=== PATIENT | male | born 1970 | race Caucasian/White ===

== ENCOUNTER → 2017-09-03 13:56 | Outpatient (CLI) | payer OTHER, SELFPAY ==
--- NOTE | 2017-09-03 15:27 | NEURO ---
NCS and/or EMG Patient Report Ordering Doctor: Poonam Houston DATE OF SERVICE: 09/03/17 Alfred Jeronimo is a 47-year-old male who presents for electrodiagnostic testing of the upper limbs. He has chief complaint of numbness and tingling around the elbows. Electrodiagnostic findings: Median motor nerve demonstrates normal distal latency, amplitude and conduction velocity bilaterally. Normal ulnar motor response bilaterally. Normal median and ulnar F waves. Prolonged right median sensory distal latency is noted along with palmar latency on the right side. On needle EMG, all muscles tested in the upper limbs show no evidence of denervation with normal motor unit action potentials. Electrodiagnostic assessment: This is an abnormal study in the upper limbs. 1. Findings demonstrate right-sided median mononeuropathy. This is consistent with a mild right carpal tunnel syndrome. This, however, does not adequately explain the numbness he notes around the elbows. 2. No electrodiagnostic evidence is noted for ulnar neuropathy, including cubital tunnel syndrome. 3. No electrodiagnostic evidence is noted for cervical radiculopathy. If there are any further questions, please do not hesitate to contact me.
== END ==
PROVIDERS: Family Provider Family Medicine; PCP Family Medicine; Visit Provider Nurse Practitioner Family
DX: M54.12 Radiculopathy, cervical region (principal)
CPT/HCPCS: 95886; 95912

== ENCOUNTER → 2017-10-02 10:59 | Outpatient (CLI) | payer OTHER, SELFPAY ==
--- NOTE | 2017-10-02 11:04 | RAD_ITS ---
STUDY: X-RAY - LEFT ELBOW REASON FOR EXAM: Male, 47 years old. Left elbow pain TECHNIQUE: 3 view(s) of the elbow. COMPARISON: None. FINDINGS: Normal visualized humerus, radius and ulna. Normal radiocapitellar and ulnotrochlear articulations. There is a small crescentic calcification adjacent to the medial humeral epicondyle which may represent evidence of medial epicondylitis. There is no demonstrated fracture. RAD/Elbow min 3 Views IMPRESSION: Small crescentic calcification adjacent to the medial humeral epicondyle which may represent evidence of medial epicondylitis. There is no evidence of fracture or dislocation. Electronically Signed: Candelario Kulkarni MD at 21:54 EDT , Service support ,
== END ==
LOC: MTRAD 11:02
PROVIDERS: Visit Provider Nurse Practitioner Family
DX: M25.522 Pain in left elbow (principal)
CPT/HCPCS: 73080

== ENCOUNTER 2019-02-22 15:44 | Observation (INO) | payer OTHER, SELFPAY ==
[2019-02-22] VITALS (7 sets, daily range): BP systolic 127–159; BP diastolic 84–106; PULSE 63–102; RESP 16–26; TEMP 36.7–36.8; O2SAT 95–97; BMI 39.2; BMI 39.4
--- NOTE | 2019-02-22 16:00 | EKG12_ITS ---
Test Reason : CHEST PAIN Blood Pressure : / mmHG Vent. Rate : 064 BPM Atrial Rate : 064 BPM P-R Int : 154 ms QRS Dur : 096 ms QT Int : 390 ms P-R-T Axes : 041 013 040 degrees QTc Int : 402 ms Normal sinus rhythm Normal ECG Confirmed by MEGGAN JOHNSON, JESSICA ([id number]), tape editor JOSIAH PRASAD ([id number]) on 02/24/2019 2:13:00 PM Referred By: ROBSON Confirmed By:JESSICA BRODERICK MD
--- NOTE | 2019-02-22 16:07 | RAD_ITS ---
STUDY: X-RAY CHEST REASON FOR EXAM: Male, 48 years old. Chest pain TECHNIQUE: Frontal view of the chest COMPARISON: None. FINDINGS: The lungs are clear. There are no pleural effusions. There is no pneumothorax. The heart is normal in size. The visualized osseous structures are within normal limits. RAD/Chest 1 View (Portable) IMPRESSION: No acute thoracic pathology. Electronically Signed: Nathanael Leroy, at 16:21 EDT Tel , Service support ,
[2019-02-22] MEDS: Morphine 4 MG/ML Syringe IV (16:14)
[2019-02-22] MEDS: Ondansetron 4 MG/2 ML Vial IV (16:14)
--- NOTE | 2019-02-22 16:17 | ED.VISSUMM ---
- ER Visit Summary Date of Service: 02/22/19 Chief Complaint: Chest pain History of Present Illness: The patient is a 48 M presenting with chest pain. Patient states this started 1 hour prior to arrival. He complains of midsternal chest pain which radiates to his left arm. He has associated diaphoresis, lightheadedness, and shortness of breath. He has never had these symptoms in the past. Currently pain is 1 out of 10. At worst it was 8 out of 10. He has history of hypertension, diet-controlled diabetes. Family history of his grandfather having [place] at age 40. He is a previous smoker. Denies other complaints. Physical Examination: Vitals are stable. Patient is afebrile. Alert no acute distress. HEENT exam is unremarkable. Neck is supple. Lungs are clear and equal bilaterally. Heart is regular rate and rhythm. Abdomen is soft nontender nondistended. Extremities are unremarkable. Skin is warm and dry. No focal neurologic deficit. Remainder of exam is unremarkable. Emergency Department Course and Treatment: Patient was given aspirin on arrival. EKG is sinus rhythm rate of 89 with no acute ischemic changes. He was given morphine, Zofran IV. CBC, chemistries unremarkable other than glucose 160, BUN 26. Troponin is negative. D-dimer negative. Chest x-ray shows no acute process. Patient is pain-free on reevaluation. Discussed with the hospitalist for observation. Disposition: Observation Impression: Chest pain This note was generated with [employer] dictation software. It may contain incorrect words, spelling, and punctuation that were not noted in review of the chart prior to signing ED Disposition - Plan for ED Patient: Referrals: Yuli Rosas [Primary Care Provider] -
[2019-02-22 16:28] LABS: Absolute Lymphocyte Count 2.28 X10^3/uL (0.83-4.51); Absolute Neutrophil Count 6.7 X10^3/uL (2.0-7.7); Basophil# 0.03 X10^3/uL; Basophil% 0.3 % (0-1); Eosinophil# 0.21 X10^3/uL; Eosinophils% 2.1 % (0-5); Hematocrit 42.7 % (40-54); Hemoglobin 14.2 g/dL (13.0-16.5); Lymphocyte # 2.28 X10^3/ul (4.0); Lymphocyte % 22.7 % (19-41); Mean Corp Hgb Conc 33.3 g/dL (32-36); Mean Corpuscular Hgb 29.3 pg (27.0-32.0); Mean Platelet Vol. 10.2 fl (6.2-12.0); Monocyte# 0.81 X10^3/uL; Monocyte% 8.1 % (0-10); NRBC Flagged by Analyzer 0 % (0-5); Neutrophil % 66.5 % (47-70); Platelet Count 262 K/mm3 (150-450); RBC Distribution Width CV 13.3 % (11.6-14.6); RBC Distribution Width SD 42.9 fl (35.1-43.9); Red Blood Count 4.85 M/mm3 (4.6-6.2); White Blood Count 10.1 K/mm3 (4.4-11.0)
[2019-02-22 16:37] LABS: D-Dimer Quantitative (DVT/PE) < 0.27 FEU/ug/m (0.27-0.49)
[2019-02-22 16:40] LABS: Anion Gap 5 (5-15); BUN 26 mg/dL (7-18); Calcium,Total 9.2 mg/dL (8.5-10.1); Chloride 109 mmol/L (98-107); EST Glomerular Filtration Rate 62 mL/min (>60); Est Glom Filt Rate - Afr Amer 75 mL/min (>60); Estimated Creatinine Clearance 70.19 ml/min; Glucose 160 mg/dL (74-106); Potassium 3.8 mmol/L (3.5-5.1); Sodium Level 140 mmol/L (136-145)
--- NOTE | 2019-02-22 17:05 | PCM.HP.STD ---
Problem List (1) HTN (hypertension) Status: Chronic (2) Prediabetes Status: Chronic (3) Obesity Status: Chronic (4) History of tobacco use Status: Resolved (5) Cystic acne Status: Chronic Comment: History of MRSA History of Present Illness Date of Admission: 02/22/19 Chief Complaint: Chest pain. The patient is a 48 year old M who presents to the emergency room due to chest pain. 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 He states it felt like someone was squeezing his chest and he also developed shortness of breath, diaphoresis and lightheadedness. His reports chest pain 8/10 at that time. His symptoms persisted until he received nitro in the emergency squad which decreased his pain. He reports pain radiated down left arm. During evaluation in ER, his pain began to come back and he reports 6/10 pain. He is a former smoker and quit over a year ago. He reports his grandfather had a heart attack at age 40 and his father passed from heart disease in his 60s. He has never had a stress test or other cardiac work-up. He states he is prediabetic although he has never had a hemoglobin A1c and his glucose has been routinely elevated during employee physical lab work. His other past medical history includes hypertension, cystic acne with history of MRSA and alcohol use. He reports he currently drinks 3 beers per day during the week, more heavily on the weekend. Past Medical History Past Medical History (Chronic Problems): Chronic Problems HTN (hypertension) (Chronic) Prediabetes (Chronic) Obesity (Chronic) Cystic acne (Chronic) History of MRSA Allergies No Known Allergies Allergy (Verified 02/22/19 15:44) Home Medications: Ambulatory Orders Medication Instructions Recorded Acetaminophen [Tylenol Extra 1,000 mg PO DAILY 02/22/19 Strength] Diphenhydramine HCl [Benadryl 25 mg PO QHS 02/22/19 Allergy] Losartan Potassium [Cozaar] 100 mg PO DAILY 02/22/19 Surgical History: - - Back surgery x2, cyst removal, tonsillectomy. Psychiatric History: No pertinent psych hx Lives: Spouse/ Significant Other Smoking Status: Former smoker Alcohol: Heavy Drugs: None - *Family History Maternal History Items: Diabetes, Hypertension Paternal History Items: Diabetes, - - from [place] in 60s Review of Systems Constitutional: Denies: Chills, Fever, Weight Change HEENT: Denies: Head Aches, Sinus Congestion, Sinus Drainage Cardiovascular: Reports: Chest Pain, Light Headedness. Denies: Edema, Palpitations, Syncope Respiratory: Reports: Shortness of Breath - Associated with chest pain. Denies: Cough, Shortness of breath at rest, Sputum production Gastrointestinal: Denies: Abdominal Pain, Nausea, Vomiting Genitourinary: Denies: Dysuria Musculoskeletal: Denies: Joint Pain, Joint Tenderness Skin: Denies: Rash, Wounds Neurological: Denies: Numbness, Tingling, Focal weakness Psychiatric: Denies: Anxiety, Depression, Homicidal Ideations, Suicidal Ideations Hematologic/ Lymphatic: Denies: Easy Bruising, Easy Bleeding VTE Information - Inpt Only VTE Present on Admission: No VTE Mechan Device Prophylaxis: None VTE Pharm Prophylaxis ordered?: Yes - Physical Exam General: Alert, Oriented x3, Cooperative, - - Appears anxious, uncomfortable HEENT: Atraumatic, PERRLA, EOMI, Normocephalic Neck: Supple, No JVD, Negative Carotid Bruits Lungs: Clear to auscultation, Normal air movement Cardiovascular: Regular rate, Regular Rhythm, Normal S1, Normal S2, No murmurs Abdomen: Bowel Sounds Present, Soft, Non Tender, Non-Distended, Obese Extremities: No clubbing, No cyanosis, No edema, Capillary Refill Less than 3 Seconds Skin: No rashes, No breakdown Musculoskeletal: No Tenderness to Palpation of Joints or Extremities Neurological: Cranial nerves II-XII grossly intact, Neuro grossly intact Psych/Mental Status: Anxious Vital Signs Temp Pulse Resp BP Pulse Ox 98.3 F 76 16 143/106 H 97 02/22/19 15:45 02/22/19 16:44 02/22/19 16:44 02/22/19 16:44 02/22/19 16:44 Oxygen Flow Rate (L/min) 2 Oxygen Delivery Method Nasal Cannula Weight: 272 lb 14.916 oz Body Mass Index (BMI) 39.2 Laboratory Tests Past 24 Hrs 02/22/19 02/22/19 02/22/19 15:48 15:48 15:48 WBC 10.1 RBC 4.85 Hgb 14.2 Hct 42.7 MCV 88.0 MCH 29.3 MCHC 33.3 RDW Std Deviation 42.9 RDW Coeff of Pedro 13.3 Plt Count 262 MPV 10.2 Immature Gran % (Auto) 0.300 Neut % (Auto) 66.5 Lymph % (Auto) 22.7 [place] % (Auto) 8.1 Eos % (Auto) 2.1 Baso % (Auto) 0.3 Absolute Neuts (auto) 6.7 Absolute Lymphs (auto) 2.28 Nucleated RBC % 0 D-Dimer Quant (PE/DVT) < 0.27 L Sodium 140 Potassium 3.8 Chloride 109 H Carbon Dioxide 26.0 Anion Gap 5 BUN 26 H Creatinine 1.30 Estim Creat Clear Calc 70.19 Est GFR (MDRD) Af Amer 75 Est GFR (MDRD) Non-Af 62 BUN/Creatinine Ratio 20.0 Glucose 160 H Calcium 9.2 Troponin I < 0.015 Assessment/Plan All Active Problems History of tobacco use (Resolved) 1. Unstable angina-initial troponin negative. EKG without ST-T changes. Trend enzymes. PRN nitro. Consult cardiology. Plan for cardiac catheterization tomorrow. 2. Hypertension-continue home losartan regimen. PRN hydralazine for systolic blood pressure greater than 160. 3. Prediabetic? Glucose elevated admission. Check hemoglobin A1C. 4. Alcohol use-patient reports 3 drinks per day during the week, more on weekends. CIWA. 5. Cystic acne with history of MRSA 6. Former tobacco use-quit over a year ago. Encouraged continued cessation. 7. Obesity-encouraged diet lifestyle modifications. Nutrition consult. DVT prophylaxis- Lovenox sc This patient was seen by HANNY Sweeney under the supervision of Dr. Bansal.
--- NOTE | 2019-02-22 17:15 | EKG12_ITS ---
Test Reason : CP Blood Pressure : / mmHG Vent. Rate : 089 BPM Atrial Rate : 089 BPM P-R Int : 158 ms QRS Dur : 096 ms QT Int : 356 ms P-R-T Axes : 039 -01 052 degrees QTc Int : 433 ms Poor data quality, interpretation may be adversely affected Normal sinus rhythm Normal ECG Low Voltage QRS (Limb Leads) Confirmed by MEGGAN JOHNSON, JESSICA ([id number]), copy editor JOSIAH PRASAD ([id number]) on 02/24/2019 2:13:35 PM Referred By: JORDANA Confirmed By:JESSICA BRODERICK MD
[2019-02-22] MEDS: Clopidogrel Bisulfate 300 MG Tablet PO (17:41)
--- NOTE | 2019-02-22 17:41 | CON.PCM_ITS ---
Reason for Consult Date of Consultation: 02/22/19 Reason for Consultation: Chest pain History of Present Illness: The patient is a 48 year old M who presents to the emergency room due to chest pain. 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 He states it felt like someone was squeezing his chest and he also developed shortness of breath, diaphoresis and lightheadedness. His reports chest pain 8/10 at that time. His symptoms persisted until he received nitro in the emergency squad which decreased his pain. He reports pain radiated down left arm. During evaluation in ER, his pain began to come back and he reports 6/10 pain. Repeat EKG did not demonstrate any significant changes. He is a former smoker and quit over a year ago. He reports his grandfather had a heart attack at age 40 and his father passed from heart disease in his 60s. He has never had a stress test or other cardiac work-up. He states he is prediabetic although he has never had a hemoglobin A1c and his glucose has been routinely elevated during employee physical lab work. His other past medical history includes hypertension, cystic acne with history of MRSA and alcohol use. He reports he currently drinks 3 beers per day during the week, more heavily on the weekend. Cardiology was called to see him due to his risk factors and his chest pain corrected. He was seen in the emergency room and his EKG evaluated. Past Medical History Allergies/Adverse Reactions: Allergies No Known Allergies Allergy (Verified 02/22/19 15:44) Home Medications: Ambulatory Orders Medication Instructions Recorded Acetaminophen [Tylenol Extra 1,000 mg PO DAILY 02/22/19 Strength] Diphenhydramine HCl [Benadryl 25 mg PO QHS 02/22/19 Allergy] Losartan Potassium [Cozaar] 100 mg PO DAILY 02/22/19 Past Medical History (Chronic Problems): Chronic Problems HTN (hypertension) (Chronic) Prediabetes (Chronic) Obesity (Chronic) Cystic acne (Chronic) History of MRSA Lives: Spouse/ Significant Other Smoking Status: Never smoker Alcohol: Heavy Drugs: None Review of Systems - Review of Systems General: Denies: Fever, Night Sweats, Fatigue HEENT: Denies: Vision Change Cardiovascular: Reports: Chest Discomfort, Chest Discomfort at Rest, Chest Discomfort with Exertion. Denies: Shortness of Breath, Orthopnea, PND, Peripheral Edema, Palpitations, Lightheadedness, Dizziness, Near Syncope, Syncope Respiratory: Denies: Cough, Sputum Production, Hemoptysis Gastrointestinal: Denies: Hematemesis, Hematochezia, Melena Genitourinary: Denies: Dysuria, Hematuria Muscoloskeletal: Denies: Myalgias Skin: Denies: Rash Neurological: Denies: Dizziness Psychiatric: Denies: Anxiety Endocrine: Denies: Heat Intolerance Hematologic/ Lymphatic: Denies: Lymph Node Enlargement Subjectve: Pleasant anxious gentleman in no distress Objective: Vital Signs Temp Pulse Resp BP Pulse Ox 98.3 F 76 16 143/106 H 97 02/22/19 15:45 02/22/19 16:44 02/22/19 16:44 02/22/19 16:44 02/22/19 16:44 Oxygen Flow Rate (L/min) 2 Oxygen Delivery Method Nasal Cannula Weight: 272 lb 14.916 oz Body Mass Index (BMI) 39.2 General: Awake, Alert, Oriented x 3 HEENT: PERRL, EOMI, Sclera Non Icteric Neck: Supple, Good ROM, No Lymph Node Enlargement Lungs: Clear to auscultation Cardiovascular: Regular Rhythm, Normal S1, Normal S2, No Murmurs, No Rubs, No Gallops Vascular: No Carotid Bruits, Normal Femoral Pulses, Normal Radial Pulses, Normal Dorsalis Pedal Pulse, Normal Posterior Tibial Pulses Abdomen: Bowel Sounds Present, Soft, Non Tender, No HSM, No Organomegaly Extremities: No Cyanosis, No Clubbing, No edema Musculoskeletal: No Erythema Skin: No Rashes Lymphatic: No Lymph Node Enlargement Neurological: No Focal Motor or Sensory Deficit Psych/Mental Status: Appropriate 02/22/19 15:48: WBC 10.1, RBC 4.85, Hgb 14.2, Hct 42.7, MCV 88.0, MCH 29.3, MCHC 33.3, Plt Count 262, MPV 10.2, Immature Gran % (Auto) 0.300, Neut % (Auto) 66.5, Lymph % (Auto) 22.7, [place] % (Auto) 8.1, Eos % (Auto) 2.1, Baso % (Auto) 0.3, Absolute Neuts (auto) 6.7, Nucleated RBC % 0 02/22/19 15:48: Sodium 140, Potassium 3.8, Chloride 109 H, Carbon Dioxide 26.0, Anion Gap 5, BUN 26 H, Creatinine 1.30, Est GFR (MDRD) Af Amer 75, Est GFR (MDRD) Non-Af 62, BUN/Creatinine Ratio 20.0, Glucose 160 H, Calcium 9.2, Troponin I < 0.015 02/22/19 15:48: D-Dimer Quant (PE/DVT) < 0.27 L Rhythm: EKG: Normal sinus rhythm with no acute changes Assessment/Plan 1. Chest pain. Patient presents with chest pain with some atypical features. My recommendation at this time will be for him to be placed into the hospital and treated with aspirin and clopidogrel and cardiac enzymes obtained. He does have a very strong family history and with his risk factor profile and drug profile it may be prudent to proceed with a cardiac catheterization rather than stress testing. He also appears to have a strong anxiety component. This may cloud interpretation of any subjective complaints. The risk benefits alternatives have been explained to him he understands and agrees to proceed this was in the presence of his . Depending on the findings further recommendations will be made. Thank you for allowing me to participate in the care of your patient. Please don't hesitate to call if any issues arise
[2019-02-22] MEDS: Enoxaparin 120 MG/0.8 ML Syringe SC (18:15)
[2019-02-22 18:29] LABS: Phosphorus 2.8 mg/dL (2.5-4.9)
[2019-02-22 18:35] LABS: Hemoglobin A1c 6.7 % (4.2-6.3)
[2019-02-22] MEDS: Atorvastatin Calcium 40 MG Tablet PO (22:41)
[2019-02-23] VITALS (11 sets, daily range): BP systolic 111–134; BP diastolic 48–97; PULSE 58–69; RESP 16–18; TEMP 36.6–36.7; O2SAT 95–97
--- NOTE | 2019-02-23 05:55 | EKG12_ITS ---
Test Reason : AM EKG Blood Pressure : / mmHG Vent. Rate : 065 BPM Atrial Rate : 065 BPM P-R Int : 160 ms QRS Dur : 100 ms QT Int : 416 ms P-R-T Axes : 056 044 044 degrees QTc Int : 432 ms Normal sinus rhythm with sinus arrhythmia Normal ECG Confirmed by MEGGAN JOHNSON, JESSICA ([id number]), desk editor JOSIAH PRASAD ([id number]) on 02/24/2019 2:23:15 PM Referred By: DR FLEMING Confirmed By:JESSICA BRODERICK MD
[2019-02-23 06:10] LABS: Cholesterol 179 mg/dL (200); High Density Lipoprotein 38 mg/dL; Triglycerides 200 mg/dL; Very Low Density Lipoprotein 40 mg/dL (5-40)
[2019-02-23] MEDS: Clopidogrel Bisulfate 75 MG Tablet PO (06:21)
[2019-02-23] MEDS: Losartan Potassium 100 MG Tablet PO (06:21)
[2019-02-23] MEDS: 0.9% Normal Saline 1,000 ML 15 ML IV (06:21)
[2019-02-23] MEDS: Aspirin E.C. 81 MG Tablet PO (06:21)
--- NOTE | 2019-02-23 07:46 | NURSING ---
report given to jovanny albright in microbiology lab analyst
--- NOTE | 2019-02-23 08:49 | PCM.PN.CARD ---
Subjectve: Seen and evaluated. Objective: Vital Signs Temp Pulse Resp BP Pulse Ox 97.8 F 69 18 134/89 H 95 02/23/19 06:10 02/23/19 06:10 02/23/19 06:10 02/23/19 06:10 02/23/19 06:10 Oxygen Flow Rate (L/min) 2 Oxygen Delivery Method Room Air Weight: 274 lb 14.663 oz Body Mass Index (BMI) 39.4 Intake and Output for Last 24 Hours 02/21/19 02/22/19 02/23/19 23:59 23:59 23:59 Intake Total 120 / 120 240 / 240 Balance 120 / 120 240 / 240 General: Awake, Alert, Oriented x 3 HEENT: PERRL, EOMI, Sclera Non Icteric Neck: Supple, Good ROM, No Lymph Node Enlargement Lungs: Clear to auscultation Cardiovascular: Regular Rhythm, Normal S1, Normal S2, No Murmurs, No Rubs, No Gallops Vascular: No Carotid Bruits, Normal Femoral Pulses, Normal Radial Pulses, Normal Dorsalis Pedal Pulse, Normal Posterior Tibial Pulses Abdomen: Bowel Sounds Present, Soft, Non Tender, No HSM, No Organomegaly Extremities: No Cyanosis, No Clubbing, No edema Musculoskeletal: No Erythema Skin: No Rashes Lymphatic: No Lymph Node Enlargement Neurological: No Focal Motor or Sensory Deficit Psych/Mental Status: Appropriate 02/22/19 15:48: WBC 10.1, RBC 4.85, Hgb 14.2, Hct 42.7, MCV 88.0, MCH 29.3, MCHC 33.3, Plt Count 262, MPV 10.2, Immature Gran % (Auto) 0.300, Neut % (Auto) 66.5, Lymph % (Auto) 22.7, [place] % (Auto) 8.1, Eos % (Auto) 2.1, Baso % (Auto) 0.3, Absolute Neuts (auto) 6.7, Nucleated RBC % 0 02/22/19 15:48: Sodium 140, Potassium 3.8, Chloride 109 H, Carbon Dioxide 26.0, Anion Gap 5, BUN 26 H, Creatinine 1.30, Est GFR (MDRD) Af Amer 75, Est GFR (MDRD) Non-Af 62, BUN/Creatinine Ratio 20.0, Glucose 160 H, Calcium 9.2, Troponin I < 0.015 02/22/19 15:48: D-Dimer Quant (PE/DVT) < 0.27 L 02/22/19 15:48: Hemoglobin A1c 6.7 H 02/22/19 15:48: Phosphorus 2.8 02/22/19 18:55: Troponin I < 0.015 02/22/19 22:00: Troponin I < 0.015 02/23/19 05:30: Triglycerides 200 H, Cholesterol 179, LDL Cholesterol 101, VLDL Cholesterol 40, HDL Cholesterol 38 L Rhythm: EKG: ECHO: Stress Test: Cardiac Cath: PCI: CT Surgery: Holter monitor: EPS: PPM: CXR: Chest CT Scan: Medical Necessity - Tobacco Use Smoking Status: Former smoker Tobacco Use: Cigarettes Assessment/Plan 1. Chest pain. Patient presents with chest pain with some atypical features. He underwent cardiac catheterization today which demonstrated essentially normal coronary arteries with preserved ejection fraction. Based on the above I would recommend medical therapy for his hypertension as well as a search for alternative causes. He can be discharged and followed up as an outpatient with his primary care physician. Thank you for allowing me to participate in the care of your patient. Please don't hesitate to call if any issues arise
--- NOTE | 2019-02-23 09:03 | CASEMGMT ---
Case Management Progress Note: According to patient Insurance [employer], In [facility] hospitals: [facility], [place], , [facility], [facility], [facility]. Deandre Machado RNCM
--- NOTE | 2019-02-23 11:02 | PCM.DC ---
- Discharge Diagnoses Current Active Problems: Current Active and Chronic Problems HTN (hypertension) (Chronic) Type 2 diabetes mellitus Obesity (Chronic) Cystic acne (Chronic) History of MRSA You will use the following diet at home:: Calorie/Carbohydrate Controlled (specify 1200, 1400, etc) Discharge Activity: Return to Normal Activity Call your doctor if you observe: Shortness of breath, Dizziness, Fainting spells Allergies/Adverse Reactions: Allergies No Known Allergies Allergy (Verified 02/22/19 15:44) Medications to take at Discharge Acetaminophen [Tylenol Extra Strength] 1,000 mg PO DAILY 02/22/19 Diphenhydramine HCl [Benadryl Allergy] 25 mg PO QHS 02/22/19 Losartan Potassium [Cozaar] 100 mg PO DAILY 02/22/19 metFORMIN (XR) [Glucophage Xr] 500 mg PO DAILY #30 tab 02/23/19 The following prescriptions were given: metFORMIN (XR) [Glucophage Xr] 500 mg PO DAILY #30 tab Transmission Status: Pending to [facility] [facility] Primary Care Physician: Yuli Rosas [Primary Care Provider] - Please follow up with your Primary Care Physician in: 1 Week Test Results: Test results from this visit will be discussed in further detail at your follow-up appointment, if applicable.
--- NOTE | 2019-02-23 11:04 | PCM.DC.SUM ---
<Erika Cano - Last Filed: 02/23/19 11:13> Discharge Date and Diagnosis Date of Admission: 02/22/19 Date of Discharge: 02/23/19 - Primary Discharge Diagnosis 1. Noncardiac chest pain, ACS ruled out 2. Hypertension 3. Type 2 diabetes mellitus 4. Alcohol dependence 5. Cystic acne with history of MRSA 6. Former tobacco use 7. Obesity - Secondary Discharge Diagnosis Chronic Problems HTN (hypertension) (Chronic) Prediabetes (Chronic) Obesity (Chronic) Cystic acne (Chronic) History of MRSA Hospital Course and Treatment Imaging Results: Diagnostic Data Chest X-Ray 02/22/19 16:07 IMPRESSION: No acute thoracic pathology. Electronically Signed: Nathanael Leroy, at 16:21 EDT Tel , Service support , Dr. Buckner- Cardiology Operations: None Procedures: Cardiac catheterization Summary of Care Provided: The patient is a 48 year old M admitted 02/22/2019 due to chest pain. 1. Noncardiac chest pain, ACS ruled out-troponin negative. EKG without ST-T changes. Patient underwent cardiac catheterization which demonstrated normal coronary arteries. Follow-up with primary care provider in 1 week. 2. Hypertension-continue home losartan regimen. Blood pressure stable. 3. Type 2 diabetes mellitus, new diagnosis-hemoglobin A1c 6.7%. Initiated on metformin XR 500 mg daily. Recommend repeat hemoglobin A1c by primary care provider. 4. Alcohol use-patient reports 3 drinks per day during the week, more on weekends. Recommended reduction in alcohol intake. 5. Cystic acne with history of MRSA 6. Former tobacco use-quit over a year ago. Encouraged continued cessation. Recommend outpatient PFTs given patient reports 35-year history of smoking. 7. Obesity-encouraged diet lifestyle modifications. 8. Borderline lipid panel-patient does not want to take medication. Dietary modifications. Recommend repeat lipid profile as outpatient. General: Alert, Oriented x3, no apparent distress HEENT: Atraumatic, PERRLA, EOMI, Normocephalic Neck: Supple, No JVD, Negative Carotid Bruits Lungs: Clear to auscultation, Normal air movement Cardiovascular: Regular rate, Regular Rhythm, Normal S1, Normal S2, No murmurs Abdomen: Bowel Sounds Present, Soft, Non Tender, Non-Distended, Obese Extremities: No clubbing, No cyanosis, No edema, Capillary Refill Less than 3 Seconds Skin: No rashes, No breakdown Musculoskeletal: No Tenderness to Palpation of Joints or Extremities Neurological: Cranial nerves II-XII grossly intact, Neuro grossly intact Psych/Mental Status: Appropriate, normal affect Patient seen and examined prior to discharge. Physical assessment as noted above. Patient is stable for discharge with follow up recommendations as noted above. This patient was seen by HANNY Sweeney under the supervision of Dr. Díaz. - Physical Exam Vital Signs Temp Pulse Resp BP Pulse Ox 98.1 F 64 16 116/68 97 02/23/19 10:00 02/23/19 10:25 02/23/19 10:25 02/23/19 10:25 02/23/19 10:25 Oxygen Flow Rate (L/min) 2 Oxygen Delivery Method Room Air Weight: 274 lb 14.663 oz Body Mass Index (BMI) 39.4 Intake and Output for Last 24 Hours 02/21/19 02/22/19 02/23/19 23:59 23:59 23:59 Intake Total 120 / 120 240 / 240 Balance 120 / 120 240 / 240 Laboratory Tests Past 24 Hrs 02/22/19 02/22/19 02/22/19 15:48 15:48 15:48 WBC 10.1 RBC 4.85 Hgb 14.2 Hct 42.7 MCV 88.0 MCH 29.3 MCHC 33.3 RDW Std Deviation 42.9 RDW Coeff of Pedro 13.3 Plt Count 262 MPV 10.2 Immature Gran % (Auto) 0.300 Neut % (Auto) 66.5 Lymph % (Auto) 22.7 [place] % (Auto) 8.1 Eos % (Auto) 2.1 Baso % (Auto) 0.3 Absolute Neuts (auto) 6.7 Absolute Lymphs (auto) 2.28 Nucleated RBC % 0 D-Dimer Quant (PE/DVT) < 0.27 L Sodium 140 Potassium 3.8 Chloride 109 H Carbon Dioxide 26.0 Anion Gap 5 BUN 26 H Creatinine 1.30 Estim Creat Clear Calc 70.19 Est GFR (MDRD) Af Amer 75 Est GFR (MDRD) Non-Af 62 BUN/Creatinine Ratio 20.0 Glucose 160 H Hemoglobin A1c Calcium 9.2 Phosphorus Troponin I < 0.015 Triglycerides Cholesterol LDL Cholesterol VLDL Cholesterol HDL Cholesterol 02/22/19 02/22/19 02/22/19 15:48 15:48 18:55 WBC RBC Hgb Hct MCV MCH MCHC RDW Std Deviation RDW Coeff of Pedro Plt Count MPV Immature Gran % (Auto) Neut % (Auto) Lymph % (Auto) [place] % (Auto) Eos % (Auto) Baso % (Auto) Absolute Neuts (auto) Absolute Lymphs (auto) Nucleated RBC % D-Dimer Quant (PE/DVT) Sodium Potassium Chloride Carbon Dioxide Anion Gap BUN Creatinine Estim Creat Clear Calc Est GFR (MDRD) Af Amer Est GFR (MDRD) Non-Af BUN/Creatinine Ratio Glucose Hemoglobin A1c 6.7 H Calcium Phosphorus 2.8 Troponin I < 0.015 Triglycerides Cholesterol LDL Cholesterol VLDL Cholesterol HDL Cholesterol 02/22/19 02/23/19 22:00 05:30 WBC RBC Hgb Hct MCV MCH MCHC RDW Std Deviation RDW Coeff of Pedro Plt Count MPV Immature Gran % (Auto) Neut % (Auto) Lymph % (Auto) [place] % (Auto) Eos % (Auto) Baso % (Auto) Absolute Neuts (auto) Absolute Lymphs (auto) Nucleated RBC % D-Dimer Quant (PE/DVT) Sodium Potassium Chloride Carbon Dioxide Anion Gap BUN Creatinine Estim Creat Clear Calc Est GFR (MDRD) Af Amer Est GFR (MDRD) Non-Af BUN/Creatinine Ratio Glucose Hemoglobin A1c Calcium Phosphorus Troponin I < 0.015 Triglycerides 200 H Cholesterol 179 LDL Cholesterol 101 VLDL Cholesterol 40 HDL Cholesterol 38 L Discharge Diet: Low fat/ Low Cholesterol, 1800 Calorie Control Diet, Carb Control Diet Discharge Activity: Return to Normal Activity Call your doctor if you observe: Shortness of breath, Dizziness, Fainting spells Home Medications: Medications to take at Discharge Acetaminophen [Tylenol Extra Strength] 1,000 mg PO DAILY 02/22/19 Diphenhydramine HCl [Benadryl Allergy] 25 mg PO QHS 02/22/19 Losartan Potassium [Cozaar] 100 mg PO DAILY 02/22/19 metFORMIN (XR) [Glucophage Xr] 500 mg PO DAILY #30 tab 02/23/19 Following Prescrptions Were Given to Patient: metFORMIN (XR) [Glucophage Xr] 500 mg PO DAILY #30 tab Transmission Status: Received by JONATHON PATTEN [facility] Primary Care Physician: Yuli Rosas [Primary Care Provider] - Please follow up with your Primary Care Physician in: 1 Week Disposition: Home Minutes spent on discharge:: 35 Patient Condition:: Stable Medical Necessity - Tobacco Use Smoking Status: Former smoker Tobacco Use: Cigarettes Meaningful Use Info Meaningful Use Diagnoses (Choose all that apply): None applicable <Makayla Díaz - Last Filed: 02/24/19 08:14> Discharge Date and Diagnosis - Secondary Discharge Diagnosis Chronic Problems HTN (hypertension) (Chronic) Prediabetes (Chronic) Obesity (Chronic) Cystic acne (Chronic) History of MRSA Hospital Course and Treatment Summary of Care Provided: This patient was seen in conjunction with Erika Cano NP. I have independently interviewed and examined the patient and reviewed pertinent historical, laboratory, and other data. Please refer to her note for patient's presentation, findings, and recommendations. 48-year-old female with past medical history of hypertension, obesity, anxiety/depression who was admitted with chest pain that radiates to the left upper extremity associated with diaphoresis, dyspnea on exertion and lightheadedness. His EKG showed no acute ST-T changes. He was admitted to the telemetry floor. His management was that of unstable angina. He received therapeutic Lovenox. Cardiology was consulted. Troponins were cycled and remained negative. His HbA1c was 6.7 patient underwent cardiac cath that was negative. Patient continued to complain of chest discomfort at the time of discharge. His vitals were stable during his hospital stay. He will follow-up with cardiology in the outpatient. He was started on metformin at discharge. He was given diabetic education. He was asked to limit his use of alcohol. Physical Exam: General: Alert, Oriented x3, no apparent distress HEENT: Atraumatic, PERRLA, EOMI, Normocephalic Neck: Supple, No JVD, Negative Carotid Bruits Lungs: Clear to auscultation, Normal air movement Cardiovascular: Regular rate, Regular Rhythm, Normal S1, Normal S2, No murmurs Abdomen: Bowel Sounds Present, Soft, Non Tender, Non-Distended, Obese Extremities: No clubbing, No cyanosis, No edema, Capillary Refill Less than 3 Seconds Skin: No rashes, No breakdown Musculoskeletal: No Tenderness to Palpation of Joints or Extremities Neurological: Cranial nerves II-XII grossly intact, Neuro grossly intact Psych/Mental Status: Appropriate, normal affect - Physical Exam Vital Signs Temp Pulse Resp BP Pulse Ox 97.9 F 67 18 116/78 97 02/23/19 11:55 02/23/19 11:55 02/23/19 11:55 02/23/19 11:55 02/23/19 11:55 Oxygen Flow Rate (L/min) 2 Oxygen Delivery Method Room Air Weight: 124.7 kg Body Mass Index (BMI) 39.4 Intake and Output for Last 24 Hours 02/22/19 02/23/19 02/24/19 23:59 23:59 23:59 Intake Total 120 / 120 720 / 720 Output Total 400 / 400 Balance 120 / 120 320 / 320 Code Visit OBSV E&M: 53959 Observation care discharge
--- NOTE | 2019-02-23 11:58 | PHA.DC.MC ---
Pharmacy Service has performed discharge medication reconciliation and counseling for this patient. The patient's discharge medication list was reviewed for discrepancies and discrepancies were resolved. The patient was counseled on the following discharge medications and changes in medications for homegoing were reviewed. 1. METFORMIN 500MT PO DAILYCM The Reason for Use, instructions for use, and potential side effects were reviewed for all new medications. The patient's questions regarding all of their medications were answered. The patient was able to verbally demonstrate an understanding of their discharge medications. Home Medications Acetaminophen [Tylenol Extra Strength] 1,000 mg PO DAILY 02/22/19 Diphenhydramine HCl [Benadryl Allergy] 25 mg PO QHS 02/22/19 Losartan Potassium [Cozaar] 100 mg PO DAILY 02/22/19 metFORMIN (XR) [Glucophage Xr] 500 mg PO DAILY #30 tab 02/23/19
--- NOTE | 2019-03-04 09:58 | CL.D_ITS ---
Patient Name: SHELLY COULTER Study Date: 02/23/2019 Performing: Dario Buckner MD Ht: 70.07 inches 178 cm : 1970 Wt: 275.58 lbs 125 kg Age: 48 Gender: male BSA: 2.39 PROCEDURE(S) PERFORMED [id number]/COR/LV CLINICAL PROFILE AND INDICATIONS Indications: Suspected CAD Heart Failure: None Stress/Imaging Stress/Image Study Performed: No CAD Presentations: Unstable angina. CONCLUSIONS Normal coronary arteries Normal LV size, wall motion,and systolic function RECOMMENDATIONS Medical therapy DESCRIPTION OF PROCEDURE The patient arrived to the procedure lab. The risks and benefits of the procedure as well as a full d escription of our services here and current unavailability of surgical backup were fully explained to the patient and/or their significant other prior to the catheterization. The Timeout was completed, verifying the correct patient and procedure. The patient's procedural site was prepped and draped in the usual fashion. Local anesthetic was given subcutaneously to right groin region with Lidocaine 2%. Using a modified Seldinger technique, arterial access was obtained via the right femoral artery, a 5 Fr sheath was inserted. Left Coronary Artery selective angiography was performed in multiple views u sing a 5 Fr. JL4 catheter. Right Coronary Artery selective angiography was then performed in multiple views using a 5 Fr. 3DRC (Rodo) catheter. Left Ventriculography was performed in MARKS projection using a 5 Fr. Pigtail catheter. LV to AO pullback pressures were then recorded.Contrast was injected through the sheath and the Right Iliac and Femoral artery were assessed for possible lucho sure device.The arterial sheath was pulled and a Mynx closure device was deployed for hemostasis CORONARY ANGIOGRAPHY DOMINANCE: Left Dominant LEFT HEART ASSESSMENT Left Ventricular Ejection Fraction: by LV Gram 60 % Normal LV wall motion Normal Left Ventricular systolic function Normal Left Ventricular systolic function LEFT MAIN: Angiographically normal LEFT ANTERIOR DESCENDING ARTERY: Angiographically normal CIRCUMFLEX ARTERY: Angiographically normal RIGHT CORONARY ARTERY: Angiographically normal COMPLICATIONS No Complications PROCEDURE MEDICATIONS Versed 1 mg IV Oxygen: 2 L/min via nasal cannula SUMMARY OF HEMODYNAMIC DATA Time AIR REST ECG 08:21:03 AO 126/88 (106) SA 08:36:13 LV 116/11, 17 08:41:34 LV 122/13, 16 08:41:39 LVp 141/12, 24 08:42:18 AO 139/89 (111) 08:42:23 Signed By Dario Buckner MD On 02/23/2019 08:55:57 Dario Buckner MD
== END 2019-02-23 13:20 | disposition home or self-care (01) ==
LOC: ED 16:04 → PCU 17:12
PROVIDERS: Nurse Practitioner Family; Admitting Provider Family Medicine; Emergency Provider Emergency Medicine; Family Provider Family Medicine; PCP Family Medicine; Visit Provider Internal Medicine
DX: R07.89 Other chest pain (principal); I10 Essential (primary) hypertension; E11.9 Type 2 diabetes mellitus without complications; L70.0 Acne vulgaris; F10.20 Alcohol dependence, uncomplicated; E66.9 Obesity, unspecified; R06.00 Dyspnea, unspecified; R06.02 Shortness of breath; Z86.14 Personal history of Methicillin resistant Staphylococcus aureus infection; Z87.891 Personal history of nicotine dependence; Z71.3 Dietary counseling and surveillance; Z68.39 Body mass index [BMI] 39.0-39.9, adult; R42 Dizziness and giddiness
CPT/HCPCS: 36415; 71045; 80048; 80061; 83036; 84100; 84484; 85025; 85379; 93005; 93458; 96372; 96374; 96375; 97802; 99152; 99153; 99218; 99285; C1760; J7030; Q9967; A4216; C1769; G0378; J2405

== ENCOUNTER 2020-07-11 07:23 | Observation (INO) | payer OTHER, SELFPAY ==
[2019-02-22 17:57] VITALS: BMI 39.4
[2020-07-11] VITALS (33 sets, daily range): BP systolic 99–155; BP diastolic 60–113; PULSE 58–139; RESP 10–23; TEMP 35.8–36.8; O2SAT 70–100; BMI 40.6; BMI 39.4
--- NOTE | 2020-07-11 07:34 | EKG12_ITS ---
Test Reason : CP Blood Pressure : / mmHG Vent. Rate : 101 BPM Atrial Rate : 214 BPM P-R Int : 000 ms QRS Dur : 090 ms QT Int : 336 ms P-R-T Axes : 000 009 054 degrees QTc Int : 435 ms Atrial fibrillation with rapid ventricular response Abnormal ECG Confirmed by MARY JOHNSON, MARTA ([id number]), manager editorial ERIKA DELATORRE ([id number]) on 07/13/2020 7:30:53 AM Referred By: KEY Confirmed By:MARTA HERNANDEZ MD
--- NOTE | 2020-07-11 07:41 | EKG12_ITS ---
Test Reason : CP Blood Pressure : / mmHG Vent. Rate : 130 BPM Atrial Rate : 163 BPM P-R Int : 000 ms QRS Dur : 090 ms QT Int : 312 ms P-R-T Axes : 000 019 044 degrees QTc Int : 459 ms Atrial fibrillation Abnormal ECG When compared with ECG of 11-JUL-2020 09:51, MANUAL COMPARISON REQUIRED, DATA IS UNCONFIRMED Confirmed by MARY JOHNSON, MARTA ([id number]), editor city JOSIAH PRASAD ([id number]) on 07/12/2020 1:23:30 PM Referred By: DIMAS Confirmed By:MARTA HERNANDEZ MD
--- NOTE | 2020-07-11 07:41 | RAD_ITS ---
STUDY: X-RAY CHEST REASON FOR EXAM: Male, 49 years old. CHEST PAIN TECHNIQUE: Single AP portable view of the chest. COMPARISON: Comparison is made with prior study dated 02/22/2019. FINDINGS: EKG electrodes are seen. Hyperinflation. The lungs are clear. There is no demonstrated pleural abnormality. Normal size heart. Normal mediastinum and celia. Normal visualized pulmonary arteries. Normal visualized aortic arch and descending thoracic aorta. There are diffuse degenerative changes of the visualized thoracic spine. Stable prominence of the right first costochondral junction. There is no demonstrated abnormality of the visualized soft tissue structures of the upper abdomen. RAD/Chest 1 View (Portable) IMPRESSION: Hyperinflation. The lungs are clear. Electronically Signed: Jignesh Rosas MD at 8:22 EST , Service support ,
[2020-07-11] MEDS: dilTIAZem 25 MG/5 ML Vial 10 MG IV BOLUS (07:50)
[2020-07-11] MEDS: Aspirin 81 MG TAB.CHEW 324 MG PO (07:50)
--- NOTE | 2020-07-11 07:50 | ED.VIS.GEN ---
History of Present Illness Chief Complaint: Chest Pain Informant: Patient Onset: Yesterday Timing: Waxes and wanes Current Severity: Mild Maximum Severity: Moderate Narrative: Patient presents secondary to chest pressure and irregular heartbeat. Patient states when he went to bed last evening he felt that his heart started racing and beating irregularly. Has had chest heaviness with some shortness of breath since that time. He denies lightheadedness or dizziness. He denies presyncope. Patient denies any similar symptoms in the past. - Past Medical History (1) Prediabetes Status: Chronic (2) Essential (primary) hypertension Status: Chronic Past Medical History - Allergies and Home Meds Allergies/Adverse Reactions: Allergies No Known Allergies Allergy (Verified 07/11/20 07:24) Prior records reviewed: Yes Surgical History: - - Back surgery x2, cyst removal, tonsillectomy. Lives: Spouse/ Significant Other Smoking Status: Former smoker - Family History Maternal Family History: Reports: Diabetes, Hypertension Paternal Family History: Reports: Diabetes, - - from [place] in 60s Review of Systems General: Denies: Chills, Fever Eyes: Denies: Visual changes - bilaterally ENT: Denies: Bilateral ear pain Cardiovascular: Reports: Chest pain, Palpitations, Heart racing Respiratory: Reports: Dyspnea. Denies: Cough Gastrointestinal: Denies: Abdominal pain, Nausea, Vomiting, Diarrhea Genitourinary: Denies: Dysuria Musculoskeletal: Denies: Swelling, Extremity Pain Neurological: Denies: Headache Hematologic: Denies: Easy bruising, Easy bleeding Allergy: Denies: Uticaria Physical Exam Vital Signs/Narrative: Vital Signs Temp Pulse Resp BP Pulse Ox 07/11/20 07:25 96.5 F L 68 16 155/111 H 98 Inital Vital Signs reviewed: Yes General: Well nourished, Well developed Head: Normocephalic Neck: Supple Cardiovascular: Irregular Respiratory: No distress, CTA bilaterally Abdomen: Soft, Nontender Extremities: Nontender Skin: Normal color Neurological: Alert, Oriented x3 Psychological: Normal affect Diagnostic/Tx/Re-eval Chest X-Ray - ED: 1 View, Read by ED Physician, Chronic Changes Impressions Chest X-Ray 07/11/20 07:41 IMPRESSION: Hyperinflation. The lungs are clear. Electronically Signed: Jignesh Rosas MD at 8:22 EST , Service support , 07/11/20 07:41 Chest 1 View (Portable) [RAD] Stat Laboratory Results 07/11/20 07/11/20 07:35 07:35 WBC 7.9 RBC 5.47 Hgb 15.9 Hct 48.0 MCV 87.8 MCH 29.1 MCHC 33.1 RDW Std Deviation 43.8 RDW Coeff of Pedro 13.5 Plt Count 306 MPV 10.0 Immature Gran % (Auto) 0.400 Neut % (Auto) 57.2 Lymph % (Auto) 30.4 [place] % (Auto) 8.2 Eos % (Auto) 3.4 Baso % (Auto) 0.4 Absolute Neuts (auto) 4.5 Absolute Lymphs (auto) 2.41 Nucleated RBC % 0 Sodium 139 Potassium 4.2 Chloride 108 H Carbon Dioxide 27.0 Anion Gap 4 L BUN 22 H Creatinine 1.27 Estim Creat Clear Calc 71.05 Est GFR (MDRD) Af Amer 77 Est GFR (MDRD) Non-Af 63 BUN/Creatinine Ratio 17.3 Glucose 142 H Calcium 9.2 Troponin I < 0.015 TSH 3.01 - EKG Initial EKG Interpretation: Atrial Fibrillation - A. fib at 101. No acute ST change. - Medical Decision Making Patient presents with new onset atrial fibrillation. During my exam heart rate is between 100-127. He is given 5 mg of Lopressor and a dose of Lovenox. Portable chest x-ray reveals chronic changes per my interpretation. Radiologist interpretation is reviewed. CBC and chemistry studies are largely unremarkable. Troponin and TSH are both negative. Heart score equals 3 Patient will be admitted for further work-up and evaluation. ED Disposition - Plan for ED Patient: Disposition: Acute Care Hospital [facility] Diagnosis: Chest pain, New onset atrial fibrillation
[2020-07-11] MEDS: Enoxaparin 100 MG/ML Syringe 130 MG SC (07:51)
[2020-07-11 07:52] LABS: Absolute Lymphocyte Count 2.41 X10^3/uL (0.83-4.51); Absolute Neutrophil Count 4.5 X10^3/uL (2.0-7.7); Basophil# 0.03 X10^3/uL; Basophil% 0.4 % (0-1); Eosinophil# 0.27 X10^3/uL; Eosinophils% 3.4 % (0-5); Hemoglobin 15.9 g/dL (13.0-16.5); Lymphocyte # 2.41 X10^3/ul (4.0); Lymphocyte % 30.4 % (19-41); Mean Corp Hgb Conc 33.1 g/dL (32-36); Mean Corpuscular Hgb 29.1 pg (27.0-32.0); Mean Corpuscular Volume 87.8 fL (80-94); Monocyte# 0.65 X10^3/uL; Monocyte% 8.2 % (0-10); NRBC Flagged by Analyzer 0 % (0-5); Neutrophil # 4.54 X10^3/uL (2.7-7.7); Neutrophil % 57.2 % (47-70); Platelet Count 306 K/mm3 (150-450); RBC Distribution Width CV 13.5 % (11.6-14.6); RBC Distribution Width SD 43.8 fl (35.1-43.9); Red Blood Count 5.47 M/mm3 (4.6-6.2); White Blood Count 7.9 K/mm3 (4.4-11.0)
[2020-07-11 08:11] LABS: Anion Gap 4 (5-15); BUN 22 mg/dL (7-18); BUN/Creat Ratio 17.3 RATIO (10-20); Calcium,Total 9.2 mg/dL (8.5-10.1); Chloride 108 mmol/L (98-107); Creatinine, Serum 1.27 mg/dL (0.70-1.30); EST Glomerular Filtration Rate 63 mL/min (>60); Est Glom Filt Rate - Afr Amer 77 mL/min (>60); Estimated Creatinine Clearance 71.05 ml/min; Glucose 142 mg/dL (74-106); Potassium 4.2 mmol/L (3.5-5.1); Sodium Level 139 mmol/L (136-145); Thyroid Stim Hormone (TSH) 3.01 uIU/mL (0.358-3.74)
[2020-07-11 08:45] LABS: International Normalized Ratio 0.9; Prothrombin Time (Protime)PT. 11.8 SECONDS (11.7-14.9)
[2020-07-11 08:46] LABS: Partial Thromboplast Time 28.2 Seconds (24.1-36.2)
--- NOTE | 2020-07-11 09:50 | ECHOCS_ITS ---
Reason For Study: AFIB.FLUTTER Procedure This was a 2D Doppler, Color Flow transthoracic echocardiogram. The study was technically difficult. Due to body habitus. Contrast injection was performed. Exam performed portable in patient room. Left Ventricle Normal LV size. Left ventricular systolic function is normal. The estimated ejection fraction is 60 %. Unable to assess diastolic dysfunction. No regional wall motion abnormalities noted. Right Ventricle Normal RV size. Normal systolic function. Atria Normal left atrium. Normal right atrium. No doppler evidence for ASD. Mitral Valve There is no mitral annular calcification. Normal mitral valve. Trivial mitral valve insufficiency. Tricuspid Valve Normal tricuspid valve. Trivial tricuspid valve insufficiency. Unable to estimate RV systolic pressure/pulmonary artery pressure due to technically difficult study. Aortic Valve The aortic valve is not well visualized. Pulmonic Valve The pulmonic valve is not well visualized. Great Vessels Normal sized aortic root. Pericardium/Pleural No pericardial effusion. Medication Diluted definity 4.0ml given slow IV push to enhance endocardial definition. MMode/2D Measurements & Calculations LVIDd: 4.5 cm IVSd: 1.1 cm Ao root diam: 3.6 cm LVIDs: 2.9 cm LVPWd: 1.1 cm FS: 35.4 % LAV(MOD-bp): 49.4 ml LA A4 area: 18.0 cm2 LA dimension(2D): 3.9 cm LAV(MOD-bp) Indexed: 20.5 ml/m2 LAV(MOD-sp2): 50.6 ml LAV(MOD-sp4): 42.6 ml RA A4 area: 13.7 cm2 Doppler Measurements & Calculations MV E max tanisha: 62.4 cm/sec Ao V2 max: 112.4 cm/sec LV V1 max: 93.9 cm/sec Ao max P.1 mmHg LV V1 max P.5 mmHg PA V2 max: 59.2 cm/sec Interpretation Summary The study was technically difficult. Contrast injection was performed. Left ventricular systolic function is normal. The estimated ejection fraction is 60 %. Trivial mitral valve insufficiency. Trivial tricuspid valve insufficiency. Unable to estimate RV systolic pressure/pulmonary artery pressure due to technically difficult study. Unable to assess diastolic dysfunction. Ordering Physician: Makayla Díaz Referring Physician: Yuli Rosas Performed By: Jennifer Avalos, PATEL, RVT
--- NOTE | 2020-07-11 09:56 | PCS.PANDOC ---
PANDEMIC DOCUMENTATION INITIATED: Date: 07/11/20 Time: 938
--- NOTE | 2020-07-11 10:44 | HP.PCM_ITS ---
<Erika Cano [employer] - Last Filed: 07/11/20 11:10> Problem List (1) Prediabetes Status: Chronic (2) Chest pain Status: Acute (3) New onset atrial fibrillation Status: Acute (4) Essential (primary) hypertension Status: Chronic History of Present Illness Date of Admission: 07/11/20 Chief Complaint: Chest pain, palpitations. The patient is a 49 year old M who presents to the emergency room due to chest pain, palpitations. Patient reports this began last evening. He reports associated shortness of breath and diaphoresis. Patient states his symptoms went on through the night and into this morning. He states his is a nurse and listened to his heart and told him he needs to come to the emergency room. Patient denies history of palpitations. He states heart thumping radiated to the left side of his neck. He denies dizziness, lightheadedness. Patient states he was evaluated in 2019 for chest pain, heart cath at that time showed normal coronary arteries. He has a past medical history of hypertension, prediabetes, obesity. Past Medical History Past Medical History (Chronic Problems): Chronic Problems (Last Updated 03/04/19 @ 18:38 by Jaymie Pacheco) Prediabetes (Chronic) Essential (primary) hypertension (Chronic) Medical History: Medical History (Last Updated 03/04/19 @ 18:38 by Jaymie Pacheco) Essential (primary) hypertension (Chronic) I10 Cystic acne L70.0 History of MRSA Obesity E66.9 Type 2 diabetes mellitus E11.9 History of tobacco use Z87.891 Prediabetes (Inactive) R73.03 Allergies No Known Allergies Allergy (Verified 07/11/20 07:24) Home Medications: Ambulatory Orders Medication Instructions Recorded Acetaminophen [Tylenol Extra 1,000 mg PO DAILY 02/22/19 Strength] Diphenhydramine HCl [Benadryl 25 mg PO QHS 02/22/19 Allergy] Losartan Potassium [Cozaar] 100 mg PO DAILY 02/22/19 metFORMIN (XR) [Glucophage Xr] 500 mg PO DAILY #30 tab 02/23/19 Surgical History: Surgical History (Last Updated 03/04/19 @ 18:39 by Jaymie Pacheco) History of back surgery Z98.890 History of left heart catheterization Onset Date: 02/23/19 Z98.890 Surgical History: - - Back surgery x2, cyst removal, tonsillectomy. Psychiatric History: No pertinent psych hx Lives: Spouse/ Significant Other Smoking Status: Former smoker Alcohol: Heavy Drugs: None - *Family History Maternal History Items: Diabetes, Hypertension Paternal History Items: Diabetes, - - from [place] in 60s Review of Systems Constitutional: Denies: Chills, Fever, Weight Change HEENT: Denies: Head Aches, Sinus Congestion, Sinus Drainage Cardiovascular: Reports: Chest Pain. Denies: Edema, Light Headedness, Syncope Respiratory: Reports: Shortness of Breath - Associated with chest pain. Denies: Cough, Sputum production, Wheezing Gastrointestinal: Denies: Abdominal Pain, Nausea, Vomiting Genitourinary: Denies: Dysuria Musculoskeletal: Denies: Joint Pain, Joint Tenderness Skin: Denies: Rash, Wounds Neurological: Denies: Numbness, Tingling, Focal weakness Psychiatric: Denies: Anxiety, Depression, Homicidal Ideations, Suicidal Ideations Hematologic/ Lymphatic: Denies: Easy Bruising, Easy Bleeding VTE Information - Inpt Only VTE Present on Admission: No VTE Mechan Device Prophylaxis: None VTE Pharm Prophylaxis ordered?: Yes Patient Problems: Active and Suspected Problems (Last Updated 03/04/19 @ 18:38 by Jaymie Pacheco) Chest pain (Acute) New onset atrial fibrillation (Acute) - Physical Exam Vitals/I&O's: Vital Signs Temp Pulse Resp BP Pulse Ox 97.6 F L 83 19 H 137/92 H 96 07/11/20 09:51 07/11/20 09:51 07/11/20 09:51 07/11/20 09:51 07/11/20 09:51 Oxygen Delivery Method Room Air Weight: 274 lb 11.135 oz Body Mass Index (BMI) 39.4 General: Alert, Oriented x3, Cooperative HEENT: Atraumatic, PERRLA, EOMI, Normocephalic Neck: Supple, No JVD, Negative Carotid Bruits Lungs: Clear to auscultation, Normal air movement Cardiovascular: - - Atrial fibrillation, rate controlled-some P waves noted on telemetry Abdomen: Bowel Sounds Present, Soft, Non Tender, Non-Distended, Obese Extremities: No clubbing, No cyanosis, No edema, Capillary Refill Less than 3 Seconds Skin: No rashes, No breakdown Musculoskeletal: No Tenderness to Palpation of Joints or Extremities Neurological: Cranial nerves II-XII grossly intact, Neuro grossly intact Psych/Mental Status: Normal Affect, Appropriate Laboratory Results 07/11/20 07:35: WBC 7.9, RBC 5.47, Hgb 15.9, Hct 48.0, MCV 87.8, MCH 29.1, MCHC 33.1, RDW Std Deviation 43.8, RDW Coeff of Pedro 13.5, Plt Count 306, MPV 10.0, Immature Gran % (Auto) 0.400, Neut % (Auto) 57.2, Lymph % (Auto) 30.4, [place] % (Auto) 8.2, Eos % (Auto) 3.4, Baso % (Auto) 0.4, Absolute Neuts (auto) 4.5, Absolute Lymphs (auto) 2.41, Nucleated RBC % 0 07/11/20 07:35: Sodium 139, Potassium 4.2, Chloride 108 H, Carbon Dioxide 27.0, Anion Gap 4 L, BUN 22 H, Creatinine 1.27, Estim Creat Clear Calc 71.05, Est GFR (MDRD) Af Amer 77, Est GFR (MDRD) Non-Af 63, BUN/Creatinine Ratio 17.3, Glucose 142 H, Calcium 9.2, Troponin I < 0.015, TSH 3.01 07/11/20 07:35: PT 11.8, INR 0.9, APTT 28.2 07/11/20 10:15: Troponin I Pending, TSH Pending 07/11/20 10:15: B-Natriuretic Peptide Pending Current Medications Acetaminophen (Acetaminophen 500 Mg Tablet) 1,000 mg PO DAILY [facility] Acetaminophen (Acetaminophen 325 Mg Tablet) 650 mg PO Q6H PRN PRN PRN Reason: Pain Score 1-10/Temp > 100.7 F Enoxaparin Sodium (Enoxaparin 150 Mg/Ml Syringe) 130 mg SC Q12 [facility] Losartan Potassium (Losartan Potassium 100 Mg Tablet) 100 mg PO DAILY [facility] Nitroglycerin (Nitroglycerin (Inpatient Use) 0.4 Mg Tab.Subl) 0.4 mg SUBLINGUAL Q5M PRN PRN Reason: CARDIAC/CHEST PAIN Ondansetron HCl (Ondansetron 4 Mg/2 Ml Vial) 4 mg IV Q8H PRN PRN PRN Reason: NAUSEA/VOMITING Senna/Docusate Sodium (Senna/Docusate Sodium 1 Tablet) 2 tablet PO BID PRN PRN PRN Reason: Constipation Assessment/Plan All Active Problems (Last Updated 03/04/19 @ 18:38 by Jaymie Pacheco) Chest pain (Acute) New onset atrial fibrillation (Acute) 1. New onset atrial fibrillation-patient received Cardizem IV bolus x1 in ER. Continue therapeutic Lovenox. Trend enzymes. TSH normal. Check mag. Obtain echocardiogram. Rate improved however continues to have RVR with ambulation. Begin oral Cardizem with titration pending further heart rate monitoring. 2. Chest pressure-trend enzymes. Suspect symptoms related to #1. Cardiac cath February 2019 with normal coronary arteries. Echocardiogram ordered as noted above. 3. Hypertension-changed yesterday by PCP from losartan to losartan/HCTZ 100-125. 4. Prediabetes-previous hemoglobin A1c February 2019 6.7% indicating type 2 diabetes mellitus however patient states he is recently been told he is prediabetic. Repeat hemoglobin A1c. Hold metformin. Accu-Cheks with sliding scale insulin. 5. Alcohol dependence-patient reports 2-3 beers per day and does not keep track on weekends. CIWA/Ativan protocol. Thiamine, multivitamin, folic acid supplementation. 6. Obesity-diet lifestyle medications encouraged. DVT prophylaxis-therapeutic Lovenox This patient was seen by HANNY Sweeney under the supervision of Dr. Díaz. <Makayla Díaz - Last Filed: 07/11/20 15:59> History of Present Illness The patient is a 49 year old M [] Past Medical History Medical History: Medical History (Last Updated 03/04/19 @ 18:38 by Jaymie Pacheco) Essential (primary) hypertension (Chronic) I10 Cystic acne L70.0 History of MRSA Obesity E66.9 Type 2 diabetes mellitus E11.9 History of tobacco use Z87.891 Prediabetes (Inactive) R73.03 Allergies No Known Allergies Allergy (Verified 07/11/20 07:24) Surgical History: Surgical History (Last Updated 03/04/19 @ 18:39 by Jaymie Pacheco) History of back surgery Z98.890 History of left heart catheterization Onset Date: 02/23/19 Z98.890 - Physical Exam Vitals/I&O's: Vital Signs Temp Pulse Resp BP Pulse Ox 98.1 F 115 H 20 H 115/95 H 99 07/11/20 15:30 07/11/20 15:45 07/11/20 15:45 07/11/20 15:45 07/11/20 15:30 Oxygen Flow Rate (L/min) 2 Oxygen Delivery Method Room Air Weight: 124.6 kg Body Mass Index (BMI) 39.4 Intake and Output for Last 24 Hours 07/09/20 07/10/20 07/11/20 23:59 23:59 23:59 Intake Total 247.41 / 247.41 Balance 247.41 / 247.41 Laboratory Results 07/11/20 07:35: WBC 7.9, RBC 5.47, Hgb 15.9, Hct 48.0, MCV 87.8, MCH 29.1, MCHC 33.1, RDW Std Deviation 43.8, RDW Coeff of Pedro 13.5, Plt Count 306, MPV 10.0, Immature Gran % (Auto) 0.400, Neut % (Auto) 57.2, Lymph % (Auto) 30.4, [place] % (Auto) 8.2, Eos % (Auto) 3.4, Baso % (Auto) 0.4, Absolute Neuts (auto) 4.5, Absolute Lymphs (auto) 2.41, Nucleated RBC % 0 07/11/20 07:35: Sodium 139, Potassium 4.2, Chloride 108 H, Carbon Dioxide 27.0, Anion Gap 4 L, BUN 22 H, Creatinine 1.27, Estim Creat Clear Calc 71.05, Est GFR (MDRD) Af Amer 77, Est GFR (MDRD) Non-Af 63, BUN/Creatinine Ratio 17.3, Glucose 142 H, Calcium 9.2, Troponin I < 0.015, TSH 3.01 07/11/20 07:35: PT 11.8, INR 0.9, APTT 28.2 07/11/20 07:35: Magnesium 2.2 07/11/20 07:35: Hemoglobin A1c 6.4 H 07/11/20 07:35: D-Dimer Quant (PE/DVT) 0.29 07/11/20 10:15: Troponin I < 0.015, TSH 1.98 07/11/20 10:15: B-Natriuretic Peptide 120.9 H 07/11/20 14:03: Troponin I < 0.015 Current Medications Acetaminophen (Acetaminophen 500 Mg Tablet) 1,000 mg PO DAILY [facility] Last Admin: 07/11/20 12:33 Dose: 1,000 mg Documented by: Acetaminophen (Acetaminophen 325 Mg Tablet) 650 mg PO Q6H PRN PRN PRN Reason: Pain Score 1-10/Temp > 100.7 F Enoxaparin Sodium (Enoxaparin 150 Mg/Ml Syringe) 130 mg SC Q12 [facility] Folic Acid (Folic Acid 1 Mg Tablet) 1 mg PO DAILY@0800 [facility] Diltiazem HCl 125 mg/ Dextrose 125 mls @ 5 mls/hr IV .Q25H [facility]; Protocol Last Titration: 07/11/20 15:45 Dose: 15 mg/hr, 15 mls/hr Documented by: Insulin Human Lispro (Insulin Lispro 100 Unit/Ml Insuln.Pen) 0 unit SC ACHS [facility]; Protocol Lorazepam (Lorazepam 1 Mg Tablet) 2 mg PO Q2H PRN PRN; Protocol PRN Reason: CIWA score > 8 but <15 Lorazepam (Lorazepam 1 Mg Tablet) 2 mg PO UD PRN; Protocol PRN Reason: CIWA score >/=15. Lorazepam (Lorazepam 2 Mg/Ml Syringe) 2 mg IV Q2H PRN PRN; Protocol PRN Reason: CIWA score > 8 but <15 Lorazepam (Lorazepam 2 Mg/Ml Syringe) 2 mg IV UD PRN; Protocol PRN Reason: CIWA score >/=15. Losartan Potassium (Losartan Potassium 100 Mg Tablet) 100 mg PO DAILY [facility] Last Admin: 07/11/20 10:50 Dose: Not Given Documented by: Morphine Sulfate (Morphine 2 Mg/Ml Syringe) 1 mg IV Q3H PRN PRN PRN Reason: Pain Score 6-10 Last Admin: 07/11/20 14:27 Dose: 1 mg Documented by: Multivitamins/Minerals (Multivitamins,Ther W-Minerals Tablet) [facility] Nitroglycerin (Nitroglycerin (Inpatient Use) 0.4 Mg Tab.Subl) 0.4 mg SUBLINGUAL Q5M PRN PRN Reason: CARDIAC/CHEST PAIN Last Admin: 07/11/20 13:43 Dose: 1 tab Documented by: Ondansetron HCl (Ondansetron 4 Mg/2 Ml Vial) 4 mg IV Q8H PRN PRN PRN Reason: NAUSEA/VOMITING Senna/Docusate Sodium (Senna/Docusate Sodium 1 Tablet) 2 tablet PO BID PRN PRN PRN Reason: Constipation Sodium Chloride (0.9% Saline Lock 10 Ml Syringe) 10 - 40 ml IV UD PRN PRN Reason: SALINE FLUSH Thiamine HCl (Thiamine Hydrochloride 100 Mg Tablet) 100 mg PO DAILYCM [facility] Assessment/Plan This patient was seen in conjunction with Erika Cano NP. I have independently interviewed and examined the patient and reviewed pertinent historical, laboratory, and other data. Please refer to her note for patient's presentation, findings, and recommendations. 49-year-old with past medical history of hypertension, obesity who comes in with chest discomfort as well as elevated heart rate. Patient was found to have new onset A. fib with heart rate going to 140s. He received Cardizem IV bolus x1 in the ED. He was also given therapeutic Lovenox. Patient heart rate became controlled and on telemetry he showed of normal sinus rhythm; interchangeable with change avoid A. fib. Vitals were reviewed -stable Physical Exam: Gen: Comfortable, not pale, not jaundiced, alert oriented x3, obese CVS:HS I +II, regular, no murmurs RESP: Diminished at lung bases GI: BS present and normal, nontender, no palpable organs EXT:No edema Labs reviewed: ASSESSMENT: 1. New onset Atrial fibrillation with RVR 2. Chest discomfort 3. Hypertension 4. Prediabetes 5. Obesity 6. Alcohol dependence Meds reviewed Plan: Continue on Cardizem drip, Lovenox subcu 2D echo Troponin Alcohol withdrawal protocol OBSV E&M: [id number] Initial observation care L3
[2020-07-11 10:51] LABS: BNP,B-Type NATRIURETIC PEPTIDE 120.9 pg/mL (0-100)
[2020-07-11 11:01] LABS: Thyroid Stim Hormone (TSH) 1.98 uIU/mL (0.358-3.74)
[2020-07-11 12:14] LABS: Magnesium 2.2 mg/dL (1.6-2.6)
[2020-07-11] MEDS: Acetaminophen 500 MG Tablet 1000 MG PO (12:33)
[2020-07-11] MEDS: dilTIAZem CD 120 MG Capsule PO (12:34)
[2020-07-11 12:35] LABS: Hemoglobin A1c 6.4 % (3.8-5.6)
[2020-07-11] MEDS: Nitroglycerin (INPATIENT USE) 0.4 MG TAB.SUBL SUBLINGUAL ×3 (13:33→13:43)
--- NOTE | 2020-07-11 13:48 | EKG12_ITS ---
Test Reason : CP Blood Pressure : / mmHG Vent. Rate : 088 BPM Atrial Rate : 208 BPM P-R Int : 000 ms QRS Dur : 092 ms QT Int : 356 ms P-R-T Axes : 000 015 046 degrees QTc Int : 430 ms Atrial fibrillation Abnormal ECG When compared with ECG of 11-JUL-2020 07:34, MANUAL COMPARISON REQUIRED, DATA IS UNCONFIRMED Confirmed by MARY JOHNSON, MARTA ([id number]), editorial specialist JOSIAH PRASAD ([id number]) on 07/12/2020 1:24:33 PM Referred By: DIMAS Confirmed By:MARTA HERNANDEZ MD
[2020-07-11 14:27] LABS: D-Dimer Quantitative (DVT/PE) 0.29 FEU/ug/m (0.27-0.49)
[2020-07-11] MEDS: Morphine 2 MG/ML Syringe 1 MG IV (14:27)
[2020-07-11 16:30] LABS: Bedside Glucose 193 mg/dL (70-110)
[2020-07-11] MEDS: Insulin Lispro 100 UNIT/ML INSULN.PEN SC (17:25)
[2020-07-11] MEDS: Enoxaparin 150 MG/ML Syringe 130 MG SC (22:13)
[2020-07-11] MEDS: LORazepam 1 MG Tablet 2 MG PO (22:24)
[2020-07-11 22:25] LABS: Bedside Glucose 117 mg/dL (70-110)
[2020-07-12] VITALS (15 sets, daily range): BP systolic 81–115; BP diastolic 54–77; PULSE 58–97; RESP 16–21; TEMP 36.4–36.7; O2SAT 95–97
[2020-07-12 05:51] LABS: Absolute Lymphocyte Count 0.72 X10^3/uL (0.83-4.51); Absolute Neutrophil Count 4.8 X10^3/uL (2.0-7.7); Basophil# 0.01 X10^3/uL; Basophil% 0.2 % (0-1); Eosinophil# 0.06 X10^3/uL; Hematocrit 41.1 % (40-54); Lymphocyte # 0.72 X10^3/ul (4.0); Lymphocyte % 11.7 % (19-41); Mean Corp Hgb Conc 31.6 g/dL (32-36); Mean Corpuscular Hgb 29.1 pg (27.0-32.0); Mean Corpuscular Volume 91.9 fL (80-94); Mean Platelet Vol. 9.5 fl (6.2-12.0); Monocyte# 0.52 X10^3/uL; Monocyte% 8.4 % (0-10); NRBC Flagged by Analyzer 0 % (0-5); Neutrophil # 4.82 X10^3/uL (2.7-7.7); Neutrophil % 78.2 % (47-70); Platelet Count 218 K/mm3 (150-450); RBC Distribution Width CV 13.5 % (11.6-14.6); RBC Distribution Width SD 45.8 fl (35.1-43.9); Red Blood Count 4.47 M/mm3 (4.6-6.2); White Blood Count 6.2 K/mm3 (4.4-11.0)
[2020-07-12 06:23] LABS: ALB/GLOB Ratio 0.7 RATIO (0.9-2.4); AST(SGOT) 30 U/L (15-37); Alanine Aminotransfer ALT/SGPT 47 U/L (16-61); Albumin, Serum 2.9 g/dL (3.2-5.0); Alkaline Phosphatase 82 U/L (45-117); Anion Gap 6 (5-15); BUN 21 mg/dL (7-18); BUN/Creat Ratio 19.6 RATIO (10-20); Calcium,Total 9.4 mg/dL (8.5-10.1); Chloride 109 mmol/L (98-107); Creatinine, Serum 1.07 mg/dL (0.70-1.30); EST Glomerular Filtration Rate 77 mL/min (>60); Est Glom Filt Rate - Afr Amer 93 mL/min (>60); Estimated Creatinine Clearance 84.33 ml/min; Globulin 4.3 g/dL (2.2-4.2); Glucose 128 mg/dL (74-106); Potassium 4.7 mmol/L (3.5-5.1); Protein, Total 7.2 g/dL (6.4-8.2); Sodium Level 132 mmol/L (136-145)
[2020-07-12] MEDS: 0.9% Saline Lock 10 ML Syringe IV ×2 (06:46→08:06)
[2020-07-12 06:55] LABS: Bedside Glucose 122 mg/dL (70-110)
[2020-07-12] MEDS: Folic Acid 1 MG Tablet PO (08:06)
[2020-07-12] MEDS: Thiamine Hydrochloride 100 MG Tablet PO (08:06)
[2020-07-12] MEDS: Multivitamins,Ther W-Minerals Tablet 1 TABLET PO (08:06)
[2020-07-12] MEDS: Acetaminophen 500 MG Tablet 1000 MG PO (09:15)
[2020-07-12] MEDS: Losartan Potassium 100 MG Tablet PO (09:15)
[2020-07-12] MEDS: Enoxaparin 150 MG/ML Syringe 130 MG SC (09:15)
[2020-07-12] MEDS: Metoprolol Tartrate 50 MG Tablet PO (10:21)
[2020-07-12 11:15] LABS: Bedside Glucose 133 mg/dL (70-110)
--- NOTE | 2020-07-12 11:41 | DCINST_ITS ---
- Discharge Diagnoses Current Active Problems: Current Active and Chronic Problems (Last Updated 03/04/19 @ 18:38 by Jaymie Pacheco) Prediabetes (Chronic) Chest pain (Acute) New onset atrial fibrillation (Acute) Essential (primary) hypertension (Chronic) You will use the following diet at home:: Calorie/Carbohydrate Controlled (specify 1200, 1400, etc), Cardiac Discharge Activity: Return to Normal Activity Call your doctor if you observe: Chest pain, Increased palpitations (irregular heartbeat) Allergies/Adverse Reactions: Allergies No Known Allergies Allergy (Verified 07/11/20 07:24) Medications to take at Discharge Acetaminophen [Tylenol Extra Strength] 1,000 mg PO DAILY 02/22/19 Diphenhydramine HCl [Benadryl Allergy] 25 mg PO QHS 02/22/19 Losartan Potassium [Cozaar] 100 mg PO DAILY 02/22/19 metFORMIN (XR) [Glucophage Xr] 500 mg PO DAILY #30 tab 02/23/19 Apixaban [Eliquis] 5 mg PO BID #60 tab 07/12/20 Metoprolol Tartrate [Lopressor (beta alfreda)] 50 mg PO BID #60 tab 07/12/20 The following prescriptions were given: Apixaban [Eliquis] 5 mg PO BID #60 tab Transmission Status: Pending to [id number] Metoprolol Tartrate [Lopressor (beta alfreda)] 50 mg PO BID #60 tab Transmission Status: Pending to [facility] Primary Care Physician: Yuli Rosas DO [Primary Care Provider] - Please follow up with your Primary Care Physician in: 1 Week Test Results: Test results from this visit will be discussed in further detail at your follow- up appointment, if applicable. Please Follow Up With: Satya Canchola MD When: 2 Weeks, call for appt Proposed Discharge Date: 07/12/20
--- NOTE | 2020-07-12 13:16 | PCM.WORK.EX ---
Work/School Excuse Work/School Excuse for:: Patient Please excuse this person from:: Work From: 07/11/20 through: 07/16/20
--- NOTE | 2020-07-12 13:17 | DS.PCM_ITS ---
<Erika Cano WOOD SAWYER - Last Filed: 07/12/20 13:37> Discharge Date and Diagnosis - Problem List Patient Problems: Active and Suspected Problems (Last Updated 03/04/19 @ 18:38 by Jaymie Pacheco) Chest pain (Acute) New onset atrial fibrillation (Acute) Date of Admission: 07/11/20 Date of Discharge: 07/12/20 - Primary Discharge Diagnosis Acute Problems: Active Problems (Last Updated 03/04/19 @ 18:38 by Jaymie Pacheco) 1. New onset atrial fibrillation 2. Chest pressure-secondary to above. ACS ruled out. 3. Hypertension 4. Prediabetes- 5. Alcohol dependence 6. Obesity - Secondary Discharge Diagnosis Chronic Problems: Chronic Problems (Last Updated 03/04/19 @ 18:38 by Jaymie Pacheco) Prediabetes (Chronic) Essential (primary) hypertension (Chronic) Hospital Course and Treatment Imaging Results: Diagnostic Data Chest X-Ray 07/11/20 07:41 IMPRESSION: Hyperinflation. The lungs are clear. Electronically Signed: Jignesh Rosas MD at 8:22 EST , Service support , Operations: None Procedures: 2-D Echocardiogram Summary of Care Provided: The patient is a 49 year old M admitted 07/11/20 due to chest pain, palpitations. 1. New onset atrial fibrillation-enzymes negative. TSH normal. Echocardiogram demonstrates an EF of 60%. IV cardizem during admission. Transitioned to metoprolol 50mg BID. Rate controlled. DC on Eliquis 5mg BID. Cardiac cath February 2019 with normal coronary arteries. 2. Chest pressure-enzymes negative. Suspect symptoms related to #1. Cardiac cath February 2019 with normal coronary arteries. 3. Hypertension-changed recently by PCP from losartan to losartan/HCTZ 100-125. 4. Prediabetes-previous hemoglobin A1c February 2019 6.7%. Repeat hemoglobin A1c during admission 6.4%. Patient reports he has no longer on Metformin. Encouraged continued dietary modifications and outpatient monitoring by PCP. 5. Alcohol dependence-patient reports 2-3 beers per day and heavier use on weekends. Encouraged reduction/cessation given #1. 6. Obesity-diet lifestyle medications encouraged. General: Alert, Oriented x3, Cooperative HEENT: Atraumatic, PERRLA, EOMI, Normocephalic Neck: Supple, No JVD, Negative Carotid Bruits Lungs: Clear to auscultation, Normal air movement Cardiovascular: - - Atrial fibrillation, rate controlled-some P waves noted on telemetry Abdomen: Bowel Sounds Present, Soft, Non Tender, Non-Distended, Obese Extremities: No clubbing, No cyanosis, No edema, Capillary Refill Less than 3 Seconds Skin: No rashes, No breakdown Musculoskeletal: No Tenderness to Palpation of Joints or Extremities Neurological: Cranial nerves II-XII grossly intact, Neuro grossly intact Psych/Mental Status: Normal Affect, Appropriate Patient seen and examined prior to discharge. Physical assessment as noted above. Patient is stable for discharge with follow up recommendations as noted above. This patient was seen by HANNY Sweeney under the supervision of Dr. Díaz. Patient Problems: Active and Suspected Problems (Last Updated 03/04/19 @ 18:38 by Jaymie Pacheco) Chest pain (Acute) New onset atrial fibrillation (Acute) - Physical Exam Vitals/I&O's: Vital Signs Temp Pulse Resp BP Pulse Ox 97.8 F 95 16 102/63 96 07/12/20 09:00 07/12/20 10:21 07/12/20 09:00 07/12/20 10:07/12/20 09:00 Oxygen Flow Rate (L/min) 2 Oxygen Delivery Method Room Air Weight: 276 lb 14.409 oz Body Mass Index (BMI) 39.4 Intake and Output for Last 24 Hours 07/10/20 07/11/20 07/12/20 23:59 23:59 23:59 Intake Total 1076.16 / 1081.16 271.01 / 271.01 Output Total 550 / 550 250 / 250 Balance 526.16 / 531.16 21. / .01 Laboratory Results 07/11/20 07:35: D-Dimer Quant (PE/DVT) 0.29 07/11/20 14:03: Troponin I < 0.015 07/11/20 16:21: POC Glucose 193 H 07/11/20 22:12: POC Glucose 117 H 07/12/20 04:54: WBC 6.2, RBC 4.47 L, Hgb 13.0, Hct 41.1, MCV 91.9, MCH 29.1, MCHC 31.6 L, RDW Std Deviation 45.8 H, RDW Coeff of Pedro 13.5, Plt Count 218, MPV 9.5, Immature Gran % (Auto) 0.500, Neut % (Auto) 78.2 H, Lymph % (Auto) 11.7 L, [place] % (Auto) 8.4, Eos % (Auto) 1.0, Baso % (Auto) 0.2, Absolute Neuts (auto) 4.8, Absolute Lymphs (auto) 0.72 L, Nucleated RBC % 0 07/12/20 04:54: Sodium 132 L, Potassium 4.7, Chloride 109 H, Carbon Dioxide 17.0 L, Anion Gap 6, BUN 21 H, Creatinine 1.07, Estim Creat Clear Calc 84.33, Est GFR (MDRD) Af Amer 93, Est GFR (MDRD) Non-Af 77, BUN/Creatinine Ratio 19.6, Glucose 128 H, Calcium 9.4, Total Bilirubin 0.90, AST 30, ALT 47, Alkaline Phosphatase 82, Total Protein 7.2, Albumin 2.9 L, Globulin 4.3 H, Albumin/Globulin Ratio 0.7 L 07/12/20 06:46: POC Glucose 122 H 07/12/20 11:07: POC Glucose 133 H Current Medications Acetaminophen (Acetaminophen 500 Mg Tablet) 1,000 mg PO DAILY [facility] Last Admin: 07/12/20 09:15 Dose: 1,000 mg Documented by: Acetaminophen (Acetaminophen 325 Mg Tablet) 650 mg PO Q6H PRN PRN PRN Reason: Pain Score 1-10/Temp > 100.7 F Enoxaparin Sodium (Enoxaparin 150 Mg/Ml Syringe) 130 mg SC Q12 [facility] Last Admin: 07/12/20 09:15 Dose: 130 mg Documented by: Folic Acid (Folic Acid 1 Mg Tablet) 1 mg PO DAILY@0800 [facility] Last Admin: 07/12/20 08:06 Dose: 1 mg Documented by: Insulin Human Lispro (Insulin Lispro 100 Unit/Ml Insuln.Pen) 0 unit SC [facility]; Protocol Last Admin: 07/12/20 11:19 Dose: Not Given Documented by: Lorazepam (Lorazepam 1 Mg Tablet) 2 mg PO Q2H PRN PRN; Protocol PRN Reason: CIWA score > 8 but <15 Last Admin: 07/11/20 22:24 Dose: 2 mg Documented by: Lorazepam (Lorazepam 1 Mg Tablet) 2 mg PO UD PRN; Protocol PRN Reason: CIWA score >/=15. Lorazepam (Lorazepam 2 Mg/Ml Syringe) 2 mg IV Q2H PRN PRN; Protocol PRN Reason: CIWA score > 8 but <15 Lorazepam (Lorazepam 2 Mg/Ml Syringe) 2 mg IV UD PRN; Protocol PRN Reason: CIWA score >/=15. Losartan Potassium (Losartan Potassium 100 Mg Tablet) 100 mg PO DAILY [facility] Last Admin: 07/12/20 09:15 Dose: 100 mg Documented by: Metoprolol Tartrate (Metoprolol Tartrate 50 Mg Tablet) 50 mg PO BID [facility] Last Admin: 07/12/20 10:21 Dose: 50 mg Documented by: Morphine Sulfate (Morphine 2 Mg/Ml Syringe) 1 mg IV Q3H PRN PRN PRN Reason: Pain Score 6-10 Last Admin: 07/11/20 14:27 Dose: 1 mg Documented by: Multivitamins/Minerals (Multivitamins,Ther W-Minerals Tablet) [facility] Admin: 07/12/20 08:06 Dose: 1 tablet Documented by: Nitroglycerin (Nitroglycerin (Inpatient Use) 0.4 Mg Tab.Subl) 0.4 mg SUBLINGUAL Q5M PRN PRN Reason: CARDIAC/CHEST PAIN Last Admin: 07/11/20 13:43 Dose: 1 tab Documented by: Ondansetron HCl (Ondansetron 4 Mg/2 Ml Vial) 4 mg IV Q8H PRN PRN PRN Reason: NAUSEA/VOMITING Senna/Docusate Sodium (Senna/Docusate Sodium 1 Tablet) 2 tablet PO BID PRN PRN PRN Reason: Constipation Sodium Chloride (0.9% Saline Lock 10 Ml Syringe) 10 - 40 ml IV UD PRN PRN Reason: SALINE FLUSH Last Admin: 07/12/20 08:06 Dose: 10 ml Documented by: Thiamine HCl (Thiamine Hydrochloride 100 Mg Tablet) [facility] Last Admin: 07/12/20 08:06 Dose: 100 mg Documented by: Discharge Diet: Low fat/ Low Cholesterol, Carb Control Diet Discharge Activity: Return to Normal Activity Call your doctor if you observe: Chest pain, Increased palpitations (irregular heartbeat) Home Medications: Medications to take at Discharge Acetaminophen [Tylenol Extra Strength] 1,000 mg PO DAILY 02/22/19 Diphenhydramine HCl [Benadryl Allergy] 25 mg PO QHS 02/22/19 Losartan Potassium [Cozaar] 100 mg PO DAILY 02/22/19 metFORMIN (XR) [Glucophage Xr] 500 mg PO DAILY #30 tab 02/23/19 Apixaban [Eliquis] 5 mg PO BID #60 tab 07/12/20 Metoprolol Tartrate 50 mg PO BID #60 tab 07/12/20 Following Prescriptions Were Given to Patient: Apixaban [Eliquis] 5 mg PO BID #60 tab Transmission Status: Received by [id number] Metoprolol Tartrate 50 mg PO BID #60 tab Transmission Status: Received by [id number] Primary Care Physician: Yuli Rosas DO [Primary Care Provider] - Please follow up with your Primary Care Physician in: 1 Week Please Follow Up With: Satya Canchola MD When: 2 Weeks, call for appt Disposition: Home Minutes spent on discharge:: 35 Patient Condition:: Stable Medical Necessity - Tobacco Use Smoking Status: Former smoker Meaningful Use Info Meaningful Use Diagnoses (Choose all that apply): None applicable <Bre,[place] - Last Filed: 07/12/20 16:08> Discharge Date and Diagnosis - Primary Discharge Diagnosis Acute Problems: Active Problems (Last Updated 03/04/19 @ 18:38 by Jaymie Pacheco) Chest pain (Acute) New onset atrial fibrillation (Acute) - Secondary Discharge Diagnosis Chronic Problems: Chronic Problems (Last Updated 03/04/19 @ 18:38 by Jaymie Pacheco) Prediabetes (Chronic) Essential (primary) hypertension (Chronic) Hospital Course and Treatment Summary of Care Provided: This patient was seen in conjunction with Erika Cano NP. I have independently interviewed and examined the patient and reviewed pertinent historical, laboratory, and other data. Please refer to her note for patient's presentation, findings, and recommendations. 49-year-old with past medical history of hypertension, obesity who comes in with chest discomfort as well as elevated heart rate. Patient was found to have new onset A. fib with heart rate going to 140s. He received Cardizem IV bolus x1 in the ED. He was also given therapeutic Lovenox. Patient heart rate became controlled initially. He subsequently was managed on oral Cardizem but went into RVR as needed transition to Cardizem drip. He was also managed on therapeutic Lovenox. He had 2D echo was unremarkable. Patient was subsequently on metoprolol and Eliquis to follow-up with cardiology in the outpatient On the day of discharge, patient was seen and examined. Denied any new complaints. Physical Exam: Gen: Comfortable, not pale, not jaundiced, alert oriented x3, obese CVS:HS I +II, regular, no murmurs RESP: Diminished at lung bases GI: BS present and normal, nontender, no palpable organs EXT:No edema - Physical Exam Vitals/I&O's: Vital Signs Temp Pulse Resp BP Pulse Ox 97.5 F L 85 16 115/76 96 07/12/20 13:33 07/12/20 13:33 07/12/20 13:33 07/12/20 13:33 07/12/20 13:33 Oxygen Flow Rate (L/min) 2 Oxygen Delivery Method Room Air Weight: 125.6 kg Body Mass Index (BMI) 39.4 Intake and Output for Last 24 Hours 07/10/20 07/11/20 07/12/20 23:59 23:59 23:59 Intake Total 1076.16 / 1081.16 271.01 / 271.01 Output Total 550 / 550 250 / 250 Balance 526.16 / 531.16 21. / 21.01 Laboratory Results 07/11/20 16:21: POC Glucose 193 H 07/11/20 22:12: POC Glucose 117 H 07/12/20 04:54: WBC 6.2, RBC 4.47 L, Hgb 13.0, Hct 41.1, MCV 91.9, MCH 29.1, MCHC 31.6 L, RDW Std Deviation 45.8 H, RDW Coeff of Pedro 13.5, Plt Count 218, MPV 9.5, Immature Gran % (Auto) 0.500, Neut % (Auto) 78.2 H, Lymph % (Auto) 11.7 L, [place] % (Auto) 8.4, Eos % (Auto) 1.0, Baso % (Auto) 0.2, Absolute Neuts (auto) 4.8, Absolute Lymphs (auto) 0.72 L, Nucleated RBC % 0 07/12/20 04:54: Sodium 132 L, Potassium 4.7, Chloride 109 H, Carbon Dioxide 17.0 L, Anion Gap 6, BUN 21 H, Creatinine 1.07, Estim Creat Clear Calc 84.33, Est GFR (MDRD) Af Amer 93, Est GFR (MDRD) Non-Af 77, BUN/Creatinine Ratio 19.6, Glucose 128 H, Calcium 9.4, Total Bilirubin 0.90, AST 30, ALT 47, Alkaline Phosphatase 82, Total Protein 7.2, Albumin 2.9 L, Globulin 4.3 H, Albumin/Globulin Ratio 0.7 L 07/12/20 06:46: POC Glucose 122 H 07/12/20 11:07: POC Glucose 133 H OBSV E&M: [id number] Observation care discharge
--- NOTE | 2020-07-12 13:58 | PHA.DC.MC ---
Pharmacy Service has performed discharge medication reconciliation and counseling for this patient. 1. APIXABAN 5MG PO BID 2. METOPROLOL TARTRATE 50MG PO BID The patient's discharge medication list was reviewed for discrepancies and discrepancies were resolved. Home Medications Acetaminophen [Tylenol Extra Strength] 1,000 mg PO DAILY 02/22/19 Diphenhydramine HCl [Benadryl Allergy] 25 mg PO QHS 02/22/19 Losartan Potassium [Cozaar] 100 mg PO DAILY 02/22/19 metFORMIN (XR) [Glucophage Xr] 500 mg PO DAILY #30 tab 02/23/19 Apixaban [Eliquis] 5 mg PO BID #60 tab 07/12/20 Metoprolol Tartrate 50 mg PO BID #60 tab 07/12/20 The patient was counseled on the following discharge medications and changes in medications for homegoing were reviewed. The Reason for Use, instructions for use, and potential side effects were reviewed for all new medications. The patient's questions regarding all of their medications were answered. The patient was able to verbally demonstrate an understanding of their discharge medications. Patient counseled by pharmacy messenger, Gunjan.
--- NOTE | 2020-07-12 14:00 | CASEMGMT ---
Pt's meds were sent to [facility] in [place] but pt then wanted them at [facility] in [place]. Shania [employer]CYCLE F[employer]IC[employer] aware and cancelled meds to [facility] and re-sent to [facility]. Call to [facility] and per pharmacist, meds were already filled at [facility]. Call to [facility] and pharmacist aware to cancel meds at this time, voices understanding. Per pharmacist, Eliquis co-pay was $40. Pt updated on all and provided with Eliquis A-fib booklet that includes 30 day free trial and co-pay card coupons at this time. Pt/ voice no further questions/concerns/needs at this time. Lamberto MEDRANO CM
== END 2020-07-12 11:43 | disposition home or self-care (01) ==
LOC: ED 08:33 → PCU 09:22
PROVIDERS: Nurse Practitioner Family; Admitting Provider Internal Medicine; Emergency Provider Emergency Medicine; PCP Family Medicine; Visit Provider Internal Medicine
DX: I48.91 Unspecified atrial fibrillation (principal); R07.89 Other chest pain; I10 Essential (primary) hypertension; F10.20 Alcohol dependence, uncomplicated; E66.9 Obesity, unspecified; E11.9 Type 2 diabetes mellitus without complications; Z79.899 Other long term (current) drug therapy; Z79.84 Long term (current) use of oral hypoglycemic drugs; Z87.891 Personal history of nicotine dependence; Z86.14 Personal history of Methicillin resistant Staphylococcus aureus infection; Z68.39 Body mass index [BMI] 39.0-39.9, adult; R06.02 Shortness of breath
CPT/HCPCS: 36415; 71045; 80048; 80053; 82962; 83036; 83735; 83880; 84443; 84484; 85025; 85379; 85610; 85730; 93005; 93306; 96365; 96366; 96372; 96375; 97802; 99218; 99251; 99285; Q9957; A4216; C8929; G0378; G0463

== ENCOUNTER → 2020-07-18 15:29 | Outpatient (CLI) | payer OTHER, SELFPAY ==
[2020-07-18 14:57] VITALS: BMI 40.4
[2020-07-18 17:16] LABS: BNP,B-Type NATRIURETIC PEPTIDE 22.4 pg/mL (0-100)
== END ==
PROVIDERS: PCP Family Medicine; Referring Provider Internal Medicine Cardiovascular Disease; Visit Provider Internal Medicine Cardiovascular Disease
DX: I48.91 Unspecified atrial fibrillation (principal)
CPT/HCPCS: 36415; 83880

== ENCOUNTER 2021-06-26 09:22 | Emergency (ER) | payer OTHER, SELFPAY ==
[2021-06-26 09:22] VITALS: BP 160/102; PULSE 73; RESP 18; TEMP 35.7; O2SAT 97; BMI 41.8
--- NOTE | 2021-06-26 10:51 | EDS_ITS ---
HPI History of Present Illness Chief Complaint: Other, Pain/Inj Informant: patient Narrative Narrative: Patient is a 50-year-old male with history of atrial fibrillation on Xarelto as well as arthritis of his right hip and prior diagnosis of hip flexor tendinitis presenting with worsening right hip pain. Patient's had worsening hip pain over the past few weeks. Patient notes that he has seen Dr. Atwood in the past who recommended physical therapy. Patient did not go to physical therapy because he did not think he be able to tolerate it. He denies any new injury or falls. He is concerned because he is having so much pain and is becoming more unsteady on his feet. Pain is worse when he externally rotates his hip or when he tries to move from rest and start moving again. Is especially bad in the morning or when he tries to get up in the middle the night to urinate. Patient denies any associated numbness or tingling. He is taking Tylenol and Hughson intermittently for his pain with no relief. He denies any weakness of the legs. No loss of bowel or bladder function. He has not followed up with orthopedics. Notes he was feeling better when he was on a course of Decadron when he had COVID at the end of the year but now that has been off that his pain is getting worse again. [facility] Medical History COVID-19 COVID-19 virus detected (04/18/20) Cystic acne Essential (primary) hypertension ETOH abuse History of tobacco use Obesity PAF (paroxysmal atrial fibrillation) Prediabetes Prediabetes Type 2 diabetes mellitus Home Medications acetaminophen 1,000 mg PO BID 02/22/19 [History Last Taken 07/10/20] ascorbate calcium (vitamin C) 500 mg tablet 500 mg PO DAILY 04/25/21 [History Last Taken Unknown] cholecalciferol (vitamin D3) 25 mcg (1,000 unit) capsule 25 mcg PO DAILY 04/25/21 [History Last Taken Unknown] losartan 25 mg tablet 25 mg PO DAILY 04/25/21 [History Last Taken Unknown] omega-3 fatty acids 1,000 mg capsule 1,000 mg PO BID 04/25/21 [History Last Taken Unknown] trazodone 50 mg tablet 50 mg PO DAILY 11/17/21 [History Last Taken Unknown] rivaroxaban 20 mg tablet 20 mg PO DAILY #30 tab 05/17/21 [Rx Last Taken Unknown] metoprolol tartrate 50 mg tablet 50 mg PO BID #180 tab 06/06/21 [Rx Last Taken Unknown] oxycodone-acetaminophen [Percocet] 1 tab PO Q6H PRN 3 Days #12 tab 06/26/21 [Rx Last Taken Unknown] Allergy/AdvReac Type Severity Reaction Status Date / Time No Known Allergies Allergy Verified 06/26/21 09:24 Family History Father Myocardial infarction, Onset Age: 60 Grandfather Myocardial infarction, Onset Age: 40 Surgical History History of back surgery History of left heart catheterization (02/23/19) Social History Smoking Status: Former smoker alcohol intake: current alcohol intake frequency: 3 or more drinks per day Alcohol type: beer ROS ROS ED Constitutional Constitutional ED: Denies chills or fever(s) Eyes Eyes: Denies change in vision ENT ENT ED: Denies rhinorrhea or sore throat Cardiovascular Cardiovascular: Denies chest pain Respiratory/Chest Respiratory/Chest: Denies cough or dyspnea Gastrointestinal Gastrointestinal: Denies abdominal pain, diarrhea, nausea or vomiting Genitourinary Genitourinary ED: Denies dysuria or urinary frequency Musculoskeletal Musculoskeletal: Reports arthralgias and other Details: right hip pain ; Denies myalgias Integumentary Denies rash Neurologic Neurologic: Denies headache(s), paresthesias or weakness EXAM Physical Exam Const Vital Signs: 06/26/21 09:22 06/26/21 10:01 06/26/21 13:08 Temperature 96.2 F L Temperature Source Temporal Pulse Rate 73 62 Respiratory Rate 18 16 Respiratory Effort Normal Respiratory Pattern Normal Blood Pressure 160/102 H 115/78 Blood Pressure Mean 121 90 Pulse Ox 97 94 Oxygen Delivery Method Room Air Room Air 06/26/21 15:55 Temperature Temperature Source Pulse Rate Respiratory Rate Respiratory Effort Respiratory Pattern Blood Pressure 135/91 H Blood Pressure Mean Pulse Ox Oxygen Delivery Method Positive well nourished, well developed and obese General Appearance ED: well developed Nutritional Appearance: obese HEENT Reports moist mucous membranes Negative for trauma Eyes PERRL and EOMs intact bilaterally Neck supple General: Negative for tenderness Chest Wall inspection of chest normal Resp normal respiratory effort and clear to auscultation bilaterally Cardio regular rate, regular rhythm and no murmurs Rate: other Other Details: 2+ DP pulse GI normal to inspection, nondistended, normoactive bowel sounds GI Narrative: Protuberant abdomen Palpation: soft Extremity Extremity Narrative: No tenderness palpation directly of the hip. Patient is point to his greater trochanter is the area of his pain. Pain is reproduced with external rotation and internal rotation of the hip. No other bony tenderness or joint abnormality appreciated. General Extremety ED: Negative for edema or tenderness General Extremity: Negative for edema Neuro oriented x3 and no sensory deficits noted Sensorium / Orientation: alert Motor Exam: strength 5/5 throughout Psych mental status grossly normal Skin no rashes or lesions noted MDM MDM MDM Narrative Medical decision making narrative: Patient is evaluated for acute on chronic hip pain. He has known arthritis and looks like tendinitis of his hip. But he is starting to feel more unstable because of the degree of pain. He has had no new injuries or falls. He has previously been referred to physical therapy but did not go. He is encouraged that he should follow back up with orthopedics and go to physical therapy if that is what was prescribed. He is given a dose of IM morphine in the ER and will be started on another course of prednisone as a differential includes tendinitis as well as bursitis and he cannot be on NSAIDs because he is on a novel oral anticoagulant. He is counseled on the risk of long-term steroid use. He is counseled that if we start steroids today he might not be able to receive any intra-articular steroid injections but he would like to be started on steroids regardless. Patient's primary care provider prescribes Hughson which he can continue to take for pain as well. I attempted to discharge patient however he was in too much pain to ambulate. Does not feel comfortable going home. Given the patient has received multiple doses of pain medication and is still not able to ambulate in front of me we will obtain a CT to rule out any occult fracture or look for signs of bursitis or something to explain his difficulty ambulating. Did add on a CRP and ESR however I do have a low suspicion for septic joint especially as he does not have short arc range of motion, fever, night chills or sweats. CT is concerning for avascular necrosis of the right hip. Lab work is largely unremarkable. This is discussed with his orthopedist, Dr. Whalen, who states that the treatment is pain control and partial weightbearing with crutches or walker. Patient does not require any emergent surgery. He did request an x-ray of the right hip to follow. Patient is informed of these findings. He states he does not want placement and will go home. He believes he has a walker and crutches to use at home so he does not want any from the emergency room at this time. He is given a dose of oxycodone and a prescription for Percocet to take at home until he can follow-up further with Ortho and his PCP. Patient will need outpatient nonemergent MRI which he is aware of. Patient and verbalized agreement understand this plan. Patient is counseled on signs and symptoms requiring return to the emergency room. Patient discharged home in stable and improved condition. Lab Data Labs: Laboratory Results - last 24 hr 06/26/21 06/26/21 12:50 12:50 WBC 6.8 RBC 4.85 Hgb 14.0 Hct 41.2 MCV 84.9 MCH 28.9 MCHC 34.0 RDW Std Deviation 42.5 RDW Coeff of Pedro 13.6 Plt Count 243 MPV 9.6 Immature Gran % (Auto) 0.400 Neut % (Auto) 67.4 Lymph % (Auto) 23.0 [place] % (Auto) 5.2 Eos % (Auto) 3.6 Baso % (Auto) 0.4 Absolute Neuts (auto) 4.6 Absolute Lymphs (auto) 1.55 Nucleated RBC % 0 ESR 11 Sodium 139 Potassium 4.0 Chloride 107 Carbon Dioxide 24.0 Anion Gap 8 BUN 21 H Creatinine 0.92 Estim Creat Clear Calc 100.04 Est GFR (MDRD) Af Amer 110 Est GFR (MDRD) Non-Af 91 BUN/Creatinine Ratio 22.7 H Glucose 157 H Calcium 9.4 C-React Prot Ext Range 12.80 H Radiography Diagnostic Testing: Clinical Impression(s) from Imaging Studies Lower Extremity CT 06/26/21 12:22 IMPRESSION: Findings suggestive of avascular necrosis of the femoral head as described. Correlation with the MRI is recommended clinically indicated. Electronically Signed: Jignesh Rosas MD at 13:46 EST , Service support , Hip/Pelvis X-Ray 06/26/21 15:09 IMPRESSION: Sclerosis of the right femoral head. Avascular necrosis should be ruled out. Electronically Signed: Jignesh Rosas MD at 15:40 EST , Service support , Discharge Plan Triage Chief Complaint: Other, Pain/Inj ED Provider: Suzi Jalloh Dx/Rx/DC Orders Clinical Impression: Avascular necrosis of bone of right hip, Acute pain of right hip Instructions: Understanding Osteonecrosis, ED Arthralgia Prescriptions: New oxycodone-acetaminophen [Percocet] 5-325 mg tablet 1 tab PO Q6H PRN (Reason: pain) 3 Days Qty: 12 RF: 0 No Action losartan [Cozaar] 25 mg tablet 25 mg PO DAILY RF: 0 omega-3 fatty acids [Fish Oil Concentrate] 1,000 mg capsule 1,000 mg PO BID RF: 0 trazodone 50 mg tablet 50 mg PO DAILY RF: 0 cholecalciferol (vitamin D3) 25 mcg (1,000 unit) capsule 25 mcg PO DAILY RF: 0 ascorbate calcium (vitamin C) 500 mg tablet 500 mg PO DAILY RF: 0 acetaminophen 500 MG tablet 1,000 mg PO BID RF: 0 Xarelto 20 mg tablet 20 mg PO DAILY Qty: 30 RF: 11 metoprolol tartrate 50 mg tablet 50 mg PO BID Qty: 180 RF: 3 Stand Alone Forms: ED Work / School Excuse Primary Care Provider: Yuli Rosas Referrals: Yuli Rosas DO [Primary Care Provider] - Layton Whalen DO [STAFF PHYSICIAN] - 3-5 Days Activity Restrictions/Additional Instructions: Use a walker or crutches with partial weightbearing only to your right leg. Follow-up outpatient with for further treatment and evaluation of your hip. The CT today showed signs of avascular necrosis of the right hip and recommend outpatient MRI and follow-up. Disposition Disposition: Home, Self Care Discharge Date/Time: 06/26/21 15:59
[2021-06-26] MEDS: Morphine 4 MG/ML Syringe 6 MG IM (11:06)
[2021-06-26] MEDS: predniSONE 20 MG Tablet 60 MG PO (11:06)
[2021-06-26] MEDS: HYDROmorphone 1 MG/ML Syringe IM (12:00)
--- NOTE | 2021-06-26 12:22 | CT_ITS ---
STUDY: CT SCAN RIGHT REASON FOR EXAM: Male, 50 years old. Right hip pain RADIATION DOSAGE (If Supplied By Facility): CTDIvol = ( 39.71 ) mGy, DLP = ( 1252.75 ) mGycm. Individualized dose optimization techniques were used for this CT.? TECHNIQUE: Multiple axial tomographic images of the right hip joint were obtained without intravenous contrast administration. Coronal and sagittal reconstruction was obtained as well. COMPARISON: None. FINDINGS: There is evidence of atherosclerotic changes involving the right femoral head. Subchondral lucency is seen in the superior lateral aspect of the femoral head. Avascular necrosis should be ruled out. Correlation with MRI is recommended. 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 Correlation with the MRI is recommended clinically indicated. Electronically Signed: Jignesh Rosas MD at 13:46 EST , Service support ,
[2021-06-26 13:02] LABS: Absolute Lymphocyte Count 1.55 X10^3/uL (0.83-4.51); Absolute Neutrophil Count 4.6 X10^3/uL (2.0-7.7); Basophil# 0.03 X10^3/uL; Basophil% 0.4 % (0-1); Eosinophil# 0.24 X10^3/uL; Eosinophils% 3.6 % (0-5); Hematocrit 41.2 % (40-54); Lymphocyte # 1.55 X10^3/ul (0.83-4.51); Mean Corpuscular Hgb 28.9 pg (27.0-32.0); Mean Corpuscular Volume 84.9 fL (80-94); Mean Platelet Vol. 9.6 fl (6.2-12.0); Monocyte# 0.35 X10^3/uL; Monocyte% 5.2 % (0-10); NRBC Flagged by Analyzer 0 % (0-5); Neutrophil # 4.55 X10^3/uL (2.7-7.7); Neutrophil % 67.4 % (47-70); Platelet Count 243 K/mm3 (150-450); RBC Distribution Width CV 13.6 % (11.6-14.6); RBC Distribution Width SD 42.5 fl (35.1-43.9); Red Blood Count 4.85 M/mm3 (4.6-6.2); White Blood Count 6.8 K/mm3 (4.4-11.0)
[2021-06-26 13:05] LABS: Erythrocyte Sedimentation Rate 11 mm/hr (0-20)
[2021-06-26] MEDS: Morphine 4 MG/ML Syringe IV (13:07)
[2021-06-26 13:08] VITALS: BP 115/78; PULSE 62; RESP 16; O2SAT 94
[2021-06-26 13:12] LABS: Anion Gap 8 (5-15); BUN 21 mg/dL (7-18); BUN/Creat Ratio 22.7 RATIO (10-20); Calcium,Total 9.4 mg/dL (8.5-10.1); Chloride 107 mmol/L (98-107); Creatinine, Serum 0.92 mg/dL (0.70-1.30); EST Glomerular Filtration Rate 91 mL/min (>60); Est Glom Filt Rate - Afr Amer 110 mL/min (>60); Estimated Creatinine Clearance 100.04 ml/min; Glucose 157 mg/dL (74-106); Sodium Level 139 mmol/L (136-145)
--- NOTE | 2021-06-26 15:09 | RAD_ITS ---
STUDY: X-RAY - PELVIS AND RIGHT HIP REASON FOR EXAM: Male, 50 years old. Right hip pain TECHNIQUE: 3 views of the pelvis and hip. COMPARISON: Comparison is made with prior study dated 04/20/2021. FINDINGS: There is a non-specific bowel gas pattern. Normal visualized soft tissue structures. There is narrowing with cortical sclerosis and osteophyte formation of the sacroiliac joint consistent with degenerative osteoarthritic changes. Normal bilateral superior and inferior pubic rami. Normal pubic symphysis. Normal bilateral ischial tuberosities. Normal visualized femoral head. Normal acetabulum. Sclerosis of the right femoral head. Avascular necrosis should be ruled out. RAD/HIP, UNI W/ Pelvis 2-3 Views IMPRESSION: Sclerosis of the right femoral head. Avascular necrosis should be ruled out. Electronically Signed: Jignesh Rosas MD at 15:40 EST , Service support ,
[2021-06-26] MEDS: oxyCODONE 5 MG Tablet PO (15:51)
[2021-06-26 15:55] VITALS: BP 135/91
== END 2021-06-26 15:59 | disposition home or self-care (01) ==
PROVIDERS: Emergency Provider Emergency Medicine; PCP Family Medicine; Visit Provider Emergency Medicine
DX: M87.051 Idiopathic aseptic necrosis of right femur (principal); I48.0 Paroxysmal atrial fibrillation; Z68.41 Body mass index [BMI] 40.0-44.9, adult; E11.9 Type 2 diabetes mellitus without complications; I10 Essential (primary) hypertension; Z87.891 Personal history of nicotine dependence; Z86.16 Personal history of COVID-19; E66.9 Obesity, unspecified; Z79.01 Long term (current) use of anticoagulants; Z79.899 Other long term (current) drug therapy; G89.29 Other chronic pain
CPT/HCPCS: 73502; 73700; 80048; 85025; 85652; 86140; 96372; 96374; 99285

== ENCOUNTER 2021-07-17 16:21 | Outpatient (CLI) | payer OTHER, SELFPAY ==
--- NOTE | 2021-07-17 16:25 | MRI_ITS ---
STUDY: MRI RIGHT HIP REASON FOR EXAM: Male, 50 years old. AVN- right hip TECHNIQUE: Standardized fat and water weighted pulse sequences were obtained in all 3 orthogonal planes. Pelvic images are included on several sequences. COMPARISON: Pelvic x-ray dated June 26, 2021 FINDINGS: Patchy sclerosis of the bilateral femoral heads with slight flattening of the articular surface on the right with spurring on the left is consistent with mild to moderate avascular necrosis. No demonstrated fragmentation or complete femoral head collapse. The bilateral hip joints are mildly narrowed. Small bilateral hip joint effusions are also present. Normal hip joint without articular joint space narrowing. Normal acetabulum. Normal labrum. Normal femoral neck and intratrochanteric region. Normal gluteus minimus, medius and iliopsoas tendons and distal insertions. There is no trochanteric, iliopsoas or iliopectineal bursitis. Normal superior and inferior pubic rami. Normal pubic symphysis. Normal ischial tuberosity. Normal origin of the hamstring tendons. Normal visualized iliac wing, sacroiliac joint, and sacral ala. Significant rectosigmoid diverticulosis noted. MRI/Lower Ext Joint Only (Routine) IMPRESSION: 1. Patchy sclerosis of the bilateral femoral heads with slight flattening of the articular surface on the right with spurring on the left is consistent with mild to moderate avascular necrosis. 2. No demonstrated fragmentation or complete femoral head collapse. The bilateral hip joints are mildly narrowed. Small bilateral hip joint effusions are also present. Electronically Signed: Espinoza Crane MD at 23:34 EST ,
== END 2021-07-17 23:59 | disposition home or self-care (01) ==
PROVIDERS: PCP Family Medicine; Referring Provider Orthopaedic Surgery; Visit Provider Orthopaedic Surgery
DX: M87.051 Idiopathic aseptic necrosis of right femur (principal); M25.551 Pain in right hip
CPT/HCPCS: 73721

== ENCOUNTER 2021-08-07 07:27 | Day surgery (SDC) | payer OTHER, SELFPAY ==
[2021-08-07] VITALS (7 sets, daily range): BP systolic 109–158; BP diastolic 65–99; PULSE 62–81; RESP 16–18; TEMP 36.4–37; O2SAT 92–99; BMI 41.8
[2021-08-07] MEDS: Lactated Ringers 1,000 ML 15 ML IV ×2 (08:08→13:09)
--- NOTE | 2021-08-07 10:15 | RAD_ITS ---
STUDY: INTRAOPERATIVE FLUOROSCOPY FOR SUBCHONDRAL PLASTY OF THE RIGHT FEMORAL HEAD. REASON FOR EXAM: Male, 50 years old. INJECTION AND SUBCHONDROPLASTY OF RT FEMORAL HEAD 5 images were obtained. FINDINGS: Intraoperative imaging provided for subchondral plasty of the femoral head. RAD/Fluoro Guided Needle Placement IMPRESSION: Intraoperative imaging provided for some chondroplasty of the femoral head. Electronically Signed: Jignesh Rosas MD at 14:35 EST ,
--- NOTE | 2021-08-07 10:48 | HP.PCM_ITS ---
History and Physical Date of Admission: 08/07/21 Date of Service: 07/27/21 MR#:[id number]: SHELLY COULTER [facility] #:[id number]:1970 Provider:Dr. Layton Whalen DOAge/Sex: 50/M [facility] [place] Intake Intake Visit Reasons: RIGHT HIP Chief Complaint: CHEST PAIN Allergies No Known Allergies Allergy (Verified 06/26/21 09:24) Medications acetaminophen 1,000 mg PO BID 02/22/19 [History Confirmed 07/27/21] ascorbate calcium (vitamin C) 500 mg tablet 500 mg PO DAILY 04/25/21 [History Confirmed 07/27/21] cholecalciferol (vitamin D3) 25 mcg (1,000 unit) capsule 25 mcg PO DAILY 04/25/21 [History Confirmed 07/27/21] losartan 25 mg tablet 25 mg PO DAILY 04/25/21 [History Confirmed 07/27/21] omega-3 fatty acids 1,000 mg capsule 1,000 mg PO BID 04/25/21 [History Confirmed 07/27/21] trazodone 50 mg tablet 50 mg PO DAILY 04/25/21 [History Confirmed 07/27/21] metoprolol tartrate 50 mg tablet 50 mg PO BID #180 tab 06/06/21 [Rx Confirmed 07/27/21] turmeric 400 mg capsule mg PO 07/02/21 [History Confirmed 07/27/21] ibuprofen 800 mg tablet 800 mg PO Q8H PRN 07/27/21 [History Confirmed 07/27/21] PFSH Medical History COVID-19 COVID-19 virus detected (04/18/20) Cystic acne Essential (primary) hypertension ETOH abuse History of tobacco use Obesity PAF (paroxysmal atrial fibrillation) Prediabetes Prediabetes Type 2 diabetes mellitus Surgical History History of back surgery History of left heart catheterization (02/23/19) Family History Father Myocardial infarction, Onset Age: 60 Grandfather Myocardial infarction, Onset Age: 40 Social History Smoking Status: Former smoker alcohol intake: current alcohol intake frequency: 3 or more drinks per day Alcohol type: beer HPI RIGHT HIP Details: Parts of this documentation were recorded by a scribe, this documentation accurately reflects the service provided and the decisions made by me, Dr. Layton Whalen DO 07/27/21 0758. SHELLY COULTER is a 50 year old M here today for F/U after having MRI competed of the hip. He states that he was able to stop the Eliquis and start taking Ibuprofen and he feels this has been somewhat effective. He has not been NWB on the right hip. 5/10 pain in the left hip and 8/10 pain in the right hip. He has been light duty at work and has been NWB while at work but he has been FWB while at home and not at work. He has been non compliant with the NWB. Ortho Exam General General: Yes no acute distress Neurologic: Yes alert and Yes oriented x3 Psychologic: Yes reasonable and appropriate Right Hip Skin: No Ecchymosis, No soft tissue swelling and No Erythema Special Tests: No TTP Greater Troch Homans Sign: No HIP: Right Hip Skin: No Ecchymosis, No soft tissue swelling and No Erythema Special Tests: No TTP Greater Troch Homans Sign: No HIP: 10 internal rotation with reproduction of pain 35 external rotation with reproduction of pain Left Hip HIP: Does have limited left hip range of motion with groin pain as well Supplemental Info 07/17/2021 MRI right hip patchy sclerosis of bilateral femoral heads with slight flattening of the articular surface of the right with spurring consistent with avascular necrosis bilateral hip joints are mildly narrow. Coding Level of Care Code Off vis,est,level 3 Diagnoses AVN of femur M87.051 Laterality: right AVN of femur M87.052 Laterality: left Assessment and Plan Assessment and Plan (1) AVN of femur: Status: Acute Qualifiers: Laterality: right Qualified Code(s): M87.051 - Idiopathic aseptic necrosis of right femur (2) AVN of femur: Status: Acute Qualifiers: Laterality: left Qualified Code(s): M87.052 - Idiopathic aseptic necrosis of left femur Plan - Dr. Layton Whalen, DO: Personally reviewed the patients MRI of the right hip. Educated that he does have AVN of the hips. Educated that treatment options are to be NWB for 6 weeks to allow the area to heel or a surgical procedure to have core decompression with iliac crest bone aspiration injection of the area or as a last result a ANGELLA. Educated that he will need to be NWB consistently for 6 weeks. If he has the decompression surgery then he will still need to be TTWB for 6 weeks after the surgery and he can return to work about 2 days after the surgery but will need to remain light duty. He will need to stop Ibuprofen for 7 days prior to surgery. Reviewed the pre-operative plans with the patient. Risks and benefits of the procedure were fully explained, including but not limited to infection, neurovascular injury, continued pain, arthritis, stiffness, need for further surgery, re-injury, DVT, PE, general risks of anesthesia, and loss of limb or life. The patient understands all the risks and does wish to proceed with written consent for the right hip core decompression with iliac crest bone marrow aspiration and injection into lesion. We will need medical clearance from his PCP. Will be looking at surgery on 08/07/21. After surgery he can take Ibuprofen 600mg TID or Etoldolac BID or Meloxicam 15mg daily. He wishes to take Follow up 2 weeks post op or sooner if pain, swelling, numbness or associated symptoms, or concerns develop. All questions answered. Patient in agreement of plan. 07/27/21 0951<Electronically signed by Layton Whalen DO>Date Layton Whalen DO Cosigner Signature:Date (if applicable) I have re-examined the patient. There are no clinical changes since date of exam
[2021-08-07] MEDS: Thrombin 5,000 IU Kit (PSA) 5,000 IU Vial 5000 IU TOPICAL (11:15)
[2021-08-07] MEDS: Heparin 10,000 UNITS/10 ML Vial 10000 UNITS (11:15)
[2021-08-07] MEDS: Calcium Chloride 1 GM/10 ML Syringe (11:15)
--- NOTE | 2021-08-07 12:29 | OP.PCM_ITS ---
Report of Operation Date of Procedure: 08/07/21 Description of Surgical Findings:: Preoperative diagnosis: AVN right femoral head Postoperative diagnosis: Same Procedure: Core decompression right femoral head with bone marrow aspirate right iliac crest and injection into femoral head lesion with subchondral plasty Anesthesia: General EBL: 5 cc Complications: None Condition: Stable to PACU Indication for procedure: 50-year-old male with right groin pain MRI evidence of AVN of the femoral head failed conservative treatment and nonweightbearing wish to proceed with elective core decompression iliac crest bone marrow harvest injection in the femoral head with subchondroplasty of the femoral head risk be nefits and alternatives were reviewed including risk of bleeding infection nerve, artery, bone, tissue damage, blood clot need for further surgery and continued pain. Need for toe-touch weightbearing postoperatively for 6 weeks continued pain need for further surgery, Femoral head collapse. Procedure: Patient was met the preoperative holding area once again the operative extremity was identified by both patient and physician was marked. Patient was met by anesthesia and IV was started patient was brought back to the operating room transferred the operative table supine position. Anesthesia was started patient was then positioned on the fracture table all bony prominences were well-padded patient was prepped and draped in the usual sterile fashion a timeout was called ensure the proper patient procedure extremity being contemplated. The iliac crest was then marked for starting point 5 cm lateral to the anterior superior iliac spine to avoid branches of the lateral femoral cutaneous nerve. A scalpel was used to make a stab incision .once the inner and outer tables were identified a Jamshidi was inserted in the aspirate was drawn the aspirate was then handed off to the distal Biologics team who then centrifuged and prepared the aspiration for injection. A stab incision was made with a 15 blade scalpel, at this point fluoroscopy was used to estefany the femoral trajectory and Chao subchondroplasty trocar with side and END fenestrations was positioned into the AVN lesion this was templated on the MRI preoperatively. Once this was in the appropriate position a second 3.2 Ventura guidepin was inserted to perform additional drill holes into the lesion essentially performing a core decompression. Once the aspirate was prepared and gelled it was inserted through the trocar and then the subchondroplasty calcium phosphate was then inserted through the trocar once a subchondral plasty had hardened all pins were removed and the wounds were thoroughly irrigated with saline and closed with jamison. Dressing was applied patient was brought back to the PACU in stable condition all counts were correct there was no intraoperative complications patient will remain toe-touch weightbearing as discussed preoperatively for 6 weeks postop.
--- NOTE | 2021-08-07 12:35 | PCM.DC ---
Discharge Instructions Diet Discharge Diet: No restrictions Dressing / Incision Additional Dressing/Incision Instructions:: Keep dressing on for 48 hours clean and dry. Then may remove prior to for shower and wash incisions with antibacterial soap and pat dry may cover with a light dressing afterwards or Band-Aid. Should be washed with antibacterial soap daily after this point patient is to be toe-touch weightbearing on the right lower extremity with use of assistive device either crutches or a walker. A prescription of oxycodone was provided do not take more than directed or mix with other narcotics or alcohol. Medication can be addictive only take as needed and supplement with Celebrex and Tylenol to minimize use. Follow Up Care Please Follow Up With: Layton Whalen DO When: 2 weeks Test Results: Test results from this visit will be discussed in further detail at your follow-up appointment, if applicable. Discharge Plan Admission Attending Provider: Layton Whalen Primary Care Provider: Yuli Rosas Discharge Orders/Prescriptions Prescriptions: New oxycodone 5 mg tablet 5 - 10 mg PO Q4H PRN (Reason: pain) 5 Days Qty: 30 RF: 0 celecoxib [Celebrex] 200 mg capsule 200 mg PO BID Qty: 60 RF: 0 acetaminophen [Tylenol Extra Strength] 500 mg tablet 1,000 mg PO Q6H PRN (Reason: pain) Qty: 100 RF: 0 No Action omega-3 fatty acids [Fish Oil Concentrate] 1,000 mg capsule 1,000 mg PO BID RF: 0 trazodone 50 mg tablet 50 mg PO DAILY RF: 0 cholecalciferol (vitamin D3) 25 mcg (1,000 unit) capsule 50 mcg PO DAILY RF: 0 ascorbate calcium (vitamin C) 500 mg tablet 1,000 mg PO DAILY RF: 0 turmeric 400 mg capsule 1,000 mg PO DAILY RF: 0 calcium 600 mg Capsule 600 mg PO DAILY RF: 0 losartan-hydrochlorothiazide 100-25 mg tablet 1 tab PO DAILY RF: 0 etodolac 500 mg tablet 500 mg PO BID RF: 0 albuterol sulfate 90 mcg/actuation HFA aerosol inhaler 1 - 2 puff INHALATION Q6H PRN PRN (Reason: ASTHMA) RF: 0 metoprolol tartrate 50 mg tablet 50 mg PO BID Qty: 180 RF: 3 alendronate [Fosamax] 70 mg tablet 70 mg PO QWEEK Qty: 12 RF: 0 Referrals / Follow Up: Yuli Rosas DO [Primary Care Provider] - Disposition Disposition (needs filled in before D/C Order can be placed): Home, Self Care
[2021-08-07] MEDS: oxyCODONE 5 MG Tablet PO (13:56)
[2021-08-07] MEDS: Acetaminophen 500 MG Tablet 1000 MG PO (14:06)
== END 2021-08-07 23:59 | disposition home or self-care (01) ==
LOC: SDC 07:28 → AC 07:29
PROVIDERS: PCP Family Medicine; Referring Provider Orthopaedic Surgery; Visit Provider Orthopaedic Surgery
PROC: (CPT 27299; principal; 2021-08-07 10:00)
DX: M87.051 Idiopathic aseptic necrosis of right femur (principal); M87.052 Idiopathic aseptic necrosis of left femur; I48.0 Paroxysmal atrial fibrillation; Z68.41 Body mass index [BMI] 40.0-44.9, adult; E11.9 Type 2 diabetes mellitus without complications; I10 Essential (primary) hypertension; Z87.891 Personal history of nicotine dependence; Z86.16 Personal history of COVID-19; Z79.899 Other long term (current) drug therapy; E66.09 Other obesity due to excess calories; M16.10 Unilateral primary osteoarthritis, unspecified hip; J45.909 Unspecified asthma, uncomplicated; L70.0 Acne vulgaris; Z86.14 Personal history of Methicillin resistant Staphylococcus aureus infection
CPT/HCPCS: 27299; 38220; 76000; 77002; C1713; J7040; J7120; J2405

== ENCOUNTER 2021-10-11 18:10 | Emergency (ER) | payer OTHER, SELFPAY ==
[2021-10-11 18:11] VITALS: BP 161/99; PULSE 93; RESP 15; TEMP 36.1; O2SAT 95; BMI 56.5
[2021-10-11 18:13] VITALS: BP 161/99; PULSE 93; RESP 15; TEMP 36.1; O2SAT 95
--- NOTE | 2021-10-11 20:27 | EDS_ITS ---
HPI History of Present Illness Chief Complaint: Eye Problem Informant: patient Onset/Context/Timing Location: Left Eye Onset: Today Context: Sudden Onset Timing: Continuous Associated Symptoms Associated Symptoms - Eyes: Drainage, Eyelid swelling, Foreign body sensation, Pain and Redness; Negative for Burning, Crusting, Itching, Matting and Photophobia Visual Changes: left: Blurred vision History of injury: Yes and Foreign body Visual correction: Glasses Narrative Narrative: Patient presents with left eye pain that began today. Patient states he was mowing and he felt something get into his left eye. Patient admits to some watery drainage from the left eye. Patient is still feels like there is something in his left eye. Patient admits to some redness and swelling of his eyelid. Patient denies any burning, matting, or crusting. Patient normally wears glasses. Patient admits to some blurred vision out of his left eye but denies any diplopia. [facility] Medical History Alcohol use Arthritis Asthma Back pain Cardiology follow-up encounter COVID-19 COVID-19 virus detected (04/18/20) Cystic acne Essential (primary) hypertension ETOH abuse Former smoker History of atrial fibrillation History of echocardiogram History of edema History of pain when walking History of steroid therapy History of tobacco use Hx MRSA infection Hypertension Injury of back Obesity PAF (paroxysmal atrial fibrillation) Prediabetes Prediabetes Shortness of breath on exertion Type 2 diabetes mellitus Wears glasses Home Medications ascorbate calcium (vitamin C) 500 mg tablet 1,000 mg PO DAILY 04/25/21 [History Last Taken 08/06/21] cholecalciferol (vitamin D3) 25 mcg (1,000 unit) capsule 50 mcg PO DAILY 04/25/21 [History Last Taken 08/06/21] omega-3 fatty acids 1,000 mg capsule 1,000 mg PO BID 04/25/21 [History Last Taken 08/06/21] trazodone 50 mg tablet 50 mg PO DAILY 04/25/21 [History Last Taken 08/06/21] metoprolol tartrate 50 mg tablet 50 mg PO BID #180 tab 06/06/21 [Rx Last Taken 08/07/21] turmeric 400 mg capsule 1,000 mg PO DAILY 07/02/21 [History Last Taken 08/06/21] alendronate 70 mg tablet 70 mg PO QWEEK #12 tab 07/27/21 [Rx Last Taken 08/06/21] albuterol sulfate 1 - 2 puff INHALATION Q6H PRN PRN 08/02/21 [History Last Taken 08/06/21] calcium 600 mg PO DAILY 08/02/21 [History Last Taken 08/06/21] losartan-hydrochlorothiazide 1 tab PO DAILY 08/02/21 [History Last Taken ] acetaminophen [Tylenol Extra Strength] 1,000 mg PO Q6H PRN #100 tab 08/07/21 [Rx Last Taken Unknown] celecoxib [Celebrex] 200 mg PO BID #60 cap 08/07/21 [Rx Last Taken Unknown] oxycodone 5 - 10 mg PO Q4H PRN 5 Days #30 tab 08/07/21 [Rx Last Taken Unknown] tramadol 50 mg tablet 50 mg PO Q8H PRN #21 tab 10/10/21 [Rx Last Taken Unknown] Allergy/AdvReac Type Severity Reaction Status Date / Time No Known Allergies Allergy Verified 10/10/21 14:10 Family History Father Myocardial infarction, Onset Age: 60 Grandfather Myocardial infarction, Onset Age: 40 Surgical History History of back surgery History of cardiac catheterization History of left heart catheterization (02/23/19) Social History Smoking Status: Former smoker alcohol intake: current alcohol intake frequency: 3 or more drinks per day Alcohol type: beer ROS ROS ED Constitutional Constitutional ED: Denies chills or fever(s) Eyes Eyes: Reports blurry vision; Denies diplopia ENT ENT ED: Denies rhinorrhea or sore throat Cardiovascular Cardiovascular: Denies chest pain or palpitations Respiratory/Chest Respiratory/Chest: Denies cough or dyspnea Gastrointestinal Gastrointestinal: Denies nausea or vomiting Genitourinary Genitourinary ED: Denies dysuria or hematuria Musculoskeletal Musculoskeletal: Denies back pain or neck pain Integumentary Denies abscess or rash Neurologic Neurologic: Denies headache(s) or weakness Allergic/Immunologic Allergic/Immunologic ED: Denies mouth swelling or urticaria EXAM Physical Exam Const Vital Signs: 10/11/21 18:11 10/11/21 18:13 Temperature 96.9 F L 96.9 F L Temperature Source Temporal Temporal Pulse Rate 93 93 Respiratory Rate 15 15 Blood Pressure 161/99 H 161/99 H Blood Pressure Mean 119 119 Pulse Ox 95 95 Oxygen Delivery Method Room Air Room Air Positive well nourished, well developed and obese General Appearance ED: well developed and NAD Nutritional Appearance: obese HEENT atraumatic Eyes Alignment: alignment normal Eyelid: eyelids normal Conjunctiva: conjunctiva abnormal left Details: injection Positive for diffuse and other Other Details: Negative Travis sign Cornea: cornea abnormal Positive for left Cornea - Left Eye: Positive for abrasion Details: Positive for linear and at clock position (10 o'clock position); Negative for foreign body and ulceration Pupil: PERRL and accommodation reflex normal EOM: Negative for EOM abnormal Slit Lamp: slit lamp exam performed with fluorescein Neck supple and no JVD Neuro oriented x3, CN's II-XII intact bilaterally, moves all extremities and no sensory deficits noted Sensorium / Orientation: alert Motor Exam: strength 5/5 throughout MDM MDM MDM Narrative Medical decision making narrative: Patient was given erythromycin ophthalmic ointment here. Patient is given a tube to take home with him. Patient was instructed to use small amount of ointment 4 times daily. Patient was instructed to follow-up with his eye doctor in 1 to 2 days. Patient understood and was agreeable with the plan. All questions were answered. Discharge Plan Triage Chief Complaint: Eye Problem ED Provider: Aniceto Walls Dx/Rx/DC Orders Clinical Impression: Corneal abrasion, left Instructions: ED Corneal Abrasion Prescriptions: No Action omega-3 fatty acids [Fish Oil Concentrate] 1,000 mg capsule 1,000 mg PO BID RF: 0 trazodone 50 mg tablet 50 mg PO DAILY RF: 0 cholecalciferol (vitamin D3) 25 mcg (1,000 unit) capsule 50 mcg PO DAILY RF: 0 ascorbate calcium (vitamin C) 500 mg tablet 1,000 mg PO DAILY RF: 0 turmeric 400 mg capsule 1,000 mg PO DAILY RF: 0 tramadol 50 mg tablet 50 mg PO Q8H PRN (Reason: pain) Qty: 21 RF: 0 calcium 600 mg Capsule 600 mg PO DAILY RF: 0 losartan-hydrochlorothiazide 100-25 mg tablet 1 tab PO DAILY RF: 0 albuterol sulfate 90 mcg/actuation HFA aerosol inhaler 1 - 2 puff INHALATION Q6H PRN PRN (Reason: ASTHMA) RF: 0 oxycodone 5 mg tablet 5 - 10 mg PO Q4H PRN (Reason: pain) 5 Days Qty: 30 RF: 0 celecoxib [Celebrex] 200 mg capsule 200 mg PO BID Qty: 60 RF: 0 acetaminophen [Tylenol Extra Strength] 500 mg tablet 1,000 mg PO Q6H PRN (Reason: pain) Qty: 100 RF: 0 metoprolol tartrate 50 mg tablet 50 mg PO BID Qty: 180 RF: 3 alendronate [Fosamax] 70 mg tablet 70 mg PO QWEEK Qty: 12 RF: 0 Primary Care Provider: Yuli Rosas Referrals: Yuli Rosas DO [Primary Care Provider] - 1 Day Oksana Portillo MD [STAFF PHYSICIAN] - 1 Day Disposition Disposition: Home, Self Care
[2021-10-11] MEDS: Erythromycin Base 1 OPTH.TUBE 3.5 APPLIC LEFT EYE (20:48)
== END 2021-10-11 20:50 | disposition home or self-care (01) ==
PROVIDERS: Emergency Provider Emergency Medicine; PCP Family Medicine; Visit Provider Emergency Medicine
DX: S05.02XA Injury of conjunctiva and corneal abrasion without foreign body, left eye, initial encounter (principal); E66.9 Obesity, unspecified; Z86.16 Personal history of COVID-19; Z87.891 Personal history of nicotine dependence; X58.XXXA Exposure to other specified factors, initial encounter
CPT/HCPCS: 99282

== ENCOUNTER 2021-10-23 10:00 | Outpatient (RCR) | payer OTHER, SELFPAY ==
--- NOTE | 2021-09-20 11:01 | HP.PTEVAL ---
Patient's Visit Information SHELLY COULTER is a 51 year old M referred to Physical Therapy by Dr. Layton Whalen DO with a diagnosis of Right hip AVN/DJD. Date of Evaluation: 09/20/21 Physical Therapist: Chris Rdz - Visit Plan Frequency: 2x /Week Duration: 4-6 Weeks Plan: Continue with improving right LE strength, gait, and balance. Use manual therapy as needed. Will transfer POC to another PT at this time. - Subjective Pt. is a 51 y.o. male who had been having right hip pain for about 6-7 months with no specific injury that he is aware of. He had MRI and x-ray of his right hip which showed avascular necrosis and arthritis. He had right hip surgery on 08-13-21 with hip arthroscopic surgery and was NWB for six weeks. Pt. PLOF includes ambulation with cane or walker depending on how he is feeling. He does occasionally get a sharp pain down the anterior part of his right upper leg. He denies any falls. Pt. has difficulty with standing/walking longer than 5 minutes, ascending/descending stairs, squatting, kneeling, occasionally sleeping, housework, yard work, and work activity. Pt. 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 His goal with physical therapy is to get back to normal and get stronger. He has had previous physical therapy years ago following his back surgery. Pt. denies any right hip pain currently, at worst 7/10 and describes the pain as dull, achy, sharp, and throbbing. He is currently taking Tylenol for pain. 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 Pt. lives with his in a one story home with three steps to enter and handrail on left side. His hobbies include going to races. - Objective Palpation- Mild tenderness over lateral right hip. Lumbar AROM- WFL for all motions and mild pain with flexion and extension. Hip PROM- WFL bilaterally. Moderate tight hamstrings bilaterally. Left hip strength flexion [4+/5 ], abduction [4/5 ], adduction [4+/5 ], extension [4+/5 ], knee flexion [5/5 ], knee extension [5/5 ], ankle DF [5/5], PF [5/5]. Right hip strength flexion [4/5], abduction [4/5 ], adduction [3/5 ], extension [4-/5 ], knee flexion [5/5 ], knee extension [5/5 ], ankle DF [5/5], PF [5/5]. Sensation- WNL bilateral lower extremities. Tandem stance right [30 secs], left [30 secs]. SLS right [1 sec], left [16 secs]. Gait- Pt. ambulates with antalgic gait pattern on right with no assistive device. Stairs- Pt. ascends/descends stairs with step to gait pattern and unilateral handrail. - Balance/Special Test Scores Lower Extremity Functional Score: 20 - Goals Goal 1:: Pt. will improve right LE strength to 4+/5 for all motions in order to tolerate a full day of work activity. Goal Time Frame: 6-8 Weeks Goal 2:: Pt. will be able to ambulate with no assistive device or gait deviations. Goal Time Frame: 6-8 Weeks Goal 3:: Pt. will be able to ascend/descend a flight of stairs with alternating step pattern and unilateral handrail. Goal 4:: Pt. will be able to stand/walk for at least 20 minutes with right hip pain < 3/10. Goal Time Frame: 6-8 Weeks Goal 5:: Pt. will rate right hip pain at worst at 3/10 with ADL's. Goal Time Frame: 6-8 Weeks Goal 6:: Pt. will be able to return to work full duty with right hip pain < 3/10. Goal Time Frame: 6-8 Weeks - Rehabilitation Potential Physical Therapy Diagnosis: Decreased right hip ROM, LE strength, balance, and pain Rehabilitation Potential: Good - Anticipated Interventions Patient/Client Instruction: Educate patient on: Condition, Plan of Care, Benefits of Fitness Program For the Purpose of:: To decrease pain, To increase ROM, To improve ability to perform ADL's, To improve performance and independence with ADL's, To improve balance, To improve safety with gait, To assume or resume ADL's, To improve tolerance to ADL's Therapeutic Exercise to Include: Strength training, Endurance training, Balance training, Body mechanics, Postural training, Flexibilty training, Gait and locomotor training, Passive ROM, Active ROM, Dynamic Lumbar Stabilization Comment: Continue with LE strengthening especially hip strengthening. Also add some core and back strengthening as well. For the Purpose of:: To decrease pain, To increase ROM, To improve ability to perform ADL's, To improve performance and independence with ADL's, To assume or resume ADL's, To improve tolerance to ADL's Functional Training to Include: ADL Training, Functional work training, Gait training For the Purpose of:: To decrease pain, To improve ability to perform ADL's, To improve performance and independence with ADL's, To improve balance, To improve safety with gait, To assume or resume ADL's, To improve safety, To improve tolerance to ADL's Manual Therapy Techniques to Include: Passive ROM, Soft tissue mobilization For the Purpose of:: To decrease pain, To increase ROM, To improve ability to perform ADL's, To improve performance and independence with ADL's, To increase flexibility/ROM Assistive Devices: Cane, Wheeled walker For the Purpose of:: To decrease pain, To improve ability to perform ADL's, To improve performance and independence with ADL's, To improve balance, To improve safety with gait, To assume or resume ADL's, To improve safety, To improve tolerance to ADL's Thank you for the opportunity to evaluate your patient. For Medicare and Medicare HMO plans, please review the plan of care and approve it. It will need to be FAXED BACK to us at [phone] for Medicare purposes. For Medicare only, by signing this I certify the plan of care. Please let me know if there are questions or concerns regarding this plan of care. Physician Signature: Date:
--- NOTE | 2022-02-26 13:34 | HP.PT.NRP ---
SHELLY COULTER was seen in my office for initial evaluation on 09/20/21. The following Plan of Care was established for this patient: Initial Frequency: 2x /Week Initial Duration: 4-6 Weeks Patient/Client Instruction: Educate patient on: Condition, Plan of Care, Benefits of Fitness Program For the Purpose of:: To decrease pain, To increase ROM, To improve ability to perform ADL's, To improve performance and independence with ADL's, To improve balance, To improve safety with gait, To assume or resume ADL's, To improve tolerance to ADL's Therapeutic Exercise to Include: Strength training, Endurance training, Balance training, Body mechanics, Postural training, Flexibilty training, Gait and locomotor training, Passive ROM, Active ROM, Dynamic Lumbar Stabilization For the Purpose of:: To decrease pain, To increase ROM, To improve ability to perform ADL's, To improve performance and independence with ADL's, To assume or resume ADL's, To improve tolerance to ADL's Functional Training to Include: ADL Training, Functional work training, Gait training For the Purpose of:: To decrease pain, To improve ability to perform ADL's, To improve performance and independence with ADL's, To improve balance, To improve safety with gait, To assume or resume ADL's, To improve safety, To improve tolerance to ADL's Manual Therapy Techniques to Include: Passive ROM, Soft tissue mobilization For the Purpose of:: To decrease pain, To increase ROM, To improve ability to perform ADL's, To improve performance and independence with ADL's, To increase flexibility/ROM Assistive Devices: Cane, Wheeled walker For the Purpose of:: To decrease pain, To improve ability to perform ADL's, To improve performance and independence with ADL's, To improve balance, To improve safety with gait, To assume or resume ADL's, To improve safety, To improve tolerance to ADL's This patient was last seen in our office 10/23/21. Pertinent comments regarding their Physical therapy will appear below: Pt seen 7 visits of POC and had continued trouble with pain. However, he did not schedule or attend any further visits. at this point, it has been over 4 months and I will discontinue form our care due to nonattendance. At this point I will be discontinuing this patient from physical therapy. I would be happy to see this patient again in the future if found appropriate by the physician. Thank you! Aniceto Barba, DPT, OCS, CSCS Balance/Gait/Functional tests - Balance/Special Test Scores Lower Extremity Functional Score: 20
== END 2021-10-23 19:00 | disposition home or self-care (01) ==
LOC: PT 10:00
PROVIDERS: PCP Family Medicine; Referring Provider Orthopaedic Surgery; Visit Provider Orthopaedic Surgery
DX: M16.11 Unilateral primary osteoarthritis, right hip (principal); M87.9 Osteonecrosis, unspecified
CPT/HCPCS: 97014; 97110; 97162; G0283

== ENCOUNTER → 2021-10-24 | Outpatient (CLI) | payer OTHER, SELFPAY ==
--- NOTE | 2021-10-24 14:04 | CT_ITS ---
STUDY: CT SCAN OF THE HIPS BILATERAL REASON FOR EXAM: Male, 51 years old. Templating for right ANGELLA RADIATION DOSAGE (If Supplied By Facility): CTDIvol = ( 14.07 ) mGy, DLP = ( 867.55 ) mGycm. Individualized dose optimization techniques were used for this CT.? TECHNIQUE: Multiple axial tomographic images were obtained without intravenous contrast menstruation. Coronal and sagittal reconstructions obtained as well. COMPARISON: Comparison is made with prior study dated 06/26/2021. FINDINGS: Moderate degree of joint space narrowing of the right hip joint. Heterogeneous appearance of the femoral head. This is suggestive of avascular necrosis. Mild degree of joint space narrowing of the left hip joint. Heterogeneous appearance of the left femoral head. Findings are suggestive of avascular necrosis. 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 Electronically Signed: Jignesh Rosas MD at 14:48 EDT ,
== END | disposition home or self-care (01) ==
LOC: CT 13:53
PROVIDERS: PCP Family Medicine; Referring Provider Orthopaedic Surgery; Visit Provider Orthopaedic Surgery
DX: M87.059 Idiopathic aseptic necrosis of unspecified femur (principal); M25.551 Pain in right hip; M16.10 Unilateral primary osteoarthritis, unspecified hip
CPT/HCPCS: 73700

== ENCOUNTER → 2021-11-02 | Outpatient (CLI) | payer OTHER, SELFPAY ==
[2021-11-02 11:34] LABS: Absolute Lymphocyte Count 2.26 X10^3/uL (0.83-4.51); Absolute Neutrophil Count 4.7 X10^3/uL (2.0-7.7); Basophil# 0.03 X10^3/uL; Basophil% 0.4 % (0-1); Eosinophil# 0.26 X10^3/uL; Eosinophils% 3.3 % (0-5); Hematocrit 40.1 % (40-54); Hemoglobin 13.2 g/dL (13.0-16.5); Lymphocyte # 2.26 X10^3/ul (0.83-4.51); Lymphocyte % 28.9 % (19-41); Mean Corp Hgb Conc 32.9 g/dL (32-36); Mean Corpuscular Hgb 28.4 pg (27.0-32.0); Mean Corpuscular Volume 86.2 fL (80-94); Mean Platelet Vol. 9.9 fl (6.2-12.0); Monocyte# 0.59 X10^3/uL; Monocyte% 7.5 % (0-10); NRBC Flagged by Analyzer 0 % (0-5); Neutrophil # 4.65 X10^3/uL (2.7-7.7); Neutrophil % 59.5 % (47-70); Platelet Count 299 K/mm3 (150-450); RBC Distribution Width CV 13.4 % (11.6-14.6); RBC Distribution Width SD 41.6 fl (35.1-43.9); Red Blood Count 4.65 M/mm3 (4.6-6.2); White Blood Count 7.8 K/mm3 (4.4-11.0)
[2021-11-02 11:40] LABS: Hemoglobin A1c 9.2 % (3.8-5.6)
[2021-11-02 11:41] LABS: Prothrombin Time (Protime)PT. 12.4 SECONDS (11.7-14.9)
[2021-11-02 11:42] LABS: Partial Thromboplast Time 27.6 Seconds (24.1-36.2)
[2021-11-02 11:50] LABS: Anion Gap 4 (5-15); BUN 25 mg/dL (7-18); BUN/Creat Ratio 18.8 RATIO (10-20); Calcium,Total 9.9 mg/dL (8.5-10.1); Chloride 105 mmol/L (98-107); Creatinine, Serum 1.33 mg/dL (0.70-1.30); EST Glomerular Filtration Rate 60 mL/min (>60); Est Glom Filt Rate - Afr Amer 72 mL/min (>60); Glucose 190 mg/dL (74-106); Sodium Level 138 mmol/L (136-145)
[2021-11-03 11:37] LABS: Fructosamine 334 umol/L (0-285)
== END | disposition home or self-care (01) ==
LOC: PAT 11-29 15:33
PROVIDERS: Anesthesiology; PCP Family Medicine; Visit Provider Orthopaedic Surgery
DX: Z01.810 Encounter for preprocedural cardiovascular examination (principal)
CPT/HCPCS: 36415; 80048; 82985; 83036; 83735; 85025; 85610; 85730; 86850; 86900; 86901; 87081

== ENCOUNTER → 2021-12-12 | Outpatient (CLI) | payer OTHER, SELFPAY ==
[2021-12-12 17:56] LABS: Hemoglobin A1c 7.3 % (3.8-5.6)
[2021-12-14 08:21] LABS: Fructosamine 250 umol/L (0-285)
== END | disposition home or self-care (01) ==
PROVIDERS: PCP Family Medicine; Referring Provider Orthopaedic Surgery; Visit Provider Orthopaedic Surgery
DX: E11.9 Type 2 diabetes mellitus without complications (principal)
CPT/HCPCS: 36415; 82985; 83036

== ENCOUNTER 2022-01-08 05:34 | Day surgery (SDC) | payer OTHER, SELFPAY ==
[2021-12-27 18:07] LABS: Magnesium 1.9 mg/dL (1.6-2.6)
[2022-01-08] VITALS (11 sets, daily range): BP systolic 91–130; BP diastolic 43–97; PULSE 47–89; RESP 12–18; TEMP 36.3–36.8; O2SAT 92–98; BMI 40.8
[2022-01-08] MEDS: Insulin Lispro 100 UNIT/ML INSULN.PEN SC (06:00)
[2022-01-08] MEDS: Lactated Ringers 1,000 ML 999 ML IV (06:31)
[2022-01-08] MEDS: Scopolamine 1mg/72hr Patch 1 PATCH TD (06:31)
[2022-01-08] MEDS: Celecoxib 200 MG Capsule 400 MG PO (06:31)
[2022-01-08] MEDS: Magnesium 2 GM IV (06:31)
[2022-01-08] MEDS: Acetaminophen 500 MG Tablet 1000 MG PO ×2 (06:32→13:42)
[2022-01-08] MEDS: Gabapentin 600 MG Tablet PO (06:32)
--- NOTE | 2022-01-08 07:06 | HP.PCM_ITS ---
History and Physical Date of Admission: 01/08/22 [facility] [address] [place] [address] OFFICE VISIT Date of Service:? 12/12/21 MR#: [id number] Acct: [id number] Name:SHELLY HENNING Rep #: [id number] : 1970 ? ? Provider: Dr. Layton Whalen, DO Age/Sex:? 51/M ? ? Location: [facility] [place] Status: Signed Intake Vital Signs ? 12/12/2214:00 Height 5 ft 11 in Weight: 291 lb BMI 40.6 Intake Visit Reasons:?BL HIPS Allergies No Known Allergies Allergy (Verified 10/30/21 09:51) Medications metoprolol tartrate 50 mg tablet 50 mg PO BID #180 tabs 06/06/21 [Rx Confirmed 12/12/21] alendronate 70 mg tablet (Fosamax) 70 mg PO QWEEK #12 tabs 07/27/21 [Rx Confirmed 12/12/21] albuterol sulfate 90 mcg/actuation aerosol inhaler 1 - 2 puff inhalation Q6H PRN PRN ASTHMA 08/02/21 [History Confirmed 12/12/21] losartan 100 mg-hydrochlorothiazide 25 mg tablet 1 tab PO DAILY 08/02/21 [History Confirmed 12/12/21] acetaminophen 500 mg tablet (Tylenol Extra Strength) 1,000 mg PO Q6H PRN pain #100 tabs 08/07/21 [Rx Confirmed 12/12/21] tramadol 50 mg tablet 50 mg PO Q8H PRN pain #21 tabs 10/10/21 [Rx Confirmed 12/12/21] metformin 500 mg tablet tablet PO 11/21/21 [History Confirmed 12/12/21] trazodone 100 mg tablet tablet PO 12/12/21 [History Confirmed 12/12/21] PFSH Medical History?(Updated 12/12/21 @ 15:11 by Estefany Kumar) Alcohol use Arthritis Asthma Back pain Cardiology follow-up encounter COVID-19 COVID-19 virus detected (04/18/20) Cystic acne Essential (primary) hypertension ETOH abuse Former smoker History of atrial fibrillation History of echocardiogram History of edema History of pain when walking History of steroid therapy History of tobacco use Hx MRSA infection Hypertension Injury of back Obesity PAF (paroxysmal atrial fibrillation) Prediabetes Prediabetes Shortness of breath on exertion Type 2 diabetes mellitus Wears glasses Surgical History? History of back surgery History of cardiac catheterization History of left heart catheterization (02/23/19) Hx of surgical procedure Family History? Father?? Myocardial infarction,? Onset Age: 60Grandfather?? Myocardial infarction,? Onset Age: 40 Social History? Smoking Status:? Former smoker alcohol intake:? current alcohol intake frequency: 3 or more drinks per day Alcohol type: beer HPI BL HIPS Details: Parts of this documentation were recorded by a scribe, this documentation accurately reflects the service provided and the decisions made by me, Dr. Layton Whalen, DO 12/12/21 0757. SHELLY COULTER is a 51 year old M here today for? F/U on BL groin/hip pains. He states that his pain has increased. He is having difficulty with ambulation even with a single point cane. He has been taking the tramadol but this only somewhat helps with the pain. He continues to have BL groin pains and pain over the BL lateral sides of the hips. He states that he does have BL thigh pain with ambulation. Denies numbness, tingling or other associated symptoms. Denies any new injury. He has lost 6 lbs since 10/2021. He states that he has to lean back when he sits because when he sits at a 90 degree angle he has increased groin pain. He states that he has been checking his blood sugars daily and they have been improved. Ortho Exam General General: Yes no acute distress Neurologic: Yes alert and Yes oriented x3 Psychologic: Yes reasonable and appropriate Right Hip Skin: Yes healed, No Ecchymosis, No soft tissue swelling and No Erythema HIP: large abdominal pannus. mild right leg swelling. good pulse. pain with IR over groin.? Your groin pain with hip range of motion and weightbearing. Supplemental Info 10/10/2021 x-ray right hip: Subchondral changes of the femoral head consistent with AVN DJD 09/17/2021 x-ray right hip subchondral cystic changes of the femoral head no femoral head collapse. Coding Level of Care Code Off vis,est,level 3 Diagnoses Diabetes mellitus? E11.9 Hip arthritis? M16.10 AVN of femur? M87.059 Assessment and Plan Assessment and Plan (1) Diabetes mellitus: ?Status:?Acute (2) Hip arthritis: ?Status:?Acute (3) AVN of femur: ?Status:?Acute ? ? ? Orders: Orders Hemoglobin A1c Today E11.9 - Type 2 diabetes mellitus without complications ? Fructosamine Today E11.9 - Type 2 diabetes mellitus without complications ? Plan Educated that he will need to have his fructosamine and A1C drawn agian. As long as his labs are ok then he will be able to proceed with surgery. The labs have been ordered. We will call the patient to let him know the results. Risks, benefits and alternatives of surgery reviewed including but not limited to bleeding, infection, nerve, artery and/or tissue damage, fracture, VTE, leg length discrepancy, dislocation, need for hip precautions, continued pain and expected post-operative course. Follow up post op or sooner if pain, swelling, numbness or associated symptoms, or concerns develop.? All questions answered. Patient in agreement of plan. 12/12/21 1525 <Electronically signed by Layton Whalen DO> Date Layton Whalen DO Cosigner Signature: Date (if applicable) ? CC: ? ~I have re-examined the patient. There are no clinical changes since date of exam
--- NOTE | 2022-01-08 07:30 | FEM_PTH ---
PATIENT: SHELLY COULTER LOC: [facility] [place] U#:[id number] AGE/SX: 51/M ROOM: RE01/08/[address]: Dr. Layton Whalen DO : 1970 BED: DIS: 01/08/2022 SPEC #: [id number] RECD: 01/08/22 10:31 STATUS: EDGAR FRANK #: [id number] KATELYN: 01/08/22 07:[address]: Layton Whalen DEPT: SURGICAL PATHOLOGY RECD BY: Jacque Charles ENTERED: 01/08/22 10:50 SP TYPE: FEM HEAD OTHR DR: Dr. Yuli Rosas DO Tissues: Femoral region, NOS Procedures: Decalcification bone/plaque Surgery Specimen Level IV HEADER OPERATION: ERAS, total hip replacement robotic arm assist PRE-OP DIAGNOSIS: Right hip arthritis, AVN of right femur TISSUE SUBMITTED: Right femoral head MICROSCOPIC DIAGNOSIS Right femoral head, total hip replacement/resection: Femoral head with extensive vascular necrosis and mild degenerative osteoarthritic changes. KIZZY:morgan 01/11/2022 MICROSCOPIC DESCRIPTION Slides are reviewed. GROSS DESCRIPTION Received is one container labeled with the patient's name and designated right femoral head. The specimen consists of a huggins femoral head measuring 4 x 4.5 x 4 cm. The portion of femoral neck measures 1 cm in greatest length. Focal area of femoral head shows crack in the articular cartilage. Focal geographic huggins-light yellow area is also noted measuring 2 cm in greatest dimension. Sections reveal yellowish cut surface underneath these areas extending up to 2.0 cm in thickness. An area of erosion is noted. No soft tissue is identified. Container Maker sections are submitted in three cassettes after decalcification. / KIZZY:morgan 01/08/2022 TC:5 [facility]: [id number], [id number]
[2022-01-08] MEDS: TXA in NS 100ml (Placed in Wound) OPERA.SITE (07:50)
[2022-01-08] MEDS: Lactated Ringers 1,000 ML 100 ML IV (09:00)
[2022-01-08 10:00] LABS: Bedside Glucose 223 mg/dL (74-106)
--- NOTE | 2022-01-08 10:12 | DCINST_ITS ---
Discharge Instructions Diet Discharge Diet: 2000 Calorie Control Diet (low sugar /carb diet) Activity Weight Bearing Status: Weight bearing as tolerated Dressing / Incision Additional Dressing/Incision Instructions:: Do not shower 72hrs. Begin daily showering warm water antibacterial soap postop day #3( 72hrs Post-operatively) and then daily. Leave the dressing on for 72 hours postoperatively then may remove prior to first shower and change dressing daily after this until no drainage for 2 consecutive days then may leave open to air. Follow hip precautions that were reviewed in hospital. Wear compression stockings, may remove at night. Start physical therapy as directed in hospital. Follow prescriptions instructions do not take any other pain medication or differ dosing without consulting your physician. Patient already has Xarelto at home, please confirm dosage mg. Take Xarelto 10 mg daily beginning the morning after surgery for 35 days postop if you need more medication call Dr. Whalen . do not take oral NSAIDs until blood thinner has been completed , then may begin the day after completion if needed . Call Dr. Whalen's office with any concerns. Take antibiotic 9 PM this evening and after you wake up in the morning. Follow Up Care Test Results: Test results from this visit will be discussed in further detail at your follow- up appointment, if applicable. Discharge Plan Admission Primary Reason for Your Visit: Right total hip arthroplasty for AVN Attending Provider: Layton Whalen Primary Care Provider: Yuli Rosas Discharge Orders/Prescriptions Prescriptions: New oxycodone 5 mg tablet 5 - 10 mg PO Q4H PRN (Reason: pain) 7 Days Qty: 60 0RF cephalexin [cephalexin] 500 mg capsule 1,000 mg PO Q8 Qty: 4 0RF Rx Instructions: take 2 tabs at 9:00 pm and 2 tabs after 5 am when you wake up Continued metformin 500 mg tablet 500 tablet PO BID trazodone 100 mg tablet 100 tablet PO QHS losartan-hydrochlorothiazide [Hyzaar] 100-25 mg tablet 1 tab PO DAILY albuterol sulfate 90 mcg/actuation HFA aerosol inhaler 1 - 2 puff INHALATION Q6H PRN PRN (Reason: ASTHMA) acetaminophen [Tylenol Extra Strength] 500 mg tablet 1,000 mg PO Q6H PRN (Reason: pain) Qty: 100 0RF omega-3 fatty acids Capsule 1,000 mg PO DAILY cinnamon bark [Cinnamon] 500 mg Capsule 500 mg PO DAILY metoprolol tartrate 50 mg tablet 50 mg PO BID Qty: 180 3RF alendronate [Fosamax] 70 mg tablet 70 mg PO QWEEK Qty: 12 0RF Discontinued tramadol 50 mg tablet 50 mg PO Q8H PRN (Reason: pain) Qty: 21 0RF turmeric 400 mg Capsule 400 mg PO DAILY Referrals / Follow Up: Yuli Rosas DO [Primary Care Provider] - Disposition Discharge Orders: Discharge Patient (Routine); Ordered 01/08/22 Ordered By: Dr. Layton Whalen
--- NOTE | 2022-01-08 10:15 | RAD_ITS ---
INDICATION: post op in pacu -- in PACU EXAMINATION/TECHNIQUE: X-RAY - RIGHT XR Hip Unilateral with Pelvis when performed; 2-3 Views 2 VIEWS COMPARISON: 10/10/2021. FINDINGS: SOFT TISSUES: No soft tissue swelling or gas. No radiopaque foreign body. BONES/JOINTS: Unremarkable alignment of the right hip prosthesis. No evidence of lucency surrounding the prosthesis. Overlying soft tissue prominence is seen and surgical jamison consistent with postoperative changes. No acute fracture or subluxation.. Normal alignment. No sclerotic or destructive changes observed. RAD/Hip Min 2 Views (Portable) IMPRESSION: Unremarkable right hip prosthesis. Electronically Signed: Candido Garcia MD at 11:16 EDT ,
--- NOTE | 2022-01-08 10:18 | OP.PCM_ITS ---
Operative Report Date of Procedure: 01/08/22 Preoperative diagnosis: Right hip DJD Postoperative diagnosis: Same Procedure: CT-guided Makoplasty assisted right total hip arthroplasty Implants: Tammie Accolade II stem size 5, 127 degree neck angle -2.5 neck length 54 mm Trident II acetabular shell with 40 mm cancellous screw 36 mm cer [facility] head Anesthesia: General EBL: 250 cc Complications: None Condition: Stable to PACU Indication for procedure: This is a 51-year-old male who has had AVN hip who has failed conservative treatment and wished to undergo total hip arthroplasty. We did discuss operative versus nonoperative intervention including risks of bleeding, infection , nerve, artery tissue damage, need for further surgery, fracture, leg length discrepancy dislocation blood clot and need for postoperative physical therapy and postoperative expectations, patient did have his A1c lowered from 9.2-7.3 he understood he has at increased risk for infection with his elevated sugars he is also at increased risk due to his BMI over 40. An informed consent was signed. Procedure: Patient was met in the preoperative holding area once again the operative extremity was identified by both patient and physician and was marked. Patient was met by anesthesia . Anesthesia was started. patient was then positioned in the lateral decubitus position on a well-padded pegboard with an axillary roll. All bony prominences were checked and padded. The patient was prepped and draped in the usual sterile fashion. A timeout was called to ensure the proper patient procedure and extremity were being contemplated. Anatomic landmarks were palpated and marked for a standard posterior lateral approach. Prior to this the ASIS was palpated and 3 fingerbreadths proximal to this 3 pins were placed at a 45 degree angle into the iliac crest with good purchase, stab incisions were made with a 15 blade into the skin prior to placement. The Makoplasty array was then secured. A 10 blade scalpel was used to make a posterior incision through the skin and subcutaneous tissue. retractors were used and electrocautery was used to maintain meticulous hemostasis and dissect full-thickness flaps until the gluteal fascia was reached. The gluteal fascia was incised in line with the gluteal fibers. The bursal tissue was then freed f rom the underside and a Charnley retractor was placed. The femoral trochanteric checkpoint was placed and leg length was assessed using the trochanteric checkpoint and an EKG lead that was placed on the knee prior to prepping the leg .the fat pad was then elevated off of the external rotators with electrocautery and the external rotators were dissected off of the greater trochanter including the piriformis and were tagged with #1 Ethibond for later repair. The joint capsule opened with posterior trapdoor technique. The hip was surgically dislocated. The measurement on the preoperative CT from the top of the lesser trochanter to the femoral neck cut was marked Hohmann was placed around the lesser trochanter. A neck cutting guide was used to estefany the neck with a Bovie and an oscillating saw was used complete the femoral neck cut. The femoral head was then removed and sized. We then turned our attention to the acetabulum. A Bovie was used to make a perforation in the anterior joint capsule and a Chacon retractor was placed this was repeated in the 6 o'clock position and a wide blayne was placed there. With a long handled knife the labral and pulvinar tissue were removed. We then registered the acetabulum with the pointing array and confirmed our landmarks. Once the socket was thoroughly prepared and labral tissue and pulvinar was removed we single reamed with the robotic arm. We then used the robotic arm to position the acetabular implant and impacted it into place under robotic guidance. We then proceeded to place a posterior superior screw by drilling first measuring and inserting the screw. We then inserted a trial liner. And turned our attention back to the femur at this point a femoral elevator was used. As well as a pointed wide Hohmann around the lesser trochanter and a Hohmann to help retract the gluteus medius. A box chisel was used to remove excess lateral neck followed by a canal finder and a lateralizing reamer. This was followed by sequential broaches. Attention was made of the version within the canal based on preoperative templating. Once the final broach was seated we then trialed reduced the hip it was determined that a 127 degree neck angle with a -2.5 neck length was the appropriate size. We then checked stability with shuck testing as well as flexion and internal rotation. then proceeded with hip extension and checked leg lengths at the knees and heels as well as with the trochanteric checkpoint and knee EKG lead. At this point trials were removed. A liner was inserted to the cup. The femoral stem was inserted. We re-trialed and then proceeded to impact the femoral head onto the Ron taper. We then surgically reduce the hip check stability again and leg lengths and were satisfied. Betadine rinse was allowed to sit for 5 minutes while everyone changed their gloves. Thorough irrigation was performed. Followed by closure of the external rotators with #2 FiberWire followed by closure of gluteal fascia with #1 Ethibond. 0 Vicryl fat stitches and 2-0 Vicryl subcutaneous stitches and jamison in the skin. A pulls were placed in the pin sites over the iliac crest with Xeroform 4 x 4 and OpSite. dressing was applied to incisional area with Mepilex Ag and an abduction pillow was placed. Patient tolerated the procedure well there was no intraoperative complications all counts were correct and the patient was brought back to the PACU in stable condition
[2022-01-08 10:30] LABS: Bedside Glucose 169 mg/dL (74-106)
[2022-01-08] MEDS: oxyCODONE 5 MG Tablet PO (12:23)
[2022-01-08] MEDS: Cefazolin 1 GM/50 ML BAG IV (14:50)
== END 2022-01-08 15:28 | disposition home or self-care (01) ==
LOC: SDC 05:35 → AC 05:35
PROVIDERS: Anesthesiology; PCP Family Medicine; Referring Provider Orthopaedic Surgery; Visit Provider Orthopaedic Surgery
PROC: 8E0Y0CZ Robotic Assisted Procedure of Lower Extremity, Open Approach (ICD-10-PCS; CPT 27130; principal; 2022-01-08 07:00)
DX: M16.11 Unilateral primary osteoarthritis, right hip (principal); M87.051 Idiopathic aseptic necrosis of right femur; I48.0 Paroxysmal atrial fibrillation; Z68.41 Body mass index [BMI] 40.0-44.9, adult; E11.9 Type 2 diabetes mellitus without complications; I10 Essential (primary) hypertension; E66.9 Obesity, unspecified; Z79.84 Long term (current) use of oral hypoglycemic drugs; Z79.899 Other long term (current) drug therapy; Z86.16 Personal history of COVID-19; Z87.891 Personal history of nicotine dependence
CPT/HCPCS: 27130; S2900; 01202; 36415; 73502; 82962; 83735; 86850; 86900; 86901; 87081; 88305; 88307; 88311; 97162; C1776; J7120; J2405

== ENCOUNTER 2022-03-28 12:30 | Outpatient (RCR) | payer OTHER, SELFPAY ==
--- NOTE | 2022-01-10 15:20 | HP.PTEVAL ---
Patient's Visit Information SHELLY COULTER is a 51 year old M referred to Physical Therapy by Dr. Layton Whalen DO with a diagnosis of Right THR 01/08/22. Date of Evaluation: 01/10/22 Physical Therapist: Aminta Parham DPT - Visit Plan Frequency: 2-3x /Week Duration: 4 Weeks Plan: THR Posterior Approach 01/08/22. HEP Reviewed: Ankle Pumps, Glut Sets, Quad set, SLR and heel slides - Subjective Right TKR by Dr. Clifton on 01/08/2022- he went home after surgery. Lives in a single story home with help from family- 3 steps with handrails- no problems getting in/out. Currently using a FWW- used a cane prior to surgery depending on how he feels- he also uses axillary crutches- both hips are bad. He had decompression surgery- laid around for 3 months and then ended up with DM. Describes the pain and dull and achy and sharp shooting. Worst: 9-10/10 in the middle of the night trying to get up to use the restroom- sleeping in bed. Pain is located on the top of the thigh and on the lateral aspect of the thigh- occasionally has groin pain but that's getting better. Eases: pain medication, ice. Best: 3/10. Pain has not been as bad in the knee. Does not have N/T in the toes. Fully I prior to surgery. Work: [employer]- on his feet on concrete- has not been working since Jul- but plans to go back once he gets moving. Sleep: disturbed- normally a side sleeper. PMHx/Meds: see list in chart from surgery. - Objective Posture: FH, RS can correct but does not maintain. Gait: antalgic- FWW- decreased stance and step length with the right LE- poor heel/toe. HR/TR: able with UE A. SLS: weight shift but unable to SLS due to pain. Observation: bandage still intact- no s/s of drainage of infection. Sensation: WNL to gross touch bilateral LE. ROM: Hip: Flexion: 50 degrees with discomfort, Extn: neutral, Abd: 30 degrees. Strength: Hip: Flexion: unable to SLR without mod A, Extn: 10. Abd/Add: isometric: 4/5, Knee: 4+/5 Ankle: 5/5. Flex: HS: severe. Gastroc: severe. Palpation: tender along quad and ITBand to the greater troch - Balance/Special Test Scores Lower Extremity Functional Score: 10 TUG Test Time Seconds: 26 WOMAC Total Score: 74 WOMAC Percentatge: 22.9200 - Goals Goal 1:: Patient will be I with HEP and progression Goal Time Frame: 4-6 Weeks Goal 2:: Patient will ambulate >300 feet with a normalized gait pattern Goal Time Frame: 4-6 Weeks Goal 3:: Patient will asc/desc 8 stairs recip with 1 HR Goal Time Frame: 4-6 Weeks Goal 4:: Patient will improve TUG score to under 10 sec with LRD Goal Time Frame: 4-6 Weeks Goal 5:: Patient will report 80% improvement Goal Time Frame: 4-6 Weeks - Rehabilitation Potential Physical Therapy Diagnosis: Patient presents with hypomobility- he has decreased LE and core strength/stabilization, flex and muscular endurance leading to poor posture and decreased ability to perform ADL's Rehabilitation Potential: Good - Anticipated Interventions Patient/Client Instruction: Educate patient on: Benefits of Fitness Program Therapeutic Exercise to Include: Strength training, Endurance training, Balance training, Coordination, Agility training, Body mechanics, Postural training, Flexibilty training, Gait and locomotor training, Neuromotor development, Dynamic Lumbar Stabilization, Scapular Strength/Stabilization For the Purpose of:: To improve muscle performance and motor function TENS: Yes Cryotherapy (ice pack, ice massage): Yes Thermo therapy (hot pack): Yes Ultrasound (thermal/non thermal): No Thank you for the opportunity to evaluate your patient. For Medicare and Medicare HMO plans, please review the plan of care and approve it. It will need to be FAXED BACK to us at [phone] for Medicare purposes. For Medicare only, by signing this I certify the plan of care. Please let me know if there are questions or concerns regarding this plan of care. Physician Signature: Date:
--- NOTE | 2022-02-08 10:54 | HP.PTREVAL_ITS ---
Dr. Layton Whalen, DO, It has been my pleasure to treat SHELLY COULTER over the last 11 visits for Right THR 01/08/22. Please see the progress note below for an update on the physical therapy plan of care! Subjective: Patient reports that his sciatica is worse-The pain is in the buttocks and into the groin. Worst: 4/10 - comes and goes. agg: in/out of the car, going down stairs. Eases: sit in the recliner with a massage gun. He feels that he is 50% better- He is not back to work- Feb but not sure- goes back to the surgeon Feb 18. He feels he can't go to races due to the amount of walking. Afraid to take the step for cornhole. Objective/Function: Posture: FH, RS can correct but does not maintain. Gait: antalgic- no AD- decreased stance and step length with the right LE- poor heel/toe. HR/TR: able with UE A. SLS: 3 seconds. Sensation: WNL to gross touch bilateral LE. ROM: Hip: WFL in all planes. Strength: Hip: Flexion: 17, Extn: 55 Abd/Add: isometric: 4/5, Knee: 4+/5 Ankle: 5/5. Flex: HS: severe. Gastroc: severe. Palpation: tender along quad and ITBand to the greater troch Plan Plan: 02/08/22: Continue with POC 2-3x a week for 4 weeks Balance/Gait/Functional tests - Balance/Special Test Scores Lower Extremity Functional Score: 18 TUG Test Time Seconds: 9.9 Tug Test: <10 sec.=free mobile WOMAC Total Score: 51 WOMAC Percentage: 46.8800 Goals Goal 1:: Patient will be I with HEP and progression Goal Time Frame: 4-6 Weeks Goal Progress: Progressing Goal 2:: Patient will ambulate >300 feet with a normalized gait pattern Goal Time Frame: 4-6 Weeks Goal Progress: Progressing Goal 3:: Patient will asc/desc 8 stairs recip with 1 HR Goal Time Frame: 4-6 Weeks Goal Progress: Progressing Goal 4:: Patient will improve TUG score to under 10 sec with LRD Goal Time Frame: 4-6 Weeks Goal Progress: Goal Met Goal 5:: Patient will report 80% improvement Goal Time Frame: 4-6 Weeks Goal Progress: Progressing Anticipated Interventions Patient/Client Instruction: Educate patient on: Benefits of Fitness Program Therapeutic Exercise to Include: Strength training, Endurance training, Balance training, Coordination, Agility training, Body mechanics, Postural training, Flexibilty training, Gait and locomotor training, Neuromotor development, Dy namic Lumbar Stabilization, Scapular Strength/Stabilization For the Purpose of:: To improve muscle performance and motor function TENS: Yes Cryotherapy (ice pack, ice massage): Yes Thermo therapy (hot pack): Yes Ultrasound (thermal/non thermal): No Please do not hesitate to contact me at [phone] by phone or if you have questions or concerns regarding this new plan of care! Sincerely, Aminta Parham DPT
--- NOTE | 2022-05-09 07:29 | HP.PTDCSUM ---
It has been my pleasure to treat SHELLY COULTER referred by Dr. Layton Whalen DO, with the diagnosis of Right THR 01/08/22 for a total of 22 visit(s). Discharge Date: Please see the following information for a summary of their discharge status. Subjective: pt came early to work on ex prior to beginning of session. 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 Focused on tasks that will simulate what he will be doing at work. desktop support specialist scheduled pt to see the PT next visit to discuss what pt should be doing once RTW. Goal 1:: Patient will be I with HEP and progression Goal Progress: Progressing Goal 2:: Patient will ambulate >300 feet with a normalized gait pattern Goal Progress: Progressing Goal 3:: Patient will asc/desc 8 stairs recip with 1 HR Goal Progress: Progressing Goal 4:: Patient will improve TUG score to under 10 sec with LRD Goal Progress: Goal Met Goal 5:: Patient will report 80% improvement Goal Progress: Progressing Plan: 02/18/22: Aquatic PT. 02/08/22: Continue with POC 2-3x a week for 4 weeks If there are questions or concerns regarding this patient's physical therapy, please feel free to call me at [phone]. Thank you for the referral of this patient. Sincerely, Aminta Parham, DPT Balance/Gait/Functional tests - Balance/Special Test Scores Lower Extremity Functional Score: 39 TUG Test Time Seconds: 9.9 Tug Test: <10 sec.=free mobile WOMAC Total Score: 51 WOMAC Percentage: 46.8800
== END 2022-03-28 19:00 | disposition home or self-care (01) ==
LOC: PT 12:30
PROVIDERS: PCP Family Medicine; Referring Provider Orthopaedic Surgery; Visit Provider Orthopaedic Surgery
DX: Z96.651 Presence of right artificial knee joint (principal); Z47.1 Aftercare following joint replacement surgery
CPT/HCPCS: 97110; 97113; 97162; 97164

== ENCOUNTER 2022-10-14 06:36 | Emergency (ER) | payer OTHER, SELFPAY ==
[2022-10-14 06:37] VITALS: PULSE 71; RESP 18; TEMP 36.1; O2SAT 98; BMI 41.1
[2022-10-14] MEDS: Ketorolac 30 MG/ML Syringe IM (06:55)
[2022-10-14] MEDS: predniSONE 20 MG Tablet 40 MG PO (06:55)
--- NOTE | 2022-10-14 07:42 | EDS_ITS ---
HPI History of Present Illness Chief Complaint: Lower Extremity Injury Informant: patient Narrative Narrative: 1 week worsening right gluteal pain rating down his leg. Symptoms started after getting off an x-ray table for his left hip. There is plans for left hip arthroplasty followed by Dr. Whalen. His previous right total hip. Denies any loss of bowel or bladder control. He drove himself here. History of diabetes was well controlled per patient. Denies history of gastric ulcers or kidney injury. Denies anticoagulant medications. Prior similar symptoms: No PFSH PFSH Medical History Alcohol use Arthritis Asthma Back pain Cardiology follow-up encounter COVID-19 COVID-19 virus detected (04/18/20) Cystic acne Essential (primary) hypertension ETOH abuse Former smoker History of atrial fibrillation History of echocardiogram History of edema History of pain when walking History of steroid therapy History of tobacco use Hx MRSA infection Hypertension Injury of back Obesity PAF (paroxysmal atrial fibrillation) Prediabetes Prediabetes Shortness of breath on exertion Type 2 diabetes mellitus Wears glasses Home Medications albuterol sulfate 90 mcg/actuation aerosol inhaler 1 - 2 puff inhalation Q6H PRN PRN ASTHMA 08/02/21 [History Last Taken 08/06/21] losartan 100 mg-hydrochlorothiazide 25 mg tablet (Hyzaar) 1 tab PO DAILY 08/02/21 [History Last Taken 08/06/21] acetaminophen 500 mg tablet (Tylenol Extra Strength) 1,000 mg PO Q6H PRN pain #1 00 tabs 08/07/21 [Rx Last Taken Unknown] metformin 500 mg tablet 500 tablet PO BID 11/21/21 [History Last Taken Unknown] trazodone 100 mg tablet 100 tablet PO QHS 12/12/21 [History Last Taken Unknown] cinnamon bark 500 mg capsule (Cinnamon) 500 mg PO DAILY 12/25/21 [History Last Taken Unknown] omega-3 fatty acids 1,000 mg PO DAILY 12/25/21 [History Last Taken Unknown] metoprolol tartrate 50 mg tablet 50 mg PO BID #180 tabs 04/01/22 [Rx Last Taken Unknown] semaglutide 0.25 mg or 0.5 mg (2 mg/3 mL) subcutaneous pen injector (Ozempic) 0.25 mg subcut QWEEK 10/07/22 [History Last Taken Unknown] diazepam 5 mg tablet 5 mg PO Q8 PRN Muscle Spasm #10 tabs 10/14/22 [Rx Last Taken Unknown] gabapentin 300 mg capsule 300 mg PO QHS #30 caps 10/14/22 [Rx Last Taken Unknown] ibuprofen 600 mg tablet 600 mg PO Q6H PRN PRN pain #20 TABLETS 10/14/22 [Rx Last Taken Unknown] prednisone 20 mg tablet 40 mg PO DAILY #8 TABLETS 10/14/22 [Rx Last Taken Unknown] Allergy/AdvReac Type Severity Reaction Status Date / Time No Known Allergies Allergy Verified 10/07/22 15:24 Family History Father Myocardial infarction, Onset Age: 60 Grandfather Myocardial infarction, Onset Age: 40 Surgical History History of back surgery History of cardiac catheterization History of left heart catheterization (02/23/19) Hx of surgical procedure Social History Smoking Status: Former smoker alcohol intake: current alcohol intake frequency: 3 or more drinks per day Alcohol type: beer ROS ROS ED Constitutional Constitutional ED: Denies chills, fever(s) or sweats Eyes Eyes: Denies change in vision ENT ENT ED: Denies dysphagia or sore throat Cardiovascular Cardiovascular: Denies chest pain, leg edema, palpitations or racing heartbeat Respiratory/Chest Respiratory/Chest: Denies cough, dyspnea or dyspnea on exertion Gastrointestinal Gastrointestinal: Denies abdominal pain, diarrhea, nausea or vomiting Genitourinary Genitourinary ED: Denies dysuria, hematuria or urinary frequency Musculoskeletal Musculoskeletal: Reports back pain and extremity pain; Denies neck pain Integumentary Denies rash or wounds Neurologic Neurologic: Denies headache(s), paresthesias or weakness EXAM Physical Exam Const Vital Signs: 10/14/22 06:37 Temperature 97.0 F L Temperature Source Temporal Pulse Rate 71 Respiratory Rate 18 Pulse Ox 98 Oxygen Delivery Method Room Air Positive well nourished and well developed General Appearance ED: well developed and NAD HEENT Reports moist mucous membranes normocephalic and atraumatic Eyes PERRL, EOMs intact bilaterally and conjunctivae normal General Eye ED: Yes normal appearance of both eyes Neck no lymphadenopathy and supple General: Negative for tenderness Chest Wall Chest: Negative for tenderness Resp normal respiratory effort and normal air movement Effort and Inspection: symmetric chest movement; Negative for respiratory distre ss Cardio regular rate, regular rhythm and no murmurs Peripheral Pulses: pulses 2+ throughout GI normal to inspection, nondistended, normoactive bowel sounds and non-tender Palpation: Negative for guarding or rebound tenderness present Back/Spine Back/Spine Narrative: No midline tenderness right paralumbar tenderness. Straight leg test is negative bilaterally. 2+ patellar reflex bilaterally. Extremity normal to inspection General Extremety ED: Negative for edema or tenderness General Extremity: Negative for edema Neuro oriented x3 and no sensory deficits noted Sensorium / Orientation: awake and alert Skin no rashes or lesions noted and no wounds MDM MDM MDM Narrative Medical decision making narrative: Interventions / MDM: Differential diagnosis: Sciatica Diagnosis considered but do not suspect: No cauda equina symptoms My EKG interpretation: N/A Imaging independently reviewed and interpreted by myself: N/A External documents reviewed: N/A Test considered but not ordered:N/A ED course: Patient presenting with sciatica symptoms. No direct trauma to warrant any imaging currently. No cauda equina symptoms. Drove himself here. Reports blood glucose well controlled. He is given NSAIDs and steroids starting in the ED. Prescription for gabapentin and muscle relaxers with outpatient follow-up. All questions were answered. Re-evaluation: stable Disposition discussed with patient/family/significant other: patient Case discussed with consulting clinician: N/A Discharge Plan Triage Chief Complaint: Lower Extremity Injury ED Provider: Bobby Oliveira Dx/Rx/DC Orders Clinical Impression: Right sided sciatica, History of diabetes mellitus Instructions: ED Sciatica Prescriptions: New ibuprofen 600 mg tablet 600 mg PO Q6H PRN PRN (Reason: pain) Qty: 20 0RF diazepam [diazepam] 5 mg tablet 5 mg PO Q8 PRN (Reason: Muscle Spasm) Qty: 10 0RF prednisone 20 mg tablet 40 mg PO DAILY Qty: 8 0RF Rx Instructions: Next dose was 10/15/2022 gabapentin 300 mg capsule 300 mg PO QHS Qty: 30 0RF No Action metformin 500 mg tablet 500 tablet PO BID trazodone 100 mg tablet 100 tablet PO QHS Ozempic 0.25 mg or 0.5 mg (2 mg/3 mL) pen injector 0.25 mg subcut QWEEK Rx Instructions: for 4 weeks losartan-hydrochlorothiazide [Hyzaar] 100-25 mg tablet 1 tab PO DAILY albuterol sulfate 90 mcg/actuation HFA aerosol inhaler 1 - 2 puff INHALATION Q6H PRN PRN (Reason: ASTHMA) acetaminophen [Tylenol Extra Strength] 500 mg tablet 1,000 mg PO Q6H PRN (Reason: pain) Qty: 100 0RF omega-3 fatty acids Capsule 1,000 mg PO DAILY cinnamon bark [Cinnamon] 500 mg Capsule 500 mg PO DAILY metoprolol tartrate 50 mg tablet 50 mg PO BID Qty: 180 3RF Stand Alone Forms: ED Work / School Excuse Primary Care Provider: Yuli Rosas Referrals: Yuli Rosas DO [Primary Care Provider] - 3-5 Days Activity Restrictions/Additional Instructions: Take medication as prescribed. No driving or heavy machinery if taking diazepam. Gabapentin to be taken at night. Follow-up with your doctor for further management. Disposition Disposition: Home, Self Care Discharge Date/Time: 10/14/22 07:15
== END 2022-10-14 07:15 | disposition home or self-care (01) ==
LOC: ED 06:56
PROVIDERS: Emergency Provider Emergency Medicine; PCP Family Medicine; Visit Provider Emergency Medicine
DX: M54.31 Sciatica, right side (principal); Z86.16 Personal history of COVID-19; Z87.891 Personal history of nicotine dependence
CPT/HCPCS: 96372; 99283

== ENCOUNTER → 2022-11-05 | Outpatient (CLI) | payer OTHER, SELFPAY ==
--- NOTE | 2022-11-05 15:37 | CT_ITS ---
EXAM: CT LEFT LOWER EXTREMITY WITHOUT INTRAVENOUS CONTRAST CLINICAL INDICATION: templating for left ANGELLA TECHNIQUE: Helically acquired images were obtained of the left lower extremity without intravenous contrast. 2-D reformats were performed by the technologist. CTDIvol = ( 12.85 ) mGy, DLP = ( 769.54 ) mGycm This CT exam was performed using one or more of the following dose reduction techniques: automated exposure control, adjustment of the mA and/or kV according to patient size, and/or use of iterative reconstruction technique. COMPARISON: No relevant prior studies available. FINDINGS: BONES/JOINTS: Right hip arthroplasty with satisfactory alignment and no complications. Left femoral head osteonecrosis with subchondral collapse superiorly. At least moderate left hip osteoarthrosis. No acute or healing fracture. No other unusual lytic or sclerotic lesions of bone. No significant arthritic changes involving the knees. SOFT TISSUES: Unremarkable. No soft tissue swelling or gas. No radiopaque foreign body. No soft tissue abnormalities. OTHER FINDINGS: Distal colonic diverticulosis without acute diverticulitis. CT/Extremity Lower without Contra IMPRESSION: Left femoral head osteonecrosis with subchondral collapse superiorly. At least moderate left hip osteoarthrosis. Electronically Signed: uLis Martin MD at 21:28 EDT ,
== END | disposition home or self-care (01) ==
LOC: CT 15:37
PROVIDERS: PCP Family Medicine; Referring Provider Orthopaedic Surgery; Visit Provider Orthopaedic Surgery
DX: M16.12 Unilateral primary osteoarthritis, left hip (principal)
CPT/HCPCS: 73700

== ENCOUNTER 2022-11-26 05:12 | Day surgery (SDC) | payer OTHER, SELFPAY ==
--- NOTE | 2022-11-13 07:34 | EKG12_ITS ---
Test Reason : PRE OP Blood Pressure : / mmHG Vent. Rate : 056 BPM Atrial Rate : 056 BPM P-R Int : 166 ms QRS Dur : 096 ms QT Int : 372 ms P-R-T Axes : 031 014 029 degrees QTc Int : 358 ms Sinus bradycardia Otherwise normal ECG Confirmed by MARY JOHNSON, MARTA ([id number]), web content editor ALAN SY ([id number]) on 11/14/2022 9:29:37 AM Referred By: Layton Whalen Confirmed By:MARTA HERNANDEZ MD
[2022-11-13 08:27] LABS: Absolute Lymphocyte Count 1.91 X10^3/uL (0.83-4.51); Absolute Neutrophil Count 5.3 X10^3/uL (2.0-7.7); Basophil# 0.04 X10^3/uL; Basophil% 0.5 % (0-1); Eosinophils% 4.8 % (0-5); Hematocrit 42.6 % (40-54); Hemoglobin 13.5 g/dL (13.0-16.5); Lymphocyte # 1.91 X10^3/ul (0.83-4.51); Lymphocyte % 22.9 % (19-41); Mean Corp Hgb Conc 31.7 g/dL (32-36); Mean Corpuscular Hgb 28.4 pg (27.0-32.0); Mean Corpuscular Volume 89.5 fL (80-94); Mean Platelet Vol. 10.1 fl (6.2-12.0); Monocyte# 0.61 X10^3/uL; Monocyte% 7.3 % (0-10); NRBC Flagged by Analyzer 0 % (0-5); Neutrophil # 5.34 X10^3/uL (2.7-7.7); Platelet Count 320 K/mm3 (150-450); RBC Distribution Width CV 13.3 % (11.6-14.6); RBC Distribution Width SD 43.6 fl (35.1-43.9); Red Blood Count 4.76 M/mm3 (4.6-6.2); White Blood Count 8.3 K/mm3 (4.4-11.0)
[2022-11-13 08:34] LABS: International Normalized Ratio 0.9; Prothrombin Time (Protime)PT. 12.5 SECONDS (11.7-14.9)
[2022-11-13 08:35] LABS: Partial Thromboplast Time 28.6 Seconds (24.1-36.2)
[2022-11-13 08:50] LABS: Anion Gap 5 (5-15); BUN 33 mg/dL (7-18); BUN/Creat Ratio 21.7 RATIO (10-20); Calcium,Total 10.6 mg/dL (8.5-10.1); Chloride 108 mmol/L (98-107); Creatinine, Serum 1.52 mg/dL (0.70-1.30); EST Glomerular Filtration Rate 51 mL/min (>60); Est Glom Filt Rate - Afr Amer 62 mL/min (>60); Glucose 143 mg/dL (74-106); Potassium 4.4 mmol/L (3.5-5.1); Sodium Level 139 mmol/L (136-145)
[2022-11-13 09:26] LABS: Hemoglobin A1c 6.9 % (3.8-5.6)
[2022-11-14 05:07] LABS: Fructosamine 268 umol/L (0-285)
[2022-11-26 05:45] VITALS: BP 123/91; PULSE 73; RESP 18; TEMP 36.9; O2SAT 94; BMI 40.2
[2022-11-26] MEDS: Lactated Ringers 1,000 ML 999 ML IV (05:50)
[2022-11-26] MEDS: Magnesium 1 GM over 15 mins IV (05:50)
[2022-11-26] MEDS: Gabapentin 600 MG Tablet PO (06:16)
[2022-11-26] MEDS: Acetaminophen 500 MG Tablet 1000 MG PO (06:17)
[2022-11-26] MEDS: Scopolamine 1mg/72hr Patch 1 PATCH TD (06:17)
[2022-11-26] MEDS: Celecoxib 200 MG Capsule 400 MG PO (06:17)
[2022-11-26 06:22] LABS: Bedside Glucose 208 mg/dL (74-106)
--- NOTE | 2022-11-26 06:53 | SUR.PREOP ---
Patients BGL is 208. Patient refused insulin administration for ERAS order. Patient educated on importance of insulin and ERAS order. Patient understood.
--- NOTE | 2022-11-26 07:30 | HIP_PTH ---
PATIENT: SHELLY COULTER [place] [facility] [id number] AGE/SX: 52/M ROOM: RE11/26/[address]: Dr. Layton Whalen DO : 1970 BED: DIS: 11/26/2022 SPEC #: [id number] RECD: 11/26/22 10:10 STATUS: EDGAR FRANK #: [id number] KATELYN: 11/26/22 07:[address]: Layton Whalen DEPT: SURGICAL PATHOLOGY RECD BY: Jacque Charles ENTERED: 11/26/22 10:41 SP TYPE: TOTAL HIP OTHR DR: Dr. 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 AM:morgan 11/28/2022 MICROSCOPIC DESCRIPTION Slides are reviewed. GROSS DESCRIPTION Received is one container labeled with the patient's name and designated bone and soft tissue hip, left. The specimen consists of a slightly distorted huggins femoral head measuring 6.6 x 5.0 x 5.0 cm. Focally, the cartilaginous cap appears to be avulsed in an area measuring 5.0 x 3.0 cm. Osteophyte formation is focally identified. Also present in the specimen container are multiple irregular fragments of bone reamings, bone and pink-yellow soft tissue measuring in aggregate 7.0 x 5.0 x 1.0 cm. Picker And Packer sections are submitted in two cassettes as follows: 1 - soft tissue, 2 - bone after decalcification. / AM:morgan 11/26/2022 TC:5 CPT: 15687, 72306
[2022-11-26] MEDS: Lactated Ringers 1,000 ML 100 ML IV (08:31)
[2022-11-26 08:34] LABS: Bedside Glucose 141 mg/dL (74-106)
--- NOTE | 2022-11-26 09:34 | PCM.HP.BLA ---
History and Physical Date of Admission: 11/26/22 [facility] [id number] [place] [address] OFFICE VISIT Date of Service:? 10/07/22 MR#: [id number] Acct: [id number] Name:SHELLY HENNING Rep #: [id number] : 1970 ? ? Provider: Dr. Layton Whalen, DO Age/Sex:? 52/M ? ? Location: [facility] [place] Status: Signed Intake Vital Signs ? 10/07/2314:28 Height 5 ft 11 in Weight: 297 lb BMI 41.4 Intake Visit Reasons:?LEFT HIP Allergies No Known Allergies Allergy (Verified 10/07/22 15:24) Medications albuterol sulfate 90 mcg/actuation aerosol inhaler 1 - 2 puff inhalation Q6H PRN PRN ASTHMA 08/02/21 [History Confirmed 10/07/22] losartan 100 mg-hydrochlorothiazide 25 mg tablet (Hyzaar) 1 tab PO DAILY 08/02/21 [History Confirmed 10/07/22] acetaminophen 500 mg tablet (Tylenol Extra Strength) 1,000 mg PO Q6H PRN pain #100 tabs 08/07/21 [Rx Confirmed 10/07/22] metformin 500 mg tablet 500 tablet PO BID 11/21/21 [History Confirmed 10/07/22] trazodone 100 mg tablet 100 tablet PO QHS 12/12/21 [History Confirmed 10/07/22] cinnamon bark 500 mg capsule (Cinnamon) 500 mg PO DAILY 12/25/21 [History Confirmed 10/07/22] omega-3 fatty acids 1,000 mg PO DAILY 12/25/21 [History Confirmed 10/07/22] metoprolol tartrate 50 mg tablet 50 mg PO BID #180 tabs 04/01/22 [Rx Confirmed 10/07/22] semaglutide 0.25 mg or 0.5 mg (2 mg/3 mL) subcutaneous pen injector (Ozempic) 0.25 mg subcut QWEEK 10/07/22 [History Confirmed 10/07/22] PFSH Medical History? Alcohol use Arthritis Asthma Back pain Cardiology follow-up encounter COVID-19 COVID-19 virus detected (04/18/20) Cystic acne Essential (primary) hypertension ETOH abuse Former smoker History of atrial fibrillation History of echocardiogram History of edema History of pain when walking History of steroid therapy History of tobacco use Hx MRSA infection Hypertension Injury of back Obesity PAF (paroxysmal atrial fibrillation) Prediabetes Prediabetes Shortness of breath on exertion Type 2 diabetes mellitus Wears glasses Surgical History? History of back surgery History of cardiac catheterization History of left heart catheterization (02/23/19) Hx of surgical procedure Family History? Father?? Myocardial infarction,? Onset Age: 60Grandfather?? Myocardial infarction,? Onset Age: 40 Social History? Smoking Status:? Former smoker alcohol intake:? current alcohol intake frequency: 3 or more drinks per day Alcohol type: beer HPI LEFT HIP Details: Parts of this documentation were recorded by a scribe, this documentation accurately reflects the service provided and the decisions made by me, Dr. Layton Whalen, DO 10/07/22 1521. SHELLY COULTER is a 52 year old M here today for left hip pain. patient is here to discuss having a ANGELLA. States that he did go to PT for strengthening of the low back and BL hips and notes that it didn't help with the hip pain. He is taking Tylenol and Ibuprofen for the pain. He does still have severe groin pain as well.? He states that if it feels like the right hip after surgery he will be happy with it. Ortho Exam General General: Yes no acute distress Neurologic: Yes alert and Yes oriented x3 Psychologic: Yes reasonable and appropriate Left Hip Skin/Wound: No Ecchymosis, No soft tissue swelling and No Erythema Hip: Absent eccymosis, soft tissue swelling, erythema or tender to palpate - internal rotation @90 degree flexion: 8 degrees external rotation @90 degree extension: 40 degrees HIP: groin pain with IR, 5/5 hip flexion and hip abduction.? Intact sensation light touch left lower extremity dermatomes no gross motor or sensory deficits.? Palpable pedal pulses. Head: Normocephalic Atraumatic Chest: symmetrical rise, non-labored breathing, no audible wheeze Abdomen: no guarding, non-rigid Supplemental Info 10/07/2022 x-ray left hip: AVN with relatively unchanged appearance from previous x-rays 2021 x-ray right hip: Status post total hip arthroplasty with good implant position and interfaces without concern.? 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 02/18/2022 x-ray right hip status post total hip arthroplasty with good interfaces and positioning 10/10/2021 x-ray right hip: Subchondral changes of the femoral head consistent with AVN DJD 09/17/2021 x-ray right hip subchondral cystic changes of the femoral head no femoral head collapse. 07/17/2021 MRI right hip patchy sclerosis of bilateral femoral heads with slight flattening of the articular surface of the right with spurring consistent with avascular necrosis bilateral hip joints are mildly narrow. Coding Level of Care Code Off vis,est,level 3 Diagnoses Osteoarthritis of left hip? M16.12 Assessment and Plan Assessment and Plan (1) Osteoarthritis of left hip: ? ? ? Orders: Orders HIP, UNI W/ Pelvis 2-3 Views Today M25.552 - Pain in left hip ? Plan Spoke with the patient about of a total hip arthroplasty. Patient should not take any NSAIDs within 7 days of surgery. Spoke with the patient about the increased risks of the surgery due to his current BMI. Explained the risks of a total hip arthroplasty. He has hip precautions for 6 weeks strictly. Patient will need a CT scan for the makoplasty. Patient will be same day surgery.??Risks, benefits and alternatives of surgery reviewed including but not limited to bleeding, infection, nerve, foot drop, artery and/or tissue damage, fracture, VTE, leg length discrepancy, dislocation, need for hip precautions, continued pain and expected post-operative course. Tentative surgery date is November 26, 2022, instructed to hold all NSAIDs for 7 days prior Follow up for 2 week post op or sooner if pain, swelling, numbness or associated symptoms, or concerns develop.? All questions answered. Patient in agreement of plan. 10/07/22 9153 <Electronically signed by Layton Whalen DO> Date Layton Whalen DO Cosigner Signature: Date (if applicable) ? I have examined the patient and the H&P has been reviewed. There are no clinical changes since date of exam. CC: ? ~
--- NOTE | 2022-11-26 09:39 | RAD_ITS ---
INDICATION: Postop -- in PACU EXAMINATION/TECHNIQUE: X-RAY - LEFT XR Hip Unilateral with Pelvis when performed; 1 View 2 VIEWS COMPARISON: October 07, 2022 pelvis x-rays. FINDINGS: SOFT TISSUES: No soft tissue swelling or gas. Right and left inguinal Ring metallic clips suggesting prior vastectomy . Skin jamison left hip region. BONES/JOINTS: Bilateral total hip arthroplasty hardware, new on the left. Well-seated femoral component. No gross acetabular malpositioning. No abnormal soft tissue ossific fragments. Intact femurs and visualized pelvis. No sclerotic or destructive changes observed. RAD/Hip Min 2 Views (Portable) IMPRESSION: New left hip arthroplasty hardware without complication. Electronically Signed: Edison Carias DO at 20:21 EDT ,
--- NOTE | 2022-11-26 09:42 | EX.PCM.DISCH ---
Discharge Instructions Diet Discharge Diet: No restrictions (Minimize sweets as a high sugar diet in the perioperative period can increase risk of infection) Activity Weight Bearing Status: Weight bearing as tolerated Dressing / Incision Call your doctor if you observe: Shortness of breath and Chest pain Additional Dressing/Incision Instructions:: Do not shower 72hrs. Begin daily showering warm water antibacterial soap postop day #3( 72hrs Post-operatively) and then daily. Leave the dressing on for 72 hours postoperatively then may remove prior to first shower and change dressing daily after this until no drainage for 2 consecutive days then may leave open to air. Follow hip precautions that were reviewed in hospital. Wear compression stockings, may remove at night. Start physical therapy as directed in hospital. Follow prescriptions instructions do not take any other pain medication or differ dosing without consulting your physician. Do not take oral NSAIDs until blood thinner has been completed , then may begin the day after completion if needed . Call Dr. Whalen's office with any concerns. Follow Up Care Please Follow Up With: Layton Whalen DO When: 2 weeks Test Results: Test results from this visit will be discussed in further detail at your follow-up appointment, if applicable. Discharge Plan Admission Primary Reason for Your Visit: Left total hip arthroplasty Attending Provider: Layton Whalen Primary Care Provider: Yuli Rosas Discharge Orders/Prescriptions Prescriptions: New acetaminophen [acetaminophen] 500 mg tablet 1,000 mg PO Q6H PRN Qty: 100 1RF cephalexin [cephalexin] 500 mg capsule 1,000 mg PO Q8 Qty: 4 0RF Rx Instructions: take 2 tabs at 9:00 pm and 2 tabs after 5 am when you wake up Eliquis 2.5 mg tablet 2.5 mg PO BID Qty: 42 0RF Rx Instructions: Begin morning after surgery oxycodone 5 mg tablet 5 - 15 mg PO Q4H PRN (Reason: pain) 7 Days Qty: 60 0RF Continued metformin 500 mg tablet 500 tablet PO BID Ozempic 0.25 mg or 0.5 mg (2 mg/3 mL) pen injector 0.25 mg subcut QWEEK Rx Instructions: for 4 weeks FRIDAYS losartan-hydrochlorothiazide [Hyzaar] 100-25 mg tablet 1 tab PO DAILY albuterol sulfate 90 mcg/actuation HFA aerosol inhaler 1 - 2 puff INHALATION Q6H PRN PRN (Reason: ASTHMA) omega-3 fatty acids Capsule 1,000 mg PO DAILY cinnamon bark [Cinnamon] 500 mg Capsule 500 mg PO DAILY diazepam 5 mg tablet 5 mg PO Q8 PRN (Reason: Muscle Spasm) Qty: 10 0RF metoprolol tartrate 50 mg tablet 50 mg PO BID Qty: 180 3RF Discontinued oxycodone-acetaminophen [Percocet] 5-325 mg Tablet 1 tab PO Q4H PRN (Reason: Pain) ibuprofen 600 mg tablet 600 mg PO Q6H PRN PRN (Reason: pain) Qty: 20 0RF No Action acetaminophen [Tylenol Extra Strength] 500 mg tablet 1,000 mg PO Q6H PRN (Reason: pain) Qty: 100 0RF Other Ambulatory Orders: 12 Lead EKG (Routine) Timeframe: 20221113 Location: None Selected Ordered By: Dr. Layton Whalen Referrals / Follow Up: Yuli Rosas DO [Primary Care Provider] - Disposition Disposition (needs filled in before D/C Order can be placed): Home, Self Care
[2022-11-26] MEDS: Lactated Ringers 1,000 ML 125 ML IV (09:55)
[2022-11-26 11:16] LABS: Bedside Glucose 129 mg/dL (74-106)
--- NOTE | 2022-11-26 12:33 | OP.PCM_ITS ---
Operative Report Date of Procedure: 11/26/22 Preoperative diagnosis: Left hip avascular necrosis Postoperative diagnosis: Same Procedure: CT-guided Makoplasty assisted left total hip arthroplasty Implants: Tammie Accolade II stem size 5, 127 degree neck angle -2.5 neck length 54 mm Trident II acetabular shell with 40 mm cancellous screw 36 mm ceramic head, 10 degree Trident X3 polyethylene insert. Anesthesia: Spinal EBL: 175 cc Complications: None Condition: Stable to PACU Admissions Gate Attendant Jatinder Lockett. My physician broker assistant was a vital part of this case. He was important in appropriate retraction during the case, and protection of soft tissues during procedure. His intimate knowledge of the case and my steps aided in safe and expedient completion of the procedure as well as appropriate position of the extremity during the case. He was also vital in assisting with closure under my direct supervision. Indication for procedure: This is a 52-year-old male who has had long-standing arthrosis of the hip after having avascular necrosis who has failed conservative treatment and wished to undergo total hip arthroplasty. We did discuss operative versus nonoperative intervention including risks of bleeding, infection , nerve artery tissue damage, need for further surgery, fracture, leg length discrepancy dislocation blood clot and need for postoperative physical therapy and postoperative expectations. An informed consent was signed. Procedure: Patient was met in the preoperative holding area once again the operative extremity was identified by both patient and physician and was marked. Patient was met by anesthesia . Anesthesia was started. patient was then positioned in the lateral decubitus position on a well-padded pegboard with an axillary roll. All bony prominences were checked and padded. The patient was prepped and draped in the usual sterile fashion. A timeout was called to ensure the proper patient procedure and extremity were being contemplated. Anatomic landmarks were palpated and marked for a standard posterior lateral approach. Prior to this the ASIS was palpated and 3 fingerbreadths proximal to this 3 pins were placed at a 45 degree angle into the iliac crest with good purchase, stab incisions were made with a 15 blade into the skin prior to placement. The Makoplasty array was then secured. A 10 blade scalpel was used to make a posterior incision through the skin and subcutaneous tissue. retractors were used and electrocautery was used to maintain meticulous hemostasis and dissect full-thickness flaps until the gluteal fascia was reached. The gluteal fascia was incised in line with the gluteal fibers. The bursal tissue was then freed from the underside and a Charnley retractor was placed. The femoral trochanteric checkpoint was placed and leg length was assessed using the trochanteric checkpoint and an EKG lead that was placed on the knee prior to prepping the leg .the fat pad was then elevated off of the external rotators with electrocautery and the external rotators were dissected off of the greater trochanter including the piriformis and were tagged with #1 Ethibond for later repair. The joint capsule opened with posterior trapdoor technique. The hip was surgically dislocated. The measurement on the preoperative CT from the top of the lesser trochanter to the femoral neck cut was marked Hohmann was placed around the lesser trochanter. A neck cutting guide was used to estefany the neck with a Bovie and an oscillating saw was used complete the femoral neck cut. The femoral head was then removed and sized. We then turned our attention to the acetabulum. A Bovie was used to make a perforation in the anterior joint capsule and a Chacon retractor was placed this was repeated in the 6 o'clock position and a wide blayne was placed there. With a long handled knife the labral and pulvinar tissue were removed. We then registered the acetabulum with the pointing array and confirmed our landmarks. Once the socket was thoroughly prepared and labral tissue and pulvinar was removed we single reamed with the robotic arm. We then used the robotic arm to position the acetabular implant and impacted it into place under robotic guidance. We then proceeded to place a posterior superior screw by drilling first measuring and inserting the screw. We then inserted a trial liner. And turned our attention back to the femur at this point a femoral elevator was used. As well as a pointed wide Hohmann around the lesser trochanter and a Hohmann to help retract the gluteus medius. A box chisel was used to remove excess lateral neck followed by a canal finder and a lateralizing reamer. This was followed by sequential broaches. Attention was made of the version within the canal based on preoperative templating. Once the final broach was seated we then trialed reduced the hip it was determined that a 127 degree neck angle with a -2.5 neck length was the appropriate size. We then checked stability with shuck testing as well as flexion and internal rotation. then proceeded with hip extension and checked leg lengths at the knees and heels as well as with the trochanteric checkpoint and knee EKG lead. At this point trials were removed. A liner was inserted to the cup. The femoral stem was inserted. We re-trialed and then proceeded to impact the femoral head onto the Ron taper. We then surgically reduce the hip check stability again and leg lengths and were satisfied. Betadine rinse was allowed to sit for 5 minutes while everyone changed their gloves. Thorough irrigation was performed. Followed by closure of the external rotators with #2 FiberWire followed by closure of gluteal fascia with #1 Ethibond. 0 Vicryl fat stitches and 2-0 Vicryl subcutaneous stitches and rupinder in the skin. Rupinder were placed in the skin pin sites over the iliac crest and dressed with a Mepilex dressing. The main incision was dressed with a Mepilex ag dressing and an abduction pillow was placed. Patient tolerated the procedure well there was no intraoperative complications all counts were correct and the patient was brought back to the PACU in stable condition
[2022-11-26] MEDS: Ketorolac 30 MG/ML Syringe IV (12:41)
[2022-11-26] MEDS: oxyCODONE 5 MG Tablet PO (12:42)
[2022-11-26] MEDS: Cefazolin 2 GM in 0.9% Normal Saline 100 ML IV (12:45)
[2022-11-26 12:51] VITALS: BP 124/85; PULSE 75; RESP 16; TEMP 36.6; O2SAT 97
[2022-11-26 14:39] VITALS: BP 125/78; PULSE 80; RESP 16; O2SAT 98
== END 2022-11-26 14:43 | disposition home or self-care (01) ==
LOC: SDC 05:12 → AC 05:13
PROVIDERS: PCP Family Medicine; Referring Provider Orthopaedic Surgery; Visit Provider Orthopaedic Surgery
PROC: 8E0Y0CZ Robotic Assisted Procedure of Lower Extremity, Open Approach (ICD-10-PCS; CPT 27130; principal; 2022-11-26 07:00)
DX: M87.052 Idiopathic aseptic necrosis of left femur (principal); I48.0 Paroxysmal atrial fibrillation; Z68.41 Body mass index [BMI] 40.0-44.9, adult; E11.9 Type 2 diabetes mellitus without complications; M16.12 Unilateral primary osteoarthritis, left hip; I10 Essential (primary) hypertension; J45.909 Unspecified asthma, uncomplicated; E66.09 Other obesity due to excess calories; Z87.891 Personal history of nicotine dependence; Z86.16 Personal history of COVID-19; Z79.899 Other long term (current) drug therapy; Z79.84 Long term (current) use of oral hypoglycemic drugs; Z79.01 Long term (current) use of anticoagulants
CPT/HCPCS: 27130; S2900; 01214; 36415; 73502; 80048; 82962; 82985; 83036; 83735; 85025; 85610; 85730; 86850; 86900; 86901; 87081; 88305; 88311; 93005; 97162; C1776; J7120; J2405; J3475

== ENCOUNTER 2022-11-29 11:11 | Emergency (ER) | payer OTHER, SELFPAY ==
[2022-11-29 11:12] VITALS: BP 131/76; PULSE 95; RESP 18; TEMP 36.9; O2SAT 96
[2022-11-29 11:27] VITALS: BMI 41.8
--- NOTE | 2022-11-29 11:38 | EDS_ITS ---
HPI <HONORIO Lovell - Last Filed: 11/29/22 15:19> History of Present Illness Chief Complaint: Lower Extremity Injury Narrative Narrative: Patient presenting today with left hip pain that started this morning. He reports that he had a left-sided total hip arthroplasty performed on 11/26/[address] Atwood and was discharged home on the same day. There were no surgical or postoperative complications and the surgical incision site seems to be healing well. Today, he was getting into the car to go to physical therapy when he abducted his left hip to get in the car and got his leg stuck on the track of the seat and felt immediate pain in his left hip that radiated into his left groin and down the anterior portion of his left thigh. Patient came straight here as he wants to have x-rays performed to make sure that everything is still in place. He denies any other injury. PFS <HONORIO Lovell - Last Filed: 11/29/22 15:19> [facility] Medical History Alcohol use Ambulates with cane Arthritis Asthma Back pain Cardiology follow-up encounter COVID-19 COVID-19 virus detected (04/18/20) Cystic acne Essential (primary) hypertension ETOH abuse Former smoker History of atrial fibrillation History of echocardiogram History of edema History of pain when walking History of steroid therapy History of tobacco use Hx MRSA infection Hypertension Injury of back MRSA infection Obesity PAF (paroxysmal atrial fibrillation) Prediabetes Prediabetes Shortness of breath on exertion Type 2 diabetes mellitus Wears glasses Home Medications albuterol sulfate 90 mcg/actuation aerosol inhaler 1 - 2 puff inhalation Q6H PRN PRN ASTHMA 08/02/21 [History Last Taken 08/06/21] losartan 100 mg-hydrochlorothiazide 25 mg tablet (Hyzaar) 1 tab PO DAILY 08/02/21 [History Last Taken 11/26/22 04:30] acetaminophen 500 mg tablet (Tylenol Extra Strength) 1,000 mg PO Q6H PRN pain #100 tabs 08/07/21 [Rx Last Taken Unknown] metformin 500 mg tablet 500 tablet PO BID 11/21/21 [History Last Taken Unknown] cinnamon bark 500 mg capsule (Cinnamon) 500 mg PO DAILY 12/25/21 [History Last Taken Unknown] omega-3 fatty acids 1,000 mg PO DAILY 12/25/21 [History Last Taken Unknown] metoprolol tartrate 50 mg tablet 50 mg PO BID #180 tabs 04/01/22 [Rx Last Taken 11/26/22 04:30] semaglutide 0.25 mg or 0.5 mg (2 mg/3 mL) subcutaneous pen injector (Ozempic) 0.25 mg subcut QWEEK 10/07/22 [History Last Taken Unknown] diazepam 5 mg tablet 5 mg PO Q8 PRN Muscle Spasm #10 tabs 10/14/22 [Rx Last Taken Unknown] acetaminophen 500 mg tablet 1,000 mg PO Q6H PRN #100 tabs 11/26/22 [Rx Last Taken Unknown] apixaban 2.5 mg tablet (Eliquis) 2.5 mg PO BID #42 tabs 11/26/22 [Rx Last Taken Unknown] cephalexin 500 mg capsule 1,000 mg PO Q8 #4 caps 11/26/22 [Rx Last Taken Unknown] oxycodone 5 mg tablet 5 - 15 mg PO Q4H PRN pain 7 days #60 tabs 11/26/22 [Rx Last Taken Unknown] cephalexin 500 mg capsule 500 mg PO Q6 #40 CAPSULES 11/29/22 [Rx Last Taken Unknown] sulfamethoxazole 800 mg-trimethoprim 160 mg tablet (Bactrim DS) 1 tab PO BID 10 days #20 tabs 11/29/22 [Rx Last Taken Unknown] Allergy/AdvReac Type Severity Reaction Status Date / Time No Known Allergies Allergy Verified 11/26/22 06:09 Family History Father Myocardial infarction, Onset Age: 60 Grandfather Myocardial infarction, Onset Age: 40 Surgical History History of back surgery History of cardiac catheterization History of left heart catheterization (02/23/19) Hx of surgical procedure Social History Smoking Status: Former smoker alcohol intake: current alcohol intake frequency: 3 or more drinks per day Alcohol type: beer ROS <HONORIO Lovell - Last Filed: 11/29/22 15:19> ROS ED Constitutional Constitutional ED: Denies chills or fever(s) Cardiovascular Cardiovascular: Denies chest pain Respiratory/Chest Respiratory/Chest: Denies cough or dyspnea Gastrointestinal Gastrointestinal: Denies abdominal pain, nausea or vomiting Musculoskeletal Musculoskeletal: Reports arthralgias and myalgias Integumentary Denies abscess or rash Neurologic Neurologic: Denies paresthesias or weakness EXAM <HONORIO Lovell - Last Filed: 11/29/22 15:19> Physical Exam Const Vital Signs: 11/29/22 11:12 Temperature 98.4 F Temperature Source Temporal Pulse Rate 95 Respiratory Rate 18 Blood Pressure 131/76 H Blood Pressure Mean 94 Pulse Ox 96 Oxygen Delivery Method Room Air Positive well nourished, well developed and no apparent distress General Appearance ED: well developed HEENT Reports normocephalic and head/scalp atraumatic Mouth ED: Yes moist mucous membranes normal Eyes PERRL and EOMs intact bilaterally Neck full ROM and supple Chest Wall inspection of chest normal Resp normal respiratory effort and clear to auscultation bilaterally Cardio regular rate and regular rhythm GI soft to palpation, non-tender, non-distended and no masses Back/Spine normal ROM and normal to inspection Extremity normal to inspection Extremity Narrative: Intact surgical incision to the left hip with jamison in place, no erythema, purulent discharge, edema, or dehiscence. Neuro oriented x3, CN's II-XII intact bilaterally, moves all extremities, no focal motor deficits and no sensory deficits noted Sensorium / Orientation: awake and alert Psych mental status grossly normal and thought process normal Skin no rashes or lesions noted and no wounds <Dr. Dipti Hatch MD - Last Filed: 11/29/22 19:27> Physical Exam Const Vital Signs: 11/29/22 11:12 Temperature 98.4 F Temperature Source Temporal Pulse Rate 95 Respiratory Rate 18 Blood Pressure 131/76 H Blood Pressure Mean 94 Pulse Ox 96 Oxygen Delivery Method Room Air MDM <HONORIO Lovell - Last Filed: 11/29/22 15:19> MDM MDM Narrative Medical decision making narrative: Patient has left side pain after trying to ambulate into his car and getting his left leg stuck on the track of the door. He is status post total hip replacement on Friday. Surgical incision site is intact with jamison in place, no surrounding erythema, edema, purulent discharge, or dehiscence. Patient is requesting to have x-rays performed of his left hip, I feel this is reasonable given his recent surgery to rule out dislocation. He has been given pain control here. X-ray obtained and shows stable appearance of that he replaced left hip joint. The attending went in to evaluate the patient she did notice some surrounding erythema and warmth to the incision site that spared the incision site itself, not sure if this is a reaction to the bandage that is on or if there is an infection that is starting. She did outline this with marker and instructed him to call back later this evening if the area grows and she will call in a antibiotic for him. He is afebrile here. Patient is understan ding of this. Patient is able to ambulate on discharge, he is to follow-up with his surgeon will be discharged home in stable condition, he is comfortable with plan. Radiography X-Ray: Read by ED Physician and Read by Radiologist Diagnostic Testing: Clinical Impression(s) from Imaging Studies Hip/Pelvis X-Ray 11/29/22 11:50 IMPRESSION: Stable appearance of the replaced left hip joint. No acute abnormalities Electronically Signed: Last Aragon MD at 13:16 EDT , <Dr. Dipti Hatch MD - Last Filed: 11/29/22 19:27> MDM Radiography Diagnostic Testing: Clinical Impression(s) from Imaging Studies Hip/Pelvis X-Ray 11/29/22 11:50 IMPRESSION: Stable appearance of the replaced left hip joint. No acute abnormalities Electronically Signed: Last Aragon MD at 13:16 EDT , Treatment and Re-Evaluation :: Patient seen and evaluated with SHADI. I personally interviewed and examined the patient. I was involved in all aspects of patient's orders, interpretation of results, and treatment. Patient presents secondary to left hip pain. He underwent left hip replacement earlier this week with Dr. Whalen. He was getting in his car today and his left foot caught in the door and he has increased pain. Patient lying on his right side in no acute distress. Head and neck examination unremarkable. Heart is regular rate and rhythm with no murmur. Lung sounds are clear. Abdomen is soft nontender. Left hip incision sites are clean. At the time of my examination he does have erythema and warmth noted around the wound. states that was not present earlier today. She just took down the initial dressing and put different bandages on earlier today. Area of erythema as outlined and I suggested taking the bandages off when she gets home to ensure he is not having a reaction to them. Patient is given a dose of his oxycodone here and x-rays are obtained. Hardware is intact with good alignment. No acute findings noted. Patient had only appropriate postop pain in the hip until his leg got caught in the door earlier today. When the patient was discharged and got in the car he continued to have significant pain. presented back and asked about getting an antibiotic given the redness. I will go ahead and write for Bactrim and Keflex and she was given strict return instructions if he develops fever or the erythema spreads outside the outlined region. I did request the patient come back in for further evaluation given he was still having that much pain and he declined. states that she will get him home with antibiotics and put his ice packs on and return if he has any further symptoms or concerns. Discharge Plan Triage Chief Complaint: Lower Extremity Injury ED Midlevel Provider: Leeanne Larose ED Provider: Dipti Hatch Dx/Rx/DC Orders Clinical Impression: S/P hip replacement, Hip pain, left Instructions: Hip Precautions, Hip Replace Post Op Call Doctor Prescriptions: New sulfamethoxazole-trimethoprim [Bactrim DS] 800-160 mg tablet 1 tab PO BID 10 Days Qty: 20 0RF cephalexin 500 mg capsule 500 mg PO Q6 Qty: 40 0RF No Action metformin 500 mg tablet 500 tablet PO BID Ozempic 0.25 mg or 0.5 mg (2 mg/3 mL) pen injector 0.25 mg subcut QWEEK Rx Instructions: for 4 weeks FRIDAYS losartan-hydrochlorothiazide [Hyzaar] 100-25 mg tablet 1 tab PO DAILY albuterol sulfate 90 mcg/actuation HFA aerosol inhaler 1 - 2 puff INHALATION Q6H PRN PRN (Reason: ASTHMA) acetaminophen [Tylenol Extra Strength] 500 mg tablet 1,000 mg PO Q6H PRN (Reason: pain) Qty: 100 0RF omega-3 fatty acids Capsule 1,000 mg PO DAILY cinnamon bark [Cinnamon] 500 mg Capsule 500 mg PO DAILY acetaminophen [acetaminophen] 500 mg tablet 1,000 mg PO Q6H PRN Qty: 100 1RF cephalexin [cephalexin] 500 mg capsule 1,000 mg PO Q8 Qty: 4 0RF Rx Instructions: take 2 tabs at 9:00 pm and 2 tabs after 5 am when you wake up Eliquis 2.5 mg tablet 2.5 mg PO BID Qty: 42 0RF Rx Instructions: Begin morning after surgery oxycodone 5 mg tablet 5 - 15 mg PO Q4H PRN (Reason: pain) 7 Days Qty: 60 0RF diazepam 5 mg tablet 5 mg PO Q8 PRN (Reason: Muscle Spasm) Qty: 10 0RF metoprolol tartrate 50 mg tablet 50 mg PO BID Qty: 180 3RF Primary Care Provider: Yuli Rosas Referrals: Yuli Rosas DO [Primary Care Provider] - 3-5 Days Activity Restrictions/Additional Instructions: If you notice any worsening of the redness on your hip, please call back and we will call you in an antibiotic. Please follow-up with your surgeon, return for any worsening of symptoms. Disposition Disposition: Home, Self Care Discharge Date/Time: 11/29/22 14:08
[2022-11-29] MEDS: oxyCODONE 5 MG Tablet PO (11:40)
--- NOTE | 2022-11-29 11:50 | RAD_ITS ---
STUDY: X-RAY - PELVIS AND LEFT HIP REASON FOR EXAM: Male, 52 years old. recent hip replacement, injury TECHNIQUE: 3 views of the pelvis and hip. COMPARISON: 11/26/2022. FINDINGS: There is a non-specific bowel gas pattern. Normal visualized soft tissue structures. Normal bilateral iliac wings, sacroiliac joints and visualized sacrum. Normal bilateral superior and inferior pubic rami. Normal pubic symphysis. Normal bilateral ischial tuberosities. Patient is postop from left hip replacement surgery. Components demonstrate anatomic alignment. Normal postoperative soft tissue swelling and subcutaneous emphysema noted. No acute abnormalities identified. Replaced right hip joint also demonstrates anatomic alignment. RAD/HIP, UNI W/ Pelvis 2-3 Views IMPRESSION: Stable appearance of the replaced left hip joint. No acute abnormalities Electronically Signed: Last Aragon MD at 13:16 EDT ,
== END 2022-11-29 14:08 | disposition home or self-care (01) ==
PROVIDERS: Emergency Provider Emergency Medicine; PCP Family Medicine; Visit Provider Emergency Medicine
DX: Z96.642 Presence of left artificial hip joint (principal); M25.552 Pain in left hip; Z86.16 Personal history of COVID-19; Z87.891 Personal history of nicotine dependence
CPT/HCPCS: 73502; 99283

== ENCOUNTER → 2022-12-26 | Outpatient (CLI) | payer OTHER, SELFPAY ==
--- NOTE | 2022-12-26 13:16 | MRI_ITS ---
ACR Level 3 findings have been noted. An addendum which confirms receipt of the report will follow. EXAM: MR LUMBAR SPINE WITHOUT AND WITH INTRAVENOUS CONTRAST CLINICAL INDICATION: pain, radiculopathy rt sided TECHNIQUE: Multiplanar and multisequence MR images of the lumbar spine without and with intravenous contrast. Contrast: CLARISCAN 25ml COMPARISON: No relevant prior studies available. FINDINGS: VERTEBRAE: Unremarkable. Vertebral body heights are preserved. Normal vertebral bodies and posterior elements. Normal alignment. No spondylolisthesis. There is preservation of the normal lumbar lordosis. SPINAL CORD: Unremarkable. Normal position and signal intensity of the conus medullaris. SOFT TISSUES: Unremarkable. DISCS/SPINAL CANAL/NEURAL FORAMINA: L1-L2: Unremarkable. Normal disc height and morphology. Normal spinal canal and lateral recesses. Normal neuroforamina. L2-L3: Unremarkable. Normal disc height and morphology. Normal spinal canal and lateral recesses. Normal neuroforamina. L3-L4: Decreased T2 signal intensity in the disc but normal height. Annular disc bulge, especially on the right, and mild facet joint hypertrophic changes, with mild stenosis of the proximal right neural foramen. The AP diameter of the canal is roughly 8 mm, mildly stenotic with prominent posterior epidural fat. L4-L5: Decreased disc height, mild, mild decreased T2 signal intensity. Modic type endplate degenerative changes of the right opposing endplates. There is annular disc bulge and a prominent right posterior paracentral disc extrusion-herniation with herniated disc projecting roughly 8 mm distal to the expected disc margin and base of the herniated disc roughly 1.3 cm. There is marked mass effect on the central and right thecal sac and marked displacement of right L4 nerve root in the lateral recess and other nerve roots. The AP diameter of the residual midline canal is only 4-5 mm, especially canal stenosis on the right, with nerve root crowding and nerve root displacement to the left. The left canal is roughly 4 mm AP. Moderate right neural foraminal stenosis and mild left neural foraminal stenosis. Mild facet joint hypertrophic changes. L5-S1: Normal disc height and signal intensity. Prominent epidural fat and very small spinal canal at this level but no significant nerve root displacement. MRI/Spine Lumbar W/WO Contrast IMPRESSION: Central-right paracentral prominent herniated-extruded disc superimposed on moderate diffuse annular disc bulge at L4-5. Mild overlying enhancement, enhancement not typical of granulation tissue. Prominent spinal stenosis and nerve root displacement. Right greater than left neural foraminal stenosis at this level. Milder degenerative changes at additional levels. Prominent epidural fat and canal stenosis at L5-S1. Electronically Signed: Meka Montenegro MD at 8:53 EDT ,
[2022-12-26 14:17] LABS: CREATININE FINGERSTICK 1.3 mg/dL (0.70-1.30); EGFR FINGERSTICK > 60.0000 mL/min (>60)
== END | disposition home or self-care (01) ==
PROVIDERS: PCP Family Medicine; Referring Provider Orthopaedic Surgery; Visit Provider Orthopaedic Surgery
DX: M54.16 Radiculopathy, lumbar region (principal); M96.1 Postlaminectomy syndrome, not elsewhere classified
CPT/HCPCS: 72158; A9575

== ENCOUNTER 2023-01-13 10:00 | Outpatient (RCR) | payer OTHER, SELFPAY ==
--- NOTE | 2022-12-11 18:23 | HP.PTEVAL_ITS ---
Patient's Visit Information Visit Information Visit Information: SHELLY COULTER is a 52 year old M referred to Physical Therapy by Dr. Layton Whalen DO with a diagnosis of S/P L THR on 11/26/22. Date of Evaluation: 12/11/22 Physical Therapist: DEVON Dover Visit Plan Frequency: 2x /Week Duration: 2 Months Plan: 2X/ week for 8 weeks for L hip AROM, hip strength, core stability, gait training, Nerve root flossing on the L with HEP Subjective Subjective: S/P L ANGELLA on 11/26/22. He is walking with a walker but the problem now is that he has sciatica down his R leg. Dr Lopez told him to work out in PT and if not any better than he has to see an Ortho Dr. He is still working and works in a [employer] and off until 02-18-23. Pt is ok in sitting with his R butt cheek but as soon as he puts pressure on it. Pain L hip/groin pain: Pain Intensity (Out of 10): 4 R buttcheek pain: Pain Intensity (Out of 10): 10 Objective Objective: Gait: walks with standard walker with shorter stride and heavier arms to walk back to the treatment room LE MMT: R hip flex 20.3 and L 7.3 R knee ext 23 and L 17.1 R knee flex 14.2 and L 8.4 R hip ext NT and L in stand 2.3 TUG 10.75 R hip flex AROM to 90 and L 80 degrees with -10 degrees from full hip ext Standing heel and toe raises: increase pain due to having to stand up straight Single knee to chest on the L is weak and painful Pt is unable to get his L leg up onto the mat table Pt is able to do about 1/4 ROM bridge Balance/Special Test Scores WOMAC Total Score: 55 WOMAC Percentatge: 42.7100 Goals Goal 1:: I HEP Goal Time Frame: 6-8 Weeks Goal 2:: Be able to walk with least restrictive device with no antalgic gait Goal Time Frame: 6-8 Weeks Goal 3:: Increase hip flexion and ext strength on the L (at the time of the eval hip flex L was 7.3 and extension 2.3) Goal Time Frame: 6-8 Weeks Goal 4:: Increase L hip flexion (AAROM 80 degrees) Goal Time Frame: 6-8 Weeks Rehabilitation Potential Rehabilitation Potential: Good Anticipated Interventions Patient/Client Instruction: Educate patient on: Condition and Plan of Care For the Purpose of:: To decrease pain, To increase ROM, To improve nutrient delivery to tissue, To improve muscle performance and motor function, To improve ability to perform ADL's, To increase tolerance to activity/condition/position, To improve performance and independence with ADL's, To decrease level of supervision to perform tasks, To improve ability of physical actions for home/community/work/leisure, To improve gait and locomotor functions, To improve health of tissue, To increase flexibility/ROM, To improve endurance and To improve safety with gait Therapeutic Exercise to Include: Strength training, Endurance training, Balance training, Postural training, Gait and locomotor training, Neuromotor development, Active ROM and Dynamic Lumbar Stabilization For the Purpose of:: To decrease pain, To increase ROM, To improve nutrient d elivery to tissue, To increase oxygenation perfusion, To improve muscle performance and motor function, To improve ability to perform ADL's, To increase tolerance to activity/condition/position, To improve performance and independence with ADL's, To decrease level of supervision to perform tasks, To improve ability of physical actions for home/community/work/leisure, To improve gait and locomotor functions, To improve health of tissue, To decrease soft tissue restriction, To increase flexibility/ROM, To improve endurance and To improve safety with gait Functional Training to Include: Gait training For the Purpose of:: To improve gait and locomotor functions Text: Thank you for the opportunity to evaluate your patient. For Medicare and Medicare HMO plans, please review the plan of care and approve it. It will need to be FAXED BACK to us at [phone] for Medicare purposes. For Medicare only, by signing this I certify the plan of care. Please let me know if there are questions or concerns regarding this plan of care. Physician Signature: Date:
== END 2023-01-13 19:00 | disposition home or self-care (01) ==
LOC: PT 10:00
PROVIDERS: PCP Family Medicine; Referring Provider Orthopaedic Surgery; Visit Provider Orthopaedic Surgery
DX: M16.12 Unilateral primary osteoarthritis, left hip (principal); Z96.642 Presence of left artificial hip joint
CPT/HCPCS: 97110; 97161

== ENCOUNTER 2023-03-11 05:06 | Inpatient (IN) | payer OTHER, SELFPAY ==
--- NOTE | 2023-02-25 07:28 | EKG12_ITS ---
Test Reason : PREOP Blood Pressure : / mmHG Vent. Rate : 065 BPM Atrial Rate : 065 BPM P-R Int : 160 ms QRS Dur : 102 ms QT Int : 386 ms P-R-T Axes : 025 139 123 degrees QTc Int : 401 ms Normal sinus rhythm Low voltage QRS Borderline ECG Confirmed by MARY JOHNSON, MARTA ([id number]), medical editor DESTINEY LEWIS ([id number]) on 02/25/2023 1:57:29 PM Referred By: GREGORY KOROMA Confirmed By:MARTA HERNANDEZ MD
[2023-02-25 08:35] LABS: Absolute Lymphocyte Count 1.91 X10^3/uL (0.83-4.51); Absolute Neutrophil Count 4.8 X10^3/uL (2.0-7.7); Basophil# 0.04 X10^3/uL; Basophil% 0.5 % (0-1); Eosinophil# 0.29 X10^3/uL; Eosinophils% 3.8 % (0-5); Hematocrit 43.9 % (40-54); Lymphocyte # 1.91 X10^3/ul (0.83-4.51); Lymphocyte % 24.9 % (19-41); Mean Corp Hgb Conc 31.9 g/dL (32-36); Mean Corpuscular Hgb 28.3 pg (27.0-32.0); Mean Corpuscular Volume 88.7 fL (80-94); Mean Platelet Vol. 9.6 fl (6.2-12.0); Monocyte# 0.57 X10^3/uL; Monocyte% 7.4 % (0-10); NRBC Flagged by Analyzer 0 % (0-5); Neutrophil # 4.84 X10^3/uL (2.7-7.7); Platelet Count 301 K/mm3 (150-450); RBC Distribution Width CV 14.6 % (11.6-14.6); RBC Distribution Width SD 46.8 fl (35.1-43.9); Red Blood Count 4.95 M/mm3 (4.6-6.2); White Blood Count 7.7 K/mm3 (4.4-11.0)
[2023-02-25 08:54] LABS: Anion Gap 5 (5-15); BUN 34 mg/dL (7-18); BUN/Creat Ratio 24.3 RATIO (10-20); Chloride 108 mmol/L (98-107); EST Glomerular Filtration Rate 56 mL/min (>60); Est Glom Filt Rate - Afr Amer 68 mL/min (>60); Glucose 140 mg/dL (74-106); Potassium 4.3 mmol/L (3.5-5.1); Sodium Level 140 mmol/L (136-145)
[2023-02-25 09:01] LABS: Magnesium 2.3 mg/dL (1.6-2.6)
[2023-02-25 09:36] LABS: HIV - WCH Non-Reactive (Nonreactive); Hepatitis B Surface Antibody Non-Reactive; Hepatitis C Antibody Non-Reactive (Nonreactive)
[2023-02-25 09:44] LABS: Hemoglobin A1c 6.8 % (3.8-5.6)
[2023-02-26 05:07] LABS: Hepatitis A AB, Total Negative (Negative)
--- NOTE | 2023-03-10 15:07 | PCM.HP.BLA ---
History and Physical MR#: [id number] Acct: [id number] Name: ALFRED COULTER Rep #: [id number] : 1970 Provider: Dr. Patrick Calloway DO Age/Sex: 52/M Location: [facility] [place] Status: Signed Intake Vital Signs 11/29/2310:12 Height 5 ft 11 in Intake Visit Reasons: LUMBAR SPINE Chief Complaint: lumbar spine Accompanied by: Is patient in pain?: Yes Allergies No Known Allergies Allergy (Verified 12/19/22 09:27) Medications albuterol sulfate 90 mcg/actuation aerosol inhaler 1 - 2 puff inhalation Q6H PRN PRN ASTHMA 08/02/21 [History Confirmed 01/09/23] losartan 100 mg-hydrochlorothiazide 25 mg tablet (Hyzaar) 1 tab PO DAILY 08/02/21 [History Confirmed 01/09/23] metformin 500 mg tablet 500 tablet PO BID 11/21/21 [History Confirmed 01/09/23] cinnamon bark 500 mg capsule (Cinnamon) 500 mg PO DAILY 12/25/21 [History Confirmed 01/09/23] omega-3 fatty acids 1,000 mg PO DAILY 12/25/21 [History Confirmed 01/09/23] metoprolol tartrate 50 mg tablet 50 mg PO BID #180 tabs 04/01/22 [Rx Confirmed 01/09/23] acetaminophen 500 mg tablet 1,000 mg (2 x 500 mg) PO Q6H PRN #100 tabs 11/26/22 [Rx Confirmed 01/09/23] gabapentin 300 mg capsule 300 mg PO 01/09/23 [History Confirmed 01/09/23] ibuprofen 600 mg tablet 600 mg PO BID 01/09/23 [History Confirmed 01/09/23] semaglutide 0.25 mg or 0.5 mg (2 mg/3 mL) subcutaneous pen injector (Ozempic) 1 mg subcut QWEEK 01/09/23 [History Confirmed 01/09/23] semaglutide 1 mg/dose (4 mg/3 mL) subcutaneous pen injector (Ozempic) mg subcut 01/09/23 [History Confirmed 01/09/23] PFSH Medical History Alcohol use Ambulates with cane Arthritis Asthma Back pain Cardiology follow-up encounter COVID-19 COVID-19 virus detected (04/18/20) Cystic acne Essential (primary) hypertension ETOH abuse Former smoker History of atrial fibrillation History of echocardiogram History of edema History of pain when walking History of steroid therapy History of tobacco use Hx MRSA infection Hypertension Injury of back MRSA infection Obesity PAF (paroxysmal atrial fibrillation) Prediabetes Prediabetes Shortness of breath on exertion Type 2 diabetes mellitus Wears glasses Surgical History History of back surgery History of cardiac catheterization History of left heart catheterization (02/23/19) Hx of surgical procedure Family History Father Myocardial infarction, Onset Age: 60Grandfather Myocardial infarction, Onset Age: 40 Social History Smoking Status: Former smoker alcohol intake: current alcohol intake frequency: 3 or more drinks per day Alcohol type: beer HPI LUMBAR SPINE Details: Parts of this documentation were recorded by a scribe, this documentation accurately reflects the service provided and the decisions made by me, Dr. Patrick Calloway, DO 01/09/23 [id number]. ALFRED COULTER is a 52 year old M here today for F/U on low back after having lumbar spine MRI completed. He still has most of his pain is in his right buttocks. States that he does get numbness and tingling down his legs into the feet at times. He states that the right leg is worse than the left. He is ambulating with a walker today d/t the tingling in his legs. Alfred returns for review of the MRI scan of his lumbar spine in the company of his . He has recurrent disc herniation at L4-5 on the right side consistent with his symptoms. He had surgery in 2014 same disc same side and another [address] Ventura at the [facility] in 2015. This is the third time that that disc is herniated. I explained to Alfred that after 3 herniations that its time to fuse his lumbar spine. I explained to him that he would need to 360 degree fusion starting in the front where the entire disc is removed followed by insertion of a cage and the plate and then we turned him over and do a repeat laminectomy at L4-5 on the right side. With no just there he can never herniated again as he is already done it 3 times. In the meantime however he needs relief as he still has to use a walker. He has been off work for a while now using his short-term disability. He is simply is not able to work at this time. 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 After a couple of months however he could do inventory and other things that he has done in the past. He has been working for the [employer] for 18 years. We would like to do an epidural steroid injection. He is diabetic and he is on Ozempic. I think 1 shot would be okay as his last hemoglobin A1c in November was 6.9. However I would not want more than 1 epidural before surgery as that might start raising his hemoglobin A1c. I will send him to Dr. Alvarado for a single epidural steroid injection. I would like to visit with him a couple of weeks after that. In the meantime when my schedule returns for from vacation on Friday she will start working on getting him on the schedule probably sometime in February. Coding Level of Care Code Off vis,est,level 3 Diagnoses Herniated nucleus pulposus, L4-5 right M51.26 Time Spent (min) 25 Assessment and Plan Assessment and Plan
[2023-03-11] VITALS (14 sets, daily range): BP systolic 101–147; BP diastolic 63–98; PULSE 75–100; RESP 16–18; TEMP 36.4–37.2; O2SAT 93–98; BMI 41.3; BMI 41.1
[2023-03-11] MEDS: Lactated Ringers 1,000 ML 15 ML IV ×5 (05:45→13:29)
[2023-03-11] MEDS: Magnesium 1 GM over 15 mins IV (06:23)
--- NOTE | 2023-03-11 06:23 | HP_ITS ---
Vital Signs 11/29/2310:12 Height 5 ft 11 in Intake Visit Reasons: low back Chief Complaint: lumbar spine Is patient in pain?: Yes (low back ) Pain scale (1-10): 8 Allergies No Known Allergies Allergy (Verified 03/05/23 15:28) Medications albuterol sulfate 90 mcg/actuation aerosol inhaler 1 - 2 puff inhalation Q6H PRN PRN ASTHMA 08/02/21 [History Confirmed 03/05/23] losartan 100 mg-hydrochlorothiazide 25 mg tablet (Hyzaar) 1 tab PO DAILY htn 08/02/21 [History Confirmed 03/05/23] metformin 500 mg tablet 500 tablet PO BID blood glucose control 11/21/21 [History Confirmed 03/05/23] omega-3 fatty acids 1,000 mg PO DAILY SUPPLEMENT 12/25/21 [History Confirmed 03/05/23] metoprolol tartrate 50 mg tablet 50 mg PO BID htn #180 tabs 04/01/22 [Rx Confirmed 03/05/23] gabapentin 300 mg capsule 300 mg PO TID neuropathy 01/09/23 [History Confirmed 03/05/23] ibuprofen 600 mg tablet 600 mg PO BID PRN pain 01/09/23 [History Confirmed 03/05/23] semaglutide 1 mg/dose (4 mg/3 mL) subcutaneous pen injector (Ozempic) 1 mg subcut FR BLOOD GLUCOSE 01/09/23 [History Confirmed 03/05/23] acetaminophen 500 mg tablet 1,000 mg PO Q6H PRN PRN pain 02/24/23 [History Confirmed 03/05/23] PFSH Medical History Alcohol use Ambulates with cane Arthritis Asthma Back pain Cardiology follow-up encounter COVID-19 COVID-19 virus detected (04/18/20) Cystic acne Essential (primary) hypertension ETOH abuse Former smoker History of atrial fibrillation History of echocardiogram History of edema History of pain when walking History of steroid therapy History of tobacco use Hx MRSA infection Hypertension Injury of back Obesity PAF (paroxysmal atrial fibrillation) Prediabetes Shortness of breath on exertion Type 2 diabetes mellitus Wears glasses Surgical History History of back surgery History of cardiac catheterization History of hip replacement History of left heart catheterization (02/23/19) History of selective injection of anesthetic agent around lumbar nerve root Hx of surgical procedure Family History Father Myocardial infarction, Onset Age: 60Grandfather Myocardial infarction, Onset Age: 40 Social History Smoking Status: Former smoker alcohol intake: current alcohol intake frequency: 3 or more drinks per day Alcohol type: beer HPI low back Chief Complaint: low back pain Details: Parts of this documentation were recorded by a scribe, this documentation accurately reflects the service provided and the decisions made by me, Dr. Patrick Calloway, DO 03/05/23 1522. ALFRED COULTER is a 52 year old M here today for pre-op [id number] fusion L4/5 with Laminectomy. DOS 03-11-23. He advises his low back pain is radiating down his right leg with ambulation. Alfred returns in the company of his . He is here for his preop. We spoke of what to expect next Friday which is when he is scheduled for 360 degree fusion at the L4-5 level with a repeat laminectomy at L4-5 on the right side. This is the third herniation he has had at the 4 5 disc. He has had 2 other surgeries there simple laminectomies and now it has recurred a third time. He has to use a cane to walk because of severe pain down his leg and in the right side of his low back. We discussed the surgery at length how long it would take what to expect postoperatively etc. We also spoke of possible risks and complications among those possibility of , coma, paralysis, dural leak, infection, blood clot in the legs, blood clot in the lungs, myocardial infarction, damage to viscus structures in the abdomen, damage to major blood vessels in the abdomen, damage to ureter, retrograde ejaculation, among others. He understood the possible risks and complications I answered all his questions. He voluntarily signed the operative permit. I will see him again at surgery. Coding Level of Care Code Off vis,est,level 3 Diagnoses Herniated nucleus pulposus, L4-5 right M51.26 Post laminectomy syndrome M96.1 Lumbar radiculopathy, right M54.16 Time Spent (min) 20 Assessment and Plan Assessment and Plan (1) Herniated nucleus pulposus, L4-5 right: Status: Acute (2) Post laminectomy syndrome: Status: Acute (3) Lumbar radiculopathy, right: Status: Acute
[2023-03-11] MEDS: Acetaminophen 500 MG Tablet 1000 MG PO ×2 (06:24→20:10)
[2023-03-11] MEDS: Insulin Lispro 100 UNIT/ML INSULN.PEN SC ×3 (06:53→21:58)
[2023-03-11 06:59] LABS: Bedside Glucose 204 mg/dL (74-106)
--- NOTE | 2023-03-11 07:30 | DISC_PTH ---
PATIENT: SHELLY COULTER LOC: [facility]3 U#:[id number] AGE/SX: 52/M ROOM: KS310 RE03/11/[address]: Dr. Mian Veras MD : 1970 BED: 1 DIS: 03/14/2023 SPEC #: [id number] RECD: 03/11/23 18:40 STATUS: EDGAR REQ #: [id number] KATELYN: 03/11/23 07:[address]: Patrick Calloway DEPT: SURGICAL PATHOLOGY RECD BY: Edwin Lo ENTERED: 03/12/23 10:46 SP TYPE: DISC OTHR DR: MD Dr. Royce Mooney, DO MD Dr. Makayla Wong MD Dr. Achintya Singh, MD Dr. Autumn L White, MD Dr. Mary Catherine Sementi, DO Dr. Mian Malhotra, DO MD Tavon Espinoza MD Dr. Eric Jopperi, DO Dr. Yuli Rosas, DO MD Dr. Layton Salinas MD Dr. James Mooney, MD Dr. Jonathan Vogt, DO Dr. Sadie Maloney, DO Dr. Asael Fajardo, DO MD Dr. Chris Massey MD Dr. Prakash Chand, MD Dr. Paul Nielsen, MD Dr. Paige Pierce, MD Dr. Ryan Burkholder, MD Jessica Franklin, LILY-HONORIO Vargas Tissues: Intervertebral disc, NOS Procedures: Surgery Specimen Level III HEADER OPERATION: ERAS, 360 lumbar fusion L4-L5 with laminectomy on right PRE-OP DIAGNOSIS: Herniated nucleus pulposus L4-L5 right; post-laminectomy syndrome; lumbar radiculopathy, right TISSUE SUBMITTED: L4-L5 disc MICROSCOPIC DIAGNOSIS Intervertebral disc, L4-L5, discectomy: Fragments of intervertebral disc with degenerative change. AM:morgan 03/13/2023 MICROSCOPIC DESCRIPTION Slides are reviewed. GROSS DESCRIPTION Received in fixative is one container labeled with the patient's name and designated L4-L5 disc. The specimen consists of multiple irregular and indurated fragments of huggins-white soft tissue that in aggregate measure 7.0 x 6.0 x 1.0 cm. Manager Transmission portions are submitted in one cassette. / AM:morgan 03/12/2023 TC:5 CPT: 06311
[2023-03-11] MEDS: Cefazolin 3 GM in 0.9% Normal Saline (100mL Bag) 100 ML IV (08:15)
--- NOTE | 2023-03-11 08:36 | RAD_ITS ---
STUDY: X-RAY - LUMBAR SPINE REASON FOR EXAM: Male, 52 years old. 360 FUSION L4-5 WITH LAMINECTOMY ON RT TECHNIQUE: Lateral view(s) of the lumbar spine were obtained. COMPARISON: None FINDINGS: Limited study. A metallic localization aspect is seen in the lower anterior abdominal wall. It projects towards a trajectory of the L4-L5 disc space level. RAD/Spine 1 View Any Level IMPRESSION: Anterior abdominal wall marker with the trajectory heading towards the L4-L5 disc space level anteriorly. Electronically Signed: Jignesh Rosas MD at 8:58 EDT ,
[2023-03-11] MEDS: Heparin 10,000 UNITS/10 ML Vial 10000 UNITS (08:51)
[2023-03-11] MEDS: THROMBIN (RECOMBINANT) 20,000 UNIT VIAL 20000 UNIT TOPICAL ×2 (08:51→10:00)
--- NOTE | 2023-03-11 11:40 | RAD_ITS ---
STUDY: X-RAY - LUMBAR SPINE REASON FOR EXAM: Male, 52 years old. L4-L5 FUSION LUMBAR WITH LAMINECTOMY ON RIGHT TECHNIQUE: 1 view(s) of the lumbar spine were obtained. COMPARISON: Comparison is made with prior study done earlier in the day. FINDINGS: The localization instrument is seen anterior to the L4-L5 disc space level. RAD/Spine 1 View Any Level IMPRESSION: The localization instrument is seen anterior to the L4-L5 disc space level. Electronically Signed: Jignesh Rosas MD at 12:37 EDT ,
--- NOTE | 2023-03-11 13:20 | OP.PCM_ITS ---
Report of Operation Description of Surgical Findings:: Preoperative diagnosis: recurrent disc herniation L4-5 with severe low back pain and right L5 radiculopathy Postoperative diagnosis: Same Procedures: #1 anterior lumbar interbody fusion L4-5 CPT code 67790 #2 application of titanium anterior plate L4-5 CPT code 80205/59 #3 insertion of cage L4-5 CPT code 78833 # 4 bone marrow aspirate left ASIS CPT code 00429 #5 bone allograft CPT code 41937 Co-surgeons: Dr. Calloway and Dr. Price assistant prosecuting attorney: Dr. Solorio and Krystal OLMEDO Anesthesia: General endotracheal by [facility] EBL: 550 cc Drains: None Complications: None Procedure: Patient was taken to the OR where he was placed in the supine position on the operating table. He was then placed under general endotracheal anesthesia. A Schwarz catheter was inserted. Neuro monitoring placed her leads o n the patient. The abdomen was then prepped and draped in standard fashion. 40 cc of bone marrow aspirate were then obtained from the left iliac crest via a Jamshidi needle. This was then handed off to the boiler service technician we used her machine to separate the the stem cells from all the other cells and concentrated stem cells 8 or 10 times and return it to our table. The operative approach is then described in Dr. Price's operative summary. Once he had exposure at L4-5 which incidentally was extremely difficult because of the large size of this gentleman. A couple small bleeders that were difficult to contain for a little while but they were well contained in the end. We then confirmed that that disc was in fact L4-5 and did this with plain x-ray. Once confirmed I then marked the disc with cautery and remove the needle I then cut the anterior annulus with a 10 blade on a long handle. Remove the anterior annulus with long pituitary rongeurs. I then removed more nucleus from within the disc base with pituitary rongeurs both large and small ones. I then used a ring curette to remove cartilage off both endplates I also used a bone curette for the same purpose. We were able to go all the way back and I could see the tear in the posterior annulus and the ligament. We were not able to bring any disc in from the epidural space. He would need a Lami from the back anyway this would be a repeat Lami of course at L4-5 on the right side. Then cauterized the anterior longitudinal ligament to the left of the center burred the anterior enthesophytes so it was flat to receive a plate. Once all the cartilage was removed off the endplates we took our measurements and decided to use a large 16 mm high 8 degree cage. I then broach the space repeatedly with the broach. We then filled the both halves of the cage with allograft bone this was a spongy spongy type bone. Then soaked in the patient's own stem cells. I then tamped it into place and countersunk it a couple of millimeters. 27 mm plate was then used anterolaterally to the left. By holding it in place Dr. Price was then able to punch each of the 4 holes 2 into L4 2 into L5 followed by the insertion of the 30 mm screw at all 4 points. He then locked the screws in place with the locking mechanism. Then placed amnionic membrane directly over the plate to prevent adhesions to the surrounding vessels specially the left iliac vein. We did use some Floseal and some in Surgicel in the area where the small bleed was earlier. He had excellent hemostasis at the end of the case we remove the instrumentation the closure of the wound is then described in Dr. Price's operative summary. This is the end of operative summary on Alfred Jeronimo. This is Dr. Calloway dictating.
--- NOTE | 2023-03-11 14:30 | RAD_ITS ---
STUDY: X-RAY - LUMBAR SPINE REASON FOR EXAM: Male, 52 years old. L4-L5 FUSION LUMBAR WITH LAMINECTOMY ON RIGHT TECHNIQUE: 1 view(s) of the lumbar spine were obtained. COMPARISON: Comparison is made with prior study done earlier today. FINDINGS: The patient is status post anterior fusion with a screw and plate fixation. Prosthetic disc is seen. RAD/Spine 1 View Any Level IMPRESSION: Status post anterior fusion with disc prosthesis. Electronically Signed: Jignesh Rosas MD at 15:14 EDT ,
[2023-03-11 15:42] LABS: Bedside Glucose 167 mg/dL (74-106)
[2023-03-11 15:42] LABS: Bedside Glucose 182 mg/dL (74-106)
[2023-03-11 15:42] LABS: Bedside Glucose 209 mg/dL (74-106)
[2023-03-11 15:42] LABS: Bedside Glucose 119 mg/dL (74-106)
--- NOTE | 2023-03-11 15:50 | RAD_ITS ---
STUDY: X-RAY - LUMBAR SPINE REASON FOR EXAM: Male, 52 years old. 360 TECHNIQUE: Lateral view(s) of the lumbar spine were obtained. COMPARISON: March 11, 2023 FINDINGS: Single lateral view of the lumbar spine demonstrates intraoperative changes during anterior fusion and disc spacer placement at L4-5 RAD/Spine 1 View Any Level IMPRESSION: Anterior fusion at L4-5. Electronically Signed: Dallin Alves MD at 16:45 EDT ,
--- NOTE | 2023-03-11 16:26 | PCM.OPRPT ---
Report of Operation Description of Surgical Findings:: Preoperative diagnosis: Herniated disc L4-5 with intractable low back pain and right leg radiculopathy Postoperative diagnosis: The same Procedure #1 posterior lumbar fusion L4-5 CPT code 82396 #2repeat laminectomy L4-5 on the right CPT code 21483 #3 internal fixation L4-L5 CPT code 32006 #4 allograft bone CPT code 03691 Surgeon: Dr. Calloway Corporate Safety Director: Dr. Solorio and Krystal OLMEDO Anesthesia: General endotracheal by [facility] Estimated blood loss: 50 cc Drains: None Complications: None Procedure: After the anterior surgery was completely done and the abdomen closed the patient was then moved onto a Lit frame in the prone position. After proper positioning with care to protect his bony prominences his genitalia the ulnar nerves of both elbows the brachial plexus and the facial features the back was prepped and draped in standard fashion. I then made a longitudinal incision parallel to the old incision. Subcutaneous tissues were incised length of the skin incision and then over the lumbar fascia just to the right of the spinous processes and elevated the paravertebral muscles off the lamina for the lamina of L5. An intraoperative x-ray was taken to confirm that we were indeed at the L4-5 space. This was marked. Then elevated the paravertebral muscles off the lamina on the left side elevated paravertebral muscles of the lamina for the lamina 5 there. The super slide retractors were then put in place. Then began the repeat laminectomy at L4 on the right side. Using curettes I started slowly removing scar tissue lateralward and releasing the dura from the bone. I then used a 45 degree Kerrison rongeurs slowly to make the laminotomy bigger. Also took the top of the L5 lamina on the right side. The foramen was then checked and the L5 nerve root was found to be loose in the foramen. Note that I had a hard time removing scar tissue slowly repeatedly until I was able to get elevated off of some disc material however the disc material was quite adhered to the dura did not bulge all that far and in addition to that of course the lateral recess was now completely open. So the decision was made to leave it as it was. I suspect that some of the herniation was removed from the anterior approach initially. Bleeders were controlled with bipolar cautery and thrombin-soaked Gelfoam. We then used the bur to bur the the lamina of 5 and the lamina of L4. On the left side we also did some on the right side once it was buried within put interspinous spacer between L4 and 5 by removing the interspinous ligament. Note that we placed the allograft bone first over the lamina on both sides especially more on the left. Amniotic membrane was placed over the dura to prevent any more adhesions and a Gelfoam was placed over the top of that. The bony spacer was then placed in between the spinous processes and tamped down. Internal fixation device was then applied and locked into place and the locking mechanism activated. Note in the course of the case we thoroughly irrigated frequently with copious amounts of sterile saline. We had good hemostasis at the end of the case and we felt that we did not need a drain. Closed the lumbar fascia using mocuwq-nr-rswje suture with #1 Vicryl followed by closure with subcutaneous tissues with 2-0 Vicryl and 0 Vicryl in interrupted fashion. The skin was then approximated using skin clips. Sterile dressings were then applied. The patient was then recovered in the OR he was moved to his hospital bed and taken to recovery in satisfactory condition. This is the end of operative summary on Alfred Jeronimo. This is Dr. Calloway dictating.
--- NOTE | 2023-03-11 17:00 | PCM.OPRPT ---
Report of Operation Date of Procedure: 03/11/23 Pre-Operative Diagnosis: Herniated disc L4-5 with intractable low back pain and right leg radiculopathy Post-Operative Diagnosis: Same Surgery/Procedure Performed:: #1 anterior lumbar interbody fusion L4-5 CPT code 45182 #2 application of titanium anterior plate L4-5 CPT code 71652/59 #3 insertion of cage L4-5 CPT code 21318 Surgeon: Co-surgeon Dr. Calloway, Dr. Price Type of Anesthesia: General Estimated Blood Loss (mL): 550 Description of Procedure: HPI: Patient is a 52-year-old male evaluated by Dr. Calloway and found to have herniated disc at L4-L5. He previously had posterior decompression on 2 different occasions and has had recurrence of his symptoms despite these. He is felt to be appropriate for anterior lumbar discectomy and interbody fusion. Vascular surgery services are requested for exposure and mobilization of the abdominal great vessels. He is taken now for L4-L5 anterior lumbar interbody fusion. Description of procedure: Upon obtaining informed consent and verification correct patient procedure and site patient was taken the operating was placed under general anesthesia. He was then positioned prepped and draped in usual sterile fashion. Bone marrow aspirate was obtained from the left iliac crest. Given the patient's large body habitus x-ray was performed in order to identify appropriate skin positioning of incision to align with the appropriate disc space. A higher than usual incision comparative to the skin landmarks was performed at the superior aspect of the umbilicus in transverse orientation on the left. Bovie electrocautery was dissect down through subcutaneous tissue and self-retaining retractors put in position further dissection was carried down to level the fascia and the fascia was incised transversely with relaxing counterincisions on the inferior aspect medially and the superior aspect laterally. Bovie and blunt dissection were used to dissect and mobilize the rectus muscle medially with care taken to mobilize the epigastric vessels and elevate them with the muscle. Next we retracted the rectus medially and completed circumferential dissection with blunt and Bovie dissection. Next blunt dissection was used to create a plane between the peritoneum and the anterior abdominal wall at the inferior aspect of the abdomen. There appeared to be significant amount of scar and fusion of the peritoneum to the posterior sheath at the inferior aspect which took significant more forceful blunt dissection to create a plane. There was violation of the peritoneum which was repaired with 3-0 Vicryl in a running fashion. Ultimately were able to develop the plane between the peritoneum and the posterior sheath and the posterior sheath was incised vertically with Metzenbaum scissors. Further development of retroperitoneal plane was performed with blunt dissection elevating the peritoneum, the kidney and its associated structures and mobilizing them anterior and medially. Once we had reached the midline a wet lap sponge was then placed to maintain our position and the Omni retractor brought on the field and secured to the operating table. Retractor blades were then secured to the Omni retractor and positioned to expose the the retroperitoneum. Bovie and blunt dissection were then used to mobilize the left common and external iliac artery and retracted medially. There is significant amount of retroperitoneal adipose tissue but ultimately were able to visualize the left iliac vein which was then mobilized along its lateral edge. The iliolumbar vein was identified, ligated with silk ties and medium clips and then divided. It was then oversewn with 6-0 Prolene on the iliac vein side. The iliac vein was then retracted more medially and the retractor blades were repositioned to optimize review of the midline. There was still significant difficulty in mobilizing the abdominal contents in part due to the patient's large body habitus and at one point during repositioning of her retractors there was significant bleeding coming from the retroperitoneum likely from the psoas muscle. This was then packed with Surgicel and lap sponges and manual pressure applied for approximately 15 minutes. At this point the sponges were withdrawn and the retroperitoneum inspected for hemostasis and actually was found to be satisfactory with no further ongoing bleeding or even oozing. The Surgicel was then removed and no further bleeding was visualized. Is felt that we could continue with the operation as we were nearing the visualization needed for the L4-L5 disc space. Again further Bovie and blunt dissection was performed and retractor blades were repositioned ultimately with satisfactory visualization of the L4-L5 disc space. At this point Dr. Calloway performed his portion of the procedure with more detailed description of the L4-L5 discectomy and implant placement. After this was completed the retroperitoneum was inspected for hemostasis and Floseal and Surgicel placed in the retroperitoneum adjacent to the area that had been bleeding previously. The retractor blades were then removed sequentially with visualization of the retroperitoneal structures with satisfactory stasis observed. Once the retractors removed the abdominal contents allowed to return to their [place] position and the rectus muscle returned to its position. The fascia of the anterior sheath was then closed with strata fix suture running fashion. The subcutaneous space was then irrigated with saline and closed with 2-0 Vicryl, 3-0 Vicryl, 4 Monocryl and Dermabond for the skin. At this point the patient was repositioned for the posterior approach by Dr. Calloway which she will dictate separately.
[2023-03-11 17:30] LABS: Bedside Glucose 202 mg/dL (74-106)
--- NOTE | 2023-03-11 19:47 | PN.HOSP_ITS ---
Reason for Visit Reason for Visit: Diagnoses Encounter for other preprocedural examination (03/11/23) Subjective Subjective Status post recent lumbar surgery reporting significant discomfort to the lumbar spine with no specific radicular shooting pains but he does report lumbar stabbing, dull aching and throbbing pain rated 7 out of 10 in severity. He also reports being very thirsty. Patient denies fevers, chills, nausea, emesis, abdominal pain, chest pain or dyspnea. Objective Data Objective Data Vital Signs: Vital Signs Temp Pulse Resp BP Pulse Ox O2 Del Method O2 Flow Rate 98.9 F 100 16 126/91 H 95 Nasal Cannula 3 03/11/23 18:59 03/11/23 18:59 03/11/23 18:59 03/11/23 18:59 03/11/23 18:59 03/11/23 18:59 03/11/23 18:59 Oxygen Flow Rate (L/min) 3 Oxygen Delivery Method Nasal Cannula Weight: 296 lb 11.875 oz Body Mass Index (BMI) 41.3 Intake & Output: Intake and Output for Last 24 Hours 03/09/23 03/10/23 03/11/23 23:59 23:59 23:59 Intake Total 4115 / 4115 Output Total 625 / 625 Balance 3490 / 3490 Lab / Micro Data 02/25/23 07:57 02/25/23 07:57 Labs: Laboratory Results - last 24 hr 03/11/23 06:29: POC Glucose 204 H 03/11/23 09:32: POC Glucose 119 H 03/11/23 11:25: POC Glucose 209 H 03/11/23 13:20: POC Glucose 167 H 03/11/23 15:23: POC Glucose 182 H 03/11/23 17:12: POC Glucose 202 H Micro: Microbiology 02/25/23 07:57 Swab (Method) Nasal Screen MRSA/MSSA - Final Radiography Diagnostic Testing: Radiology Impression Spine X-Ray 03/11/23 08:36 IMPRESSION: Anterior abdominal wall marker with the trajectory heading towards the L4-L5 disc space level anteriorly. Electronically Signed: Jignesh Rosas MD at 8:58 EDT , Spine X-Ray 03/11/23 11:40 IMPRESSION: The localization instrument is seen anterior to the L4-L5 disc space level. Electronically Signed: Jignesh Rosas MD at 12:37 EDT , Spine X-Ray 03/11/23 14:30 IMPRESSION: Status post anterior fusion with disc prosthesis. Electronically Signed: Jignesh Rosas MD at 15:14 EDT , Spine X-Ray 03/11/23 15:50 IMPRESSION: Anterior fusion at L4-5. Electronically Signed: Dallin Alves MD at 16:45 EDT , Physical Exam Narrative Physical Examination: General: Awake, alert, oriented x 3, cooperative, mildly irritable, laying in the MS bed, fatigued and uncomfortable status post recent lumbar surgery. Skin: Normal color, normal turgor, no icterus, no cyanosis except for recent lumbar surgery with dressings in place with no obvious drainage. HEENT: AT/NC, EOMI, PERRLA, dry MM. Lungs: Distant, greater bases, appropriate effort, no rales, ronchi or wheezing. Heart: Regular rate and rhythm; no gallop, rub audible. Abdomen: Soft, morbidly obese, NTTP, hyperactive BS, difficulty discerning distention given habitus Extremities: No cyanosis, no clubbing, mild ankle nonpitting edema. Neurological: Patient awake, alert, oriented as noted, cognitive function intact; pupils equally reactive to light and accommodation, cranial nerves grossly normal, moving all 4 extremities except extremely limited given recent lumbar surgery, strength accordingly severely globally decreased. Psychiatric: Affect appears uncomfortable, no acute evidence of depressive or anxiety feelings. Assessment & Plan Assessment/Plan (1) Herniated nucleus pulposus, L4-5 right: PLAN: Plan The patient is a 52 y/o M w/ PMHx: Morbid obesity, Asthma, HTN, HLD, PAF, Former tobacco use, Chart reported history of EtOH abuse (> 3 beers daily reported historically), Chronic lumbar back pain with RLE radiculopathy who presents to the [facility] on 03/11/23 for planned lumbar L4-5 fusion, plate and cage insertion secondary to failed outpatient interventions and treatments with ongoing pain and debility. #1. Severe low back pain with right lower extremity radiculopathy with history of recurrent disc herniation L4-5 and right L5 : Patient with failed conservative therapies and treatments, admitted per Dr. Calloway status post anterior lumbar interbody fusion L4-5, titanium anterior plate L4-5, cage insertion L4-5, bone marrow aspirate as well as bone allograft, post-operative pain management, bowel regimen, DVT Prophylaxis, PT/OT/CM per Orthopedic surgery discretion. #2. Hypertension: Continue home regimen including metoprolol, losartan, hydrochlorothiazide, PRN hydralazine. #3. Hyperlipidemia: Not on statin therapy, defer to outpatient. #4. Morbid Obesity: Weight loss and lifestyle changes encouraged. Patient notes previously being tested for sleep apnea and reports that his study was negative. #5. PAF: We will continue patient home metoprolol, not chronically anticoagulated, chart reported 2020. #6. Chronic Asthma: Not on any chronic regimen, will have as needed albuterol, encourage HOB, IS parameters. #7. Chart history of EtOH Abuse: Chart reported history of approximately 3 or more beers daily therefore to be cautious will maintain on CIWA protocol, MVI, thiamine and folic acid. Magnesium and phosphorus levels requested. Case management consulted. #8. Former tobacco use: Encourage continued tobacco cessation. #9. Diabetes mellitus type II: Hold oral home regimen, ADA diet, accu checks w/ ISS. #10. DVT prophylaxis: SCDs, chemoprophylaxis per surgery discretion given recent OR. Charges/Coding Visit Charges Inpatient E&M: 66308 Subs Hosp L3
[2023-03-11] MEDS: Lactated Ringers 1,000 ML 100 ML IV (20:08)
[2023-03-11] MEDS: Metoprolol Tartrate 50 MG Tablet PO (20:10)
[2023-03-11] MEDS: Gabapentin 300 MG Capsule PO (20:11)
[2023-03-11] MEDS: oxyCODONE 5 MG Tablet PO (20:12)
[2023-03-11] MEDS: Cefazolin 1 GM/50 ML BAG IV (21:54)
[2023-03-11] MEDS: 0.9% Saline Lock 10 ML Syringe IV (21:54)
[2023-03-11] MEDS: Morphine 2 MG/ML Syringe IV (21:54)
[2023-03-11 23:42] LABS: Bedside Glucose 171 mg/dL (74-106)
[2023-03-12] VITALS (18 sets, daily range): BP systolic 101–152; BP diastolic 67–86; PULSE 81–127; RESP 16–28; TEMP 36.4–39.3; O2SAT 93–98
[2023-03-12] MEDS: Morphine 2 MG/ML Syringe IV (02:45)
[2023-03-12] MEDS: Acetaminophen 500 MG Tablet 1000 MG PO ×3 (04:26→22:38)
[2023-03-12] MEDS: oxyCODONE 5 MG Tablet PO ×3 (04:30→14:39)
[2023-03-12] MEDS: Cefazolin 1 GM/50 ML BAG IV (04:30)
[2023-03-12] MEDS: Lactated Ringers 1,000 ML 100 ML IV (05:48)
[2023-03-12] MEDS: Gabapentin 300 MG Capsule PO ×3 (06:38→22:38)
[2023-03-12] MEDS: Morphine 4 MG/ML Syringe IV ×2 (06:39→09:40)
[2023-03-12] MEDS: 0.9% Saline Lock 10 ML Syringe IV (06:39)
[2023-03-12 07:04] LABS: Bedside Glucose 142 mg/dL (74-106)
[2023-03-12 07:20] LABS: Absolute Lymphocyte Count 1.73 X10^3/uL (0.83-4.51); Absolute Neutrophil Count 8.9 X10^3/uL (2.0-7.7); Basophil# 0.02 X10^3/uL; Basophil% 0.2 % (0-1); Hematocrit 34.8 % (40-54); Lymphocyte # 1.73 X10^3/ul (0.83-4.51); Lymphocyte % 14.7 % (19-41); Mean Corp Hgb Conc 31.6 g/dL (32-36); Mean Corpuscular Hgb 28.1 pg (27.0-32.0); Mean Corpuscular Volume 88.8 fL (80-94); Mean Platelet Vol. 9.9 fl (6.2-12.0); Monocyte# 1.06 X10^3/uL; NRBC Flagged by Analyzer 0 % (0-5); Neutrophil % 75.6 % (47-70); Platelet Count 263 K/mm3 (150-450); RBC Distribution Width CV 14.6 % (11.6-14.6); RBC Distribution Width SD 47.6 fl (35.1-43.9); Red Blood Count 3.92 M/mm3 (4.6-6.2); White Blood Count 11.8 K/mm3 (4.4-11.0)
--- NOTE | 2023-03-12 07:35 | NURSING ---
Pt. stood at bedside this morning and tolerated fair. Pain increased and IV Morphine given upon patient's return to bed.
[2023-03-12 07:57] LABS: Magnesium 2.1 mg/dL (1.6-2.6); Phosphorus 3.5 mg/dL (2.5-4.9)
[2023-03-12 07:58] LABS: ALB/GLOB Ratio 0.9 RATIO (0.9-2.4); AST(SGOT) 23 U/L (15-37); Alanine Aminotransfer ALT/SGPT 36 U/L (16-61); Albumin, Serum 2.9 g/dL (3.2-5.0); Alkaline Phosphatase 73 U/L (45-117); Anion Gap 5 (5-15); BUN 20 mg/dL (7-18); Calcium,Total 8.2 mg/dL (8.5-10.1); Chloride 106 mmol/L (98-107); Creatinine, Serum 1.33 mg/dL (0.70-1.30); EST Glomerular Filtration Rate 59 mL/min (>60); Est Glom Filt Rate - Afr Amer 72 mL/min (>60); Estimated Creatinine Clearance 67.63 ml/min; Globulin 3.1 g/dL (2.2-4.2); Glucose 148 mg/dL (74-106); Potassium 3.8 mmol/L (3.5-5.1); Sodium Level 138 mmol/L (136-145)
--- NOTE | 2023-03-12 08:01 | PN.HOSP_ITS ---
Reason for Visit Reason for Visit: Diagnoses Other intervertebral disc displacement, lumbar region (03/11/23) Encounter for other preprocedural examination (03/11/23) Subjective Subjective Patient is a 52-year-old gentleman who underwent L4-[address] Moctezuma with spine surgery. The hospitalist service consulted to assist with management of patient medical comorbidities Objective Data Objective Data Vital Signs: Vital Signs Temp Pulse Resp BP Pulse Ox O2 Del Method O2 Flow Rate 97.6 F L 85 16 101/71 94 Nasal Cannula 2 03/12/23 02:59 03/12/23 02:59 03/12/23 02:59 03/12/23 02:59 03/12/23 02:59 03/12/23 02:59 03/12/23 02:59 Oxygen Flow Rate (L/min) 2 Oxygen Delivery Method Nasal Cannula Weight: 133.81 kg Body Mass Index (BMI) 41.1 Intake & Output: Intake and Output for Last 24 Hours 03/10/23 03/11/23 03/12/23 23:59 23:59 23:59 Intake Total 4347.25 / 4847.25 1786.67 / 1786.67 Output Total 625 / 975 650 / 650 Balance 3722.25 / 3872.25 1136.67 / 1136.67 Lab / Micro Data 03/12/23 06:40 03/12/23 06:40 Labs: Laboratory Results - last 24 hr 03/11/23 09:32: POC Glucose 119 H 03/11/23 11:25: POC Glucose 209 H 03/11/23 13:20: POC Glucose 167 H 03/11/23 15:23: POC Glucose 182 H 03/11/23 17:12: POC Glucose 202 H 03/11/23 21:57: POC Glucose 171 H 03/12/23 06:40: WBC 11.8 H, RBC 3.92 L, Hgb 11.0 L, Hct 34.8 L, MCV 88.8, MCH 28.1, MCHC 31.6 L, RDW Std Deviation 47.6 H, RDW Coeff of Pedro 14.6, Plt Count 263, MPV 9.9, Immature Gran % (Auto) 0.500, Neut % (Auto) 75.6 H, Lymph % (Auto) 14.7 L, [place] % (Auto) 9.0, Eos % (Auto) 0.0, Baso % (Auto) 0.2, Absolute Neuts (auto) 8.9 H, Absolute Lymphs (auto) 1.73, Nucleated RBC % 0, Sodium 138, Potassium 3.8, Chloride 106, Carbon Dioxide 27.0, Anion Gap 5, BUN 20 H, Creatinine 1.33 H, Estim Creat Clear Calc 67.63, Est GFR (MDRD) Af Amer 72, Est GFR (MDRD) Non-Af 59 L, BUN/Creatinine Ratio 15.0, Glucose 148 H, Calcium 8.2 L, Phosphorus 3.5, Magnesium 2.1, Total Bilirubin 0.70, AST 23, ALT 36, Alkaline Phosphatase 73, Total Protein 6.0 L, Albumin 2.9 L, Globulin 3.1, Albumin/Globulin Ratio 0.9, POC Glucose 142 H Micro: Microbiology 02/25/23 07:57 Swab (Method) Nasal Screen MRSA/MSSA - Final Radiography Diagnostic Testing: Radiology Impression Spine X-Ray 03/11/23 08:36 IMPRESSION: Anterior abdominal wall marker with the trajectory heading towards the L4-L5 disc space level anteriorly. Electronically Signed: Jignesh Rosas MD at 8:58 EDT Reading Location ID and State: [id number] / [employer] , Service support , Spine X-Ray 03/11/23 11:40 IMPRESSION: The localization instrument is seen anterior to the L4-L5 disc space level. Electronically Signed: Jignesh Rosas MD at 12:37 EDT , Spine X-Ray 03/11/23 14:30 IMPRESSION: Status post anterior fusion with disc prosthesis. Electronically Signed: Jignesh Rosas MD at 15:14 EDT Reading Location ID and State: [id number] / [employer] , Service support , Spine X-Ray 03/11/23 15:50 IMPRESSION: Anterior fusion at L4-5. Electronically Signed: Dallin Alves MD at 16:45 EDT , Physical Exam Narrative GENERAL: cooperative HEENT: Atraumatic; normocephalic EYES; Anicteric, Normal Conjunctiva NECK; supple, normal thyroid, RESPIRATORY: Diminished to auscultation CARDIOVASCULAR: Regular S1 S2, GI: soft, normoactive bowel sounds, : No Renal angle tenderness; EXTREMITIES: No edema, no clubbing, MUSCULOSKELETAL: no muscle wasting NEURO: Awake; no lateralizing signs. SKIN: No Rash PSYCH; Flat affect Assessment & Plan Assessment/Plan (1) Herniated nucleus pulposus, L4-5 right: PLAN: Plan Patient is a 52-year-old gentleman who underwent L4-[address] Moctezuma with spine surgery. The hospitalist service consulted to assist with management of patient medical comorbidities 1. Status post L4/L5 lumbar fusion ? On account of severe low back pain with right lower extremity radiculopathy with history of recurrent disc herniation. Patient had apparently failed conservative treatment. Procedure was performed on 03/28/2023. Patient postoperative orders regarding pain management PT OT DVT prophylaxis deferred to primary service 2. Hypertension - Blood pressure controlled, home medications continued with dose adjustment as needed 3. Class III obesity with BMI of 41.1 ? Complicating care weight loss advised. Patient is on Ozempic 4. Paroxysmal atrial fibrillation ? Rate controlled on metoprolol 5. Mild intermittent asthma ? Currently not in exacerbation aerosol treatment as needed 6. DVT prophylaxis ? Bilateral SCDs chemoprophylaxis deferred to general surgery Time spent in the patient's overall evaluation,decision-making process, review of diagnostic data, adjustment of management, discussion with other providers, nursing nursing and ancillary staff involved in patient's care documentation, 40 Minutes Charges/Coding Visit Charges Inpatient E&M: 34448 Subs Hosp L2
[2023-03-12] MEDS: Folic Acid 1 MG Tablet PO (09:40)
[2023-03-12] MEDS: Multivitamins,Ther W-Minerals Tablet 1 TABLET PO (09:42)
[2023-03-12] MEDS: diazePAM 5 MG Tablet PO (09:42)
[2023-03-12] MEDS: Losartan Potassium 100 MG Tablet PO (09:42)
[2023-03-12] MEDS: Thiamine Hydrochloride 100 MG Tablet PO (09:42)
[2023-03-12] MEDS: hydroCHLOROthiazide 25 MG Tablet PO (09:42)
[2023-03-12] MEDS: Metoprolol Tartrate 50 MG Tablet PO ×2 (09:43→22:38)
--- NOTE | 2023-03-12 10:04 | CASEMGMT ---
Addendum entered by Franchesca Layton 03/12/23 15:21: Spoke with regarding 's concern of pt not having therapy on his hip, did not want to order any therapy. MITCHELL VENEGAS into pt room, pt states she also asked and was aware of the answer. Original Note: MITCHELL VENEGAS Assessment: Face to Face with pt for initial transition planning/care coordination assessment. MITCHELL VENEGAS introduced self and role at [facility], pt voices understanding and consents to assessment. Pt is A&O x4 and answers all questions appropriately at this time. Pt lying in bed with at bedside. Pt is painful and asks to answer all assessment questions. Care providers, pharmacy, and demographics verified/updated. Admitting Dx: 360 lumbar fusion L4-5 with laminectomy PCP:Ralph Specialists:bart Calloway; bart Whalen Preferred Pharmacy:[facility] Retail Insurance: MMO Prescription Benefit: yes LNOK: Aminta Jeronimo, Living Arrangements: Pt lives with in a single story home with 2 steps to enter with a rail. Pt was I in ADL's prior to surgery except his assists with LB dressing for the last couple of mos since hip surgery. Pt denies concerns at home. Transportation: Pt drives self and denies concerns with transportation. Pt will transport until pt can drive again. DME:toilet riser, reachers, sock aid, cane, 2 FWW, BGM with sufficient supply of strips and lancets HHC/SNF: Pt denies hx of both. Pt states no concerns with going home at time of dc. Pt reports that pt could not rehab properly from his hip surgery d/t having back pain. to discuss with to see if therapy is warranted. Pt states no further concerns/needs. CM to follow. Advised pt to ask CM if any further question/concerns/needs arise, voices understanding. Pt Goal: Home Plan: Home
[2023-03-12] MEDS: LORazepam 1 MG Tablet 2 MG PO ×2 (11:31→14:40)
[2023-03-12 12:08] LABS: Bedside Glucose 154 mg/dL (74-106)
--- NOTE | 2023-03-12 13:03 | PN.ORTHO_ITS ---
Subjective Subjective Alfred is doing extremely well on postop day #1. Right leg pain is essentially gone and still hurts in his buttocks on the right side. But the rest of the leg pain is much better. He has been walking with a walker all the way around the nurses station. His back does not hurt all that much the abdomen however does. Promised him that this will get better over time. His dressings are dry. Neurologically he is intact. He is already very pleased that he had the surgery. I answered all of his questions and those of his Aminta. I will see him again tomorrow. Objective Data Objective Data Vital Signs: Vital Signs Temp Pulse Resp BP Pulse Ox O2 Del Method O2 Flow Rate 98.1 F 81 18 121/80 H 93 Room Air 2 03/12/23 10:59 03/12/23 10:59 03/12/23 10:59 03/12/23 10:59 03/12/23 10:59 03/12/23 10:59 03/12/23 02:59 Oxygen Flow Rate (L/min) 2 Oxygen Delivery Method Room Air Weight: 295 lb Body Mass Index (BMI) 41.1 Intake & Output: Intake and Output for Last 24 Hours 03/10/23 03/11/23 03/12/23 23:59 23:59 23:59 Intake Total 4347.25 / 4847.25 3049.67 / 3049.67 Output Total 625 / 975 1650 / 1650 Balance 3722.25 / 3872.25 1399.67 / 1399.67 Lab / Micro Data 03/12/23 06:40 03/12/23 06:40 Labs: Laboratory Results - last 24 hr 03/11/23 09:32: POC Glucose 119 H 03/11/23 11:25: POC Glucose 209 H 03/11/23 13:20: POC Glucose 167 H 03/11/23 15:23: POC Glucose 182 H 03/11/23 17:12: POC Glucose 202 H 03/11/23 21:57: POC Glucose 171 H 03/12/23 06:40: WBC 11.8 H, RBC 3.92 L, Hgb 11.0 L, Hct 34.8 L, MCV 88.8, MCH 28.1, MCHC 31.6 L, RDW Std Deviation 47.6 H, RDW Coeff of Pedro 14.6, Plt Count 263, MPV 9.9, Immature Gran % (Auto) 0.500, Neut % (Auto) 75.6 H, Lymph % (Auto) 14.7 L, [place] % (Auto) 9.0, Eos % (Auto) 0.0, Baso % (Auto) 0.2, Absolute Neuts (auto) 8.9 H, Absolute Lymphs (auto) 1.73, Nucleated RBC % 0, Sodium 138, Potassium 3.8, Chloride 106, Carbon Dioxide 27.0, Anion Gap 5, BUN 20 H, Creatinine 1.33 H, Estim Creat Clear Calc 67.63, Est GFR (MDRD) Af Amer 72, Est GFR (MDRD) Non-Af 59 L, BUN/Creatinine Ratio 15.0, Glucose 148 H, Calcium 8.2 L, Phosphorus 3.5, Magnesium 2.1, Total Bilirubin 0.70, AST 23, ALT 36, Alkaline Phosphatase 73, Total Protein 6.0 L, Albumin 2.9 L, Globulin 3.1, Albumin/Globulin Ratio 0.9, POC Glucose 142 H 03/12/23 11:28: POC Glucose 154 H Micro: Microbiology 02/25/23 07:57 Swab (Method) Nasal Screen MRSA/MSSA - Final Radiography Diagnostic Testing: Radiology Impression Spine X-Ray 03/11/23 14:30 IMPRESSION: Status post anterior fusion with disc prosthesis. Electronically Signed: Jignesh Rosas MD at 15:14 EDT , Spine X-Ray 03/11/23 15:50 IMPRESSION: Anterior fusion at L4-5. Electronically Signed: Dallin Alves MD at 16:45 EDT ,
[2023-03-12 16:37] LABS: Bedside Glucose 145 mg/dL (74-106)
--- NOTE | 2023-03-12 16:47 | EKG12_ITS ---
Test Reason : TACHY Blood Pressure : / mmHG Vent. Rate : 102 BPM Atrial Rate : 102 BPM P-R Int : 154 ms QRS Dur : 098 ms QT Int : 322 ms P-R-T Axes : 041 021 063 degrees QTc Int : 419 ms Sinus tachycardia Otherwise normal ECG When compared with ECG of 25-FEB-2023 07:45, Vent. rate has increased BY 37 BPM QRS axis Shifted left Nonspecific T wave abnormality no longer evident in Inferior leads Confirmed by MARY JOHNSON, MARTA ([id number]), field map editor DESTINEY LEWIS ([id number]) on 03/18/2023 11:30:17 AM Referred By: Patrick Calloway Confirmed By:MARTA HERNANDEZ MD
--- NOTE | 2023-03-12 18:03 | CT_ITS ---
STUDY: CT ABDOMEN AND PELVIS WITH CONTRAST REASON FOR EXAM: Male, 52 years old. Post op fever and pain RADIATION DOSAGE (If Supplied By Facility): CTDIvol = ( 21.87 ) mGy, DLP = ( 1899.88 ) mGycm TECHNIQUE: Transaxial images were obtained from the dome of the diaphragm to the symphysis pubis with oral contrast. IV 100mL Isovue-370 was administered. Sagittal and coronal images were reconstructed. Individualized dose optimization techniques were used for this CT. COMPARISON: None. FINDINGS: There is lower lung atelectasis. The visualized portions of the heart are within normal limits. There is hepatomegaly with diffuse hepatic enlargement. Normal gallbladder and extrahepatic biliary system. Normal spleen. Normal pancreas. Normal bilateral adrenal glands. Normal right kidney. Normal left kidney. Normal visualized stomach. Normal small intestine. Normal colon. The appendix is visualized and appears normal. Normal abdominal aorta. Normal inferior vena cava. Normal retroperitoneum. Normal urinary bladder. There is postoperative change of the abdominal wall. There is postoperative change of the spine with anterior fusion at L4-5 including fixation plate and screws and hardware in the disc space and interspinous device. There is postoperative change in the anterior and posterior paraspinal soft tissues. There are bilateral hip replacements. CT/Abdomen/Pelvis WITH Contrast IMPRESSION: No obstruction. No hydronephrosis. Postoperative change. Hepatomegaly. No biliary dilatation. Lower lung atelectasis. Electronically Signed: Peyman Key MD at 22:18 EDT ,
--- NOTE | 2023-03-12 18:30 | RAD_ITS ---
INDICATION: post op fever'' EXAMINATION/TECHNIQUE: X-RAY - XR Chest 1 View COMPARISON: 07/11/2020. FINDINGS: LINES/DEVICES: None. LUNGS: No consolidation, edema or effusion. No pneumothorax. MEDIASTINUM AND CARDIOVASCULAR STRUCTURES: Cardiac silhouette not enlarged. Central airways and mediastinal contour are unremarkable. BONES AND SOFT TISSUES: Unremarkable. RAD/Chest 1 View IMPRESSION: No radiographic evidence of acute cardiopulmonary disease. Electronically Signed: Monik Armenta MD at 19:12 EDT Reading Location ID and State: [id number] / Tel , Service support ,
--- NOTE | 2023-03-12 18:30 | RAD_ITS ---
INDICATION: post op pain EXAMINATION/TECHNIQUE: X-RAY - XR Abdomen W/ Decub and/or Erect Views COMPARISON: FINDINGS: Lung bases are clear. There is a non-obstructive bowel gas pattern. There is no organomegaly. Calcification projected over the liver, possible granuloma. Midline surgical jamison. Disc fusion hardware at L4-5. Bilateral hip replacements. Soft tissues and bony structures are unremarkable. RAD/Abdomen Single View IMPRESSION: Non-obstructive abdomen. Electronically Signed: Monik Armenta MD at 19:35 EDT Reading Location ID and State: [id number] / Tel , Service support ,
[2023-03-12 18:40] LABS: Hematocrit 36.3 % (40-54); Hemoglobin 11.5 g/dL (13.0-16.5)
--- NOTE | 2023-03-12 20:02 | PCM.HOSP.N ---
Hospitalist Note Patient with increased abdominal pain earlier in the day with pending CT ordered per Vascular to be cautious. KUB/CXR prior not marked. Patient with fever onset as well. Bld Cx x 2 already obtained. Will obtain COVID PCR to be cautious also. Surgery from discussion with petroleum geology faculty member is aware and directing evaluation of their patient s/p anterior lumbar interbody fusion L4-5, titanium anterior plate L4-5, cage insertion L4-5, bone marrow aspirate as well as bone allograft.
--- NOTE | 2023-03-12 20:13 | NURSING ---
pt unable to drink contrast solution. Imaging notified and requested pt at this time. pt taken off of unit at this time with loco Guevara RN to imaging.
--- NOTE | 2023-03-12 20:27 | NURSING ---
pt spiked temp and became tacchy-drs. pedersen, clare and christina all updated of change in pt condition and new orders placed kub and CXR, blood cultures and H&H ordered and done at bedside -pt attempt to drink contrast and only able to drink 1 partial bottle-ct notified and they took pt early for scan dr moore updated via text that pt continues to be tacchy and still has fever of 102.8 resp are 20 on 2l n/c
[2023-03-12 20:28] LABS: Bacteria 0 SEEN /hpf (None Seen); Mucous, Urine 0 SEEN /hpf (<or=2+); Red Blood Cells-Urine 0 SEEN /hpf (0-5)
[2023-03-12 20:48] LABS: Color, Urine Yellow (Yellow); Glucose, Dipstick Normal (Normal); Ketone-Dipstick Negative (Negative); Leukocyte Esterase-Dipstick Negative /ul (Negative); Nitrite-Dipstick Negative (Negative); Occult Blood-Urine 10 /ul (Negative); Protein-Dipstick 15 mg/dl (Negative); Urine Bilirubin Dipstick Negative (Negative); Urine Clarity Clear (Clear); Urine Urobilinogen Normal (Normal)
[2023-03-12 20:59] LABS: White Blood Cells 0-5 SEEN /hpf (0-5)
[2023-03-12] MEDS: 0.9% Normal Saline (1000mL) 1,000 ML 999 ML IV (20:59)
[2023-03-12 21:00] LABS: Squamous Epithelial Cells - UA 0-5 SEEN /hpf (0-5)
[2023-03-12] MEDS: Metoprolol Tartrate 5 MG/5 ML Vial 2.5 MG IV (21:00)
[2023-03-12] MEDS: HYDROmorphone 1 MG/ML Syringe IV (21:01)
[2023-03-12 21:52] LABS: Lactic Acid 1.5 mmol/L (0.4-1.9)
[2023-03-12] MEDS: Insulin Lispro 100 UNIT/ML INSULN.PEN SC (22:37)
[2023-03-12 23:08] LABS: Bedside Glucose 165 mg/dL (74-106)
[2023-03-13] VITALS (17 sets, daily range): BP systolic 97–131; BP diastolic 62–84; PULSE 80–108; RESP 16–24; TEMP 36.6–38.4; O2SAT 95–99
[2023-03-13] MEDS: Acetaminophen 500 MG Tablet 1000 MG PO ×3 (03:19→20:36)
[2023-03-13] MEDS: 0.9% Saline Lock 10 ML Syringe IV (03:20)
[2023-03-13] MEDS: Morphine 4 MG/ML Syringe IV (03:20)
[2023-03-13] MEDS: 0.9% Normal Saline (1000mL) 1,000 ML 125 ML IV ×3 (03:32→18:36)
[2023-03-13] MEDS: Gabapentin 300 MG Capsule PO ×3 (05:41→21:26)
[2023-03-13] MEDS: Insulin Lispro 100 UNIT/ML INSULN.PEN SC ×2 (05:42→21:25)
[2023-03-13 06:11] LABS: Bedside Glucose 153 mg/dL (74-106)
[2023-03-13] MEDS: Thiamine Hydrochloride 100 MG Tablet PO (08:30)
[2023-03-13] MEDS: Losartan Potassium 100 MG Tablet PO (08:30)
[2023-03-13] MEDS: Metoprolol Tartrate 50 MG Tablet PO (08:30)
[2023-03-13] MEDS: Folic Acid 1 MG Tablet PO (08:30)
[2023-03-13] MEDS: hydroCHLOROthiazide 25 MG Tablet PO (08:30)
[2023-03-13] MEDS: Multivitamins,Ther W-Minerals Tablet 1 TABLET PO (08:30)
--- NOTE | 2023-03-13 08:54 | PCM.PN.HOSP ---
Reason for Visit Reason for Visit: Diagnoses Other intervertebral disc displacement, lumbar region (03/11/23) Encounter for other preprocedural examination (03/11/23) Subjective Subjective Was reported to be significantly lethargic as well as complaint of abdominal pain with low-grade fever the day prior. Work-up so far unremarkable. Objective Data Objective Data Vital Signs: Vital Signs Temp Pulse Resp BP Pulse Ox O2 Del Method O2 Flow Rate 98.9 F 90 20 H 113/74 99 High Flow 3 03/13/23 08:15 03/13/23 08:30 03/13/23 08:15 03/13/23 08:15 03/13/23 08:15 03/13/23 08:15 03/13/23 08:15 Oxygen Flow Rate (L/min) 3 Oxygen Delivery Method High Flow Weight: 133.81 kg Body Mass Index (BMI) 41.1 Intake & Output: Intake and Output for Last 24 Hours 03/11/23 03/12/23 03/13/23 23:59 23:59 23:59 Intake Total 4347.25 / 4847.25 5149.67 / 5249.67 120 / 120 Output Total 625 / 975 2000 / 2350 700 / 700 Balance 3722.25 / 3872.25 3149.67 / 2899.67 -580 / -580 Lab / Micro Data 03/12/23 18:20 03/12/23 06:40 Labs: Laboratory Results - last 24 hr 03/12/23 11:28: POC Glucose 154 H 03/12/23 16:18: POC Glucose 145 H 03/12/23 18:20: Hgb 11.5 L, Hct 36.3 L 03/12/23 19:45: Urine Color Yellow, Urine Clarity Clear, Urine pH 6.0, Ur Specific [place] 1.020, Urine Protein 15 H, Urine Glucose (UA) Normal, Urine Ketones Negative, Urine Occult Blood 10 H, Urine Nitrite Negative, Urine Bilirubin Negative, Urine Urobilinogen Normal, Ur Leukocyte Esterase Negative, Urine RBC 0 SEEN, Urine WBC 0-5 SEEN, Ur Squamous Epith Cells 0-5 SEEN, Urine Bacteria 0 SEEN, Urine Mucus 0 SEEN 03/12/23 21:15: Lactic Acid 1.5 03/12/23 22:34: POC Glucose 165 H 03/13/23 05:40: POC Glucose 153 H Micro: Microbiology 03/12/23 20:49 Mucosa - Nose Coronavirus COVID-19 PCR - Final 02/25/23 07:57 Swab (Method) Nasal Screen MRSA/MSSA - Final Radiography Diagnostic Testing: Radiology Impression Abdomen/Pelvis CT 03/12/23 18:03 IMPRESSION: No obstruction. No hydronephrosis. Postoperative change. Hepatomegaly. No biliary dilatation. Lower lung atelectasis. Electronically Signed: Peyman Key MD at 22:18 EDT , Chest X-Ray 03/12/23 18:30 IMPRESSION: No radiographic evidence of acute cardiopulmonary disease. Electronically Signed: Monik Armenta MD at 19:12 EDT Reading Location ID and State: [id number] / Tel , Service support , KUB X-Ray 03/12/23 18:30 IMPRESSION: Non-obstructive abdomen. Electronically Signed: Monik Armenta MD at 19:35 EDT Reading Location ID and State: [place] / Tel , Service support , Physical Exam Narrative GENERAL: cooperative HEENT: Atraumatic; normocephalic EYES; Anicteric, Normal Conjunctiva NECK; supple, normal thyroid, RESPIRATORY: Diminished to auscultation CARDIOVASCULAR: Regular S1 S2, GI: soft, normoactive bowel sounds, : No Renal angle tenderness; EXTREMITIES: No edema, no clubbing, MUSCULOSKELETAL: no muscle wasting NEURO: Awake; no lateralizing signs. SKIN: No Rash PSYCH; Flat affect Assessment & Plan Assessment/Plan (1) Herniated nucleus pulposus, L4-5 right: PLAN: Plan Patient is a 52-year-old gentleman who underwent L4-[address] Moctezuma with spine surgery. The hospitalist service consulted to assist with management of patient medical comorbidities 1. Status post L4/L5 lumbar fusion ? On account of severe low back pain with right lower extremity radiculopathy with history of recurrent disc herniation. Patient had apparently failed conservative treatment. Procedure was performed on 03/28/2023. Patient postoperative orders regarding pain management PT OT DVT prophylaxis deferred to primary service 2. Hypertension - Blood pressure controlled, home medications continued with dose adjustment as needed 3. Class III obesity with BMI of 41.1 ? Complicating care weight loss advised. Patient is on Ozempic 4. Paroxysmal atrial fibrillation ? Rate controlled on metoprolol 5. Mild intermittent asthma ? Currently not in exacerbation aerosol treatment as needed 6. DVT prophylaxis ? Bilateral SCDs chemoprophylaxis deferred to general surgery 7. Postop pyrexia ? Work-up so far unremarkable do suspect atelectasis did encourage the use of incentive spirometry Time spent in the patient's overall evaluation,decision-making process, review of diagnostic data, adjustment of management, discussion with other providers, nursing nursing and ancillary staff involved in patient's care documentation, 40 Minutes Charges/Coding Visit Charges Inpatient E&M: 64857 Subs Hosp L2
[2023-03-13] MEDS: oxyCODONE 5 MG Tablet PO ×2 (10:02→17:01)
[2023-03-13 10:16] LABS: Absolute Lymphocyte Count 1.18 X10^3/uL (0.83-4.51); Absolute Neutrophil Count 9.1 X10^3/uL (2.0-7.7); Basophil# 0.04 X10^3/uL; Basophil% 0.3 % (0-1); Eosinophil# 0.23 X10^3/uL; Hematocrit 32.9 % (40-54); Hemoglobin 10.3 g/dL (13.0-16.5); Lymphocyte # 1.18 X10^3/ul (0.83-4.51); Lymphocyte % 10.1 % (19-41); Mean Corp Hgb Conc 31.3 g/dL (32-36); Mean Corpuscular Hgb 28.1 pg (27.0-32.0); Mean Corpuscular Volume 89.9 fL (80-94); Mean Platelet Vol. 10.3 fl (6.2-12.0); Monocyte# 1.01 X10^3/uL; Monocyte% 8.7 % (0-10); NRBC Flagged by Analyzer 0 % (0-5); Neutrophil # 9.11 X10^3/uL (2.7-7.7); Neutrophil % 78.4 % (47-70); Platelet Count 234 K/mm3 (150-450); RBC Distribution Width CV 14.7 % (11.6-14.6); Red Blood Count 3.66 M/mm3 (4.6-6.2); White Blood Count 11.6 K/mm3 (4.4-11.0)
[2023-03-13 10:27] LABS: Anion Gap 6 (5-15); BUN 13 mg/dL (7-18); BUN/Creat Ratio 11.9 RATIO (10-20); Calcium,Total 8.1 mg/dL (8.5-10.1); Chloride 105 mmol/L (98-107); Creatinine, Serum 1.09 mg/dL (0.70-1.30); EST Glomerular Filtration Rate 75 mL/min (>60); Est Glom Filt Rate - Afr Amer 91 mL/min (>60); Estimated Creatinine Clearance 82.52 ml/min; Glucose 193 mg/dL (74-106); Magnesium 2.2 mg/dL (1.6-2.6); Potassium 3.7 mmol/L (3.5-5.1); Sodium Level 138 mmol/L (136-145)
[2023-03-13 11:43] LABS: Bedside Glucose 137 mg/dL (74-106)
--- NOTE | 2023-03-13 16:08 | CASEMGMT ---
Social Work SW received referral for substance use. SW met with pt and introduced self and role of SW. Pt denies any drug use and states he does dring a 12 pack of beer on the weekends and does not drink during the week. Pt denies alcohol use as a problem in his life and describes himself as a social drinker. SW offered to provide pt with JOSE resources and pt declines. SW will remain available should needs arise. FRANKIE Altman
[2023-03-13 16:24] LABS: Bedside Glucose 116 mg/dL (74-106)
[2023-03-13] MEDS: Albuterol 2.5 MG/3 ML VIAL.NEB. INHALATION (17:12)
[2023-03-13] MEDS: Ibuprofen 400 MG Tablet PO (18:35)
[2023-03-13 18:36] LABS: Bedside Glucose 165 mg/dL (74-106)
[2023-03-13 21:47] LABS: Bedside Glucose 177 mg/dL (74-106)
[2023-03-14] VITALS (9 sets, daily range): BP systolic 97–119; BP diastolic 63–90; PULSE 80–97; RESP 16–18; TEMP 36.5–36.7; O2SAT 58–99
--- NOTE | 2023-03-14 00:56 | NURSING ---
Pt sleeping and on ra. pulse ox 58%. pt awaken and 02 appilied
[2023-03-14] MEDS: oxyCODONE 5 MG Tablet PO ×2 (01:21→11:08)
[2023-03-14] MEDS: 0.9% Normal Saline (1000mL) 1,000 ML 125 ML IV ×2 (04:51→09:48)
[2023-03-14] MEDS: Acetaminophen 500 MG Tablet 1000 MG PO ×2 (04:51→12:12)
[2023-03-14] MEDS: Gabapentin 300 MG Capsule PO ×2 (04:51→14:25)
[2023-03-14 06:48] LABS: Bedside Glucose 143 mg/dL (74-106)
[2023-03-14 06:56] LABS: Absolute Neutrophil Count 6.2 X10^3/uL (2.0-7.7); Basophil# 0.01 X10^3/uL; Basophil% 0.1 % (0-1); Eosinophils% 3.6 % (0-5); Hematocrit 29.3 % (40-54); Hemoglobin 9.2 g/dL (13.0-16.5); Lymphocyte % 12.1 % (19-41); Mean Corp Hgb Conc 31.4 g/dL (32-36); Mean Corpuscular Hgb 27.9 pg (27.0-32.0); Mean Corpuscular Volume 88.8 fL (80-94); Mean Platelet Vol. 9.8 fl (6.2-12.0); Monocyte# 0.68 X10^3/uL; Monocyte% 8.2 % (0-10); NRBC Flagged by Analyzer 0 % (0-5); Neutrophil # 6.24 X10^3/uL (2.7-7.7); Neutrophil % 75.4 % (47-70); Platelet Count 186 K/mm3 (150-450); RBC Distribution Width CV 14.6 % (11.6-14.6); RBC Distribution Width SD 47.2 fl (35.1-43.9); White Blood Count 8.3 K/mm3 (4.4-11.0)
--- NOTE | 2023-03-14 07:05 | PN.HOSP_ITS ---
Reason for Visit Reason for Visit: Diagnoses Other intervertebral disc displacement, lumbar region (03/11/23) Encounter for other preprocedural examination (03/11/23) Subjective Subjective Patient seen much more interactive compared to the day prior. Objective Data Objective Data Vital Signs: Vital Signs Temp Pulse Resp BP Pulse Ox O2 Del Method O2 Flow Rate 98.0 F 86 16 119/90 H 99 Nasal Cannula 2 03/14/23 05:27 03/14/23 05:27 03/14/23 05:27 03/14/23 05:27 03/14/23 05:27 03/14/23 05:27 03/14/23 05:27 Oxygen Flow Rate (L/min) 2 Oxygen Delivery Method Nasal Cannula Weight: 133.81 kg Body Mass Index (BMI) 41.1 Intake & Output: Intake and Output for Last 24 Hours 03/12/23 03/13/23 03/14/23 23:59 23:59 23:59 Intake Total 5149.67 / 5249.67 2003.33 / 2203.33 1200 / 1200 Output Total 1999 / 2349 1200 / 1200 Balance 3149.67 / 2899.67 803.33 / 1003.33 1200 / 1200 Lab / Micro Data 03/14/23 06:20 03/14/23 06:20 Labs: Laboratory Results - last 24 hr 03/13/23 09:26: WBC 11.6 H, RBC 3.66 L, Hgb 10.3 L, Hct 32.9 L, MCV 89.9, MCH 28.1, MCHC 31.3 L, RDW Std Deviation 48.0 H, RDW Coeff of Pedro 14.7 H, Plt Count 234, MPV 10.3, Immature Gran % (Auto) 0.500, Neut % (Auto) 78.4 H, Lymph % (Auto) 10.1 L, Grand % (Auto) 8.7, Eos % (Auto) 2.0, Baso % (Auto) 0.3, Absolute Neuts (auto) 9.1 H, Absolute Lymphs (auto) 1.18, Nucleated RBC % 0, Sodium 138, Potassium 3.7, Chloride 105, Carbon Dioxide 27.0, Anion Gap 6, BUN 13, Creatinine 1.09, Estim Creat Clear Calc 82.52, Est GFR (MDRD) Af Amer 91, Est GFR (MDRD) Non-Af 75, BUN/Creatinine Ratio 11.9, Glucose 193 H, Calcium 8.1 L, Magnesium 2.2 03/13/23 11:22: POC Glucose 137 H 03/13/23 16:02: POC Glucose 116 H 03/13/23 18:16: POC Glucose 165 H 03/13/23 21:25: POC Glucose 177 H 03/14/23 06:20: WBC 8.3, RBC 3.30 L, Hgb 9.2 L, Hct 29.3 L, MCV 88.8, MCH 27.9, MCHC 31.4 L, RDW Std Deviation 47.2 H, RDW Coeff of Pedro 14.6, Plt Count 186, MPV 9.8, Immature Gran % (Auto) 0.600, Neut % (Auto) 75.4 H, Lymph % (Auto) 12.1 L, Grand % (Auto) 8.2, Eos % (Auto) 3.6, Baso % (Auto) 0.1, Absolute Neuts (auto) 6.2, Absolute Lymphs (auto) 1.00, Nucleated RBC % 0 03/14/23 06:30: POC Glucose 143 H Micro: Microbiology 03/12/23 20:49 Mucosa - Nose Coronavirus COVID-19 PCR - Final 02/25/23 07:57 Swab (Method) Nasal Screen MRSA/MSSA - Final Physical Exam Narrative GENERAL: cooperative HEENT: Atraumatic; normocephalic EYES; Anicteric, Normal Conjunctiva NECK; supple, normal thyroid, RESPIRATORY: Diminished to auscultation CARDIOVASCULAR: Regular S1 S2, GI: soft, normoactive bowel sounds, : No Renal angle tenderness; EXTREMITIES: No edema, no clubbing, MUSCULOSKELETAL: no muscle wasting NEURO: Awake; no lateralizing signs. SKIN: No Rash PSYCH; Flat affect Assessment & Plan Assessment/Plan (1) Herniated nucleus pulposus, L4-5 right: PLAN: Plan Patient is a 52-year-old gentleman who underwent L4-[address] Moctezuma with spine surgery. The hospitalist service consulted to assist with management of patient medical comorbidities 1. Status post L4/L5 lumbar fusion ? On account of severe low back pain with right lower extremity radiculopathy with history of recurrent disc herniation. Patient had apparently failed conservative treatment. Procedure was performed on 03/28/2023. Patient postoperative orders regarding pain management PT OT DVT prophylaxis deferred to primary service 2. Hypertension - Blood pressure controlled, home medications continued with dose adjustment as needed 3. Class III obesity with BMI of 41.1 ? Complicating care weight loss advised. Patient is on Ozempic 4. Paroxysmal atrial fibrillation ? Rate controlled on metoprolol 5. Mild intermittent asthma ? Currently not in exacerbation aerosol treatment as needed 6. DVT prophylaxis ? Bilateral SCDs chemoprophylaxis deferred to general surgery 7. Postop pyrexia ? Work-up so far unremarkable do suspect atelectasis did encourage the use of incentive spirometry 8. Anemia ? Secondary to acute blood loss anemia following surgery monitoring H&H with plans to transfuse if patient Symptomatic or hemoglobin falls below Time spent in the patient's overall evaluation,decision-making process, review of diagnostic data, adjustment of management, discussion with other providers, nursing nursing and ancillary staff involved in patient's care documentation, 35 Minutes Charges/Coding Visit Charges Inpatient E&M: 54954 Subs Hosp L2
[2023-03-14 07:14] LABS: Anion Gap 1 (5-15); BUN 11 mg/dL (7-18); BUN/Creat Ratio 12.3 RATIO (10-20); Calcium,Total 8.1 mg/dL (8.5-10.1); Chloride 110 mmol/L (98-107); Creatinine, Serum 0.89 mg/dL (0.70-1.30); EST Glomerular Filtration Rate 94 mL/min (>60); Est Glom Filt Rate - Afr Amer 114 mL/min (>60); Estimated Creatinine Clearance 101.06 ml/min; Glucose 146 mg/dL (74-106); Magnesium 2.4 mg/dL (1.6-2.6); Phosphorus 1.8 mg/dL (2.5-4.9); Potassium 3.8 mmol/L (3.5-5.1); Sodium Level 140 mmol/L (136-145)
[2023-03-14] MEDS: Metoprolol Tartrate 50 MG Tablet PO (08:05)
[2023-03-14] MEDS: Multivitamins,Ther W-Minerals Tablet 1 TABLET PO (08:05)
[2023-03-14] MEDS: Thiamine Hydrochloride 100 MG Tablet PO (08:05)
[2023-03-14] MEDS: Losartan Potassium 100 MG Tablet PO (08:06)
[2023-03-14] MEDS: Folic Acid 1 MG Tablet PO (08:06)
[2023-03-14] MEDS: hydroCHLOROthiazide 25 MG Tablet PO (08:06)
[2023-03-14] MEDS: Polyethylene Glycol 3350 17 GM PACKET PO (11:08)
[2023-03-14] MEDS: Senna/Docusate Sodium 1 Tablet PO (11:08)
[2023-03-14] MEDS: Insulin Lispro 100 UNIT/ML INSULN.PEN SC (11:09)
[2023-03-14 11:32] LABS: Bedside Glucose 159 mg/dL (74-106)
--- NOTE | 2023-03-14 12:28 | CASEMGMT ---
MITCHELL CM into pt room, pt sitting up in chair, seen ambulating the halls earlier. Pt states he is ready to go home and feels safe to dc. Pt has concerns of pt being able to get oob at home. Pt denies concerns with this and states he will sleep in the recliner if he needs to. No further needs at this time.
--- NOTE | 2023-03-14 13:16 | DCINST_ITS ---
Discharge Instructions Activity May shower in (days): 3 May resume sexual activity in: 4-6 weeks Lifting Restrictions: 20# Dressing / Incision Remove Dressing in: 2 days Follow Up Care Test Results: Test results from this visit will be discussed in further detail at your follow- up appointment, if applicable. Discharge Plan Admission Admit Date/Time: 03/11/23 05:06 Primary Reason for Your Visit: back surgery Attending Provider: Mian Veras Primary Care Provider: Yuli Rosas Consulting Providers: Fabi Cherry; Royce Elliott; Makayla Singh; Makayla Díaz; Casey Treadwell; Scarlet Bansal; Katie Alvarado; Mian Malhotra; Mian Veras; Tavon Miranda; Aniceto Fan; Triston Gómez; Layton Irizarry; Facundo Salazar; Ronen Larsen; Sadie Maloney; Asael Fajardo; Berkley Alvarado; Chris Warner; Uriel Aguilar; Satya De La Rosa; Lissette Pretty; Willard Benavides; Erika Cano NP; Ehsan Iyer; Patrick Calloway Discharge Orders/Prescriptions Prescriptions: No Action metformin 500 mg tablet 500 tablet PO BID gabapentin 300 mg capsule 300 mg PO TID Patient Comments: TAKE 1 CAPSULE BY MOUTH AT BEDIME FOR 3 DAYS,THEN TWICE DAILY FOR... (REFER TO PRESCRIPTION NOTES). Ozempic 1 mg/dose (4 mg/3 mL) pen injector 1 mg subcut FR Patient Comments: inject 1 milligram subcutaneously every week ibuprofen 600 mg tablet 600 mg PO BID PRN (Reason: pain) Patient Comments: take 1 tablet by mouth every 6 hours if needed for pain losartan-hydrochlorothiazide [Hyzaar] 100-25 mg tablet 1 tab PO DAILY albuterol sulfate 90 mcg/actuation HFA aerosol inhaler 1 - 2 puff INHALATION Q6H PRN PRN (Reason: ASTHMA) omega-3 fatty acids Capsule 1,000 mg PO DAILY acetaminophen [acetaminophen] 500 mg tablet 1,000 mg PO Q6H PRN PRN (Reason: pain) metoprolol tartrate 50 mg tablet 50 mg PO BID Qty: 180 3RF Referrals / Follow Up: Yuli Rosas DO [Primary Care Provider] - Disposition Disposition (needs filled in before D/C Order can be placed): Home, Self Care
--- NOTE | 2023-03-14 13:19 | DS.PCM_ITS ---
Providers Date of Admission: 03/11/23 Primary Care Physician: Dr. Yuli Rosas DO Attending Physician: This is discharge summary on Alfred Jeronimo. This patient was admitted Friday 3 days ago and underwent 360 degree fusion at the L4-5 level with repeat lami nectomy at L4-5 on the right side. He did very well on postop day #1 on postdate op day #2 he had a little setback with some fever but that currently is gone. He now is having flatulence and he is good bowel sounds. His right leg pain is gone. Gave him and his directions regarding his activities. He already has an appointment to see me in the office. Also I will discharge him on oxycodone 7.5 mg/325's for pain control at home. This the end of discharge summary on Alfred Jeronimo. This is Dr. Calloway dictating. Consultations 03/11/23 19:24 Consult: Hospitalist Routine Consulting Provider: [facility] Reason for Consult: Medical Management EMERGENT Consult: No MD Notified: Yes Date Notified: 03/11/23 Time Notified: 19:26 Method of Notification: Verbal Reason For Visit: 360 Lumbar Fusion L4-5 with laminec Diagnosis Discharge Diagnosis (1) Herniated nucleus pulposus, L4-5 right: Status: Acute Code(s): M51.26 - Other intervertebral disc displacement, lumbar region Medications at Discharge Home Medications albuterol sulfate 90 mcg/actuation aerosol inhaler 1 - 2 puff inhalation Q6H PRN PRN ASTHMA 08/02/21 losartan 100 mg-hydrochlorothiazide 25 mg tablet (Hyzaar) 1 tab PO DAILY htn 08/02/21 metformin 500 mg tablet 500 tablet PO BID blood glucose control 11/21/21 omega-3 fatty acids 1,000 mg PO DAILY SUPPLEMENT 12/25/21 metoprolol tartrate 50 mg tablet 50 mg PO BID htn #180 tabs 04/01/22 gabapentin 300 mg capsule 300 mg PO TID neuropathy 01/09/23 ibuprofen 600 mg tablet 600 mg PO BID PRN pain 01/09/23 semaglutide 1 mg/dose (4 mg/3 mL) subcutaneous pen injector (Ozempic) 1 mg subcut FR BLOOD GLUCOSE 01/09/23 acetaminophen 500 mg tablet 1,000 mg PO Q6H PRN PRN pain 02/24/23 Weight / BMI Weight Weight: 295 lb 0.009 oz Body Mass Index (BMI) 41.1 ABG / Lab / Microbiology Data 03/14/23 06:20 03/14/23 06:20 Laboratory: Laboratory Results - last 24 hr 03/13/23 16:02: POC Glucose 116 H 03/13/23 18:16: POC Glucose 165 H 03/13/23 21:25: POC Glucose 177 H 03/14/23 06:20: WBC 8.3, RBC 3.30 L, Hgb 9.2 L, Hct 29.3 L, MCV 88.8, MCH 27.9, MCHC 31.4 L, RDW Std Deviation 47.2 H, RDW Coeff of Pedro 14.6, Plt Count 186, MPV 9.8, Immature Gran % (Auto) 0.600, Neut % (Auto) 75.4 H, Lymph % (Auto) 12.1 L, Boyd % (Auto) 8.2, Eos % (Auto) 3.6, Baso % (Auto) 0.1, Absolute Neuts (auto) 6.2, Absolute Lymphs (auto) 1.00, Nucleated RBC % 0, Sodium 140, Potassium 3.8, Chloride 110 H, Carbon Dioxide 29.0, Anion Gap 1 L, BUN 11, Creatinine 0.89, Estim Creat Clear Calc 101.06, Est GFR (MDRD) Af Amer 114, Est GFR (MDRD) Non-Af 94, BUN/Creatinine Ratio 12.3, Glucose 146 H, Calcium 8.1 L, Phosphorus 1.8 L, Magnesium 2.4 03/14/23 06:30: POC Glucose 143 H 03/14/23 11:08: POC Glucose 159 H Microbiology: Microbiology 03/12/23 20:49 Mucosa - Nose Coronavirus COVID-19 PCR - Final 02/25/23 07:57 Swab (Method) Nasal Screen MRSA/MSSA - Final D/C Instructions May shower in (days): 3 May resume sexual activity in: 4-6 weeks Meaningful Use Info Meaningful Use Diagnoses (Choose all that apply): None applicable Discharge Plan Admission Admit Date/Time: 03/11/23 05:06 Primary Reason for Your Visit: back surgery Attending Provider: Mian Veras Primary Care Provider: Yuli Rosas Consulting Providers: Fabi Cherry; Royce Elliott; Elian[place]larissa,[place]; [place]; Casey Treadwell; Scarlet Bansal; Katie Alvarado; Mian Malhotra; Mian Veras; Tavon Miranda; Aniceto Fan; Triston Gómez; Layton Irizarry; Facundo Salazar; Ronen Larsen; Sadie Maloney; Asael Fajardo; Berkley Alvarado; Chris Warner; Uriel Aguilar; Satya De La Rosa; Lissette Pretty; Willard Benavides; Erika Cano NP; Ehsan Iyer; Patrick Calloway Discharge Orders/Prescriptions Prescriptions: No Action metformin 500 mg tablet 500 tablet PO BID gabapentin 300 mg capsule 300 mg PO TID Patient Comments: TAKE 1 CAPSULE BY MOUTH AT BEDIME FOR 3 DAYS,THEN TWICE DAILY FOR... (REFER TO PRESCRIPTION NOTES). Ozempic 1 mg/dose (4 mg/3 mL) pen injector 1 mg subcut FR Patient Comments: inject 1 milligram subcutaneously every week ibuprofen 600 mg tablet 600 mg PO BID PRN (Reason: pain) Patient Comments: take 1 tablet by mouth every 6 hours if needed for pain losartan-hydrochlorothiazide [Hyzaar] 100-25 mg tablet 1 tab PO DAILY albuterol sulfate 90 mcg/actuation HFA aerosol inhaler 1 - 2 puff INHALATION Q6H PRN PRN (Reason: ASTHMA) omega-3 fatty acids Capsule 1,000 mg PO DAILY acetaminophen [acetaminophen] 500 mg tablet 1,000 mg PO Q6H PRN PRN (Reason: pain) metoprolol tartrate 50 mg tablet 50 mg PO BID Qty: 180 3RF Referrals / Follow Up: Yuli Rosas, DO [Primary Care Provider] - Disposition Disposition (needs filled in before D/C Order can be placed): Home, Self Care
== END 2023-03-14 14:51 | disposition home or self-care (01) | DRG 454 ==
LOC: ACINP 05:20 → MS3 17:47
PROVIDERS: Anesthesiology; Family Medicine; Admitting Provider Orthopaedic Surgery; PCP Family Medicine; Referring Provider Orthopaedic Surgery; Visit Provider Internal Medicine
PROC: 0SG00A0 Fusion of Lumbar Vertebral Joint with Interbody Fusion Device, Anterior Approach, Anterior Column, Open Approach (ICD-10-PCS; principal; 2023-03-11 07:00)
DX: M51.26 Other intervertebral disc displacement, lumbar region (principal); Z68.41 Body mass index [BMI] 40.0-44.9, adult; D62 Acute posthemorrhagic anemia; J98.11 Atelectasis; E11.9 Type 2 diabetes mellitus without complications; I48.0 Paroxysmal atrial fibrillation; E66.01 Morbid (severe) obesity due to excess calories; I10 Essential (primary) hypertension; F10.10 Alcohol abuse, uncomplicated; J45.20 Mild intermittent asthma, uncomplicated; M54.16 Radiculopathy, lumbar region; M96.1 Postlaminectomy syndrome, not elsewhere classified; Y90.9 Presence of alcohol in blood, level not specified; G89.29 Other chronic pain; R50.82 Postprocedural fever; Z96.643 Presence of artificial hip joint, bilateral; Z79.84 Long term (current) use of oral hypoglycemic drugs; Z79.899 Other long term (current) drug therapy; Z86.16 Personal history of COVID-19; Z87.891 Personal history of nicotine dependence
CPT/HCPCS: 36415; 71045; 72020; 74018; 74177; 80048; 80053; 81001; 82962; 83036; 83605; 83735; 84100; 85014; 85018; 85025; 86703; 86706; 86708; 86803; 87040; 87081; 87635; 88304; 93005; 94640; 97116; 97162; 97530; C1713; J7030; J7120; Q9967; A4216; J2405; J3475

== ENCOUNTER 2023-03-19 08:07 | Emergency (ER) | payer OTHER, SELFPAY ==
[2023-03-19 08:08] VITALS: BP 132/85; PULSE 77; RESP 14; TEMP 36.5; O2SAT 96
--- NOTE | 2023-03-19 08:44 | EX.ED.GUMALE ---
HPI History of Present Illness Chief Complaint: Male Pain/Injury Informant: patient Pain Onset: Weeks (1) Context: Gradual Onset Timing: Continuous Worsened by: Ambulation Relieved by: Rest Urinary Symptoms Genitourinary Symptoms: Frequency Narrative Narrative: Patient presents with left testicular pain and swelling that has been getting worse over the past week. Patient had recent back surgery and since that time he has had some pain and swelling in his left testicle. Patient describes it as aching. Patient states it is worse with ambulation and movement. Patient denies any dysuria or hematuria. Patient admits to some urinary frequency. Patient states his pain starts in his lower abdomen and radiates into his testicle. Patient denies any fevers or chills. Patient denies any nausea or vomiting. PFSH [facility] Medical History Alcohol use Ambulates with cane Arthritis Asthma Back pain Cardiology follow-up encounter COVID-19 COVID-19 virus detected (04/18/20) Cystic acne Essential (primary) hypertension ETOH abuse Former smoker History of atrial fibrillation History of echocardiogram History of edema History of pain when walking History of steroid therapy History of tobacco use Hx MRSA infection Hypertension Injury of back Obesity PAF (paroxysmal atrial fibrillation) Prediabetes Shortness of breath on exertion Type 2 diabetes mellitus Wears glasses Home Medications albuterol sulfate 90 mcg/actuation aerosol inhaler 1 - 2 puff inhalation Q6H PRN PRN ASTHMA 08/02/21 [History Last Taken 08/06/21] losartan 100 mg-hydrochlorothiazide 25 mg tablet (Hyzaar) 1 tab PO DAILY htn 08/02/21 [History Last Taken 11/26/22 04:30] metformin 500 mg tablet 500 tablet PO BID blood glucose control 11/21/21 [History Last Taken Unknown] omega-3 fatty acids 1,000 mg PO DAILY SUPPLEMENT 12/25/21 [History Last Taken Unknown] metoprolol tartrate 50 mg tablet 50 mg PO BID htn #180 tabs 04/01/22 [Rx Last Taken 03/10/23] gabapentin 300 mg capsule 300 mg PO TID neuropathy 01/09/23 [History Last Taken Unknown] ibuprofen 600 mg tablet 600 mg PO BID PRN pain 01/09/23 [History Last Taken Unknown] semaglutide 1 mg/dose (4 mg/3 mL) subcutaneous pen injector (Ozempic) 1 mg subcut FR BLOOD GLUCOSE 01/09/23 [History Last Taken Unknown] acetaminophen 500 mg tablet 1,000 mg PO Q6H PRN PRN pain 02/24/23 [History Last Taken Unknown] oxycodone-acetaminophen 7.5 mg-325 mg tablet 1 tab PO Q6H PRN pain 10 days #40 tabs 03/14/23 [Rx Last Taken Unknown] Allergy/AdvReac Type Severity Reaction Status Date / Time No Known Allergies Allergy Verified 03/19/23 08:10 Family History Father Myocardial infarction, Onset Age: 60 Grandfather Myocardial infarction, Onset Age: 40 Surgical History History of back surgery History of cardiac catheterization History of hip replacement History of left heart catheterization (02/23/19) History of selective injection of anesthetic agent around lumbar nerve root Hx of surgical procedure Social History Smoking Status: Former smoker alcohol intake: current alcohol intake frequency: 3 or more drinks per day Alcohol type: beer ROS ROS ED Constitutional Constitutional ED: Denies chills or fever(s) Eyes Eyes: Denies blurry vision or change in vision ENT ENT ED: Denies rhinorrhea or sore throat Cardiovascular Cardiovascular: Denies chest pain or palpitations Respiratory/Chest Respiratory/Chest: Reports cough and dyspnea Gastrointestinal Gastrointestinal: Denies nausea or vomiting Genitourinary Genitourinary ED: Reports urinary frequency; Denies dysuria or hematuria Musculoskeletal Musculoskeletal: Reports back pain; Denies neck pain Integumentary Denies abscess or rash Neurologic Neurologic: Denies headache(s) or weakness Allergic/Immunologic Allergic/Immunologic ED: Denies mouth swelling or urticaria EXAM Physical Exam Const Vital Signs: 03/19/23 08:08 Temperature 97.7 F L Temperature Source Temporal Pulse Rate 77 Respiratory Rate 14 Blood Pressure 132/85 H Blood Pressure Mean 100 Pulse Ox 96 Oxygen Delivery Method Room Air Positive well nourished and well developed General Appearance ED: well developed and NAD HEENT Reports moist mucous membranes Neck supple and no JVD Resp normal respiratory effort and clear to auscultation bilaterally Cardio regular rate and regular rhythm GI non-distended Auscultation: normoactive bowel sounds Palpation: soft and tender LLQ and suprapubic no CVA tenderness Narrative: There is tenderness over the posterior aspect of the left testicle. There is some mild edema. There is a vertical lie. Epididymis is posterior. Extremity normal to inspection Neuro oriented x3, CN's II-XII intact bilaterally, moves all extremities, no focal motor deficits and no sensory deficits noted Sensorium / Orientation: alert Motor Exam: strength 5/5 throughout Psych mental status grossly normal MDM MDM MDM Narrative Medical decision making narrative: Differential diagnosis includes testicular torsion, epididymitis, urinary tract infection, ureteral calculus, and postoperative infection. Testicular ultrasound will be obtained to assess for testicular torsion and epididymitis. Urinalysis will be obtained to assess for urinary tract infection or hematuria. CBC will be obtained to assess for leukocytosis and anemia. Basic metabolic profile will be obtained to assess for electrolyte abnormality and renal function. CT scan of the abdomen pelvis will be obtained to assess for ureteral calculus. History & Record Review Discussion w/independent historian: Patient and Significant other Additional record(s) reviewed:: Prior labs Lab Data Attestation: I reviewed the patient's lab results. Lab results narrative: BC was reviewed. White blood cell count was normal at 8.2. Hemoglobin was 10.4 and hematocrit was 32.4. This was improved from previous result. Platelets were normal. Basic metabolic profile was reviewed. Glucose was slightly elevated at 138. The remainder was essentially within normal limits. Urinalysis was reviewed. There is no evidence of urinary tract infection or hematuria. Labs: Laboratory Results - last 24 hr 03/19/23 03/19/23 09:55 11:23 WBC 8.2 RBC 3.64 L Hgb 10.4 L Hct 32.0 L MCV 87.9 MCH 28.6 MCHC 32.5 RDW Std Deviation 48.4 H RDW Coeff of Pedro 15.1 H Plt Count 352 MPV 8.8 Immature Gran % (Auto) 1.100 H Neut % (Auto) 71.7 H Lymph % (Auto) 16.1 L [place] % (Auto) 7.8 Eos % (Auto) 2.9 Baso % (Auto) 0.4 Absolute Neuts (auto) 5.9 Absolute Lymphs (auto) 1.33 Nucleated RBC % 0 Sodium 139 Potassium 4.3 Chloride 108 H Carbon Dioxide 28.0 Anion Gap 3 L BUN 22 H Creatinine 1.07 Est GFR (MDRD) Af Amer 92 Est GFR (MDRD) Non-Af 76 BUN/Creatinine Ratio 20.6 H Glucose 138 H Calcium 9.3 Urine Color Yellow Urine Clarity Clear Urine pH 6.5 Ur Specific [place] 1.015 Urine Protein 30 H Urine Glucose (UA) Normal Urine Ketones 5 H Urine Occult Blood Negative Urine Nitrite Negative Urine Bilirubin Negative Urine Urobilinogen 1 H Ur Leukocyte Esterase 25 H Urine RBC 0 SEEN Urine WBC 0 SEEN Ur Squamous Epith Cells 0 SEEN Urine Bacteria 0 SEEN Urine Mucus 0 SEEN Radiography Diagnostic Testing: Clinical Impression(s) from Imaging Studies Testicular Ultrasound 03/19/23 08:50 IMPRESSION: Moderate bilateral hydroceles. Small right epididymal cyst. Otherwise unremarkable ultrasound of the scrotum. Electronically Signed: Tavon Guerra MD at 11:09 EDT Reading Location ID and State: [facility] / [place] Tel , Service support , Abdomen/Pelvis CT 03/19/23 08:51 IMPRESSION: Collection in the left lower abdomen extending from the lower lumbar spine surgical site, involving the left psoas muscle which contains air, surrounding the left iliac vessels, and extending laterally. Electronically Signed: Tavon Guerra MD at 11:39 EDT Reading Location ID and State: [facility] / [place] Tel , Service support , ADDENDUM: 03/19/23 1152 IMPRESSION: Collection in the left lower abdomen extending from the lower lumbar spine surgical site, involving the left psoas muscle which contains air, surrounding the left iliac vessels, and extending laterally. N.B. : The above Results were Read Back by Tavon Guerra MD to Aniceto Walls DO, and understanding confirmed on 03/19/2023 11:45:25 (ET). Electronically Signed: Tavon Guerra MD at 11:39 EDT Reading Location ID and State: [facility] / [place] Tel , Service support , Testicular ultrasound was obtained. There are moderate bilateral hydroceles. There is a small right epididymal cyst. There is no testicular torsion or evidence of epididymitis. This was interpreted by the radiologist and was also independently reviewed by myself. CT scan of the abdomen and pelvis was obtained. There is a collection in the left lower abdomen extending from the lower lumbar spine surgical site involving the left psoas muscle which contains air surrounding the left iliac vessels. This was interpreted by the radiologist and was also independently reviewed by myself. Management Discussion w/another healthcare provider: Clinic Lpn and Radiologist Treatment and Re-Evaluation Narrative: An IV fluids and Zofran. Patient was also given a dose of [place]. Patient states his pain is somewhat improved on reevaluation. Patient was advised of his findings. Case was discussed with Dr. Calloway. He recommended contacting Dr. Price. Case was discussed with Dr. Price. He stated that this is most likely from the Surgicel and Floseal packing that he had placed during the surgery. He reviewed the CT scan postoperatively and states that this appears similar to the CT scan done on 03/12/2023. He does not feel the patient requires antibiotics. He recommends having the patient follow-up in the office. Patient was advised of his findings. Patient was instructed to continue his pain medication as previously prescribed. Patient was instructed to follow-up with Dr. Price as well as Dr. Calloway as scheduled. Patient and spouse understood and were agreeable with plan. All questions were answered. Discharge Plan Triage Chief Complaint: Male Pain/Injury ED Provider: Aniceto Walls Dx/Rx/DC Orders Clinical Impression: Other acute postprocedural pain, S/P lumbar fusion Instructions: ED Post Op Wound Check, Pain Prescriptions: No Action metformin 500 mg tablet 500 tablet PO BID gabapentin 300 mg capsule 300 mg PO TID Patient Comments: TAKE 1 CAPSULE BY MOUTH AT BEDIME FOR 3 DAYS,THEN TWICE DAILY FOR... (REFER TO PRESCRIPTION NOTES). Ozempic 1 mg/dose (4 mg/3 mL) pen injector 1 mg subcut FR Patient Comments: inject 1 milligram subcutaneously every week ibuprofen 600 mg tablet 600 mg PO BID PRN (Reason: pain) Patient Comments: take 1 tablet by mouth every 6 hours if needed for pain losartan-hydrochlorothiazide [Hyzaar] 100-25 mg tablet 1 tab PO DAILY albuterol sulfate 90 mcg/actuation HFA aerosol inhaler 1 - 2 puff INHALATION Q6H PRN PRN (Reason: ASTHMA) omega-3 fatty acids Capsule 1,000 mg PO DAILY acetaminophen [acetaminophen] 500 mg tablet 1,000 mg PO Q6H PRN PRN (Reason: pain) metoprolol tartrate 50 mg tablet 50 mg PO BID Qty: 180 3RF oxycodone-acetaminophen 7.5-325 mg tablet 1 tab PO Q6H PRN (Reason: pain) 10 Days Qty: 40 0RF Primary Care Provider: Yuli Rosas Referrals: Aniceto Price MD [Med Staff - Active Staff] - 5-7 Days Yuli Rosas DO [Primary Care Provider] - Patrick Calloway DO [Med Staff - Active Staff] - 5-7 Days Disposition Disposition: Home, Self Care
--- NOTE | 2023-03-19 08:50 | US_ITS ---
INDICATION: Left testicular pain EXAMINATION: Ultrasound US Scrotum (Contents) TECHNIQUE: Realtime ultrasound of the testicles was performed with grayscale, Color Doppler and spectral Doppler analysis. COMPARISON: FINDINGS: RIGHT: TESTIS: . Normal in size and echotexture, without focal lesion. COLOR DOPPLER: Normal arterial flow present in the testicle with monophasic waveforms. EPIDIDYMIS: There is a 7 mm epididymal cyst. Normal in size and echotexture, without additional focal lesion. [Normal color Doppler flow pattern in the epididymis. HYDROCELE: Moderate VARICOCELE: None. LEFT: TESTIS: . Normal in size and echotexture, without focal lesion. COLOR DOPPLER: Normal arterial flow present in the testicle with monophasic waveforms. EPIDIDYMIS: Normal in size and echotexture, without focal lesion. [Normal color Doppler flow pattern in the epididymis. HYDROCELE: Moderate VARICOCELE: None. US/Testicular with Arterial Flow IMPRESSION: Moderate bilateral hydroceles. Small right epididymal cyst. Otherwise unremarkable ultrasound of the scrotum. Electronically Signed: Tavon Guerra MD at 11:09 EDT ,
--- NOTE | 2023-03-19 08:51 | CT_ITS ---
We are attempting to reach an attending provider to discuss findings. An addendum with communication details will be sent when the communication is complete. INDICATION: Abdominal pain. S/P A/P LUMBAR FUSION 8 DAYS AGO EXAMINATION: CT ABDOMEN AND PELVIS WITHOUT CONTRAST - CT Abdomen And Pelvis W/O Contrast Injection TECHNIQUE: Helically acquired images were obtained of the abdomen and pelvis without oral or IV contrast. A radiation dose optimization technique was used for this scan. IV Contrast dosage and agent: None. Oral contrast: None. RADIATION DOSAGE (If Supplied By Facility): CTDIvol = ( 27.34 ) mGy, DLP = ( 1381.04 ) mGycm COMPARISON: FINDINGS: LOWER CHEST: Lung bases are clear. No cardiomegaly or pericardial effusion. LIVER: Homogeneous. No focal mass. GALLBLADDER AND BILIARY TREE: No calcified gallstones. No gallbladder distension or wall edema. No intra- or extrahepatic biliary ductal dilation. PANCREAS: No focal cystic or solid mass. SPLEEN: Normal size without focal cystic or solid mass. ADRENAL GLANDS: No nodules. KIDNEYS AND URETERS: Normal renal size and position. No hydronephrosis. PERITONEUM: There is a poorly defined collection in the left mid to lower abdomen posteriorly appearing to involve the left psoas muscle which contains air. This process appears to abut and extend from the postsurgical site at the L4/L5 disc space. The collection and adjacent involved psoas muscle spans approximately 4 x 14 x 14 cm in AP, transverse and craniocaudal dimensions. BOWEL: No evidence of acute appendicitis. No stomach or bowel distension. No focal inflammatory change. LYMPH NODES: No enlarged mesenteric or retroperitoneal lymph nodes. VESSELS: The left iliac vessels are difficult to separate visually from the left posterior abdominal collection. URINARY BLADDER: Unremarkable. REPRODUCTIVE ORGANS: No pelvic masses. ABDOMINAL WALL: No discrete abdominal or pelvic wall hernia. BONES: No lytic or blastic abnormality. CT/Abdomen/Pelvis without Cont IMPRESSION: Collection in the left lower abdomen extending from the lower lumbar spine surgical site, involving the left psoas muscle which contains air, surrounding the left iliac vessels, and extending laterally. Electronically Signed: Tavon Guerra MD at 11:39 EDT ,
[2023-03-19 10:02] LABS: Absolute Lymphocyte Count 1.33 X10^3/uL (0.83-4.51); Absolute Neutrophil Count 5.9 X10^3/uL (2.0-7.7); Basophil# 0.03 X10^3/uL; Basophil% 0.4 % (0-1); Eosinophil# 0.24 X10^3/uL; Eosinophils% 2.9 % (0-5); Hemoglobin 10.4 g/dL (13.0-16.5); Lymphocyte # 1.33 X10^3/ul (0.83-4.51); Lymphocyte % 16.1 % (19-41); Mean Corp Hgb Conc 32.5 g/dL (32-36); Mean Corpuscular Hgb 28.6 pg (27.0-32.0); Mean Corpuscular Volume 87.9 fL (80-94); Mean Platelet Vol. 8.8 fl (6.2-12.0); Monocyte# 0.64 X10^3/uL; Monocyte% 7.8 % (0-10); NRBC Flagged by Analyzer 0 % (0-5); Neutrophil # 5.91 X10^3/uL (2.7-7.7); Neutrophil % 71.7 % (47-70); Platelet Count 352 K/mm3 (150-450); RBC Distribution Width CV 15.1 % (11.6-14.6); RBC Distribution Width SD 48.4 fl (35.1-43.9); Red Blood Count 3.64 M/mm3 (4.6-6.2); White Blood Count 8.2 K/mm3 (4.4-11.0)
[2023-03-19] MEDS: 0.9% Normal Saline (1000mL) 1,000 ML 1000 ML IV (10:05)
[2023-03-19] MEDS: Ondansetron 4 MG/2 ML Vial IV (10:05)
[2023-03-19] MEDS: HYDROcodone Bitartrate/Apap 5/325 Tablet PO (10:05)
[2023-03-19 10:17] LABS: Anion Gap 3 (5-15); BUN 22 mg/dL (7-18); BUN/Creat Ratio 20.6 RATIO (10-20); Calcium,Total 9.3 mg/dL (8.5-10.1); Chloride 108 mmol/L (98-107); Creatinine, Serum 1.07 mg/dL (0.70-1.30); EST Glomerular Filtration Rate 76 mL/min (>60); Est Glom Filt Rate - Afr Amer 92 mL/min (>60); Glucose 138 mg/dL (74-106); Potassium 4.3 mmol/L (3.5-5.1); Sodium Level 139 mmol/L (136-145)
[2023-03-19 11:36] LABS: Bacteria 0 SEEN /hpf (None Seen); Mucous, Urine 0 SEEN /hpf (<or=2+); Red Blood Cells-Urine 0 SEEN /hpf (0-5); Squamous Epithelial Cells - UA 0 SEEN /hpf (0-5); White Blood Cells 0 SEEN /hpf (0-5)
[2023-03-19 11:38] LABS: Color, Urine Yellow (Yellow); Glucose, Dipstick Normal (Normal); Ketone-Dipstick 5 mg/dl (Negative); Leukocyte Esterase-Dipstick 25 /ul (Negative); Nitrite-Dipstick Negative (Negative); Occult Blood-Urine Negative /ul (Negative); Protein-Dipstick 30 mg/dl (Negative); Specific Gravity, Urine 1.015 (1.002-1.030); Urine Bilirubin Dipstick Negative (Negative); Urine Clarity Clear (Clear); Urine Urobilinogen 1 mg/dl (Normal); Urine pH 6.5 (5.0 - 8.0)
[2023-03-19 13:05] VITALS: PULSE 78; RESP 18
[2023-03-19 13:06] VITALS: BMI 43.0
== END 2023-03-19 13:08 | disposition home or self-care (01) ==
PROVIDERS: Emergency Provider Emergency Medicine; PCP Family Medicine; Visit Provider Emergency Medicine
DX: G89.18 Other acute postprocedural pain (principal); N50.812 Left testicular pain; Z98.1 Arthrodesis status; Z87.891 Personal history of nicotine dependence; Z86.16 Personal history of COVID-19
CPT/HCPCS: 74176; 76870; 80048; 81001; 85025; 93976; 96374; 99283; J7030; A4216; J2405

== ENCOUNTER 2023-05-28 10:00 | Outpatient (RCR) | payer OTHER, SELFPAY ==
--- NOTE | 2023-04-16 10:33 | HP.PTEVAL ---
Patient's Visit Information Visit Information Visit Information: SHELLY COULTER is a 52 year old M referred to Physical Therapy by Dr. Layton Whalen DO with a diagnosis of L/S fusion 03/16/23. Date of Evaluation: 04/16/23 Physical Therapist: Amarjit Levy, PT, ATC Visit Plan Frequency: 2-3x /Week Duration: 4-6 Weeks Plan: B LE strengthening, core stab ex's, gait training, stairs, balance and proprio, nustep, and HEP Subjective Subjective: Pt reports he had lumbar fusion performed one month ago. Pt also notes 18 months ago, he had his R hip replaced. 14 months ago, he had his L ANGELLA performed. Pt notes he is really debilitated today after having these three surgeries over the last 18 months. Pt reports after the last month, he was told to just do a lot of walking. Pt reports he was not able to do much walking though secondary to his hip pain. Pt notes the back fusion was very successful as he is now able to stand upright, and most of the tingling and numbness are out of his legs. Pt reports he is having sleep difficulty at this time secondary to pain. Pt reports he has a lot of difficulty with stair negotiation at this time secondary to having to go one step at a time. Pt also notes he has difficulty with raising L hip upwards since having his ANGELLA. 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 Pain LBP: Pain Intensity (Out of 10): 0 Pain Intensity Range: 8 L hip pain: Pain Intensity (Out of 10): 4 Pain Intensity Range: 8 R hip pain: Pain Intensity (Out of 10): 0 Pain Intensity Range: 3 Objective Objective: Neuro: B LE sensation is WNL to light touch. B patellar reflex= 1/3 ROM: L hip flex and abd are moderately limited when compared bilaterally. All other B LE ROM is WFL when compared bilaterally MMT: L hip flex 1/5, abd 3/5. All other measurements 4+/5 Gait: Pt was able to ambulate 340 feet with SBA, but had to stop secondary to L hip pain (5/10) and fatigue. Balance/Special Test Scores Lower Extremity Functional Score: 21 Goals Goal 1:: Decrease LBP x 50% to aid with RTW without limitation Goal Time Frame: 4-6 Weeks Goal 2:: Increase B LE strength x 1 grade to aid with stair negotiation Goal Time Frame: 4-6 Weeks Goal 3:: Pt will be able to ambulate greater than 1000' to aid with community ambulation Goal Time Frame: 4-6 Weeks Goal 4:: I with HEP Goal Time Frame: 4-6 Weeks Goal 5:: Pt will be able to reciprocally negotiate 10 stairs to aid with home mobility Goal Time Frame: 4-6 Weeks Rehabilitation Potential Physical Therapy Diagnosis: Pt has LBP, limited spine ROM, and L LE weakness secondary to L/S fusion Rehabilitation Potential: Good Anticipated Interventions Patient/Client Instruction: Educate patient on: Condition and Plan of Care For the Purpose of:: To improve self management Therapeutic Exercise to Include: Strength training, Endurance training, Balance training, Flexibilty training, Gait and locomotor training and Dynamic Lumbar Stabilization For the Purpose of:: To decrease pain, To increase ROM and To improve muscle performance and motor function Text: Thank you for the opportunity to evaluate your patient. For Medicare and Medicare HMO plans, please review the plan of care and approve it. It will need to be FAXED BACK to us at [phone] for Medicare purposes. For Medicare only, by signing this I certify the plan of care. Please let me know if there are questions or concerns regarding this plan of care. Physician Signature: Date:
--- NOTE | 2023-05-14 10:30 | HP.PTREVAL_ITS ---
Re-Evaluation Intro: Dr. Layton Whalen, DO, It has been my pleasure to treat SHELLY COULTER over the last 9 visits for L/S fusion 03/16/23. Please see the progress note below for an update on the physical therapy plan of care! Subjective Subjective: Pt reports he is limited with hip flexion at this time. Pt reports he is still not able to tie or put on his work boots. Pt is frustrated. Objective Objective/Function: L hip pain ranges from 0-8/10, R hip pain ranges from 0- 3/10, LBP ranges from 0-2/10 MMT: L hip flex and abd 4-/5 and painful. All other B LE MMT 5/5 throughout Gait: Pt is able to ambulate 680 feet until he needed to stop and rest secondary to L hip and LBP Pt is able to reciprocally negotiate 10 stairs with the use of 2 handrails Pt is showing progress at this time but still lacks functional strength and tolerance for ambulation. L hip pain is still high at this time. Plan Plan Plan: Cont with B LE strengthening, core stab ex's, gait training, stairs, balance and proprio, nustep, and HEP Balance/Gait/Functional tests Balance/Special Test Scores Lower Extremity Functional Score: 33 Goals Goals Goal 1:: Decrease LBP x 50% to aid with RTW without limitation Goal Time Frame: 4-6 Weeks Goal Progress: Progressing Goal 2:: Increase B LE strength x 1 grade to aid with stair negotiation Goal Time Frame: 4-6 Weeks Goal Progress: Progressing Goal 3:: Pt will be able to ambulate greater than 1000' to aid with community ambulation Goal Time Frame: 4-6 Weeks Goal Progress: Progressing Goal 4:: I with HEP Goal Time Frame: 4-6 Weeks Goal Progress: Progressing Goal 5:: Pt will be able to reciprocally negotiate 10 stairs to aid with home mobility Goal Time Frame: 4-6 Weeks Goal Progress: Goal Met Anticipated Interventions Anticipated Interventions Patient/Client Instruction: Educate patient on: Condition and Plan of Care For the Purpose of:: To improve self management Therapeutic Exercise to Include: Strength training, Endurance training, Balance training, Flexibilty training, Gait and locomotor training and Dynamic Lumbar Stabilization For the Purpose of:: To decrease pain, To increase ROM and To improve muscle performance and motor function Re-Evaluation Ending Re-evaluation ending: Please do not hesitate to contact me at [phone] by phone or if you have questions or concerns regarding this new plan of care! Sincerely, Amarjit Levy, PT, ATC
--- NOTE | 2023-05-28 10:36 | HP.PTDCSUM ---
Discharge Summary D/C summary: It has been my pleasure to treat SHELLY COULTER referred by Dr. Layton Whalen DO, with the diagnosis of L/S fusion 03/16/23 for a total of 14 visit(s). Discharge Date: Please see the following information for a summary of their discharge status. Subjective Subjective: I need to be done now, I start work the next week. Pain LBP: Pain Intensity (Out of 10): 0 L hip pain: Pain Intensity (Out of 10): 2 R hip pain: Pain Intensity (Out of 10): 2 Overall Improvement % Improvement: 45 Objective Objective/Function: MMT: L hip still grossly 3-/5 to 4-/5 throughout. All other B LE MMT 5/5 throughout. Gait: Pt is able to ambulate 680 feet until needing to rest secondary to LBP Stairs: Pt is able to reciprocally negotiate 10 stairs with the use of 2 UE's Pt has made progress but not achieved Rx goals Goals Goal 1:: Decrease LBP x 50% to aid with RTW without limitation Goal Progress: Progressing Goal 2:: Increase B LE strength x 1 grade to aid with stair negotiation Goal Progress: Progressing Goal 3:: Pt will be able to ambulate greater than 1000' to aid with community ambulation Goal Progress: Progressing Goal 4:: I with HEP Goal Progress: Progressing Goal 5:: Pt will be able to reciprocally negotiate 10 stairs to aid with home mobility Goal Progress: Goal Met Plan Plan: Discontinue as pt is returning to work D/C Information d/c sentence: If there are questions or concerns regarding this patient's physical therapy, please feel free to call me at [phone]. Thank you for the referral of this patient. Sincerely, Amarjit Levy, PT, ATC Balance/Gait/Functional tests Balance/Special Test Scores Lower Extremity Functional Score: 26 Improvement % Improvement: 45
== END 2023-05-28 19:00 | disposition home or self-care (01) ==
LOC: PT 10:00
PROVIDERS: PCP Family Medicine; Visit Provider Orthopaedic Surgery
DX: M25.552 Pain in left hip (principal); Z96.642 Presence of left artificial hip joint; Z98.1 Arthrodesis status
CPT/HCPCS: 97110; 97161; 97164

== ENCOUNTER 2023-10-20 17:00 | Outpatient (RCR) | payer OTHER, SELFPAY ==
--- NOTE | 2023-09-22 19:13 | HP.PTEVAL_ITS ---
Patient's Visit Information Visit Information Visit Information: SHELLY COULTER is a 53 year old M referred to Physical Therapy by Dr. Layton Whalen, with a diagnosis of OTHER SPECIFIED ENTHESOPATHIES OF UNSPECIEFIED LOWER LEG. Date of Evaluation: 09/22/23 Physical Therapist: Facundo Anaya, PT, Cert MDT, OCS Visit Plan Frequency: 2x /Week Duration: 2 Weeks Plan: PT INTERVENTIONS STRENGTHENING RIGHT HIP,STICK ROLL IT BAND .QUADS/HIP FLEXORS ,FUNCTIONAL STRENGTHENING,CORE EX'S AND MODALTIES FOR PAIN Subjective Subjective: This 53 y/o male presents to physical therapy with left hip pain. Patient had left ANGELLA last Mar [address] Whalen. Seen DR due to groin pain, Did x-rays -. Thinks possible hip flexor. Patient was going to PT into car felt pop in hip . Patient was getting PT for and continue to have pain in groin region. Patient has no medication. Patient denies paresthesia/tingling.Patient aggravating factors lifting hip ,crossing legs twisting,extended standing and elevated from chair . Alleviating rest. Coughing/sneezing-. Bowel.bladder . Bending produces symptoms. Patient pain can affects sleeping. Patient pain affects QOL and function .job demands. Patient goals to decrease pain SOCIAL: [employer] VOCATION: Pain Left Hip: Pain Intensity (Out of 10): 4 Pain Intensity Range: 10 Objective Objective: POSTURE: mild forward posture NEURO: denies paresthesia/tingling PLAPTION: TTP IT band ,greater trochanter , ,hip flexors ,rectus femoris ASIS FLEXABLITY: tight hip flexors and quadriceps GAIT: ambulates with antalgic gait decrease stance time PROM: hip flexion 90 degrees pain ,hip abduction 40 degrees ,knee flexion 110 degrees MMT: quads/hams 4/5 ,( peak force) hip flexors 0 ,abduction 0 pain STAIR: one step at time Special Tests Comment: unable to test THR tight hip flexors Balance/Special Test Scores Lower Extremity Functional Score: 30 Goals Goal 1:: Patient to be I with HEP Goal 2:: Patient to normalize by 75% to improve function and job demands. Goal Time Frame: 4-6 Weeks Goal 3:: Patient to improve peak force hip flexion /hip abduction 5-10 # to im prove vgait Goal Time Frame: 4-6 Weeks Goal 4:: Patient to demonstrate 50% improvement with less pain and improved function Goal Time Frame: 4-6 Weeks Goal 5:: Patient to improve LFES score by 5 points to improve QOL and gait Goal Time Frame: 4-6 Weeks Rehabilitation Potential Physical Therapy Diagnosis: This patient has h/o left ANGELLA posterior lateral approach last year but current has ROM with pain ,weakness hip flexors and glut medius causes antalgic gait thus benefit from skilled PT Rehabilitation Potential: Good Anticipated Interventions Patient/Client Instruction: Educate patient on: Condition and Plan of Care For the Purpose of:: To decrease pain, To increase ROM, To improve muscle performance and motor function, To improve ability to perform ADL's, To increase tolerance to activity/condition/position, To improve performance and independence with ADL's, To improve ability of physical actions for home/community/work/leisure, To improve gait and locomotor functions, To improve health of tissue, To decrease soft tissue restriction, To increase flexibility/ROM, To improve endurance and To improve tolerance to ADL's Therapeutic Exercise to Include: Strength training, Balance training, Active ROM and Dynamic Lumbar Stabilization Comment: HIP For the Purpose of:: To decrease pain, To increase ROM, To improve muscle performance and motor function, To improve ability to perform ADL's, To increase tolerance to activity/condition/position, To improve ability of physical actions for home/community/work/leisure, To improve gait and locomotor functions, To improve health of tissue, To decrease soft tissue restriction, To increase flexibility/ROM, To improve endurance, To improve balance and To improve tolerance to ADL's TENS: Yes IF ES: Yes Cryotherapy (ice pack, ice massage): Yes Thermo therapy (hot pack): Yes Ultrasound (thermal/non thermal): Yes For the Purpose of:: To decrease pain, To increase ROM, To improve nutrient delivery to tissue, To increase oxygenation perfusion, To improve health of tissue and To decrease soft tissue restriction Text: Thank you for the opportunity to evaluate your patient. For Medicare and Medicare HMO plans, please review the plan of care and approve it. It will need to be FAXED BACK to us at [phone] for Medicare purposes. For Medicare only, by signing this I certify the plan of care. Please let me know if there are questions or concerns regarding this plan of care. Physician Signature: Date:
--- NOTE | 2024-01-09 13:44 | HP.PTDCNRP_ITS ---
Patient Information Patient Information: SHELYL COULTER was seen in my office for initial evaluation on 09/22/23. The following Plan of Care was established for this patient: POC Established Initial Frequency: 2x /Week Initial Duration: 2 Weeks Anticipated Interventions Patient/Client Instruction: Educate patient on: Condition and Plan of Care For the Purpose of:: To decrease pain, To increase ROM, To improve muscle performance and motor function, To improve ability to perform ADL's, To increase tolerance to activity/condition/position, To improve performance and indepen dence with ADL's, To improve ability of physical actions for home/community/work/leisure, To improve gait and locomotor functions, To improve health of tissue, To decrease soft tissue restriction, To increase flexibility/ROM, To improve endurance and To improve tolerance to ADL's Therapeutic Exercise to Include: Strength training, Balance training, Active ROM and Dynamic Lumbar Stabilization For the Purpose of:: To decrease pain, To increase ROM, To improve muscle performance and motor function, To improve ability to perform ADL's, To increase tolerance to activity/condition/position, To improve ability of physical actions for home/community/work/leisure, To improve gait and locomotor functions, To improve health of tissue, To decrease soft tissue restriction, To increase flexibility/ROM, To improve endurance, To improve balance and To improve tolerance to ADL's TENS: Yes IF ES: Yes Cryotherapy (ice pack, ice massage): Yes Thermo therapy (hot pack): Yes Ultrasound (thermal/non thermal): Yes For the Purpose of:: To decrease pain, To increase ROM, To improve nutrient delivery to tissue, To increase oxygenation perfusion, To improve health of tissue and To decrease soft tissue restriction Last Seen Last Seen: This patient was last seen in our office . Pertinent comments regarding their Physical therapy will appear below: Patient was seen for PT for hip pain for strengthening and ROM with HEP thus d/c At this point I will be discontinuing this patient from physical therapy. I would be happy to see this patient again in the future if found appropriate by the physician. Thank you! Facundo Anaya, PT, Cert MDT, OCS Balance/Gait/Functional tests Balance/Special Test Scores Lower Extremity Functional Score: 30
== END 2023-10-20 19:00 | disposition home or self-care (01) ==
LOC: PT 17:00
PROVIDERS: PCP Family Medicine; Visit Provider Orthopaedic Surgery
DX: M76.899 Other specified enthesopathies of unspecified lower limb, excluding foot (principal)
CPT/HCPCS: 97110; 97162

== ENCOUNTER 2024-10-27 21:43 | Emergency (ER) | payer OTHER, SELFPAY ==
[2024-10-27 21:44] VITALS: BP 137/81; PULSE 115; RESP 20; TEMP 37.3; O2SAT 94; BMI 38.8
[2024-10-27 21:51] VITALS: BP 119/86; PULSE 112; RESP 18; TEMP 37.3; O2SAT 93
--- NOTE | 2024-10-27 22:15 | EDS_ITS ---
HPI History of Present Illness Chief Complaint: Cellulitis Informant: patient Onset/Context/Timing Onset: Weeks (2) Context: Gradual Onset Timing: Continuous Quality: Aching, pressure, sharp Location: Left axilla and lateral chest wall Worsened by: Certain movements Relieved by: Rest Narrative Narrative: Patient presents with redness and swelling to the left axilla and chest wall that has been getting worse over the past 2 weeks. Patient states it is gradually getting worse. Patient describes the pain as aching, pressure, and sharp. Patient states it is better with certain positions. Patient states it is worse with certain movements. Patient denies any discharge or drainage. Patient admits to fever of 101.2 and subjective chills at home. Patient took Tylenol prior to arrival. [facility] Medical History Sleep apnea Diabetic neuropathy Ambulates with cane Wears glasses Alcohol use History of steroid therapy Arthritis Injury of back Back pain History of edema Hypertension Former smoker Asthma Shortness of breath on exertion History of pain when walking History of echocardiogram Cardiology follow-up encounter History of atrial fibrillation Hx MRSA infection COVID-19 PAF (paroxysmal atrial fibrillation) COVID-19 virus detected (04/18/20) ETOH abuse Type 2 diabetes mellitus Essential (primary) hypertension Cystic acne History of tobacco use Obesity Prediabetes Home Medications ?Medication ?Instructions ?Recorded ?Last Taken ?Type losartan 100 1 tab PO DAILY htn 08/02/21 11/26/22 04:30 History mg-hydrochlorothiazide 25 mg tablet (Hyzaar) metformin 500 mg tablet 1,000 mg PO BID blood glucos e 11/21/21 Unknown History control omega-3 fatty acids 1,000 mg PO DAILY SUPPLEMENT 12/25/21 Unknown History acetaminophen 500 mg tablet 1,000 mg PO BID pain 02/24 Unknown History semaglutide 2 mg/dose (8 mg/3 mL) 2 mg subcut .weekly 11/20/23 Unknown History subcutaneous pen injector (Ozempic) metoprolol tartrate 50 mg tablet See Rx Instructions . Route 03/09/24 Unknown Rx .COMPLEX #180 tabs amoxicillin 875 mg-potassium 875 mg PO Q12H #20 TABLET S 10/27/24 Unknown Rx clavulanate 125 mg tablet duloxetine 60 mg capsule,delayed 60 mg PO DAILY Unknown History release gabapentin 300 mg capsule 300 mg PO TID 10/27/24 Unkno wn History Allergy/AdvReac Type Severity Reaction Status Date / Time No Known Allergies Allergy Verified 10/27/24 21:44 Family History (Updated 10/27/24 @ 21:58 by Mira Carlos) Father Myocardial infarction, Onset Age: 60 Diabetes Grandfather Myocardial infarction, Onset Age: 40 Mother Diabetes Surgical History History of lumbar spinal fusion History of selective injection of anesthetic agent around lumbar nerve root History of hip replacement Hx of surgical procedure History of cardiac catheterization History of back surgery History of left heart catheterization (02/23/19) Social History household members: spouse and children housing: house Smoking Status: Former smoker alcohol intake: current alcohol intake frequency: 3 or more drinks per day Alcohol type: beer ROS ROS ED Constitutional Constitutional ED: Reports chills and fever(s) Eyes Eyes: Denies blurry vision or change in vision ENT ENT ED: Denies rhinorrhea or sore throat Cardiovascular Cardiovascular: Denies chest pain or palpitations Respiratory/Chest Respiratory/Chest: Denies cough or dyspnea Gastrointestinal Gastrointestinal: Denies nausea or vomiting Genitourinary Genitourinary ED: Denies dysuria or hematuria Musculoskeletal Musculoskeletal: Denies back pain or neck pain Integumentary Reports abscess; Denies rash Neurologic Neurologic: Denies headache(s) or weakness Allergic/Immunologic Allergic/Immunologic ED: Denies mouth swelling or urticaria EXAM Physical Exam Const Vital Signs: 10/27/24 21:44 10/27/24 21:51 10/27/24 23:07 Temperature 99.1 F 99.1 F 99.1 F Temperature Source Oral Oral Oral Pulse Rate 115 H 112 H 103 H Respiratory Rate 20 H 18 16 Blood Pressure 137/81 H 119/86 H 115/80 Blood Pressure Mean 99 97 91 Pulse Ox 94 93 92 Oxygen Delivery Method Room Air Room Air Room Air Positive well nourished and well developed General Appearance ED: well developed and NAD HEENT Reports moist mucous membranes Neck supple and no JVD Resp normal respiratory effort and clear to auscultation bilaterally Cardio regular rate and regular rhythm GI non-tender and non-distended Palpation: soft Neuro oriented x3, CN's II-XII intact bilaterally and no sensory deficits noted Sensorium / Orientation: alert Motor Exam: strength 5/5 throughout Skin Skin Narrative: There is a tender indurated area over the left axilla/lateral chest wall. There is minimal fluctuance. There is no active discharge or drainage. There is surrounding cellulitis. MDM MDM MDM Narrative Medical decision making narrative: Differential diagnosis includes abscess, cellulitis, sepsis, and dehydration. CBC will be obtained to assess for leukocytosis and anemia. Basic metabolic profile will be obtained to assess for electrolyte abnormality and renal function. Serum lactate will be obtained to assess for sepsis. Blood cultures will be obtained to assess for sepsis. Lab Data Attestation: I reviewed the patient's lab results. Lab results narrative: CBC was reviewed. There mild leukocytosis 3. The manger is within normal li mits. Basic metabolic profile was reviewed. Glucose was mildly elevated at 181. The remainder is within normal limits. Lactate was reviewed and was normal at 1.7. Labs: Laboratory Results - last 24 hr 10/27/24 22:50 WBC 14.3 H RBC 4.77 Hgb 13.9 Hct 41.1 MCV 86.2 MCH 29.1 MCHC 33.8 RDW Std Deviation 47.1 H RDW Coeff of Pedro 15.0 H Plt Count 285 MPV 10.2 Immature Gran % (Auto) 0.300 Neut % (Auto) 78.6 H Lymph % (Auto) 12.1 L [place] % (Auto) 7.3 Eos % (Auto) 1.6 Baso % (Auto) 0.1 Absolute Neuts (auto) 11.3 H Absolute Lymphs (auto) 1.74 Nucleated RBC % 0 Sodium 137 Potassium 3.9 Chloride 101 Carbon Dioxide 25.4 Anion Gap 11 BUN 22 H Creatinine 1.12 Estim Creat Clear Calc 99.73 Est GFR (MDRD) Non-Af 77 BUN/Creatinine Ratio 19.6 Glucose 181 H Lactic Acid 1.7 Calcium 10.0 Treatment and Re-Evaluation :: Patient was given a dose of Unasyn here. The area was cleaned with chlorhexidine prep. The area was anesthetized with 1% [plain lidocaine] lo aidee. A small cruciate incision was made using an 11 blade scalpel. A mild amount of purulent drainage was expressed. The wound was left open. Gauze packing was placed. Bacitracin dressing was applied. Patient tolerated the procedure well. Patient was instructed to use warm compresses. Patient was given a prescription for Augmentin. Patient was instructed to follow-up with her primary care physician in 5 to 7 days. Patient understood and was agreeable with the plan. All questions were answered. Discharge Plan Triage Chief Complaint: Cellulitis ED Provider: Aniceto Walls Dx/Rx/DC Orders Clinical Impression: Abscess of left axilla, Cellulitis Instructions: ED Abscess Incision And Drainage, ED Cellulitis Prescriptions: New amoxicillin-pot clavulanate 875-125 mg tablet 875 mg PO Q12H Qty: 20 0RF No Action metformin 500 mg tablet 1,000 mg PO BID Ozempic 2 mg/dose (8 mg/3 mL) pen injector 2 mg subcut .weekly losartan-hydrochlorothiazide [Hyzaar] 100-25 mg tablet 1 tab PO DAILY omega-3 fatty acids Capsule 1,000 mg PO DAILY acetaminophen 500 mg tablet 1,000 mg PO BID gabapentin 300 mg capsule 300 mg PO TID duloxetine 60 mg capsule,delayed release(DR/EC) 60 mg PO DAILY metoprolol tartrate 50 mg tablet See Rx Instructions .ROUTE .COMPLEX Qty: 180 3RF Dose Instruction: TAKE 1 TABLET TWICE A DAY Rx Instructions: TAKE 1 TABLET TWICE A DAY Primary Care Provider: Yuli Rosas Referrals: Yuli Rosas DO [Primary Care Provider] - 5-7 Days Activity Restrictions/Additional Instructions: You may remove the gauze packing in a couple days. Print Language: Albanian Disposition Disposition: Home, Self Care
[2024-10-27] MEDS: Lidocaine 1% (20 ml mdv) 20 ML Vial INFILT (22:57)
[2024-10-27] MEDS: Ampicillin/Sulbactam 3 GM in 0.9% Normal Saline (100mL MB+) 100 ML IV (22:57)
[2024-10-27 23:07] VITALS: BP 115/80; PULSE 103; RESP 16; TEMP 37.3; O2SAT 92
[2024-10-27 23:09] LABS: Absolute Lymphocyte Count 1.74 X10^3/uL (0.83-4.51); Absolute Neutrophil Count 11.3 X10^3/uL (2.0-7.7); Basophil# 0.02 X10^3/uL; Basophil% 0.1 % (0-1); Eosinophil# 0.23 X10^3/uL; Eosinophils% 1.6 % (0-5); Hematocrit 41.1 % (40-54); Hemoglobin 13.9 g/dL (13.0-16.5); Lymphocyte # 1.74 X10^3/ul (0.83-4.51); Lymphocyte % 12.1 % (19-41); Mean Corp Hgb Conc 33.8 g/dL (32-36); Mean Corpuscular Hgb 29.1 pg (27.0-32.0); Mean Corpuscular Volume 86.2 fL (80-94); Mean Platelet Vol. 10.2 fl (6.2-12.0); Monocyte# 1.04 X10^3/uL; Monocyte% 7.3 % (0-10); NRBC Flagged by Analyzer 0 % (0-5); Neutrophil # 11.26 X10^3/uL (2.7-7.7); Neutrophil % 78.6 % (47-70); Platelet Count 285 K/mm3 (150-450); RBC Distribution Width SD 47.1 fl (35.1-43.9); Red Blood Count 4.77 M/mm3 (4.6-6.2); White Blood Count 14.3 K/mm3 (4.4-11.0)
[2024-10-27 23:28] LABS: Anion Gap 11 (5-15); BUN 22 mg/dL (4-19); BUN/Creat Ratio 19.6 RATIO (10-20); Carbon Dioxide 25.4 mmol/L (21.0-32.0); Chloride 101 mmol/L (98-108); Creatinine, Serum 1.12 mg/dL (0.70-1.20); EST Glomerular Filtration Rate 77 (>60); Estimated Creatinine Clearance 99.73 ml/min (50-250); Glucose 181 mg/dL (70-99); Lactic Acid 1.7 mmol/L (0.0-2.0); Potassium 3.9 mmol/L (3.3-5.1); Sodium Level 137 mmol/L (133-145)
[2024-10-27 23:59] VITALS: BP 115/80; PULSE 101; RESP 16; TEMP 37.3; O2SAT 94
[2024-10-28] VITALS: BP 115/80; PULSE 102; RESP 16; TEMP 37.3; O2SAT 94
== END 2024-10-28 00:07 | disposition home or self-care (01) ==
PROVIDERS: Emergency Provider Emergency Medicine; PCP Family Medicine; Visit Provider Emergency Medicine
DX: L02.412 Cutaneous abscess of left axilla (principal); E11.40 Type 2 diabetes mellitus with diabetic neuropathy, unspecified; L03.112 Cellulitis of left axilla; I10 Essential (primary) hypertension; Z98.1 Arthrodesis status; Z79.85 Long-term (current) use of injectable non-insulin antidiabetic drugs; Z79.84 Long term (current) use of oral hypoglycemic drugs; Z79.899 Other long term (current) drug therapy; Z87.891 Personal history of nicotine dependence
CPT/HCPCS: 10060; 80048; 83605; 85025; 87040; 96365; 99283; A4216; J0295

== ENCOUNTER → 2024-11-10 | Outpatient (CLI) | payer OTHER, SELFPAY ==
--- OUTSIDE RECORDS SUMMARY | 2024-11-10 06:49 | XMS RPT_ITS | CCD ---
Author Organization [facility] Care Team Providers Care Lehr Loader Name Role Phone DMEETRI FIORE Attending Unavailable GLORIA ROSAS Primary Care Unavailable Dr. Yuli Rosas Primary Care Provider Dr. Yuli Rosas Referring Provider Dr. Layton Whalen Attending Provider [phone] Dr. Layton Whalen Referring Provider [phone] Dr. Layton Whalen Other Provider Dr. Dario Buckner Attending Provider Gloria Rosas DO Primary Care [facility] er Dr. Yuli Rosas Primary Care Provider [phone] Dr. Yuli Rosas Referring Provider Dr. Layton Whalen Attending Provider [phone] Dr. Yuli Rosas Primary Care Provider Dr. Yuli Rosas Referring Provider [phone] Dr. Layton Whalen Attending Provider [phone] Dr. Layton Whalen Referring Provider [phone] Dr. Layton Whalen Other Provider Gloria Rosas DO Primary Care Provid er Gloria Rosas DO Primary Care Provid er Dr. Yuli Rosas Primary Care Provider Dr. Yuli Rosas Referring Provider Dr. Layton Whalen Attending Provider [phone] HONORIO Gomez Attending Provider [phone] Dr. Dario Buckner Attending Provider 1([facility])-[phone] Yuli Rosas Primary Care Provider Dr. Yuli Rosas Referring Provider 1([facility] )[phone] Dr. Layton Whalen Attending Provider [phone] Dr. Dario Buckner Attending Provider 1([facility])-[phone] HONORIO Pereyra Attending Provider Dr. Layton Whalen Referring Provider [phone] Dr. Layton Whalen Other Provider 1([facility])-[phone] Yuli Rosas Primary Care Provider Dr. Dario Buckner Attending Provider [phone]([facility])[phone] Patrick Calloway Referring Provider 1([facility]) [phone] Dr. Yuli Rosas Referring Provider [phone]([facility] )[phone] Dr. Patrick Calloway Attending Provider 1([facility]) [phone] Dr. Patrick Calloway Admit Provider [phone] Patrick Calloway Other Provider 1([facility])-[phone] Aniceto Price Attending Provider 1([facility])-[phone] Fabi Cherry Other Provider [phone] Royce Elliott Other Provider 1([facility])[phone] Dr. Makayla Singh Other Provider Dr. Makayla Díaz Other Provider Dr. Casey Treadwell Other Provider Unavailable Dr. Scarlet Bansal Attending Provider Dr. Scarlet Bansal Other Provider Dr. Katie Alvarado Other Provider Dr. Mian Malhotra Other Provider UnavailDr. Mian Woodard Other Provider Unavailable MD Tavon Miranda Other Provider Dr. Aniceto Fan Other Provider Dr. Triston Gómez Other Provider Dr. Layton Irizarry Other Provider Dr. Facundo Salazar Other Provider Dr. Ronen Larsen Other Provider Dr. Sadie Maloney Other Provider Dr. Asael Fajardo Other Provider Dr. Berkley Alvarado Other Provider Dr. Chris Warner Other Provider Dr. Uriel Aguilar Other Provider Dr. Satya De La Rosa Other Provider Dr. Lissette Pretty Other Provider Dr. Willard Benavides Other Provider Jerome QUALITY CONTROL MICROBIOLOGIST, QUALITY CONTROL MICROBIOLOGIST-C Erika Other Provider Ehsan Steele Other Provider Unavailable Dr. Mian Veras Attending Provider Unavailable HONORIO Gomez Attending Provider [phone] RALPH, PAOLA REESE Referring Unavai lable [facility] Unava lable [facility] RALPH PAOLA REESE Attending Unavai lable RALPH, PAOLA REESE Primary Care Unavai lable RALPH, PAOLA REESE Attending Unavai lable RALPH, PAOLA REESE Primary Care Unavai lable RALPH, PAOLA REESE Referring Unavai lable RALPH, PAOLA REESE [facility]iz[facility] DO Primary Care Provider Dr. Aniceto Walls DO Emergency Provider Dario Buckner Attending Unavailable [facility] Primary Care Unavailable Patrick Calloway Attending Unavailable [facility] Referring Unavailable [facility] Primary Care Unavailable Aniceto Walls Attending Unavailable [facility] Primary Care Unavailable Medications Current Medications Medication Drug Class(es) Dates Sig (Normalized) Sig (Original) Albuterol Sulfate (20 sources) beta2-Adrenergic Agonist Start: 08-02-2021 take 1 puff(s) by inhalation every six hours as needed Albuterol Sulfate Active 1 - 2 PUFF INHALATION EVERY 6 HOURS NEEDED August 02, 2021 9:35am Start: 08-02-2021 End: 09-17-2023 Albuterol Sulfate 90 mcg/act uation HFA aerosol inhaler Discontinued 1 - 2 NMA INHALATION EVERY 6 HOURS NEEDED as needed for ASTHMA August 02, 2021 1:00am September 17, 2023 7:59am Start: 08-02-2021 take 1 puff(s) by in halation every six hours as needed Albuterol Sulfate Active 1 - 2 PUFF INHALATION EVERY 6 HOURS NEEDED August 02, 2021 12:00am Start: 07-16-2021 End: 04-29-2024 take 2 puff(s) by inhalation every four hours as needed for wheezing albuterol HFA (PROVENTIL HFA, VENTOLIN HFA) 90 mcg/actuation inhaler Indications: Former smoker Inhale 2 Puffs as instructed every 4 hours as needed for wheezing/shortness of breath. 1 Each 07/16/2021 04/29/2024 Discontinued (Course of therapy completed) Comment on above: Inhale 2 Puffs as in structed every 4 hours as needed for wheezing/shortness of breath. amoxicillin 875 mg / clavulanate 125 mg oral tablet (1 source) Penicillin-class Antibacterial Start: 10-28-19 take 1 tablet by mouth every twelve hours Amoxicillin-Pot Clavulanate 875-125 mg tablet Active 875 mg PO Q12H October 27, 2024 12:00am Blood-Glucose Meter (ACCU-CHEK GUIDE GLUCOSE METER) (20 sources) Start: 11-14-19 Blood-Glucose Meter (ACCU-CHEK GUIDE GLUCOSE METER) Use to test glucose QID 1 Each 11/13/2021 Active Start: 11-13-2021 Blood-Glucose Meter (ACCU-CHEK GUIDE GLUCOSE METER) Use to test glucose QID 1 Each 0 11/13/2021 Active Comment on above: Use to test glucose QID Blood-Glucose Sensor (FREESTYLE ALEK 3 PLUS SENSOR) judy (5 sources) Start: 04-29-2024 Blood-Glucose Sensor (FREESTYLE ALEK 3 PLUS SENSOR) judy Indications: Uncontrolled type 2 diabetes mellitus with hyperglycemia (HCC) Use to monitor Bs 4 times a day 3 Each 04/29/2024 Active cholecalciferol, vitamin D3, (VITAMIN D3 ORAL) (20 sources) cholecalciferol, vitamin D3, (VITAMIN D3 ORAL) Take 2,000 Units by mouth. Active cholecalciferol, vitamin D3, (VITAMIN D3 ORAL) Take 2,000 Units by mouth. 0 Active Comment on above: Take 2,000 Units by mouth. cinnamon bark 500 mg oral capsule (20 sources) Start: 12-25-2021 take 1 capsule by mouth once daily Cinnamon Bark (Cinnamon) 500 mg Capsule Active 500 MG PO DAILY December 25, 2021 12:00am cinnamon bark (C INNAMON ORAL) Take by mouth. Active cinnamon bark (C INNAMON ORAL) Take by mouth. 0 Active Comment on above: Take by mouth. DULoxetine 60 mg delayed release oral capsule (7 sources) Serotonin and Norepinephrine Reuptake Inhibitor Start: End: take 1 capsule by mouth once daily Duloxetine 60 mg capsule,delayed release(DR/EC) Active 60 mg PO DAILY October 27, 2024 12:00am Start: 04-29-2024 End: 08-06-2024 take 1 capsule by mouth once daily, then take 2 capsules by mouth once daily DULoxetine (CYMBALTA) 30 mg capsule Indications: Other depression Take 1 capsule by mouth once daily for 7 days, THEN 2 capsules once daily. 187 capsule 04/29/2024 08/06/2024 Discontinued FISH OIL-DHA-EPA ORAL (20 sources) take 1 capsule by mo uth once daily FISH OIL-DHA-EPA ORAL Take 1 capsule by mouth once daily. Active take 1 capsule by mouth once anju ly FISH OIL-DHA-EPA ORAL Take 1 capsule by mouth once daily. 0 Active Comment on above: Take 1 capsule by mo uth once daily. gabapentin 300 mg oral capsule (20 sources) Anti-epileptic Agent Start: 10-26-2024 End: 04-24-2025 take 1 capsule by mouth three times daily Gabapentin 300 mg capsule Active 300 mg PO THREE TIMES A DAY October 27, 2024 12:00am Start: 08-06-2024 End: 11-10-2024 take 1 capsule by mouth once daily at bedtime, then take 1 capsule by mouth twice daily, then take 1 capsule by mouth three times daily gabapentin (NEURONTIN) 300 mg capsule Indications: Neuropathy Take 1 capsule by mouth daily at bedtime for 3 days, THEN 1 capsule two times a day for 3 days, THEN 1 capsule three times a day for 90 days. 279 capsule 08/12/2024 10/26/2024 Discontinued Start: 01-21-2024 End: 04-29-2024 gabapentin (NEURONTIN) 300 m g capsule Indications: Sciatica, right side Take 600mg in the morning, 300mg in the afternoon and 600mg in the evening. 450 capsule 3 01/21/2024 04/29/2024 Discontinued (Course of therapy completed) Start: 07-10-2023 End: 10-08-2023 gabapentin (NEURONTIN) 300 m g capsule Indications: Sciatica, right side Take 600mg in the morning, 300mg in the afternoon and 600mg in the evening. 450 capsule 3 07/10/2023 Active Start: 12-16-2022 End: 09-17-2023 take 1 capsule by mouth three times daily gabapentin (NEURONTIN) 300 mg capsule Indications: Sciatica, right side Take 1 capsule by mouth three times a day for 90 days. 270 capsule 0 06/18/2023 07/10/2023 Discontinued Start: 10-18-2022 End: 12-16-2022 take 1 capsule by mouth once daily at bedtime, then take 1 capsule by mouth twice daily, then take 1 capsule by mouth three times daily gabapentin (NEURONTIN) 300 mg capsule Indications: Sciatica, right side Take 1 capsule by mouth daily at bedtime for 3 days, THEN 1 capsule twice daily for 3 days, THEN 1 capsule three times daily for 30 days. 99 capsule 5 10/18/2022 12/16/2022 Discontinued Start: 10-14-2022 End: 10-15-2022 take 1 capsule by mouth at bedtime Gabapentin 300 mg capsule Discontinued 300 mg PO AT BEDTIME October 14, 2022 12:00am October 15, 2022 1:37pm Comment on above: Take 1 capsule by mo ut three times daily for 90 days. Take 1 capsule by [facility] daily at bedtime for 3 days, THEN 1 capsule twice daily for 3 days, THEN 1 capsule three times daily for 30 days. Take 600mg in the mo rning, 300mg in the afternoon and 600mg in the evening. Take 1 capsule by [facility] three times a day for 90 days. hydroCHLOROthiazide 25 mg / losartan potassium 100 mg oral tablet (20 sources) Thiazide Diuretic, Angiotensin 2 Receptor Reid Start: 08-02-19 take 1 tablet by mouth once daily Losartan-Hydroch lorothiazide Active 1 TABLET PO DAILY August 02, 2021 9:27am Start: 07-16-2021 End: 08-06-2024 take 1 tablet by mouth once daily losartan-hydroCHLOROthiazide (HYZAAR) 10 0-25 mg per tablet Indications: Hypertension, essential Take 1 tablet by mouth once daily. 90 tablet 3 08/12/2024 Active Start: 07-18-2020 End: 04-25-2021 Losartan-Hydrochlorothiazide 100-25 mg tablet Discontinued 1 {tbl} PO DAILY July 18, 2020 1:00am April 25, 2021 3:00pm Start: 07-18-2020 End: 04-25-2021 take 1 tablet by mouth once daily Losartan-Hydrochlorothiazide Discontinue d 1 TABLET PO DAILY July 18, 2020 12:00am April 25, 2021 2:00pm Comment on above: Take 1 tablet by [facility] once daily. TAKE 1 TABLET ONCE D AILY Magnesium (5 sources) MAGNESIUM ORAL Take by mouth. Active Melatonin (5 sources) MELATONIN ORAL Take by mouth. Active metFORMIN hydrochloride 1000 mg oral tablet (20 sources) Biguanide Start: 09-20-2024 End: 03-19-2025 take 1 tablet by mouth twice daily metFORMIN (GLUCOPHAGE) 1,000 mg tablet Indications: Type 2 diabetes mellitus without complication, without long-term current use of insulin (HCC) Take 1 tablet by mouth two times a day. 180 tablet 1 09/20/2024 03/19/2025 Active Start: 11-21-2021 take 2 tablets by [facility] twice daily Metformin 500 mg tablet Active 1000 mg PO TWICE A DAY November 21, 2021 12:00am Start: 11-08-2021 End: 07-19-2025 take 1 tablet by mouth twice daily metFORMIN (GLUCOPHAGE) 500 mg tablet Indications: Uncontrolled type 2 diabetes mellitus with hyperglycemia (HCC) Take 1 tablet by mouth two times a day. 180 tablet 3 07/19/2024 07/19/2025 Active Start: 02-23-2019 End: 07-18-2020 take 1 tablet by mouth once daily Metformin 500 MG tablet Discontinued 500 mg PO DAILY February 23, 2019 12:00am July 18, 2020 3:58pm Comment on above: Take 1 tablet by verito twice daily. take 1 tablet twice a day [place]-3 Fatty Acids (8 sources) Start: 12-25-2021 take 1000 mg by mouth once daily [place]-3 Fatty Acids Active 1000 MG PO DAILY December 24, 2021 11:00pm Start: 12-25-2021 take 1000 mg by mouth once anju ly [place]-3 Fatty Acids Active 1000 MG PO DAILY December 25, 2021 12:00am [place]-3 Fatty Acids ([place] 3 Fish Oil) Capsule (1 source) Start: 12-25-2021 take 1 capsule by mouth once daily [place]-3 Fatty Acids ([place] 3 Fish Oil) Capsule Active 1000 MG PO DAILY December 25, 2021 12:00am [place]-3 Fatty Acids Capsule (1 source) Start: 12-25-2021 take 1 capsule by mouth once daily [place]-3 Fatty Acids Capsule Active 1000 mg PO DAILY December 25, 2021 12:00am oxyCODONE hydrochloride 5 mg oral tablet (20 sources) Opioid Agonist Start: 12-16-2022 End: 12-23-2022 take 2 tablets by mouth every six hours as needed for pain oxyCODONE IR (ROXICODONE) 5 mg immediate release tablet Indications: Sciatica, right side , Status post left hip replacement Take 2 tablets by mouth every 6 hours as needed for pain for up to 7 days. 28 tablet 0 12/16/2022 12/23/2022 Active Start: 11-26-2022 End: 12-19-2022 take 5-15 mg by mouth every four hours as needed for pain Oxycodone 5 mg tablet Discontinued 5 - 15 mg PO Q4H as needed for pain 60 7 November 26, 2022 December 19, 2022 9:27am Start: 01-21-2022 End: 01-28-2022 take 5-10 mg by mouth every six hours as needed for pain Oxycodone 5 mg tablet Discontinued 5 - 10 mg PO EVERY 6 HOURS as needed for Pain Score 6-10/10 56 7 January 21, 2022 January 27, 2022 12:00am January 28, 2022 12:04am Only take as needed supplement with Tylenol can be addictive Start: 01-21-2022 End: 01-28-2022 take 5-10 mg by mouth every six hours as needed Oxycodone Discontinued 5 - 10 MG PO EVERY 6 HOURS 56 7 January 21, 2022 January 27, 2022 11:04pm Only take as needed supplement with Tylenol can be addictive Start: 01-08-2022 End: 03-29-2022 take 5-10 mg by mouth every four hours as needed for pain Oxycodone 5 mg tablet Discontinued 5 - 10 mg PO Q4H as needed for pain 60 7 January 08, 2022 March 29, 2022 11:03am Start: 08-07-2021 End: 10-18-2021 take 5-10 mg by mouth every four hours as needed for pain Oxycodone 5 mg tablet Discontinued 5 - 10 mg PO Q4H as needed for pain 30 5 August 07, 2021 October 18, 2021 3:27pm Comment on above: Take 2 tablets by mo ut every 6 hours as needed for pain for up to 7 days. OZEMPIC 0.25 mg or 0.5 mg (2 mg/3 mL) pen (14 sources) Start : 02-27 OZEMPIC 0.25 mg or 0.5 mg (2 mg/3 mL) pen INJECT 0.5MG SUBCUTANEOUSLYONCE A WEEK 9 mL 1 02/27/2023 Active Comment on above: INJECT 0.5MG SUBCUTA NEOUSLYONCE A WEEK predniSONE 20 mg oral tablet (2 sources) Start : 10-14 take 40 mg by mouth once daily Prednisone Active 40 MG PO DAILY October 14, 2022 12:00am Next dose was 10/15/2022 pregabalin 50 mg oral capsule (5 sources) Start : 04-29 End: 10-26 take 1 capsule by mouth three times daily pregabalin (LYRICA) 50 mg capsule Indications: Neuropathy Take 1 capsule by mouth three times a day for 180 days. 90 capsule 5 04/29/2024 Active RED YEAST RICE ORAL (5 sources) RED YEAST RICE O RAL Take by mouth. Active semaglutide (OZEMPIC) 0.25 mg or 0.5 mg (2 mg/3 mL) pen (19 sources) Start : 09-23 End: 02-27 inject 0.5 mg by subcutaneous injection every week semaglutide (OZEMPIC) 0.25 mg or 0.5 mg (2 mg/3 mL) pen Inject 0.5 mg subcutaneously one time a week. 4 Each 1 09/23/2022 02/27/2023 Discontinued Start: 09-23-2022 inject 0.5 mg by sub cutaneous injection every week semaglutide (OZEMPIC) 0.25 mg or 0.5 mg (2 mg/3 mL) pen Inject 0.5 mg subcutaneously one time a week. 4 Each 2 09/23/2022 Active Start: 09-23-2022 inject 0.5 mg by sub cutaneous injection every week semaglutide (OZEMPIC) 0.25 mg or 0.5 mg (2 mg/3 mL) pen Inject 0.5 mg subcutaneously one time a week. 4 Each 1 09/23/2022 Active Comment on above: Inject 0.5 mg subcut aneously one time a week. semaglutide (OZEMPIC) 1 mg/dose (4 mg/3 mL) pen (15 sources) Start: 023 semaglutide (OZEMPIC) 1 mg/dose (4 mg/3 mL) pen Indications: Class 2 obesity with body mass index (BMI) of 39.0 to 39.9 in adult, unspecified obesity type, unspecified whether serious comorbidity present , Type 2 diabetes mellitus without complication, without long-term current use of insulin ([facility]) Inject 1 mg subcutaneously one time a week. 3 mL 5 12/16/2022 Active Comment on above: Inject 1 mg subcutan eously one time a week. semaglutide (OZEMPIC) 2 mg/dose (8 mg/3 mL) pen injector (11 sources) Start: 025 End: 026 inject 2 mg by subcutaneous injection every week semaglutide (OZEMPIC) 2 mg/dose (8 mg/3 mL) pen injector Indications: Type 2 diabetes mellitus without complication, without long-term current use of insulin (HCC) Inject 2 mg subcutaneously one time a week. 9 mL 3 08/12/2024 08/12/2025 Active Start: 08-06-2024 End: 08-06-2025 inject 2 mg by subcutaneous injection every week semaglutide (OZEMPIC) 2 mg/dose (8 mg/3 mL) pen injector Indications: Type 2 diabetes mellitus without complication, without long-term current use of insulin (HCC) Inject 2 mg subcutaneously one time a week. 9 mL 3 08/06/2024 08/06/2025 Active Start: 04-29-2024 End: 08-06-2024 inject 2 mg by subcutaneous injection every week semaglutide (OZEMPIC) 2 mg/dose (8 mg/3 mL) pen injector Indications: Uncontrolled type 2 diabetes mellitus with hyperglycemia (HCC) Inject 2 mg subcutaneously one time a week. 9 mL 1 04/29/2024 08/06/2024 Discontinued Start: 04-29-2024 End: 10-26-2024 inject 2 mg by subcutaneous injection every week semaglutide (OZEMPIC) 2 mg/dose (8 mg/3 mL) pen injector Indications: Uncontrolled type 2 diabetes mellitus with hyperglycemia (HCC) Inject 2 mg subcutaneously one time a week. 9 mL 1 04/29/2024 10/26/2024 Active Start: 01-21-2024 End: 04-29-2024 inject 2 mg by subcutaneous injection every week semaglutide (OZEMPIC) 2 mg/dose (8 mg/3 mL) pen injector Inject 2 mg subcutaneously one time a week. 3 mL 11 01/21/2024 04/29/2024 Discontinued Start: 01-21-2024 End: 01-20-2025 inject 2 mg by subcutaneous injection every week semaglutide (OZEMPIC) 2 mg/dose (8 mg/3 mL) pen injector Inject 2 mg subcutaneously one time a week. 3 mL 11 01/21/2024 01/20/2025 Active Start: 09-26-2023 End: 01-21-2024 inject 2 mg by subcutaneous injection every week semaglutide (OZEMPIC) 2 mg/dose (8 mg/3 mL) pen injector Inject 2 mg subcutaneously one time a week. 3 mL 11 09/26/2023 01/21/2024 Discontinued Start: 09-26-2023 End: 09-25-2024 inject 2 mg by subcutaneous injection every week semaglutide (OZEMPIC) 2 mg/dose (8 mg/3 mL) pen injector Inject 2 mg subcutaneously one time a week. 3 mL 11 09/26/2023 09/25/2024 Active Semaglutide (Ozempic) 2 mg/dose (8 mg/3 mL) pen injector (1 source) Start: 11-20-2023 Semaglutide (Ozempic) 2 mg/dose (8 mg/3 mL) pen injector Active 2 mg SC .weekly November 20, 2023 12:00am traZODone hydrochloride 50 mg oral tablet (20 sources) Serotonin Reuptake Inhibitor Start: 06-17-2022 End: 09-15-2022 take 2 tablets by mouth once daily at bedtime traZODone (DESYREL) 50 mg tablet Indications: Chronic insomnia Take 2 tablets by mouth daily at bedtime. 180 tablet 3 06/17/2022 09/15/2022 Active Start: 12-12-2021 End: 10-15-2022 Trazodone 100 mg tablet Disc ontinued 100 NMA PO AT BEDTIME December 12, 2021 12:00am October 15, 2022 1:37pm Start: 11-30-2021 End: 10-15-2022 take 1 tablet by mouth at bedtime Trazodone Discontinued 100 TAB PO AT BEDTIME December 11, 2021 11:00pm October 15, 2022 12:37pm Start: 01-30-2021 End: 06-17-2022 take 1 tablet by mouth once daily Trazodone 50 mg tablet Discontinued 50 mg PO DAILY April 25, 2021 1:00am October 18, 2021 3:27pm Comment on above: Take 1 tablet by verito th daily at bedtime. Take 2 tablets by mo uth daily at bedtime. Completed/Discontinued Medications Medication Drug Class(es) Dates Sig (Normalized) Sig (Original) acetaminophen 500 mg oral tablet (20 sources) Start: 11-26-2022 End: 02-24-2023 take 1000 mg by mouth every six hours as needed Acetaminophen Active 1000 MG PO EVERY 6 HOURS NEEDED February 23, 2023 11:00pm Start: 08-07-2021 End: 02-24-2023 take 2 tablets by mouth every six hours as needed Acetaminophen 500 mg tablet Discontinued 1000 mg PO EVERY 6 HOURS NEEDED 100 November 26, 2022 12:00am February 24, 2023 8:22am Start: 02-22-2019 take 2 tablets by mo ksh twice daily Acetaminophen 500 mg tablet Active 1000 mg PO TWICE A DAY February 24, 2023 12:00am Start: 02-22-2019 acetaminophen (TYLENOL) 500 mg tablet Acetaminophen Active 1000 MG DAILY February 22, 2019 4:45pm 02/22/2019 Active Comment on above: Acetaminophen Active 1000 MG DAILY February 22, 2019 4:45pm acetaminophen 325 mg / HYDROcodone bitartrate 7.5 mg oral tablet (20 sources) Opioid Agonist Start: 05-10-20 End: 04-29-20 take 1 tablet by mouth every six hours as needed for pain HYDROcodone-Acetamino phen (NORCO) 7.5-325 mg per tablet Indications: Primary osteoarthritis of both hips Take 1 tablet by mouth every 6 hours as needed for pain for up to 28 doses. 28 tablet 05/10/2021 04/29/2024 Discontinued (Course of therapy completed) Comment on above: Take 1 tablet by verito every 6 hours as needed for pain for up to 28 doses. acetaminophen 325 mg / oxyCODONE hydrochloride 7.5 mg oral tablet (20 sources) Opioid Agonist Start: 03-14-20 End: 03-24-20 take 1 tablet by mouth every six hours Oxycodone-Acetaminoph en Discontinued 1 TABLET PO EVERY 6 HOURS 40 March 14, 2023 March 23, 2023 11:04pm Start: 10-21-2022 End: 11-26-2022 Oxycodone-Acetaminophen (Per cocet) 5-325 mg Tablet Discontinued 1 {tbl} PO Q4H as needed for Pain November 12, 2022 12:00am November 26, 2022 9:44am Start: 10-18-2022 End: 03-24-2023 Oxycodone-Acetaminophen 7.5- 325 mg tablet Discontinued 1 {tbl} PO EVERY 6 HOURS as needed for pain 40 March 14, 2023 March 23, 2023 12:00am March 24, 2023 12:04am Start: 06-26-2021 End: 07-27-2021 Oxycodone-Acetaminophen (Per cocet) 5-325 mg tablet Discontinued 1 {tbl} PO EVERY 6 HOURS as needed for pain 05 11June 26, 2021 July 27, 2021 9:16am Comment on above: Take 1-2 tablets by mouth every 6 hours as needed for pain. Take 1 tablet by verito th every 4 hours as needed for pain. alendronic acid 70 mg oral tablet (13 sources) Bisphosphonate Start: 07-27-19 End: 01-22-20 take 1 tablet by mouth every week Alendronate (Fosamax) 70 mg tablet Discontinued 70 mg PO EVERY WEEK July 27, 2021 1:00am January 21, 2022 10:11am apixaban 2.5 mg oral tablet (20 sources) Factor Xa Inhibitor Start: 11-27-19 End: 04-29-20 take 1 tablet by mouth twice daily in the morning Apixaban (Eliquis) 2.5 mg tablet Discontinued 2.5 mg PO TWICE A DAY November 26, 2022 12:00am January 06, 2023 2:03pm Begin morning after surgery Start: 07-12-2020 End: 04-29-2024 take 1 tablet by mouth twice daily Apixaban (Eliquis) 5 mg tablet Discontinued 5 mg PO TWICE A DAY April 25, 2021 1:00am May 17, 2021 10:52am Comment on above: Take 5 mg by mouth t wice daily. azithromycin 250 mg oral tablet (20 sources) Macrolide Antimicrobial Start: 02-16-20 End: 04-29-20 azithromycin (ZITHROMAX Z-KIMBERLYN) 250 mg tablet 2 tablets by mouth first day then 1 tablet the next 4 days 6 tablet 02/20/2022 04/29/2024 Discontinued (Course of therapy completed) Comment on above: 2 tablets by mouth f irst day then 1 tablet the next 4 days benzonatate 100 mg oral capsule (13 sources) Non-narcotic Antitussive Start: 07-11-19 End: 04-29-20 take 2 capsules by mouth every eight hours as needed benzonatate (TESSALON PERLES) 100 mg capsule Take 2 capsules by mouth three times daily as needed for cough. 30 capsule 3 07/11/2022 04/29/2024 Discontinued (Course of therapy completed) Comment on above: Take 2 capsules by m joe three times daily as needed for cough. Blood Glucose Control, Normal soln (2 sources) Start: 11-09-19 End: 11-10-19 Blood Glucose Control, Normal soln Test glucose 4 x day before meals bedtime 1 Each 11 11/08/2021 11/09/2021 Start: 11-08-2021 End: 11-09-2021 Blood Glucose Control, Lisa l soln Test glucose 4 x day before meals bedtime 1 Each 11 11/08/2021 11/09/2021 Active Comment on above: Test glucose 4 x day before meals bedtime Blood-Glucose Meter (2 sources) Start: 11-08-2021 End: 11-09-2021 Blood-Glucose Meter Test Four times a day. Insulin Dep? No E11.9 DM 2 1 Each 1 11/08/2021 11/09/2021 Start: 11-08-2021 End: 11-09-2021 Blood-Glucose Meter Test Fou r times a day. Insulin Dep? No E11.9 DM 2 1 Each 1 11/08/2021 11/09/2021 Active Comment on above: Test Four times a da y. Insulin Dep? No E11.9 DM 2 Calcium (13 sources) Phosphate Binder, Calcium Start: 08-02-2021 End: 10-18-2021 take 600 mg by mouth once daily Calcium Discontinued 600 MG PO DAILY August 02, 2021 9:27am October 18, 2021 3:28pm Start: 08-02-2021 take 600 mg by mouth once som y Calcium Active 600 MG PO DAILY August 02, 2021 9:27am Start: 08-02-2021 End: 10-18-2021 take 1 capsule by mouth once daily Calcium 600 mg Capsule Discontinued 600 mg PO DAILY August 02, 2021 1:00am October 18, 2021 3:28pm Start: 08-02-2021 End: 10-18-2021 take 600 mg by mouth once daily Calcium Discontinued 6 00 MG PO DAILY August 02, 2021 12:00am October 18, 2021 2:28pm Start: 08-02-2021 End: 10-18-2021 take 600 mg by mouth once daily Calcium Discontinued 6 00 MG PO DAILY August 02, 2021 1:00am October 18, 2021 3:28pm calcium ascorbate 500 mg oral tablet (13 sources) Start: 04-25-2021 End: 10-18-2021 take 2 tablets by mouth once daily Ascorbate Calcium (Vitamin C) 500 mg tablet Discontinued 1000 mg PO DAILY April 25, 2021 1:00am October 18, 2021 3:28pm Start: 04-25-2021 End: 10-18-2021 take 1000 mg by mouth once daily Ascorbate Calcium (Vitamin C) Discontinued 1000 MG PO DAILY April 25, 2021 12:00am October 18, 2021 2:28pm celecoxib 200 mg oral capsule (13 sources) Nonsteroidal Anti-inflammatory Drug Start: 08-07-2021 End: 10-18-2021 take 1 capsule by mouth twice daily Celecoxib (Celebrex) 200 mg capsule Discontinued 200 mg PO TWICE A DAY 60 August 07, 2021 1:00am October 18, 2021 3:27pm Do not take in conjunction with other NSAID. Tylenol is okay cephalexin 500 mg oral capsule (20 sources) Cephalosporin Antibacterial Start: 05-20-2023 End: 09-03-2023 take 4 capsules by mouth every hour Cephalexin 500 mg capsule Discontinued 500 mg PO ONCE 4 May 20, 2023 1:00am September 03, 2023 7:56am Take 4 caps 1 hour prior to dental procedure Start: 11-29-2022 End: 01-06-2023 take 1 capsule by mouth every six hours Cephalexin 500 mg capsule Discontinued 500 mg PO EVERY 6 HOURS 40 November 29, 2022 12:00am January 06, 2023 2:04pm Start: 11-26-2022 End: 01-06-2023 Cephalexin 500 mg capsule Discontinued 1000 mg PO EVERY 8 HOURS 4 November 26, 2022 12:00am January 06, 2023 2:04pm take 2 tabs at 9:00 pm and 2 tabs after 5 am when you wake up Start: 11-26-2022 End: 01-06-2023 Cephalexin Discontinued 1000 MG PO EVERY 8 HOURS 4 November 25, 2022 11:00pm January 06, 2023 1:04pm take 2 tabs at 9:00 pm and 2 tabs after 5 am when you wake up Start: 01-08-2022 End: 01-21-2022 Cephalexin 500 mg capsule Discontinued 1000 mg PO EVERY 8 HOURS 4 January 08, 2022 12:00am January 21, 2022 10:11am take 2 tabs at 9:00 pm and 2 tabs after 5 am when you wake up Start: 01-08-2022 End: 01-21-2022 Cephalexin Discontinued 1000 MG PO EVERY 8 HOURS 4 January 07, 2022 11:00pm January 21, 2022 9:11am take 2 tabs at 9:00 pm and 2 tabs after 5 am when you wake up cholecalciferol 0.025 mg oral capsule (13 sources) Vitamin D Start: 04-25-2021 End: 10-18-2021 take 1 capsule by mouth once daily Cholecalciferol (Vitamin D3) 25 mcg (1,000 unit) capsule Discontinued 50 ug PO DAILY April 25, 2021 1:00am October 18, 2021 3:28pm diazePAM 5 mg oral tablet (7 sources) Benzodiazepine Start: 10-14-2022 End: 01-09-2023 take 1 tablet by mouth every eight hours as needed for muscle spasms Diazepam 5 mg tablet Discontinued 5 mg PO EVERY 8 HOURS as needed for Muscle Spasm October 14, 2022 12:00am January 09, 2023 1:03pm diphenhydrAMINE hydrochloride 25 mg oral tablet (13 sources) Histamine-1 Receptor Antagonist Start: 02-22-2019 End: 04-25-2021 take 1 tablet by mouth at bedtime Diphenhydramine Hcl 25 MG tablet Discontinued 25 mg PO AT BEDTIME February 22, 2019 12:00am April 25, 2021 2:59pm etodolac 500 mg oral tablet (14 sources) Nonsteroidal Anti-inflammatory Drug Start: 09-17-2023 End: 10-27-2024 take 1 tablet by mouth twice daily Etodolac 500 mg tablet Discontinued 500 mg PO TWICE A DAY 60 September 17, 2023 12:00am October 27, 2024 9:53pm Start: 08-02-2021 End: 08-20-2021 take 1 tablet by mouth twice daily Etodolac 500 mg tablet Discontinued 500 mg PO TWICE A DAY August 02, 2021 1:00am August 20, 2021 8:09am ibuprofen 600 mg oral tablet (20 sources) Nonsteroidal Anti-inflammatory Drug Start: 01-09-2023 End: 09-17-2023 take 1 tablet by mouth twice daily as needed for pain Ibuprofen 600 mg tablet Discontinued 600 mg PO TWICE A DAY as needed for pain January 09, 2023 12:00am September 17, 2023 7:59am Start: 10-14-2022 End: 11-26-2022 take 1 tablet by mouth every six hours as needed for pain Ibuprofen 600 mg tablet Discontinued 600 mg PO EVERY 6 HOURS NEEDED as needed for pain October 14, 2022 12:00am November 26, 2022 9:44am Start: 06-17-2022 End: 04-29-2024 take 1 tablet by mouth every six hours as needed for pain ibuprofen (MOTRIN) 800 mg tablet Indications: Arthritis, lumbar spine Take 1 tablet by mouth every 6 hours as needed for pain. 120 tablet 3 06/17/2022 04/29/2024 Discontinued (Course of therapy completed) Comment on above: Take 1 tablet by verito th every 6 hours as needed for pain. losartan potassium 100 mg oral tablet (13 sources) Angiotensin 2 Receptor Reid Start: 2018 End: 2020 take 1 tablet by mouth once daily Losartan 100 MG tablet Discontinued 100 mg PO DAILY February 22, 2019 12:00am July 18, 2020 3:58pm methylPREDNISolone (17 sources) Corticosteroid Start: 2021 End: 2023 methylPREDNISolone (MEDROL, KIMBERLYN,) 4 mg Dose-Pack As Instructed per package 1 tablet 02/26/2022 04/29/2024 Discontinued (Course of therapy completed) Start: 02-26-2022 methylPREDNISo lone (MEDROL, KIMBERLYN,) 4 mg Dose-Pack As Instructed per package 1 tablet 02/26/2022 Active Start: 02-26-2022 methylPREDNISo lone (MEDROL, KIMBERLYN,) 4 mg Dose-Pack As Instructed per package 1 tablet 0 02/26/2022 Active Comment on above: As Instructed per honorio stanley metoprolol tartrate 50 mg oral tablet (20 sources) beta-Adrenergic Reid Start: 07-12-2020 End: 08-12-2025 Metoprolol Tartrate 50 mg tablet Discontinued 0 .ROUTE .COMPLEX 180 March 24, 2023 8:20am March 09, 2024 12:08pm TAKE 1 TABLET TWICE A DAY Comment on above: Take 50 mg by mouth twice daily. Miscellaneous Medical Supply (7 sources) Start: 01-21-2022 End: 07-20-2022 Miscellaneous Medical Supply Discontinued 1 EACH MC .PRN 1 180 January 20, 2022 11:00pm July 20, 2022 12:13am Handicap Placard for the patient to use as needed. Valid for 6 months from today. Start: 01-21-2022 End: 07-20-2022 Miscellaneous Medical Supply Discontinued 1 EACH MC .PRN 1 180 January 21, 2022 12:00am July 20, 2022 1:13am Handicap Placard for the patient to use as needed. Valid for 6 months from today. Start: 01-21-2022 Miscellaneous Medical Supply Active 1 EACH MC .PRN 1 180 January 20, 2022 11:00pm Handicap Placard for the patient to use as needed. Valid for 6 months from today. Miscellaneous Medical Supply misc (1 source) Start: 01-21-2022 End: 07-20-2022 Miscellaneous Medical Supply misc Discontinued 1 NMA MC .PRN as needed for s/p total hip arthroplasty 1 180 January 21, 2022 12:00am July 19, 2022 1:00am July 20, 2022 1:13am Handicap Placard for the patient to use as needed. Valid for 6 months from today. [place]-3 Fatty Acids (Fish Oil Concentrate) 1,000 mg capsule (13 sources) Start: 04-25-2021 End: 10-18-2021 take 1 capsule by mouth twice daily [place]-3 Fatty Acids (Fish Oil Concentrate) 1,000 mg capsule Discontinued 1000 MG PO TWICE A DAY April 25, 2021 2:58pm October 18, 2021 3:27pm Start: 04-25-2021 take 1 capsule by [facility] twice daily [place]-3 Fatty Acids (Fish Oil Concentrate) 1,000 mg capsule Active 1000 MG PO TWICE A DAY April 25, 2021 2:58pm Start: 04-25-2021 End: 10-18-2021 take 1 capsule by mouth twice daily [place]-3 Fatty Acids (Fish Oil Concentrate) 1,000 mg capsule Discontinued 1000 mg PO TWICE A DAY April 25, 2021 1:00am October 18, 2021 3:27pm Start: 04-25-2021 End: 10-18-2021 take 1 capsule by mouth twice daily [place]-3 Fatty Acids (Fish Oil Concentrate) 1,000 mg capsule Discontinued 1000 MG PO TWICE A DAY April 25, 2021 12:00am October 18, 2021 2:27pm Start: 04-25-2021 End: 10-18-2021 take 1 capsule by mouth twice daily [place]-3 Fatty Acids (Fish Oil Concentrate) 1,000 mg capsule Discontinued 1000 MG PO TWICE A DAY April 25, 2021 1:00am October 18, 2021 3:27pm rivaroxaban 20 mg oral tablet (20 sources) Factor Xa Inhibitor Start: 05-16-2021 End: 07-06-2021 take 1 tablet by mouth once daily at dinner Rivaroxaban (Xarelto) 20 mg tablet Discontinued 20 mg PO DAILY May 17, 2021 10:57am July 06, 2021 10:22am must administer with evening meal 0.25 mg, 0.5 mg dose 1.5 ml semaglutide 1.34 mg/ml pen injector (13 sources) Start: 07-01-2022 End: 04-29-2024 semaglutide (OZEMPIC) 0.25 mg or 0.5 mg(2 mg/1.5 mL) pen Inject 0.25 mg subcutaneously one time a week. 4 Each 1 07/01/2022 04/29/2024 Discontinued (Course of therapy completed) Comment on above: Inject 0.25 mg subcu taneously one time a week. Semaglutide (7 sources) Start: 10-07-2022 End: 01-09-2023 Semaglutide (Ozempic) 0.25 mg or 0.5 mg (2 mg/3 mL) pen injector Discontinued 0.25 mg SC EVERY WEEK October 07, 2022 12:00am January 09, 2023 1:04pm for 4 weeks FRIDAYS Start: 10-07-2022 End: 01-09-2023 Semaglutide (Ozempic) 0.25 m g or 0.5 mg (2 mg/3 mL) pen injector Discontinued 0.25 MG SC EVERY WEEK October 06, 2022 11:00pm January 09, 2023 12:04pm for 4 weeks FRIDAYS Start: 10-07-2022 Semaglutide (O zempic) 0.25 mg or 0.5 mg (2 mg/3 mL) pen injector Active 0.25 MG SC EVERY WEEK October 07, 2022 12:00am for 4 weeks FRIDAYS Start: 10-07-2022 Semaglutide (O zempic) 0.25 mg or 0.5 mg (2 mg/3 mL) pen injector Active 0.25 MG SC EVERY WEEK October 07, 2022 12:00am for 4 weeks Semaglutide (3 sources) Start: 01-09-2023 End: 09-03-2023 Semaglutide (Ozempic) 1 mg/d ose (4 mg/3 mL) pen injector Discontinued 1 mg SC FR January 09, 2023 12:00am September 03, 2023 7:57am Start: 01-09-2023 Semaglutide (O zempic) 1 mg/dose (4 mg/3 mL) pen injector Active 1 MG SC FR January 08, 2023 11:00pm sulfamethoxazole 800 mg / trimethoprim 160 mg oral tablet (4 sources) Dihydrofolate Reductase Inhibitor Antibacterial, Sulfonamide Antimicrobial Start: 11-29-2022 End: 01-06-2023 Sulfamethoxazole-Trimethopri m (Bactrim Ds) 800-160 mg tablet Discontinued 1 {tbl} PO TWICE A DAY 28 03November 29, 2022 12:00am January 06, 2023 2:04pm tadalafil 5 mg oral tablet (9 sources) Phosphodiesterase 5 Inhibitor Start: 07-10-2023 End: 07-09-2024 take 1 tablet by mouth once daily Tadalafil (CIALIS) 5 mg tablet Indications: ED (erectile dysfunction) of organic origin Take 1 tablet by mouth once daily. 90 tablet 3 07/10/2023 04/29/2024 Discontinued (Course of therapy completed) Comment on above: Take 1 tablet by verito once daily. tirzepatide (MOUNJARO) 2.5 mg/0.5 mL pen injector (11 sources) Start: 06-17-2022 End: 04-29-2024 tirzepatide (MOUNJARO) 2.5 mg/0.5 mL pen injector Indications: BMI 40.0-44.9, adult (HCC) , Poorly controlled diabetes mellitus (HCC) Inject 2.5 mg subcutaneously one time a week. X 30 days then start 5 mg 2 mL 06/17/2022 04/29/2024 Discontinued (Course of therapy completed) Start: 06-17-2022 tirzepatide (M OUNJARO) 2.5 mg/0.5 mL pen injector Indications: BMI 40.0-44.9, adult (HCC) , Poorly controlled diabetes mellitus (HCC) Inject 2.5 mg subcutaneously one time a week. X 30 days then start 5 mg 2 mL 0 06/17/2022 Active Start: 06-17-2022 End: 07-17-2022 tirzepatide (MOUNJARO) 2.5 m g/0.5 mL pen injector Indications: BMI 40.0-44.9, adult (HCC) , Poorly controlled diabetes mellitus (HCC) Inject 2.5 mg subcutaneously one time a week. X 30 days then start 5 mg 2 mL 0 06/17/2022 07/17/2022 Active Start: 06-17-2022 End: 07-17-2022 tirzepatide (MOUNJARO) 2.5 m g/0.5 mL pen injector Indications: BMI 40.0-44.9, adult (HCC) , Type 2 diabetes mellitus without complication, without long-term current use of insulin (HCC) Inject 2.5 mg subcutaneously one time a week. X 30 days then start 5 mg 2 mL 0 06/17/2022 07/17/2022 Active Comment on above: Inject 2.5 mg subcut aneously one time a week. X 30 days then start 5 mg tirzepatide (MOUNJARO) 5 mg/0.5 mL pen injector (11 sources) Start: 06-17-2022 End: 04-29-2024 tirzepatide (MOUNJARO) 5 mg/0.5 mL pen injector Indications: BMI 40.0-44.9, adult (HCC) , Poorly controlled diabetes mellitus (HCC) Inject 5 mg subcutaneously one time a week. X 30 days then start 7.5 2 mL 06/17/2022 04/29/2024 Discontinued (Course of therapy completed) Start: 06-17-2022 tirzepatide (M OUNJARO) 5 mg/0.5 mL pen injector Indications: BMI 40.0-44.9, adult (HCC) , Poorly controlled diabetes mellitus (HCC) Inject 5 mg subcutaneously one time a week. X 30 days then start 7.5 2 mL 0 06/17/2022 Active Start: 06-17-2022 End: 07-17-2022 tirzepatide (MOUNJARO) 5 mg/ 0.5 mL pen injector Indications: BMI 40.0-44.9, adult (HCC) , Poorly controlled diabetes mellitus (HCC) Inject 5 mg subcutaneously one time a week. X 30 days then start 7.5 2 mL 0 06/17/2022 07/17/2022 Active Start: 06-17-2022 End: 07-17-2022 tirzepatide (MOUNJARO) 5 mg/ 0.5 mL pen injector Indications: BMI 40.0-44.9, adult (HCC) , Type 2 diabetes mellitus without complication, without long-term current use of insulin (HCC) Inject 5 mg subcutaneously one time a week. X 30 days then start 7.5 2 mL 0 06/17/2022 07/17/2022 Active Comment on above: Inject 5 mg subcutan eously one time a week. X 30 days then start 7.5 tirzepatide (MOUNJARO) 7.5 mg/0.5 mL pen injector (11 sources) Start: 023 End: 024 inject 7.5 mg by subcutaneous injection every week tirzepatide (MOUNJARO) 7.5 mg/0.5 mL pen injector Indications: BMI 40.0-44.9, adult (HCC) , Poorly controlled diabetes mellitus (HCC) Inject 7.5 mg subcutaneously one time a week. 2 mL 3 06/17/2022 04/29/2024 Discontinued (Course of therapy completed) Start: 06-17-2022 inject 7.5 mg by sub cutaneous injection every week tirzepatide (MOUNJARO) 7.5 mg/0.5 mL pen injector Indications: BMI 40.0-44.9, adult (HCC) , Poorly controlled diabetes mellitus (HCC) Inject 7.5 mg subcutaneously one time a week. 2 mL 3 06/17/2022 Active Start: 06-17-2022 End: 07-17-2022 inject 7.5 mg by subcutaneous injection every week tirzepatide (MOUNJARO) 7.5 mg/0.5 mL pen injector Indications: BMI 40.0-44.9, adult (HCC) , Poorly controlled diabetes mellitus (HCC) Inject 7.5 mg subcutaneously one time a week. 2 mL 3 06/17/2022 07/17/2022 Active Start: 06-17-2022 End: 07-17-2022 tirzepatide (MOUNJARO) 7.5 m g/0.5 mL pen injector Indications: BMI 40.0-44.9, adult (HCC) , Type 2 diabetes mellitus without complication, without long-term current use of insulin (HCC) Inject 7.5 mg subcutaneously one time a week. 2 mL 3 06/17/2022 07/17/2022 Active Comment on above: Inject 7.5 mg subcut aneously one time a week. tirzepatide, weight loss (ZEPBOUND) 2.5 mg/0.5 mL pen injector (6 sources) Start: 07-10-2023 End: 04-29-2024 tirzepatide, weight loss (ZEPBOUND) 2.5 mg/0.5 mL pen injector Indications: Type 2 diabetes mellitus without complication, without long-term current use of insulin (HCC) , BMI 40.0-44.9, adult (HCC) Inject 2.5 mg subcutaneously one time a week. 2 mL 07/10/2023 04/29/2024 Discontinued (Course of therapy completed) Start: 07-10-2023 tirzepatide, w eight loss (ZEPBOUND) 2.5 mg/0.5 mL pen injector Indications: Type 2 diabetes mellitus without complication, without long-term current use of insulin (HCC) , BMI 40.0-44.9, adult (HCC) Inject 2.5 mg subcutaneously one time a week. 2 mL 0 07/10/2023 Active Start: 07-10-2023 End: 08-09-2023 tirzepatide, weight loss (ZE PBOUND) 2.5 mg/0.5 mL pen injector Indications: Type 2 diabetes mellitus without complication, without long-term current use of insulin (HCC) , BMI 40.0-44.9, adult (HCC) Inject 2.5 mg subcutaneously one time a week. 2 mL 0 07/10/2023 08/09/2023 Active Comment on above: Inject 2.5 mg subcut aneously one time a week. traMADol hydrochloride 50 mg oral tablet (15 sources) Opioid Agonist Start: End: take 1 tablet by mouth every six hours as needed for pain traMADol (ULTRAM) 50 mg tablet Indications: Right hip pain Take 1 tablet by mouth every 6 hours as needed for pain for up to 7 days. 28 tablet 0 11/30/2021 12/07/2021 Start: 10-10-2021 End: 01-08-2022 take 1 tablet by mouth every eight hours as needed for pain Tramadol 50 mg tablet Discontinued 50 mg PO Q8H as needed for pain October 10, 2021 12:00am January 08, 2022 10:14am Comment on above: Take 1 tablet by verito th every 6 hours as needed for pain for up to 7 days. Turmeric extract (20 sources) Start: 12-25-2021 End: 01-08-2022 take 1 capsule by mouth once daily Turmeric 400 mg Capsule Discontinued 400 mg PO DAILY December 25, 2021 12:00am January 08, 2022 10:15am Start: 12-25-2021 End: 01-08-2022 take 400 mg by mouth once daily Turmeric Discontinued 400 MG PO DAILY December 24, 2021 11:00pm January 08, 2022 9:15am Start: 12-25-2021 End: 01-08-2022 take 400 mg by mouth once daily Turmeric Discontinued 400 MG PO DAILY December 25, 2021 12:00am January 08, 2022 10:15am Start: 12-25-2021 take 400 mg by mouth once som y Turmeric Active 400 MG PO DAILY December 25, 2021 12:00am Start: 07-02-2021 End: 10-18-2021 take 1000 mg by mouth once daily Turmeric Discontinued 1000 MG PO DAILY July 02, 2021 3:41pm October 18, 2021 3:27pm Start: 07-02-2021 take 1000 mg by mout h once daily Turmeric Active 1000 MG PO DAILY July 02, 2021 3:41pm Start: 07-02-2021 TURMERIC ORAL Take by mouth. 07/02/2021 Active Start: 07-02-2021 TURMERIC ORAL Take by mouth. 0 07/02/2021 Active Start: 07-02-2021 End: 10-18-2021 take 1 capsule by mouth once daily Turmeric 400 mg capsule Discontinued 1000 mg PO DAILY July 02, 2021 1:00am October 18, 2021 3:27pm Start: 07-02-2021 End: 10-18-2021 take 1000 mg by mouth once daily Turmeric Discontinued 1000 MG PO DAILY July 02, 2021 12:00am October 18, 2021 2:27pm Start: 07-02-2021 End: 10-18-2021 take 1000 mg by mouth once daily Turmeric Discontinued 1000 MG PO DAILY July 02, 2021 1:00am October 18, 2021 3:27pm Comment on above: Take by mouth. Problems Active Problems Problem Classification Problem Date Documented Da te Episodic/Chronic Alcohol-related disorders (13 sources) Alcohol abuse; Translations: [Alcohol abuse, uncomplicated] 07-15-2020 Chronic Cardiac dysrhythmias (20 sources) Atrial fibrillation; Translations: [Unspecified atrial fibrillation] Onset: 07-11-2020 05-21-2021 Chronic Cardiac dysrhythmias (13 sources) Tachycardia; Translations: [Tachycardia, unspecified] 07-18-2020 Episodic Diabetes mellitus with complications (12 sources) Diabetic - poor control; Translations: [Type 2 diabetes mellitus with hyperglycemia] Onset: 05-02-2024 Chronic Diabetes mellitus without complication (20 sources) Type 2 diabetes mellitus without complication; Translations: [Type 2 diabetes mellitus without complications] Onset: 12-10-2021 Chronic Diabetes mellitus without complication (13 sources) Prediabetes; Translations: [Prediabetes] 07-11-2020 Episodic Disorders of lipid metabolism (20 sources) Mixed hyperlipidemia; Translations: [Mixed hyperlipidemia] Onset: 07-10-2020 07-10-2020 Chronic Essential hypertension (20 sources) Essential hypertension; Translations: [Essential (primary) hypertension] Onset: 07-10-2020 07-10-2020 Chronic Hyperplasia of prostate (20 sources) Urinary frequency due to benign prostatic hypertrophy; Translations: [Benign prostatic hyperplasia with lower urinary tract symptoms] Onset: 07-10-2020 07-10-2020 Chronic Malaise and fatigue (7 sources) Fatigue; Translations: [Chronic fatigue, unspecified] Onset: 04-29-2024 04-29-2024 Chronic Miscellaneous mental health disorders (20 sources) Chronic insomnia; Translations: [Psychophysiologic insomnia] Onset: 12-10-2021 Chronic Mood disorders (8 sources) Depressive disorder; Translations: [Other specified depressive episodes] Onset: 05-02-2024 04-29-2024 Chronic Nonspecific chest pain (13 sources) Chest pain; Translations: [Chest pain, unspecified] 07-15-2020 Episodic Osteoarthritis (20 sources) Arthritis of hip; Translations: [Unilateral primary osteoarthritis, unspecified hip] Onset: 12-10-2021 Chronic Other aftercare (13 sources) Follow-up status; Translations: [Encounter for other orthopedic aftercare] 09-17-2021 Episodic Other aftercare (6 sources) Encounter for other orthopedic aftercare; Translations: [Unspecified orthopedic aftercare] Episodic Other bone disease and musculoskeletal deformities (20 sources) Avascular necrosis of bone; 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] 07-27-2021 Chronic Other bone disease and musculoskeletal deformities (13 sources) Avascular necrosis of bone of hip; 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] 07-04-2021 Chronic Other bone disease and musculoskeletal deformities (15 sources) Idiopathic aseptic necrosis of unspecified femur; Translations: [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] Chronic Other connective tissue disease (8 sources) History of total hip arthroplasty; Translations: [Presence of unspecified artificial hip joint] 01-21-2022 Chronic Other connective tissue disease (5 sources) Presence of unspecified artificial hip joint; Translations: [Hip joint replacement] Chronic Other connective tissue disease (20 sources) History of repair of hip joint; Translations: [Presence of unspecified artificial hip joint] Onset: 07-14-2023 11-29-2022 Chronic Other connective tissue disease (1 source) Presence of left artificial hip joint; Translations: [Status post left hip replacement] Onset: 07-14-2023 Chronic Other connective tissue disease (13 sources) Pain in lower limb; Translations: [Pain in leg, unspecified] 04-25-2021 Episodic Other connective tissue disease (20 sources) Tendinitis of hip; Translations: [Other specified enthesopathies of left lower limb, excluding foot] 04-25-2021 Episodic Other connective tissue disease (3 sources) History of lumbar fusion; Translations: [Arthrodesis status] 03-19-2023 Episodic Other connective tissue disease (1 source) Other specified soft tissue disorders; Translations: [Other specified soft tissue disorders] Onset: 11-04-2024 Episodic Other endocrine disorders (20 sources) Pituitary dependent hypercortisolism; 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] Onset: 07-16-2021 07-16-2021 Chronic Other male genital disorders (20 sources) Secondary erectile dysfunction; Translations: [Male erectile dysfunction, unspecified] Onset: 07-10-2020 07-10-2020 Chronic Other nervous system disorders (20 sources) Chronic pain syndrome; Translations: [Chronic pain syndrome] Onset: 12-10-2021 Chronic Other nervous system disorders (8 sources) Neuropathy; Translations: [Polyneuropathy, unspecified] Onset: 05-02-2024 04-29-2024 Chronic Other nervous system disorders (1 source) Polyneuropathy, unspecified; Translations: [Neuropathy] Onset: 05-02-2024 Chronic Other nervous system disorders (2 sources) Other chronic pain; Translations: [Chronic pain of left thumb] Onset: 11-20-2023 Chronic Other nervous system disorders (20 sources) Acute postoperative pain; Translations: [Other acute postprocedural pain] 08-07-2021 Episodic Other nervous system disorders (1 source) Other acute postprocedural pain; Translations: [Other acute postoperative pain] Episodic Other non-traumatic joint disorders (20 sources) Hip pain; Translations: [Pain in right hip] Onset: 12-10-2021 07-04-2021 Episodic Other nutritional; endocrine; and metabolic disorders (10 sources) Obesity; Translations: [Other obesity due to excess calories] 04-25-2021 Chronic Other nutritional; endocrine; and metabolic disorders (20 sources) Severe obesity; Translations: [Morbid (severe) obesity due to excess calories] Onset: 01-08-2021 01-08-2021 Chronic Other nutritional; endocrine; and metabolic disorders (20 sources) Body mass index 40+ - severely obese; Translations: [Body mass index (BMI) 40.0-44.9, adult] Onset: 06-23-2022 Chronic Other nutritional; endocrine; and metabolic disorders (1 source) Hypercalcemia; Translations: [Hypercalcemia] Chronic Other nutritional; endocrine; and metabolic disorders (5 sources) Obesity caused by energy imbalance; Translations: [Other obesity due to excess calories] 04-25-2021 Chronic Other nutritional; endocrine; and metabolic disorders (1 source) Body mass index (BMI) 39.0-39.9, adult; Translations: [Class 2 obesity with body mass index (BMI) of 39.0 to 39.9 in adult, unspecified obesity type, unspecified whether serious comorbidity present] Onset: 08-06-2024 Chronic Other nutritional; endocrine; and metabolic disorders (1 source) Body mass index (BMI) 40.0-44.9, adult; Translations: [BMI 40.0-44.9, adult ([facility])] Onset: 06-23-2022 Chronic Other nutritional; endocrine; and metabolic disorders (7 sources) H/O: diabetes mellitus; Translations: [Personal history of other endocrine, nutritional and metabolic disease] 10-14-2022 Episodic Residual codes; unclassified (1 source) Obstructive sleep apnea syndrome; Translations: [Obstructive sleep apnea (adult) (pediatric)] 08-06-2024 Chronic Residual codes; unclassified (1 source) Obstructive sleep apnea (adult) (pediatric); Translations: [TEOFILO (obstructive sleep apnea)] Onset: 08-06-2024 Chronic Skin and subcutaneous tissue infections (2 sources) Cellulitis; Translations: [Cellulitis, unspecified] 10-27-2024 Episodic Spondylosis; intervertebral disc disorders; other back problems (20 sources) Lumbar arthritis; Translations: [Spondylosis without myelopathy or radiculopathy, lumbar region] Onset: 06-23-2022 Chronic Superficial injury; contusion (13 sources) Abrasion of left cornea; Translations: [Injury of conjunctiva and corneal abrasion without foreign body, left eye, initial encounter] 10-19-2021 Episodic Unclassified (1 source) OPENED IN ERROR Unclassified (1 source) Class 2 obesity with body mass index (BMI) of 39.0 to 39.9 in adult, unspecified obesity type, unspecified whether serious comorbidity present; Translations: [Class 2 obesity with body mass index (BMI) of 39.0 to 39.9 in adult, unspecified obesity type, unspecified whether serious comorbidity present] Onset: 08-06-2024 Viral infection (20 sources) COVID-19; Translations: [Severe acute respiratory syndrome coronavirus 2 (SARS-CoV-2) detected] Onset: 04-18-2020 07-18-2020 Episodic Past or Other Problems Problem Classification Problem Date Documented Da te Episodic/Chronic Other connective tissue disease (20 sources) Plantar fasciitis; Translations: [Plantar fascial fibromatosis] Onset: 07-10-2020 07-10-2020 Episodic Other connective tissue disease (7 sources) Arthrodesis status; Translations: [Arthrodesis status] Onset: 11-20-2023 03-24-2023 Episodic Other connective tissue disease (6 sources) Chronic pain of left upper limb; Translations: [Pain in left finger(s)] Onset: 05-02-2024 04-29-2024 Episodic Other connective tissue disease (1 source) Pain in left finger(s); Translations: [Chronic pain of left thumb] Onset: 04-29-2024 Episodic Other non-traumatic joint disorders (20 sources) Pain in right hip joint; Translations: [Pain in right hip] Onset: 12-10-2021 Episodic Other non-traumatic joint disorders (1 source) Pain in left hip; Translations: [Left hip pain] Onset: 04-29-2024 Episodic Other screening for suspected conditions (not mental disorders or infectious disease) (20 sources) Patient encounter status; Translations: [Encounter for screening for malignant neoplasm of colon] Onset: 07-10-2020 01-08-2021 Episodic Screening and history of mental health and substance abuse codes (20 sources) Ex-smoker; Translations: [Personal history of nicotine dependence] Onset: 05-21-2021 05-21-2021 Episodic Spondylosis; intervertebral disc disorders; other back problems (20 sources) Sciatica; Translations: [Sciatica, right side] Onset: 11-20-2023 10-14-2022 Episodic Results Test Name Value Interpretation Reference Range Facility Culture, Blood (WB)on 2024 CUB Blood cultures x2, f rom two different sites No growth in 5 days. Normal [facility] Comment on above: Performed By: #### M 200.1000 #### [facility] [address] [place], [address] Absolute lymphocyte countOrd ered By: Aniceto Walls on 10-27-2024 Lymphocytes Auto (Unsp spec) [#/Vol] 1.74 10*3/uL 0.83-4.51 [facility] Absolute neutrophil countOrd ered By: Aniceto Walls on 10-27-2024 Neutrophils (Bld) [#/Vol] 11.3 10*3/uL High 2.0-7.7 [facility] Anion gap in Serum or Plasma Ordered By: Aniceto Walls on 10-27-2024 Anion gap [Moles/Vol] 11 mmol/L 5-15 [facility] Automated lymphocyte count a s percentage of total leukocytesOrdered By: Aniceto Walls on 10-27-2024 Lymphocytes/100 WBC Auto (Unsp spec) 12.1 % Low 19-41 [facility] BUN/creatinine ratioOrdered By: Aniceto Walls on 10-27-2024 Urea nitrogen/Creatinine [Mass ratio] 19.6 mg/mg 10- [facility] Basic Metabolic Profile (BMP )on 10-27-2024 BUN/CRE 19.6 RATIO Normal - [facility] Comment on above: Performed By: #### L 500.2500, L503.6005, L100.0100 #### [facility] [address] [place], [address] Calcium [Mass/Vol] 10.0 mg/dL Normal 7.6-11.0 [facility] Comment on above: Performed By: #### L 500.2500, L503.6005, L100.0100 #### [facility] [address] [place], [address] Chloride [Moles/Vol] 101 mmol/L Normal 98-108 [facility] Comment on above: Performed By: #### L 500.2500, L503.6005, L100.0100 #### [facility] [address] [place], [address] CO2 [Moles/Vol] 25.4 mmol/L Normal 21.0-32.0 [facility] Comment on above: Performed By: #### L 500.2500, L503.6005, L100.0100 #### [facility] [address] [place], [address] Creatinine [Mass/Vol] 1.12 mg/dL Normal 0.70-1.20 [facility] Comment on above: Performed By: #### L 500.2500, L503.6005, L100.0100 #### [facility] [address] [place], [address] ECRCL 99.73 ml/min Normal 50-250 [facility] Comment on above: Performed By: #### L 500.2500, L503.6005, L100.0100 #### [facility] [address] [place], [address] GAP 11 Normal 5-15 [facility] Comment on above: Performed By: #### L 500.2500, L503.6005, L100.0100 #### [facility] [address] [place], [address] GFR/1.73 sq M.predicted among non-blacks MDRD (S/P/Bld) [Vol rate/Area] 77 mL/min/{1.73_m2} Normal >60 [facility] Comment on above: Result Comment: mL/m in/1.73m2 CKD-EPI Creatinine Equation (2020) Performed By: #### L 500.2500, L503.6005, L100.0100 #### [facility] [address] [place], [address] Glucose [Mass/Vol] 181 mg/dL High 70-99 [facility] Comment on above: Performed By: #### L 500.2500, L503.6005, L100.0100 #### [facility] [address] [place], [address] Potassium [Moles/Vol] 3.9 mmol/L Normal 3.3-5.1 [facility] Comment on above: Performed By: #### L 500.2500, L503.6005, L100.0100 #### [facility] [address] [place], [address] Sodium [Moles/Vol] 137 mmol/L Normal 133-145 [facility] Comment on above: Performed By: #### L 500.2500, L503.6005, L100.0100 #### [facility] [address] [place], [address] Urea nitrogen [Mass/Vol] 22 mg/dL High 4-19 [facility] Comment on above: Performed By: #### L 500.2500, L503.6005, L100.0100 #### [facility] [address] [place], [address] Basophil percentageOrdered B y: Aniceto Walls on 10-27-2024 Basophils/100 WBC (Bld) 0.1 % 0-1 [facility] CBC W/Diff, Automatedon 10-08 Absolute Lymph 1.74 X10 3/uL Normal 0.83-4.51 [facility] Comment on above: Performed By: #### L 500.2500, L503.6005, L100.0100 #### [facility] [address] [place], [address] Absolute Neut 11.3 X10 3/uL High 2.0-7.7 [facility] Comment on above: Performed By: #### L 500.2500, L503.6005, L100.0100 #### [facility] [address] [place], [address] Basophils/100 WBC (Bld) 0.1 % Normal 0-1 [facility] Comment on above: Performed By: #### L 500.2500, L503.6005, L100.0100 #### [facility] [address] [place], [address] Eosinophils/100 WBC (Bld) 1.6 % Normal 0-5 [facility] Comment on above: Performed By: #### L 500.2500, L503.6005, L100.0100 #### [facility] [address] [place], [address] Erythrocyte distribution width (RBC) [Ratio] 15.0 % High 11.6-14.6 [facility] Comment on above: Performed By: #### L 500.2500, L503.6005, L100.0100 #### [facility] [address] [place], [address] Hematocrit (Bld) [Volume fraction] 41.1 % Normal 40-54 [facility] Comment on above: Performed By: #### L 500.2500, L503.6005, L100.0100 #### [facility] [address] [place], [address] Hemoglobin (Bld) [Mass/Vol] 13.9 g/dL Normal 13.0-16.5 [facility] Comment on above: Performed By: #### L 500.2500, L503.6005, L100.0100 #### [facility] [address] [place], [address] IG% 0.300 Normal 0.0-0.9 [facility] Comment on above: Result Comment: IG% - Immature Granulocytes (promyelocytes, myelocytes and metamyelocytes) > 1% indicates that a LEFT SHIFT is Present. Performed By: #### L 500.2500, L503.6005, L100.0100 #### [facility] [address] [place], [address] Lymphocytes/100 WBC (Bld) 12.1 % Low 19-41 [facility] Comment on above: Performed By: #### L 500.2500, L503.6005, L100.0100 #### [facility] [address] [place], [address] MCH (RBC) [Entitic mass] 29.1 pg Normal 27.0-32.0 [facility] Comment on above: Performed By: #### L 500.2500, L503.6005, L100.0100 #### [facility] [address] [place], [address] MCHC (RBC) [Mass/Vol] 33.8 g/dL Normal 32-36 [facility] Comment on above: Performed By: #### L 500.2500, L503.6005, L100.0100 #### [facility] [address] [place], [address] MCV (RBC) [Entitic vol] 86.2 fL Normal 80-94 [facility] Comment on above: Performed By: #### L 500.2500, L503.6005, L100.0100 #### [facility] [address] [place], [address] Monocytes/100 WBC (Bld) 7.3 % Normal 0-10 [facility] Comment on above: Performed By: #### L 500.2500, L503.6005, L100.0100 #### [facility] [address] [place], [address] Neutrophils/100 WBC (Bld) 78.6 % High 47-70 [facility] Comment on above: Performed By: #### L 500.2500, L503.6005, L100.0100 #### [facility] [address] [place], [address] Nucleated RBC (Bld) [#/Vol] 0 10*3/uL Normal 0-5 [facility] Comment on above: Performed By: #### L 500.2500, L503.6005, L100.0100 #### [facility] [address] [place], [address] Platelet mean volume (Bld) [Entitic vol] 10.2 fL Normal 6.2-12.0 [facility] Comment on above: Performed By: #### L 500.2500, L503.6005, L100.0100 #### [facility] [address] [place], [address] Platelets (Bld) [#/Vol] 285 10*3/uL Normal 150-450 [facility] Comment on above: Performed By: #### L 500.2500, L503.6005, L100.0100 #### [facility] [address] [place], [address] RBC (Bld) [#/Vol] 4.77 10*6/uL Normal 4.6-6.2 [facility] Comment on above: Performed By: #### L 500.2500, L503.6005, L100.0100 #### [facility] [address] [place], [address] RDW SD 47.1 fl High 35.1-43.9 [facility] Comment on above: Performed By: #### L 500.2500, L503.6005, L100.0100 #### [facility] [address] [place], [address] WBC (Bld) [#/Vol] 14.3 10*3/uL High 4.4-11.0 [facility] Comment on above: Performed By: #### L 500.2500, L503.6005, L100.0100 #### [facility] [address] [place], [address] Carbon dioxide, total [Moles /volume] in Central venous bloodOrdered By: Aniceto Walls on 10-27-2024 CO2 [Moles/Vol] 25.4 mmol/L 21.0-32.0 [facility] Chloride assayOrdered By: Rob Walls on 10-27-2024 Chloride [Moles/Vol] 101 mmol/L 98-108 [facility] Emergency Department Summary on 10-27-2024 Emergency Department Summary [facility] Medical Records Department [address] [place] [address] Emergency Department Summary 10/27/24 MR#: [id number] Acct: [id number] Name: SHELLY COULTER Rep #: [id number] : 1970 54 From: Aniceto Walls DO PCP: Dr. Yuli Rosas DO Status:DEP ER Location: ED HPI History of Present Illness Chief Complaint: Cellulitis Informant: patient Onset/Context/Timing Onset: Weeks (2) Context: Gradual Onset Timing: Continuous Quality: Aching, pressure, sharp Location: Left axilla and lateral chest wall Worsened by: Certain movements Relieved by: Rest Narrative Narrative: Patient presents with redness and swelling to the left axilla and chest wall that has been getting worse over the past 2 weeks. Patient states it is gradually getting worse. Patient describes the pain as aching, pressure, and sharp. Patient states it is better with certain positions. Patient states it is worse with certain movements. Patient denies any discharge or drainage. Patient admits to fever of 101.2 and subjective chills at home. Patient took Tylenol prior to arrival. [facility] Medical History Sleep apnea Diabetic neuropathy Ambulates with cane Wears glasses Alcohol use History of steroid therapy Arthritis Injury of back Back pain History of edema Hypertension Former smoker Asthma Shortness of breath on exertion History of pain when walking History of echocardiogram Cardiology follow-up encounter History of atrial fibrillation Hx MRSA infection COVID-19 PAF (paroxysmal atrial fibrillation) COVID-19 virus detected (04/18/20) ETOH abuse Type 2 diabetes mellitus Essential (primary) hypertension Cystic acne History of tobacco use Obesity Prediabetes Home Medications ???Medication ???Instructions ???Recorded ???Last Taken ???Type losartan 100 1 tab PO DAILY htn 08/02/21 04:30 History mg-hydrochlorothiazide 25 mg tablet (Hyzaar) metformin 500 mg tablet 1,000 mg PO BID blood glucose 11/07 10/28 Unknown History control omega-3 fatty acids 1,000 mg PO DAILY SUPPLEMENT 12/25 Unknown History acetaminophen 500 mg tablet 1,000 mg PO BID pain 02/24/23 Unkn own History semaglutide 2 mg/dose (8 mg/3 mL) 2 mg subcut .weekly 11/20/23 Unkn own History subcutaneous pen injector (Ozempic) metoprolol tartrate 50 mg tablet See Rx Instructions .Route 4 Unknown Rx .COMPLEX #180 tabs amoxicillin 875 mg-potassium 875 mg PO Q12H #20 TABLETS 5 Unknown Rx clavulanate 125 mg tablet duloxetine 60 mg capsule,delayed 60 mg PO DAILY 10/27/24 Unknown Hi story release gabapentin 300 mg capsule 300 mg PO TID 10/27/24 Unknown His tory Allergy/AdvReac Type Severity Reaction Status Date / Time No Known Allergies Allergy Verified 10/27/24 21:44 Family History (Updated 10/27/24 @ 21:58 by Mira Carlos) Father Myocardial infarction, Onset Age: 60 Diabetes Grandfather Myocardial infarction, Onset Age: 40 Mother Diabetes Surgical History History of lumbar spinal fusion History of selective injection of anesthetic agent around lumbar nerve root History of hip replacement Hx of surgical procedure History of cardiac catheterization History of back surgery History of left heart catheterization (02/23/19) Social History household members: spouse and children housing: house Smoking Status: Former smoker alcohol intake: current alcohol intake frequency: 3 or more drinks per day Alcohol type: beer ROS ROS ED Constitutional Constitutional ED: Reports chills and fever(s) Eyes Eyes: Denies blurry vision or change in vision ENT ENT ED: Denies rhinorrhea or sore throat Cardiovascular Cardiovascular: Denies chest pain or palpitations Respiratory/Chest Respiratory/Chest: Denies cough or dyspnea Gastrointestinal Gastrointestinal: Denies nausea or vomiting Genitourinary Genitourinary ED: Denies dysuria or hematuria Musculoskeletal Musculoskeletal: Denies back pain or neck pain Integumentary Reports abscess; Denies rash Neurologic Neurologic: Denies headache(s) or weakness Allergic/Immunologic Allergic/Immunologic ED: Denies mouth swelling or urticaria EXAM Physical Exam Const Vital Signs: 10/27/24 21:44 10/27/24 21:51 10/27/24 23:07 Temperature 99.1 F 99.1 F 99.1 F Temperature Source Oral Oral Oral Pulse Rate 115 H 112 H 103 H Respiratory Rate 20 H 18 16 Blood Pressure 137/81 H 119/86 H 115/80 Blood Pressure Mean 99 97 91 Pulse Ox 94 93 92 Oxygen Delivery Method Room Air Room Air Room Air Positive well nourished and well developed (more content not included)... Normal [facility] Eosinophil percentageOrdered By: Aniceto Walls on 10-27-2024 Eosinophils/100 WBC (Bld) 1.6 % 0-5 [facility] Erythrocyte distribution wid th ratioOrdered By: Aniceto Walls on 10-27-2024 Erythrocyte distribution width (RBC) [Ratio] 15.0 % High 11.6-14.6 [facility] Erythrocyte distribution wid th standard deviationOrdered By: Aniceto Walls on 10-27-2024 Erythrocyte distribution width (RBC) [Ratio] 47.1 fl High 35.1-43.9 [facility] Glomerular filtration rate ( GFR) estimation/1.73 sq m using serum, plasma, or whole bOrdered By: Aniceto Walls on 10-27-2024 GFR/1.73 sq M.predicted among non-blacks MDRD (S/P/Bld) [Vol rate/Area] 77 mL/min/{1.73_m2} >60 [facility] Comment on above: mL/min/1.73m2 CKD-EP I Creatinine Equation (2020) Hematocrit Auto (Bld) [Volum e fraction]Ordered By: Aniceto Walls on 10-27-2024 Hematocrit (Bld) [Volume fraction] 41.1 % 40-54 [facility] Hemoglobin measurementOrdere d By: Aniceto Wlals on 10-27-2024 Hemoglobin (Bld) [Mass/Vol] 13.9 g/dL 13.0-16.5 [facility] Immature granulocytes/100 WB C Auto (Bld)Ordered By: Aniceto Walls on 10-27-2024 Immature granulocytes/100 WBC (Bld) 0.300 % 0.0-0.9 [facility] Comment on above: IG% - Immature Granu locytes (promyelocytes, myelocytes and metamyelocytes) > 1% indicates that a LEFT SHIFT is Present. Lactic Acidon 10-27-2024 Lactate [Moles/Vol] 1.7 mmol/L Normal 0.0-2.0 [facility] Comment on above: Order Comment: Y Performed By: #### L 500.2500, L503.6005, L100.0100 #### [facility] [address] [place], [address] Lactic acid measurementOrder ed By: Aniceto Walls on 10-27-2024 Lactate [Moles/Vol] 1.7 mmol/L 0.0-2.0 [facility] MCV (mean corpuscular volume ) determinationOrdered By: Aniceto Walls on 10-27-2024 MCV (RBC) [Entitic vol] 86.2 fL 80-94 [facility] Mean corpuscular hemoglobin (MCH) determinationOrdered By: Aniceto Walls on 10-27-2024 MCH (RBC) [Entitic mass] 29.1 pg 27.0-32.0 [facility] Mean corpuscular hemoglobin concentration (MCHC) determinationOrdered By: Aniceto Walls on 10-27-2024 MCHC (RBC) [Mass/Vol] 33.8 g/dL 32-36 [facility] Mean platelet volume determi nationOrdered By: Aniceto Walls on 10-27-2024 Platelet mean volume (Bld) [Entitic vol] 10.2 fL 6.2-12.0 [facility] Monocyte percentageOrdered B y: Aniceto Walls on 10-27-2024 Monocytes/100 WBC (Bld) 7.3 % 0-10 [facility] Neutrophil percentageOrdered By: Aniceto Walls on 10-27-2024 Neutrophils/100 WBC (Bld) 78.6 % High 47-70 [facility] Nucleated red blood cell per centageOrdered By: Aniceto Walls on 10-27-2024 Nucleated RBC/100 WBC (Bld) [Ratio] 0 % 0-5 [facility] Platelet countOrdered By: Rob Walls on 10-27-2024 Platelets (Bld) [#/Vol] 285 10*3/uL 150-450 [facility] Potassium measurement (mass/ volume)Ordered By: Aniceto Walls on 10-27-2024 Potassium (Unsp spec) [Mass/Vol] 3.9 mmol/L 3.3-5.1 [facility] RBC Auto (Bld) [#/Vol]Ordere d By: Aniceto Walls on 10-27-2024 RBC (Bld) [#/Vol] 4.77 10*6/uL 4.6-6.2 [facility] Serum creatinine measurement (mass/volume)Ordered By: Aniceto Walls on 10-27-2024 Creatinine [Mass/Vol] 1.12 mg/dL 0.70-1.20 [facility] Serum glucose measurement (m ass/volume)Ordered By: Aniceto Walls on 10-27-2024 Glucose [Mass/Vol] 181 mg/dL High 70-99 [facility] Serum or plasma calcium uziel urement (mass/volume)Ordered By: Aniceto Walls on 10-27-2024 Calcium [Mass/Vol] 10.0 mg/dL 7.6-11.0 [facility] Serum or plasma urea nitroge n measurement (mass/volume)Ordered By: Aniceto Walls on 10-27-2024 Urea nitrogen [Mass/Vol] 22 mg/dL High 4-19 [facility] Sodium levelOrdered By: Aniceto Walls on 10-27-2024 Sodium [Moles/Vol] 137 mmol/L 133-145 [facility] White blood cell (WBC) count Ordered By: Aniceto Walls on 10-27-2024 WBC (Bld) [#/Vol] 14.3 10*3/uL High 4.4-11.0 [facility] CBC W Auto Differential pane l (Bld)on 08-28-2024 Basophils (Bld) [#/Vol] 10*3/uL Normal <0.11 [facility] Comment on above: Order Comment: Speci men Type: BLOOD SPECIMEN Ordering Facility: [facility] Address: [address] [place] [address] Performed By: #### 2 4331-1, 3015-3, #### [facility] CLIA [id number] [address] [place] [address] [place] Basophils/100 WBC (Bld) 0.2 % Normal [facility] Comment on above: Order Comment: Speci men Type: BLOOD SPECIMEN Ordering Facility: [facility] Address: [address] [place] [address] Performed By: #### 2 4331-1, 3015-3, #### [facility] CLIA [id number] [address] [place] [address] [place] Differential cell count method Nom (Bld) Auto Normal [facility] Comment on above: Order Comment: Speci men Type: BLOOD SPECIMEN Ordering Facility: [facility] Address: [address] [place] [address] Performed By: #### 2 4331-1, 3, #### [facility] CLIA [id number] [address] [place] [address] [place] Eosinophils (Bld) [#/Vol] 0.33 10*3/uL Normal <0.46 [facility] Comment on above: Order Comment: Speci men Type: BLOOD SPECIMEN Ordering Facility: [facility] Address: [address] [place] [address] Performed By: #### 2 4331-1, 3, #### [facility] CLIA [id number] [address] [place] [address] [place] Eosinophils/100 WBC (Bld) 3.5 % Normal [facility] Comment on above: Order Comment: Speci men Type: BLOOD SPECIMEN Ordering Facility: [facility] Address: [address] [place] [address] Performed By: #### 2 4331-1, 3015-3, 67095-8 #### [facility] CLIA [id number] [address] [place] [address] [place] Erythrocyte distribution width (RBC) [Ratio] 14.1 % Normal 11.5-15.0 [facility] Comment on above: Order Comment: Speci men Type: BLOOD SPECIMEN Ordering Facility: [facility] Address: [address] [place] [address] Performed By: #### 2 4331-1, 3016-3, 22233-8 #### [facility] CLIA [id number] [address] [place] [address] [place] Hematocrit (Bld) [Volume fraction] 47.4 % Normal 39.0-51.0 [facility] Comment on above: Order Comment: Speci men Type: BLOOD SPECIMEN Ordering Facility: [facility] Address: [address] [place] [address] Performed By: #### 2 4331-1, 3015-3, 85513-5 #### [facility] CLIA [id number] [address] [place] [address] [place] Hemoglobin (Bld) [Mass/Vol] 15.4 g/dL Normal 13.0-17.0 [facility] Comment on above: Order Comment: Speci men Type: BLOOD SPECIMEN Ordering Facility: [facility] Address: [address] [place] [address] Performed By: #### 2 4331-1, 3015-3, 12118-9 #### [facility] CLIA [id number] [address] [place] [address] [place] Immature granulocytes (Bld) [#/Vol] 10*3/uL Normal <0.10 [facility] Comment on above: Order Comment: Speci men Type: BLOOD SPECIMEN Ordering Facility: [facility] Address: [address] [place] [address] Performed By: #### 2 4331-1, 6-3, 22160-0 #### [facility] CLIA [id number] [address] [place] [address] [place] Immature granulocytes/100 WBC (Bld) 0.2 % Normal [facility] Comment on above: Order Comment: Speci men Type: BLOOD SPECIMEN Ordering Facility: [facility] Address: [address] [place] [address] Performed By: #### 2 4331-1, 3, #### [facility] CLIA [id number] [address] [place] [address] [place] Lymphocytes (Bld) [#/Vol] 1.95 10*3/uL Normal 1.00-4.00 [facility] Comment on above: Order Comment: Speci men Type: BLOOD SPECIMEN Ordering Facility: [facility] Address: [address] [place] [address] Performed By: #### 2 4331-1, 3, #### [facility] CLIA [id number] [address] [place] [address] [place] Lymphocytes/100 WBC (Bld) 20.6 % Normal [facility] Comment on above: Order Comment: Speci men Type: BLOOD SPECIMEN Ordering Facility: [facility] Address: [address] [place] [address] Performed By: #### 2 4331-1, 3015-08, #### [facility] CLIA [id number] [address] [place] [address] [place] MCH (RBC) [Entitic mass] 28.3 pg Normal 26.0-34.0 [facility] Comment on above: Order Comment: Speci men Type: BLOOD SPECIMEN Ordering Facility: [facility] Address: [address] [place] [address] Performed By: #### 2 4331-1, 3, #### [facility] CLIA [id number] [address] [place] [address] [place] MCHC (RBC) [Mass/Vol] 32.5 g/dL Normal 30.5-36.0 [facility] Comment on above: Order Comment: Speci men Type: BLOOD SPECIMEN Ordering Facility: [facility] Address: [address] [place] [address] Performed By: #### 2 4331-1, 3015-3, 90971-6 #### [facility] CLIA [id number] [address] [place] [address] [place] MCV (RBC) [Entitic vol] 87.1 fL Normal 80.0-100.0 [facility] Comment on above: Order Comment: Speci men Type: BLOOD SPECIMEN Ordering Facility: [facility] Address: [address] [place] [address] Performed By: #### 2 4331-1, 3015-3, 41904-0 #### [facility] CLIA [id number] [address] [place] [address] [place] Monocytes (Bld) [#/Vol] 0.55 10*3/uL Normal <0.87 [facility] Comment on above: Order Comment: Speci men Type: BLOOD SPECIMEN Ordering Facility: [facility] Address: [address] [place] [address] Performed By: #### 2 4331-1, 3, 80032-0 #### [facility] CLIA [id number] [address] [place] [address] [place] Monocytes/100 WBC (Bld) 5.8 % Normal [facility] Comment on above: Order Comment: Speci men Type: BLOOD SPECIMEN Ordering Facility: [facility] Address: [address] [place] [address] Performed By: #### 2 4331-1, 3015-3, 15521-4 #### [facility] CLIA [id number] [address] [place] [address] [place] Neutrophils (Bld) [#/Vol] 6.58 10*3/uL Normal 1.45-7.50 [facility] Comment on above: Order Comment: Speci men Type: BLOOD SPECIMEN Ordering Facility: [facility] Address: [address] [place] [address] Performed By: #### 2 4331-1, 3015-3, 23987-5 #### [facility] CLIA [id number] [address] [place] [address] [place] Neutrophils/100 WBC (Bld) 69.7 % Normal [facility] Comment on above: Order Comment: Speci men Type: BLOOD SPECIMEN Ordering Facility: [facility] Address: [address] [place] [address] Performed By: #### 2 4331-1, 3015-3, 13989-8 #### [facility] CLIA [id number] [address] [place] [address] [place] Nucleated RBC (Bld) [#/Vol] Normal [facility] Comment on above: Order Comment: Speci men Type: BLOOD SPECIMEN Ordering Facility: [facility] Address: [address] [place] [address] Performed By: #### 2 4331-1, 3015-3, #### [facility] CLIA [id number] [address] [place] [address] [place] Nucleated RBC/100 WBC (Bld) [Ratio] Normal [facility] Comment on above: Order Comment: Speci men Type: BLOOD SPECIMEN Ordering Facility: [facility] Address: [address] [place] [address] Performed By: #### 2 4331-1, 3015-3, #### [facility] CLIA [id number] [address] [place] [address] [place] Platelet mean volume (Bld) [Entitic vol] 10.2 fL Normal 9.0-12.7 [facility] Comment on above: Order Comment: Speci men Type: BLOOD SPECIMEN Ordering Facility: [facility] Address: [address] [place] [address] Performed By: #### 2 4331-1, 3015-3, 77789-5 #### [facility] CLIA [id number] [address] [place] [address] [place] Platelets (Bld) [#/Vol] 269 10*3/uL Normal 150-400 [facility] Comment on above: Order Comment: Speci men Type: BLOOD SPECIMEN Ordering Facility: [facility] Address: [address] [place] [address] Performed By: #### 2 4331-1, 3016-3, 72810-0 #### [facility] CLIA [id number] [address] [place] [address] [place] [facility] RBC (Bld) [#/Vol] 5.44 10*6/uL Normal 4.20-6.00 [facility] Comment on above: Order Comment: Speci men Type: BLOOD SPECIMEN Ordering Facility: [facility] Address: [address] [place] [address] Performed By: #### 2 4331-1, 3015-3, 82289-9 #### [facility] CLIA [id number] [address] [place] [address] [facility] WBC (Bld) [#/Vol] 9.45 10*3/uL Normal 3.70-11.00 [facility] Comment on above: Order Comment: Speci men Type: BLOOD SPECIMEN Ordering Facility: [facility] Address: [address] [place] [address] Performed By: #### 2 4331-1, 3015-3, 80506-1 #### [facility] CLIA [id number] [address] [place] [address] [facility] Comprehensive metabolic 2000 panelon 08-28-2024 Albumin [Mass/Vol] 4.1 g/dL Normal 3.9-4.9 [facility] Comment on above: Order Comment: Speci men Type: BLOOD SPECIMEN Ordering Facility: [facility] Address: [address] [place] [address] Performed By: #### 2 4331-1, 3015-3, 20974-0 #### [facility] CLIA [id number] [address] [place] [address] [facility] [place] ALP [Catalytic activity/Vol] 101 U/L Normal 38-113 [facility] Comment on above: Order Comment: Speci men Type: BLOOD SPECIMEN Ordering Facility: [facility] Address: [address] [place] [address] Performed By: #### 2 4331-1, 3015-3, #### [facility] CLIA [id number] [address] [place] [address] [place] ALT With P-5'-P [Catalytic activity/Vol] 20 U/L Normal 10-54 [facility] Comment on above: Order Comment: Speci men Type: BLOOD SPECIMEN Ordering Facility: [facility] Address: [address] [place] [address] Performed By: #### 2 4331-1, 3015-3, #### [facility] CLIA [id number] [address] [place] [address] [place] Anion gap [Moles/Vol] 9 mmol/L Normal 8-15 [facility] Comment on above: Order Comment: Speci men Type: BLOOD SPECIMEN Ordering Facility: [facility] Address: [address] [place] [address] Performed By: #### 2 4331-1, 3, #### [facility] CLIA [id number] [address] [place] [address] [place] AST With P-5'-P [Catalytic activity/Vol] 14 U/L Normal 14-40 [facility] Comment on above: Order Comment: Speci men Type: BLOOD SPECIMEN Ordering Facility: [facility] Address: [address] [place] [address] Performed By: #### 2 4331-1, 3015-3, 17269-9 #### [facility] CLIA [id number] [address] [place] [address] [place] Bilirubin [Mass/Vol] 0.6 mg/dL Normal 0.2-1.3 [facility] Comment on above: Order Comment: Speci men Type: BLOOD SPECIMEN Ordering Facility: [facility] Address: [address] [place] [address] Performed By: #### 2 4331-1, 3015-3, 08035-2 #### [facility] CLIA [id number] [address] [place] [address] [place] Calcium [Mass/Vol] 10.1 mg/dL Normal 8.5-10.2 [facility] Comment on above: Order Comment: Speci men Type: BLOOD SPECIMEN Ordering Facility: [facility] Address: [address] [place] [address] Performed By: #### 2 4331-1, 3015-3, 40966-9 #### [facility] CLIA [id number] [address] [place] [address] [place] Chloride [Moles/Vol] 105 mmol/L Normal 98-107 [facility] Comment on above: Order Comment: Speci men Type: BLOOD SPECIMEN Ordering Facility: [facility] Address: [address] [place] [address] Performed By: #### 2 4331-1, 3015-3, #### [facility] CLIA [id number] [address] [place] [address] [place] CO2 [Moles/Vol] 27 mmol/L Normal 22-30 [facility] Comment on above: Order Comment: Speci men Type: BLOOD SPECIMEN Ordering Facility: [facility] Address: [facility] [place] [address] Performed By: #### 2 4331-1, 3015-3, 69110-2 #### [facility] CLIA [id number] [address] [place] [address] [place] Creatinine [Mass/Vol] 1.07 mg/dL Normal 0.73-1.22 [facility] Comment on above: Order Comment: Speci men Type: BLOOD SPECIMEN Ordering Facility: [facility] Address: [address] [place] [address] Performed By: #### 2 4331-1, 3015-3, 54204-9 #### [facility] CLIA [id number] [address] [place] [address] [place] Creatinine and Glomerular filtration rate.predicted panel (S/P/Bld) 81 mL/min/1.73m??? Normal >=60 [facility] Comment on above: Order Comment: Lianne chappell Type: BLOOD SPECIMEN Ordering Facility: [facility] Address: [address] [place] [address] Result Comment: Aracelis mated Glomerular Filtration Rate (eGFR) is calculated using the 2020 CKD-EPI creatinine equation. This equation utilizes serum creatinine, sex, and age as parameters. The creatinine assay has traceable calibration to isotope dilution-mass spectrometry. Refer to KDIGO guidelines for clinical interpretation. In patients with unstable renal function, e.g. those with acute kidney injury, the eGFR may not accurately reflect actual GFR. Performed By: #### 2 4331-1, 3016-3, 89786-5 #### [facility] CLIA [id number] [address] [place] [address] [place] Glucose [Mass/Vol] 127 mg/dL High 74-99 [facility] Comment on above: Order Comment: Lianne chappell Type: BLOOD SPECIMEN Ordering Facility: [facility] Address: [address] [place] [address] Result Comment: The [place] Diabetes Association (ADA) provides guidance for cutoff values for fasting glucose and random glucose. The ADA defines fasting as no caloric intake for at least 8 hours. Fasting plasma glucose results between 100 to 125 mg/dL indicate increased risk for diabetes (prediabetes). Fasting plasma glucose results greater than or equal to 126 mg/dL meet the criteria for diagnosis of diabetes. In the absence of unequivocal hyperglycemia, results should be confirmed by repeat testing. In a patient with classic symptoms of hyperglycemia or hyperglycemic crisis, random plasma glucose results greater than or equal to 200 mg/dL meet the criteria for diagnosis of diabetes. Reference: Standards of Medical Care in Diabetes 2016, [place] Diabetes Association. Diabetes Care. 2016.39(Suppl 1). Performed By: #### 2 4331-1, 3016-3, 95466-0 #### [facility] CLIA [id number] [address] [place] [address] [place] Potassium [Moles/Vol] 4.9 mmol/L Normal 3.7-5.1 [facility] Comment on above: Order Comment: Speci men Type: BLOOD SPECIMEN Ordering Facility: [facility] Address: [address] [place] [address] Performed By: #### 2 4331-1, 6-3, 50465-6 #### [facility] CLIA [id number] [address] [place] [address] [place] Protein [Mass/Vol] 6.7 g/dL Normal 6.3-8.0 [facility] Comment on above: Order Comment: Speci men Type: BLOOD SPECIMEN Ordering Facility: [facility] Address: [address] [place] [address] Performed By: #### 2 4331-1, 3015-3, 88817-1 #### [facility] CLIA [id number] [address] [place] [address] [place] Sodium [Moles/Vol] 141 mmol/L Normal 136-144 [facility] Comment on above: Order Comment: Speci men Type: BLOOD SPECIMEN Ordering Facility: [facility] Address: [address] [place] [address] Performed By: #### 2 4331-1, 3015-3, 51776-8 #### [facility] CLIA [id number] [address] [place] [address] [place] Urea nitrogen [Mass/Vol] 15 mg/dL Normal 9-24 [facility] Comment on above: Order Comment: Speci men Type: BLOOD SPECIMEN Ordering Facility: [facility] Address: [address] [place] [address] Performed By: #### 2 4331-1, 3015-3, 20964-8 #### [facility] CLIA [id number] [address] [place] [address] [place] Lipid 1996 panelon 5 Cholesterol [Mass/Vol] 165 mg/dL Normal <200 [facility] Comment on above: Order Comment: Speci men Type: BLOOD SPECIMEN Ordering Facility: [facility] Address: [address] [place] [address] Result Comment: <200 mg/dL, Desirable 200-239 mg/dL, Borderline high >239 mg/dL, High Performed By: #### 2 4331-1, 3016-3, 07801-4 #### [facility] CLIA [id number] [address] [place] [address] [facility] Cholesterol in HDL [Mass/Vol] 39 mg/dL Low >39 [facility] Comment on above: Order Comment: Speci men Type: BLOOD SPECIMEN Ordering Facility: [facility] Address: [address] [place] [address] Result Comment: 40-5 9 mg/dL, Acceptable >59 mg/dL, High: Negative risk factor for coronary heart disease <40 mg/dL, Low: Positive risk factor for coronary heart disease Performed By: #### 2 4331-1, 6-3, #### [facility] CLIA [id number] [address] [place] [address] [facility] [place] Cholesterol in LDL [Mass/Vol] 107 mg/dL High <100 [facility] Comment on above: Order Comment: Sabai men Type: BLOOD SPECIMEN Ordering Facility: [facility] Address: [address] [place] [address] Result Comment: <100 mg/dL, Optimal 100-129 mg/dL, Near optimal/above optimal 130-159 mg/dL, Borderline high 160-189 mg/dL, High >189 mg/dL, Very high Secondary prevention optimal LDL Cholesterol levels are recommended to be < 70 mg/dL Performed By: #### 2 4331-1, 3016-3, 79839-1 #### [facility] CLIA [id number] [address] [place] [address] [facility] Cholesterol in LDL/Cholesterol in HDL [Mass ratio] 2.74 {ratio} High <2.54 [facility] Comment on above: Order Comment: Sabai men Type: BLOOD SPECIMEN Ordering Facility: [facility] Address: [address] [place] [address] Result Comment: Refe clintonce: 1. National Cholesterol Education Program ATP III Guideline At-A-Glance Quick Desk Reference: National Heart, Lung, and Blood [place]. National Institutes of Health. 2001: NIH Publication No. 01-3305. 2. An International Atherosclerosis Society position paper: global recommendations for the management of dyslipidemia: executive summary, Atherosclerosis. 2014: 232(2):410-413. Performed By: #### 2 4331-1, 3016-3, 23226-5 #### [facility] CLIA [id number] [address] [place] [address] [place] Cholesterol in VLDL [Mass/Vol] 19 mg/dL Normal <30 [facility] Comment on above: Order Comment: Lianne chappell Type: BLOOD SPECIMEN Ordering Facility: [facility] Address: [address] [place] [address] Performed By: #### 2 4331-1, 3015-3, 36331-2 #### [facility] CLIA [id number] [address] [place] [address] [place] Cholesterol non HDL [Mass/Vol] 126 mg/dL Normal <130 [facility] Comment on above: Order Comment: Lianne chappell Type: BLOOD SPECIMEN Ordering Facility: [facility] Address: [address] [place] [address] Result Comment: <130 mg/dL, Optimal 130-159 mg/dL, Near optimal/above optimal 160-189 mg/dL, Borderline high 190-219 mg/dL, High >219 mg/dL, Very high Secondary prevention optimal non HDL Cholesterol levels are recommended to be <100 mg/dL Performed By: #### 2 4331-1, 6-3, 25825-1 #### [facility] CLIA [id number] [address] [place] [address] [facility] [place] Cholesterol.total/Chol esterol in HDL [Mass ratio] 4.23 {ratio} Normal <5.10 [facility] Comment on above: Order Comment: Lianne chappell Type: BLOOD SPECIMEN Ordering Facility: [facility] Address: [address] [place] [address] Performed By: #### 2 4331-1, 3016-3, 45927-8 #### [facility] CLIA [id number] [address] [place] [address] [place] FASTING TIME 12 hrs Normal [facility] Comment on above: Order Comment: Speci men Type: BLOOD SPECIMEN Ordering Facility: [facility] Address: [address] [place] [address] Performed By: #### 2 4331-1, 3016-3, 95364-9 #### [facility] CLIA [id number] [address] [place] [address] [place] Triglyceride [Mass/Vol] 93 mg/dL Normal <150 [facility] Comment on above: Order Comment: Speci men Type: BLOOD SPECIMEN Ordering Facility: [facility] Address: [address] [place] [address] Result Comment: <150 mg/dL, Normal 150-199 mg/dL, Borderline high 200-499 mg/dL, High >499 mg/dL, Very high Performed By: #### 2 4331-1, 6-3, #### [facility] CLIA [id number] [address] [place] [address] [facility] [place] PSA/PROSTATE SPECIFIC ANTIGE N SCREENINGon 08-28-2024 Prostate specific Ag [Mass/Vol] 0.42 ng/mL Normal <2.60 [facility] Comment on above: Order Comment: Speci men Type: BLOOD SPECIMEN Ordering Facility: [facility] Address: [address] [place] [address] Result Comment: Tota l PSA test methodology used is the Electrochemiluminescence Immunoassay by [employer]. Total PSA values by differing methodologies cannot be interchanged. Performed By: #### P SAS1 #### [facility] CLIA [id number] [address] [place] TSH SerPl-aCncon 08-28-2024 TSH Qn 1.160 m[IU]/L Normal 0.270-4.200 [facility] Comment on above: Order Comment: Speci men Type: BLOOD SPECIMEN Ordering Facility: [facility] Address: [facility] [place] [id number] Performed By: #### 2 4331-1, 3016-3, 89097-0 #### [facility] CLIA [id number] [address] [place], [place] [id number] [facility] CNOVon 08-06-2024 CNOV Office Visit (FPDOYL ) ----- SHELLY COULTER ([id number]) 1970 Date Time Provider Department 08/06/24 4:15 PM GLORIA ROSAS FPDOYL During your visit today, we recorded the following information about you: Pulse Blood pressure Weight Height 72/minute 120/70 129.3 kg 1.803 m Gloria Rosas DO 08/11/2024 6:35 PM Signed [facility] [place] Kaycee Ralph [address] [place] [address] Date of Evaluation: 08/06/2024 Patient Name: Shelly Coulter : 1970 Chief Complaint: Patient presents with: Hypertension Hyperlipidemia Diabetes: ozempic Medication Follow-up: Lyrica doesn't work would like to go back to gabapentin Subjective Mr. Coulter is a 53 year old male who presents with the following complaint(s): The history is provided by the patient. Hypertension This is a chronic problem. The current episode started more than 1 year ago. Pertinent negatives include no chest pain, headaches, palpitations or shortness of breath. Diabetes He presents for his follow-up diabetic visit. He has type 2 diabetes mellitus. Pertinent negatives for hypoglycemia include no dizziness, headaches or nervousness/anxiousness. Pertinent negatives for diabetes include no chest pain, no fatigue and no weakness. Review of Systems Constitutional: Negative for fatigue and unexpected weight change. HENT: Negative for nosebleeds. Eyes: Negative for redness and visual disturbance. Respiratory: Negative for apnea, cough and shortness of breath. Cardiovascular: Negative for chest pain, palpitations and leg swelling. Genitourinary: Negative for hematuria. Neurological: Positive for numbness (lower extremities). Negative for dizziness, weakness, light-headedness and headaches. Hematological: Does not bruise/bleed easily. Psychiatric/Behavioral: The patient is not nervous/anxious. PAST MEDICAL HISTORY Diagnosis Date Atrial fibrillation (HCC) Back pain Hypertension PAST SURGICAL HISTORY Procedure Laterality Date HIP CORE DECOMPRESSION 08/2021 MRSA removed from left under arm ORTHOPEDIC SURGERY HX back x 3 TONSILLECTOMY HX 06/09/1992 TOTAL HIP REPLACEMENT Left 11/26/2022 TOTAL HIP REPLACEMENT Right 2021 FAMILY HISTORY Problem Relation Age of Onset Diabetes Mother Hypertension Mother Heart Attack Father No Known Problems Sister Social History Tobacco Use Smoking status: Former Current packs/day: 0.00 Types: Cigarettes Start date: 12/08/1983 Quit date: 12/07/2017 Years since quittin.6 Smokeless tobacco: Never Vaping Use Vaping status: Never Used Substance Use Topics Alcohol use: Yes Comment: Moderate Drug use: Never Current Outpatient Medications Medication Sig metFORMIN (GLUCOPHAGE) 500 mg tablet Take 1 tablet by mouth two times a day. semaglutide (OZEMPIC) 2 mg/dose (8 mg/3 mL) pen injector Inject 2 mg subcutaneously one time a week. losartan-hydroCHLOROthiaz lior (HYZAAR) 100-25 mg per tablet Take 1 tablet by mouth once daily. DULoxetine (CYMBALTA) 30 mg capsule Take 1 capsule by mouth once daily for 7 days, THEN 2 capsules once daily. cinnamon bark (CINNAMON ORAL) Take by mouth. metoprolol tartrate, short acting, (LOPRESSOR) 50 mg tablet Take 50 mg by mouth twice daily. RED YEAST RICE ORAL Take by mouth. MAGNESIUM ORAL Take by mouth. MELATONIN ORAL Take by mouth. pregabalin (LYRICA) 50 mg capsule Take 1 capsule by mouth three times a day for 180 days. Blood-Glucose Sensor (FREESTYLE ALEK 3 PLUS SENSOR) judy Use to monitor Bs 4 times a day OZEMPIC 0.25 mg or 0.5 mg (2 mg/3 mL) pen INJECT 0.5MG SUBCUTANEOUSLYONCE A WEEK semaglutide (OZEMPIC) 1 mg/dose (4 mg/3 mL) pen Inject 1 mg subcutaneously one time a week. (Patient not taking: Reported on 04/29/2024) oxyCODONE-acetaminophen (PERCOCET) 5-325 mg tablet Take 1 tablet by mouth every 4 hours as needed for pain. oxyCODONE-acetaminophen (PERCOCET) 5-325 mg tablet Take 1 tablet by mouth every 4 hours as needed for pain. oxyCODONE-acetaminophen (PERCOCET) 7.5-325 mg tablet Take 1-2 tablets by mouth every 6 hours as needed for pain. semaglutide (OZEMPIC) 0.25 mg or 0.5 mg (2 mg/3 mL) pen Inject 0.5 mg subcutaneously one time a week. TURMERIC ORAL Take by mouth. Blood-Glucose Meter (ACCU-CHEK GUIDE GLUCOSE METER) Use to test glucose QID Lancets lancets Use to test blood sugar QID lancets (FREESTYLE LANCETS) 28 gauge Test glucose qid blood sugar diagnostic (BLOOD GLUCOSE TEST) test strip Use to test blood sugar qid FISH OIL-DHA-EPA ORAL Take 1 capsule by mouth once daily. cholecalciferol, vitamin D3, (VITAMIN D3 ORAL) Take 2,000 Units by mouth. acetaminophen (TYLENOL) 500 mg tablet Take 1,000 mg by mouth two times a day. No current facility-administered medications for (more content not included)... Normal [facility] HEMOGLOBIN A1C (POC)on 08-06 HbA1c (Bld) [Mass fraction] 7.1 % Abnormal 4.3 - 5.6 % [facility] Comment on above: Location:[facility], [address] [place] [address], [facility] Point of care (POC) Hemoglobin A1c (HGBA1C) testing is intended to assess glucose control and provide a management tool for patients known to have diabetes and their healthcare providers. Target HGBA1C levels may depend on specific clinical circumstances. POC HGBA1C is not intended for use as a diagnostic or screening test; laboratory-based testing should be used for diagnostic purposes. The following information is supplemental and may not be applicable to specific diabetes management situations: The POC device rubber worker provides a normal range of 4.2% to 6.5% for the HGBA1C POC test. However, the [place] Diabetes Association guidelines indicate that patients with HGBA1C in the range of 5.7% to 6.4% are at increased risk for development of diabetes and that intervention by lifestyle modification may be beneficial. A HGBA1C level greater than or equal to 6.5% is considered diagnostic of diabetes, pending confirmatory testing. Use of HGBA1C testing to evaluate glucose control may not be appropriate for patients with hemoglobin variants or other conditions (e.g. anemia) that alter red blood cell lifespan. Interpretation and review of laboratory results Abnormal [facility] CNPNon 05-12-2024 CNPN Telephone (AGPOB1) ----- SHELLY COULTER ([id number]) 1970 M Date Time Provider Department 05/12/24 NO ONE (HISTORICAL) AGPOB1 During your visit today, we recorded the following information about you: Castro [employer] Maker Elle Bakari Milad 05/12/2024 2:11 PM Signed ----- Message from Barb Gastelum sent at 05/12/2024 12:28 PM EST ----- Regarding: Orthopedics / left hand: pain / Scheduling Subject Line Format: Orthopedics / left hand: pain / Scheduling Patient has been identified by name and Date of (Y/N): y Patient: Shelly Coulter Date of : 1970 Previous Provider Seen: na Body Part(s) Identified: left thumb Diagnosis/Reason For Visit: pain Reason for the call/escalation: Trying to schedule pt but all the locations were to far for him. He was wondering if he could possibly see a doctor at the [place] office. The closest to him was [place] and that was too far for him. If reason for call/escalation is discharge from ED/ER or Hospital, which facility was the patient seen at: na Was an appointment scheduled (Y/N): n Person calling if other than patient: n Return call to if other than patient: n Best contact number: [phone] Thank you, Barb Rica May 12, 2024 12:29 PM [place] Elle, Bakari L 05/12/2024 2:16 PM Signed Spoke with patient, he wants to go to [place] to see a Dr for his hand I gave him the phone number to the orthopedic group there and he will call them to schedule an appointment. Bakari Allergies As of Date: 05/12/2024 (No Known Allergies) Date Reviewed: 04/29/2024 Reviewed by: Vandana Aguilera MA Student - Fully Assessed Reason for Visit: Appointment [186] Prescriptions as of 05/12/2024 - RED YEAST RICE ORAL Take by mouth. - MAGNESIUM ORAL Take by mouth. - MELATONIN ORAL Take by mouth. - semaglutide (OZEMPIC) 2 mg/dose (8 mg/3 mL) pen injector Inject 2 mg subcutaneously one time a week. - metFORMIN (GLUCOPHAGE) 500 mg tablet Take 1 tablet by mouth two times a day. - losartan-hydroCHLOROthiaz lior (HYZAAR) 100-25 mg per tablet Take 1 tablet by mouth once daily. - pregabalin (LYRICA) 50 mg capsule Take 1 capsule by mouth three times a day for 180 days. - Blood-Glucose Sensor (FREESTYLE ALEK 3 PLUS SENSOR) judy Use to monitor Bs 4 times a day - DULoxetine (CYMBALTA) 30 mg capsule Take 1 capsule by mouth once daily for 7 days, THEN 2 capsules once daily. - OZEMPIC 0.25 mg or 0.5 mg (2 mg/3 mL) pen INJECT 0.5MG SUBCUTANEOUSLYONCE A WEEK - semaglutide (OZEMPIC) 1 mg/dose (4 mg/3 mL) pen Inject 1 mg subcutaneously one time a week. - oxyCODONE-acetaminophen (PERCOCET) 5-325 mg tablet Take 1 tablet by mouth every 4 hours as needed for pain. - oxyCODONE-acetaminophen (PERCOCET) 5-325 mg tablet Take 1 tablet by mouth every 4 hours as needed for pain. - oxyCODONE-acetaminophen (PERCOCET) 7.5-325 mg tablet Take 1-2 tablets by mouth every 6 hours as needed for pain. - semaglutide (OZEMPIC) 0.25 mg or 0.5 mg (2 mg/3 mL) pen Inject 0.5 mg subcutaneously one time a week. - TURMERIC ORAL Take by mouth. - cinnamon bark (CINNAMON ORAL) Take by mouth. - Blood-Glucose Meter (ACCU-CHEK GUIDE GLUCOSE METER) Use to test glucose QID - Lancets lancets Use to test blood sugar QID - lancets (FREESTYLE LANCETS) 28 gauge Test glucose qid - blood sugar diagnostic (BLOOD GLUCOSE TEST) test strip Use to test blood sugar qid - FISH OIL-DHA-EPA ORAL Take 1 capsule by mouth once daily. - cholecalciferol, vitamin D3, (VITAMIN D3 ORAL) Take 2,000 Units by mouth. - acetaminophen (TYLENOL) 500 mg tablet Take 1,000 mg by mouth two times a day. - metoprolol tartrate, short acting, (LOPRESSOR) 50 mg tablet Take 50 mg by mouth twice daily. Meds Comments as of 07/16/2021: 07/16/21 patient did not bring list of medications with him today. 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 Normal [facility] CNOVon 04-29-2024 CNOV Office Visit (FPDOYL ) ----- SHELLY COULTER ([id number]) 1970 M Date Time Provider Department 04/29/24 4:15 PM GLORIA ROSAS FPDOYL During your visit today, we recorded the following information about you: Temperature Pulse Blood pressure Weight 98.7 degrees 91/minute 114/80 133.4 kg Height 1.803 m Gloria Rosas DO 05/02/2024 5:58 PM Signed [facility] DO Ralph [address] [place] [address] Date of Evaluation: 04/29/2024 Patient Name: Shelly Coulter : 1970 Chief Complaint: Patient presents with: Diabetes Nursing Intake: There are no exam notes on file for this visit. Subjective Mr. Coulter is a 53 year old male who presents with the following complaint(s): The history is provided by the patient and the spouse. Diabetes He presents for his follow-up diabetic visit. He has type 2 diabetes mellitus. Pertinent negatives for hypoglycemia include no dizziness, headaches or nervousness/anxiousness. Pertinent negatives for diabetes include no chest pain, no fatigue and no weakness. Hypertension This is a chronic problem. The current episode started more than 1 year ago. Pertinent negatives include no chest pain, headaches, palpitations or shortness of breath. Pain (foot) The pain is present in the left foot and right foot. This is a recurrent problem. The problem occurs daily. The problem has been unchanged. Quality: feels like walking on needles Pertinent negatives include no numbness. Hypercholesterolemia This is a chronic problem. The current episode started more than 1 year ago. Pertinent negatives include no chest pain or shortness of breath. Depression Pertinent negatives include no weakness. This is a new problem. The current episode started more than 1 month ago (after loss of son and grandchild). Past treatments include nothing. Hip Pain The pain is present in the left hip. This is a recurrent problem. There has been no history of extremity trauma (hx of replacement). The problem occurs daily. The pain is moderate. Pertinent negatives include no numbness. Review of Systems Constitutional: Negative for fatigue and unexpected weight change. HENT: Negative for nosebleeds. Eyes: Negative for redness and visual disturbance. Respiratory: Negative for apnea, cough and shortness of breath. Cardiovascular: Negative for chest pain, palpitations and leg swelling. Genitourinary: Negative for hematuria. Neurological: Negative for dizziness, weakness, light-headedness, numbness and headaches. Hematological: Does not bruise/bleed easily. Psychiatric/Behavioral: Positive for depression. The patient is not nervous/anxious. PAST MEDICAL HISTORY Diagnosis Date Atrial fibrillation (HCC) Back pain Hypertension PAST SURGICAL HISTORY Procedure Laterality Date HIP CORE DECOMPRESSION 08/2021 MRSA removed from left under arm ORTHOPEDIC SURGERY HX back x 3 TONSILLECTOMY HX 06/09/1992 TOTAL HIP REPLACEMENT Left 11/26/2022 TOTAL HIP REPLACEMENT Right 2021 FAMILY HISTORY Problem Relation Age of Onset Diabetes Mother Hypertension Mother Heart Attack Father No Known Problems Sister Social History Tobacco Use Smoking status: Former Current packs/day: 0.00 Types: Cigarettes Start date: 12/08/1983 Quit date: 12/07/2017 Years since quittin.3 Smokeless tobacco: Never Vaping Use Vaping status: Never Used Substance Use Topics Alcohol use: Yes Comment: Moderate Drug use: Never Current Outpatient Medications Medication Sig RED YEAST RICE ORAL Take by mouth. MAGNESIUM ORAL Take by mouth. MELATONIN ORAL Take by mouth. metFORMIN (GLUCOPHAGE) 500 mg tablet Take 1 tablet by mouth two times a day. semaglutide (OZEMPIC) 2 mg/dose (8 mg/3 mL) pen injector Inject 2 mg subcutaneously one time a week. losartan-hydroCHLOROthiaz lior (HYZAAR) 100-25 mg per tablet take 1 tablet once daily TURMERIC ORAL Take by mouth. cinnamon bark (CINNAMON ORAL) Take by mouth. Blood-Glucose Meter (ACCU-CHEK GUIDE GLUCOSE METER) Use to test glucose QID lancets (FREESTYLE LANCETS) 28 gauge Test glucose qid blood sugar diagnostic (BLOOD GLUCOSE TEST) test strip Use to test blood sugar qid FISH OIL-DHA-EPA ORAL Take 1 capsule by mouth once daily. cholecalciferol, vitamin D3, (VITAMIN D3 ORAL) Take 2,000 Units by mouth. acetaminophen (TYLENOL) 500 mg tablet Take 1,000 mg by mouth two times a day. metoprolol tartrate, short acting, (LOPRESSOR) 50 mg tablet Take 50 mg by mouth twice daily. OZEMPIC 0.25 mg or 0.5 mg (2 mg/3 mL) pen INJECT 0.5MG SUBCUTANEOUSLYONCE A WEEK semaglutide (OZEMPIC) 1 mg/dose (4 mg/3 mL) pen Inject 1 mg subcutaneously one time a week. (Patient not taking: Reported on 04/29/2024) oxyCODONE-a (more content not included)... Normal [facility] HEMOGLOBIN A1C (POC)on 04-29 HbA1c (Bld) [Mass fraction] 8.3 % Abnormal 4.3 - 5.6 % [facility] Comment on above: Location:[facility], [address] [place] [address], [facility] Point of care (POC) Hemoglobin A1c (HGBA1C) testing is intended to assess glucose control and provide a management tool for patients known to have diabetes and their healthcare providers. Target HGBA1C levels may depend on specific clinical circumstances. POC HGBA1C is not intended for use as a diagnostic or screening test; laboratory-based testing should be used for diagnostic purposes. The following information is supplemental and may not be applicable to specific diabetes management situations: The POC device rubber worker provides a normal range of 4.2% to 6.5% for the HGBA1C POC test. However, the [place] Diabetes Association guidelines indicate that patients with HGBA1C in the range of 5.7% to 6.4% are at increased risk for development of diabetes and that intervention by lifestyle modification may be beneficial. A HGBA1C level greater than or equal to 6.5% is considered diagnostic of diabetes, pending confirmatory testing. Use of HGBA1C testing to evaluate glucose control may not be appropriate for patients with hemoglobin variants or other conditions (e.g. anemia) that alter red blood cell lifespan. Interpretation and review of laboratory results Abnormal [facility] Lumbar Spine 2 or 3 Viewson 11-20-2023 Lumbar Spine 2 or 3 Views [facility] [address] [place] [address] Lumbar Spine 2 or 3 Views MR#: [id number] Acct: [id number] Name: SHELLY COULTER Rep #: [id number] : 1970 M 53 From: Gorge richardson MD PCP: Dr. Yuli Rosas DO Status: DEP AMB Study: Lumbar Spine 2 or 3 Views Date of Exam: Exam# [id number] Ordering Dr: Patrick Calloway DO [id number] STUDY: X-RAY - LUMBAR SPINE REASON FOR EXAM: Male, 53 years old. low back pain TECHNIQUE: 3 view(s) of the lumbar spine were obtained. COMPARISON: 09/03/2023 FINDINGS: No change. Again seen are postsurgical changes at L4-L5 status post discectomy with spacer and anterior fusion with anterior buttress plate along with surgical fusion between the spinous processes. Normal curvature. Normal alignment. All other discs remain grossly normal and stable. RAD/Lumbar Spine 2 or 3 Views IMPRESSION: No change or acute abnormality. Stable postsurgical changes. Electronically Signed: Gorge Garcia MD at 21:00 EDT , CC: Dr. Yuli Rosas DO; Dr. 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 Patrick neff DO Age/Sex: 53/M Location: [facility] Status: Signed Intake Vital Signs 03/19/23 13:06 Height 5 ft 11 in Intake Visit Reasons: LUMBAR SPINE Chief Complaint: 8 MO FU Lumbar fusion Meters Superintendent Required: No Accompanied by: Self Is patient in pain?: Yes (Left low back ) Pain scale (1-10): 6 Allergies No Known Allergies Allergy (Verified 11/20/23 08:01) Medications ???Medication ???Instructions ???Recorded ???Confirmed ???Type losartan 100 1 tab PO DAILY htn 08/02/21 11/20/23 History mg-hydrochlorothiazide 25 mg tablet (Hyzaar) metformin 500 mg tablet 500 tablet PO BID blood glucose 11/21/21 11/20/23 History control omega-3 fatty acids 1,000 mg PO DAILY SUPPLEMENT 12/25/21 11/20/23 History acetaminophen 500 mg tablet 1,000 mg PO Q6H PRN PRN pain 02/24/23 11/20/23 History metoprolol tartrate 50 mg tablet See Rx Instructions .Route 03/24/23 11/20/23 Rx .COMPLEX #180 tabs etodolac 500 mg tablet 500 mg PO BID #60 tabs 09/17/23 11/20/23 Rx semaglutide 2 mg/dose (8 mg/3 mL) mg subcut 11/20/23 11/20/23 History subcutaneous pen injector (Ozempic) PFSH Medical History Ambulates with cane Wears glasses Alcohol use History of steroid therapy Arthritis Injury of back Back pain History of edema Hypertension Former smoker Asthma Shortness of breath on exertion History of pain when walking History of echocardiogram Cardiology follow-up encounter History of atrial fibrillation Hx MRSA infection COVID-19 PAF (paroxysmal atrial fibrillation) COVID-19 virus detected (04/18/20) ETOH abuse Type 2 diabetes mellitus Essential (primary) hypertension Cystic acne History of tobacco use Obesity Prediabetes Surgical History (Updated 11/20/23 @ 08:11 by Erika Lynne) History of lumbar spinal fusion History of selective injection of anesthetic agent around lumbar nerve root History of hip replacement Hx of surgical procedure History of cardiac catheterization History of back surgery History of left heart catheterization (02/23/19) Family History Father Myocardial infarction, Onset Age: 60 Grandfather Myocardial infarction, Onset Age: 40 Social History Smoking Status: Former smoker alcohol intake: current alcohol intake frequency: 3 or more drinks per day Alcohol type: beer HPI LUMBAR SPINE Details: This documentation accurately reflects the service provided and the decisions made by me, Dr. Patrick Calloway, DO 11/20/23 0756. Part of today???s visit was documented by [ ], acting as scribe. SHELLY COULTER is a 53 year old M here today for s/p 360 fusion of L4-5, DOS: 03/11/2023. C/o left low back pain rated 6 out of 10 day. If he stands in one spot for too long, walking long distances or sitting in a certain position he has increased pain although pain has improved since surgery. He denies any radiating pain, numbness or tingling. No longer taking gabapentin. Tylenol slightly helpful. Shelly is now about 8 months postop. X-rays taken today demonstrate good position of all the hardware. I explained to him that he would not have near as much pain as he does if he did not have a job where all he does is lift all day. But he needs a job and he has been there 18 years and wants to continue working there. I gave him a note to give to his boss to hold him to 20 pounds of lifting. And if it is more than that he will have some help. Other than that he is released from my charge. Coding Level of Care Code Off vis,est,level 3 Diagnoses S/P lumbar fusion Z98.1 Time Spent (min) 20 Assessment and Plan Assessment and Plan (1) S/P lumbar fusion: Status: Acute Orders: Orders Lumbar Spine 2 or 3 Views Today G89.29 - Other chronic pain, M54.41 - Lumbago with sciatica, right side, Z98.1 - Arthrodesis status 11/20/23 0951 Date Patrick Calloway [facility] Signature: Date (if applicable) CC: Dr. Yuli Rosas DO [facility] 09-23-2023 [place] Telephone (SAVANNAHDOYL) ----- SHELLY COULTER ([id number]) 1970 M Date Time Provider Department 09/23/23 GLORIA ROSAS During your visit today, we recorded the following information about you: Carolin Ventura LPN 09/23/2023 4:17 PM Signed ----- Message from Gloria Rosas DO sent at 09/22/2023 1:28 PM EDT ----- A1c up a little. Canh he tolerate higher dose of metformin? Ozempic? Carolin Ventura LPN 09/23/2023 4:18 PM Signed Lm for pt to rtn call. Gloria Rosas DO 09/26/2023 11:06 AM Signed 2 mg max dose. But most pharm never have it. I will send script for 2 and see Gloria Rosas DO 09/26/2023 11:23 AM Signed Addended by: GLORIA ROSAS on: 09/26/2023 11:23 AM Modules accepted: Orders Allergies As of Date: 09/23/2023 (No Known Allergies) Date Reviewed: 07/10/2023 Reviewed by: Carolin Ventura LPN - Fully Assessed Reason for Visit: Results [95] Order(s):semaglutide (OZEMPIC) 2 mg/dose (8 mg/3 mL) pen injectorInject 2 mg subcutaneously one time a week.Disp: 3 mLRfl: 11 Prescriptions as of 09/26/2023 - semaglutide (OZEMPIC) 2 mg/dose (8 mg/3 mL) pen injector Inject 2 mg subcutaneously one time a week. - metFORMIN (GLUCOPHAGE) 500 mg tablet take 1 tablet twice a day - losartan-hydroCHLOROthiaz lior (HYZAAR) 100-25 mg per tablet take 1 tablet once daily - Tadalafil (CIALIS) 5 mg tablet Take 1 tablet by mouth once daily. - gabapentin (NEURONTIN) 300 mg capsule Take 600mg in the morning, 300mg in the afternoon and 600mg in the evening. - tirzepatide, weight loss (ZEPBOUND) 2.5 mg/0.5 mL pen injector Inject 2.5 mg subcutaneously one time a week. - OZEMPIC 0.25 mg or 0.5 mg (2 mg/3 mL) pen INJECT 0.5MG SUBCUTANEOUSLYONCE A WEEK - ELIQUIS 2.5 mg tab(s) - semaglutide (OZEMPIC) 1 mg/dose (4 mg/3 mL) pen Inject 1 mg subcutaneously one time a week. - oxyCODONE-acetaminophen (PERCOCET) 5-325 mg tablet Take 1 tablet by mouth every 4 hours as needed for pain. - oxyCODONE-acetaminophen (PERCOCET) 5-325 mg tablet Take 1 tablet by mouth every 4 hours as needed for pain. - oxyCODONE-acetaminophen (PERCOCET) 7.5-325 mg tablet Take 1-2 tablets by mouth every 6 hours as needed for pain. - semaglutide (OZEMPIC) 0.25 mg or 0.5 mg (2 mg/3 mL) pen Inject 0.5 mg subcutaneously one time a week. - benzonatate (TESSALON PERLES) 100 mg capsule Take 2 capsules by mouth three times daily as needed for cough. - semaglutide (OZEMPIC) 0.25 mg or 0.5 mg(2 mg/1.5 mL) pen Inject 0.25 mg subcutaneously one time a week. - tirzepatide (MOUNJARO) 7.5 mg/0.5 mL pen injector Inject 7.5 mg subcutaneously one time a week. - tirzepatide (MOUNJARO) 5 mg/0.5 mL pen injector Inject 5 mg subcutaneously one time a week. X 30 days then start 7.5 - tirzepatide (MOUNJARO) 2.5 mg/0.5 mL pen injector Inject 2.5 mg subcutaneously one time a week. X 30 days then start 5 mg - ibuprofen (MOTRIN) 800 mg tablet Take 1 tablet by mouth every 6 hours as needed for pain. - methylPREDNISolone (MEDROL, KIMBERLYN,) 4 mg Dose-Pack As Instructed per package - azithromycin (ZITHROMAX Z-KIMBERLYN) 250 mg tablet 2 tablets by mouth first day then 1 tablet the next 4 days - TURMERIC ORAL Take by mouth. - cinnamon bark (CINNAMON ORAL) Take by mouth. - Blood-Glucose Meter (ACCU-CHEK GUIDE GLUCOSE METER) Use to test glucose QID - Lancets lancets Use to test blood sugar QID - lancets (FREESTYLE LANCETS) 28 gauge Test glucose qid - blood sugar diagnostic (BLOOD GLUCOSE TEST) test strip Use to test blood sugar qid - albuterol HFA (PROVENTIL HFA, VENTOLIN HFA) 90 mcg/actuation inhaler Inhale 2 Puffs as instructed every 4 hours as needed for wheezing/shortness of breath. - FISH OIL-DHA-EPA ORAL Take 1 capsule by mouth once daily. - HYDROcodone-Acetaminophen (NORCO) 7.5-325 mg per tablet Take 1 tablet by mouth every 6 hours as needed for pain for up to 28 doses. - azithromycin (ZITHROMAX Z-KIMBERLYN) 250 mg tablet 2 tablets by mouth first day then 1 tablet the next 4 days - cholecalciferol, vitamin D3, (VITAMIN D3 ORAL) Take 2,000 Units by mouth. - acetaminophen (TYLENOL) 500 mg tablet Acetaminophen Active 1000 MG DAILY February 22, 2019 4:45pm - ELIQUIS 5 mg tab(s) Take 5 mg by mouth twice daily. - metoprolol tartrate, short acting, (LOPRESSOR) 50 mg tablet Take 50 mg by mouth twice daily. Meds Comments as of 07/16/2021: 07/16/21 patient did not bring list of medications with him today. Problem List As Of Date 09/23/2023 Noted Resolved Hypertension, essential [I10] 07/10/2020 Mixed hyperlipidemia [E78.2] 07/10/2020 Screening for colon cancer [Z12.11] 07/10/2020 Plantar fasciitis [M72.2] 07/10/2020 Benign prostatic hyperplasia with urinary frequ*07/10/2020 ED (erectile dysfunction) of organic origin [N5*07/10/2020 Low testosterone [R79.89] 07/10/2020 Hypertension [I10] Class 3 severe (more content not included)... Normal [facility] ALBUMIN/CREATININE RATIO, UR INEon 09-20-2023 Albumin DL <= 20 mg/L (U) [Mass/Vol] 14.6 mg/L Normal [facility] Comment on above: Order Comment: Speci men Type: URINE SPECIMEN Ordering Facility: [facility] Address: [address] [place] [address] Performed By: #### U ACR #### [facility] CLIA [id number] [address] [place] [address] [place] Albumin/Creatinine (U) [Mass ratio] 14 mg/g Normal <30 [facility] Comment on above: Order Comment: Speci men Type: URINE SPECIMEN Ordering Facility: [facility] Address: [address] [place] [address] Result Comment: Adul t Male and Female Nephrotic Criteria: <30 mg/g is considered normal to mildly increased 30-300 mg/g is considered moderately increased >300 mg/g is considered severely increased KDIGO. (2013). KDIGO 2012 Clinical Practice Guideline for the Evaluation and Management of Chronic Kidney Disease. Official Journal of the International Society of Nephrology, 3(1), 1-150. Performed By: #### U ACR #### [facility] CLIA [id number] [address] [place] [address] [place] Creatinine (U) [Mass/Vol] 105.9 mg/dL Normal 20.0-300.0 [facility] Comment on above: Order Comment: Speci men Type: URINE SPECIMEN Ordering Facility: [facility] Address: [address] [place] [address] Performed By: #### U ACR #### [facility] CLIA [id number] [address] [place] [address] [place] CBC W Auto Differential pane l (Bld)on 09-20-2023 Basophils (Bld) [#/Vol] 0.03 10*3/uL Normal <0.11 [facility] Comment on above: Order Comment: Speci men Type: BLOOD SPECIMEN Ordering Facility: [facility] Address: [address] [place] [address] Performed By: #### 5 7021-8 #### [facility] CLIA [id number] [address] [place] [address] [place] Basophils/100 WBC (Bld) 0.4 % Normal [facility] Comment on above: Order Comment: Speci men Type: BLOOD SPECIMEN Ordering Facility: [facility] Address: [address] [place] [address] Performed By: #### 5 7021-8 #### [facility] CLIA [id number] [address] [place] [address] [place] Differential cell count method Nom (Bld) Auto Normal [facility] Comment on above: Order Comment: Speci men Type: BLOOD SPECIMEN Ordering Facility: [facility] Address: [address] [place] [address] Performed By: #### 5 7021-8 #### [facility] CLIA [id number] [address] [place] [address] [place] Eosinophils (Bld) [#/Vol] 0.42 10*3/uL Normal <0.46 [facility] Comment on above: Order Comment: Speci men Type: BLOOD SPECIMEN Ordering Facility: [facility] Address: [address] [place] [address] Performed By: #### 5 7021-8 #### [facility] CLIA [id number] [address] [place] [address] [place] Eosinophils/100 WBC (Bld) 5.3 % Normal [facility] Comment on above: Order Comment: Speci men Type: BLOOD SPECIMEN Ordering Facility: [facility] Address: [address] [place] [address] Performed By: #### 5 7021-8 #### [facility] CLIA [id number] [address] [place] [address] [place] Erythrocyte distribution width (RBC) [Ratio] 14.8 % Normal 11.5-15.0 [facility] Comment on above: Order Comment: Speci men Type: BLOOD SPECIMEN Ordering Facility: [facility] Address: [address] [place] [address] Performed By: #### 5 7021-8 #### [facility] CLIA [id number] [address] [place] [address] [place] Hematocrit (Bld) [Volume fraction] 43.8 % Normal 39.0-51.0 [facility] Comment on above: Order Comment: Speci men Type: BLOOD SPECIMEN Ordering Facility: [facility] Address: [address] [place] [address] Performed By: #### 5 7021-8 #### [facility] CLIA [id number] [address] [place] [address] [place] Hemoglobin (Bld) [Mass/Vol] 14.2 g/dL Normal 13.0-17.0 [facility] Comment on above: Order Comment: Speci men Type: BLOOD SPECIMEN Ordering Facility: [facility] Address: [address] [place] [address] Performed By: #### 5 7021-8 #### [facility] CLIA [id number] [address] [place] [address] [place] Immature granulocytes (Bld) [#/Vol] 0.03 10*3/uL Normal <0.10 [facility] Comment on above: Order Comment: Speci men Type: BLOOD SPECIMEN Ordering Facility: [facility] Address: [address] [place] [address] Performed By: #### 5 7021-8 #### [facility] CLIA [id number] [address] [place] [address] [place] Immature granulocytes/100 WBC (Bld) 0.4 % Normal [facility] Comment on above: Order Comment: Speci men Type: BLOOD SPECIMEN Ordering Facility: [facility] Address: [address] [place] [address] Performed By: #### 5 7021-8 #### [facility] CLIA [id number] [address] [place] [address] [place] Lymphocytes (Bld) [#/Vol] 1.87 10*3/uL Normal 1.00-4.00 [facility] Comment on above: Order Comment: Speci men Type: BLOOD SPECIMEN Ordering Facility: [facility] Address: [address] [place] [address] Performed By: #### 5 7021-8 #### [facility] CLIA [id number] [address] [place] [address] [place] Lymphocytes/100 WBC (Bld) 23.7 % Normal [facility] Comment on above: Order Comment: Speci men Type: BLOOD SPECIMEN Ordering Facility: [facility] Address: [address] [place] [address] Performed By: #### 5 7021-8 #### [facility] CLIA [id number] [address] [place] [address] [place] MCH (RBC) [Entitic mass] 28.1 pg Normal 26.0-34.0 [facility] Comment on above: Order Comment: Speci men Type: BLOOD SPECIMEN Ordering Facility: [facility] Address: [address] [place] [address] Performed By: #### 5 7021-8 #### [facility] CLIA [id number] [address] [place] [address] [place] MCHC (RBC) [Mass/Vol] 32.4 g/dL Normal 30.5-36.0 [facility] Comment on above: Order Comment: Speci men Type: BLOOD SPECIMEN Ordering Facility: [facility] Address: [address] [place] [address] Performed By: #### 5 7021-8 #### [facility] CLIA [id number] [address] [place] [address] [place] MCV (RBC) [Entitic vol] 86.7 fL Normal 80.0-100.0 [facility] Comment on above: Order Comment: Speci men Type: BLOOD SPECIMEN Ordering Facility: [facility] Address: [address] [place] [address] Performed By: #### 5 7021-8 #### [facility] CLIA [id number] [address] [place] [address] [place] Monocytes (Bld) [#/Vol] 0.59 10*3/uL Normal <0.87 [facility] Comment on above: Order Comment: Speci men Type: BLOOD SPECIMEN Ordering Facility: [facility] Address: [address] [place] [address] Performed By: #### 5 7021-8 #### [facility] CLIA [id number] [address] [place] [address] [place] Monocytes/100 WBC (Bld) 7.5 % Normal [facility] Comment on above: Order Comment: Speci men Type: BLOOD SPECIMEN Ordering Facility: [facility] Address: [address] [place] [address] Performed By: #### 5 7021-8 #### [facility] CLIA [id number] [address] [place] [address] [place] Neutrophils (Bld) [#/Vol] 4.96 10*3/uL Normal 1.45-7.50 [facility] Comment on above: Order Comment: Speci men Type: BLOOD SPECIMEN Ordering Facility: [facility] Address: [address] [place] [address] Performed By: #### 5 7021-8 #### [facility] CLIA [id number] [address] [place] [address] [place] Neutrophils/100 WBC (Bld) 62.7 % Normal [facility] Comment on above: Order Comment: Speci men Type: BLOOD SPECIMEN Ordering Facility: [facility] Address: [address] [place] [address] Performed By: #### 5 7021-8 #### [facility] CLIA [id number] [address] [place] [address] [place] Nucleated RBC (Bld) [#/Vol] 10*3/uL Normal <0.01 [facility] Comment on above: Order Comment: Speci men Type: BLOOD SPECIMEN Ordering Facility: [facility] Address: [address] [place] [address] Performed By: #### 5 7021-8 #### [facility] CLIA [id number] [address] [place] [address] [place] Nucleated RBC/100 WBC (Bld) [Ratio] 0.0 /100 WBC Normal [facility] Comment on above: Order Comment: Speci men Type: BLOOD SPECIMEN Ordering Facility: [facility] Address: [address] [place] [address] Performed By: #### 5 7021-8 #### [facility] CLIA [id number] [address] [place] [address] [place] Platelet mean volume (Bld) [Entitic vol] 10.4 fL Normal 9.0-12.7 [facility] Comment on above: Order Comment: Speci men Type: BLOOD SPECIMEN Ordering Facility: [facility] Address: [address] [place] [address] Performed By: #### 5 7021-8 #### [facility] CLIA [id number] [address] [place] [address] [place] Platelets (Bld) [#/Vol] 319 10*3/uL Normal 150-400 [facility] Comment on above: Order Comment: Speci men Type: BLOOD SPECIMEN Ordering Facility: [facility] Address: [address] [place] [address] Performed By: #### 5 7021-8 #### [facility] CLIA [id number] [address] [place] [address] [place] RBC (Bld) [#/Vol] 5.05 10*6/uL Normal 4.20-6.00 [facility] Comment on above: Order Comment: Speci men Type: BLOOD SPECIMEN Ordering Facility: [facility] Address: [address] [place] [address] Performed By: #### 5 7021-8 #### [facility] CLIA [id number] [address] [place] [address] [place] WBC (Bld) [#/Vol] 7.90 10*3/uL Normal 3.70-11.00 [facility] Comment on above: Order Comment: Speci men Type: BLOOD SPECIMEN Ordering Facility: [facility] Address: [address] [place] [address] Performed By: #### 5 7021-8 #### [facility] CLIA [id number] [address] [place] [address] [place] Comprehensive metabolic 2000 panelon 09-20-2023 Albumin [Mass/Vol] 4.3 g/dL Normal 3.9-4.9 [facility] Comment on above: Order Comment: Speci men Type: BLOOD SPECIMEN Ordering Facility: [facility] Address: [address] [place] [address] Performed By: #### 2 4323-8, 15770-3, 3016-3 #### [facility] CLIA [id number] [address] [place], [place] [address] [place] ALP [Catalytic activity/Vol] 90 U/L Normal 38-113 [facility] Comment on above: Order Comment: Speci men Type: BLOOD SPECIMEN Ordering Facility: [facility] Address: [address] [place] [address] Performed By: #### 2 4323-8, 84582-1, 6-3 #### [facility] CLIA [id number] [address] [place] [address] [place] ALT [Catalytic activity/Vol] 31 U/L Normal 10-54 [facility] Comment on above: Order Comment: Speci men Type: BLOOD SPECIMEN Ordering Facility: [facility] Address: [address] [place] [address] Performed By: #### 2 4323-8, 09829-9, 3015-3 #### [facility] CLIA [id number] [address] [place] [address] [place] Anion gap [Moles/Vol] 12 mmol/L Normal 9-18 [facility] Comment on above: Order Comment: Speci men Type: BLOOD SPECIMEN Ordering Facility: [facility] Address: [address] [place] [address] Performed By: #### 2 4323-8, 54884-5, 3015-3 #### [facility] CLIA [id number] [address] [place] [address] [place] AST [Catalytic activity/Vol] 23 U/L Normal 14-40 [facility] Comment on above: Order Comment: Speci men Type: BLOOD SPECIMEN Ordering Facility: [facility] Address: [address] [place] [address] Performed By: #### 2 4323-8, 64323-1, 6-3 #### [facility] CLIA [id number] [address] [place], [place] [address] [place] Bilirubin [Mass/Vol] 0.5 mg/dL Normal 0.2-1.3 [facility] Comment on above: Order Comment: Speci men Type: BLOOD SPECIMEN Ordering Facility: [facility] Address: [address] [place] [address] Performed By: #### 2 4323-8, 82052-8, 6-3 #### [facility] CLIA [id number] [address] [place] [address] [place] Calcium [Mass/Vol] 10.4 mg/dL High 8.5-10.2 [facility] Comment on above: Order Comment: Speci men Type: BLOOD SPECIMEN Ordering Facility: [facility] Address: [address] [place] [address] Performed By: #### 2 4323-8, 71457-5, 3 #### [facility] CLIA [id number] [address] [place] [address] [place] Chloride [Moles/Vol] 104 mmol/L Normal 97-105 [facility] Comment on above: Order Comment: Speci men Type: BLOOD SPECIMEN Ordering Facility: [facility] Address: [address] [place] [address] Performed By: #### 2 4323-8, 15231-6, 3015-3 #### [facility] CLIA [id number] [address] [place] [address] [place] CO2 [Moles/Vol] 25 mmol/L Normal 22-30 [facility] Comment on above: Order Comment: Speci men Type: BLOOD SPECIMEN Ordering Facility: [facility] Address: [address] [place] [address] Performed By: #### 2 4323-8, 34486-3, 3015-3 #### [facility] CLIA [id number] [address] [place], [place] [address] [place] Creatinine [Mass/Vol] 1.13 mg/dL Normal 0.73-1.22 [facility] Comment on above: Order Comment: Lianne chappell Type: BLOOD SPECIMEN Ordering Facility: [facility] Address: [address] [place] [address] Performed By: #### 2 4323-8, 84719-8, 3016-3 #### [facility] CLIA [id number] [address] [place] [address] [place] Creatinine and Glomerular filtration rate.predicted panel (S/P/Bld) 77 mL/min/1.73m??? Normal >=60 [facility] Comment on above: Order Comment: Lianne chappell Type: BLOOD SPECIMEN Ordering Facility: [facility] Address: [address] [place] [address] Result Comment: Aracelis mated Glomerular Filtration Rate (eGFR) is calculated using the 2020 CKD-EPI creatinine equation. This equation utilizes serum creatinine, sex, and age as parameters. The creatinine assay has traceable calibration to isotope dilution-mass spectrometry. Refer to KDIGO guidelines for clinical interpretation. In patients with unstable renal function, e.g. those with acute kidney injury, the eGFR may not accurately reflect actual GFR. Performed By: #### 2 4323-8, 66493-4, 6-3 #### [facility] CLIA [id number] [address] [place] [address] [place] Glucose [Mass/Vol] 168 mg/dL High 74-99 [facility] Comment on above: Order Comment: Lianne chappell Type: BLOOD SPECIMEN Ordering Facility: [facility] Address: [address] [place] [address] Result Comment: The [place] Diabetes Association (ADA) provides guidance for cutoff values for fasting glucose and random glucose. The ADA defines fasting as no caloric intake for at least 8 hours. Fasting plasma glucose results between 100 to 125 mg/dL indicate increased risk for diabetes (prediabetes). Fasting plasma glucose results greater than or equal to 126 mg/dL meet the criteria for diagnosis of diabetes. In the absence of unequivocal hyperglycemia, results should be confirmed by repeat testing. In a patient with classic symptoms of hyperglycemia or hyperglycemic crisis, random plasma glucose results greater than or equal to 200 mg/dL meet the criteria for diagnosis of diabetes. Reference: Standards of Medical Care in Diabetes 2016, [place] Diabetes Association. Diabetes Care. 2016.39(Suppl 1). Performed By: #### 2 4323-8, 08706-5, 6-3 #### [facility] CLIA [id number] [address] [address] [place] Potassium [Moles/Vol] 4.5 mmol/L Normal 3.7-5.1 [facility] Comment on above: Order Comment: Speci men Type: BLOOD SPECIMEN Ordering Facility: [facility] Address: [address] [place] [address] Performed By: #### 2 4323-8, 10323-5, 3015-3 #### [facility] CLIA [id number] [address] [place] [address] [place] Protein [Mass/Vol] 7.2 g/dL Normal 6.3-8.0 [facility] Comment on above: Order Comment: Speci men Type: BLOOD SPECIMEN Ordering Facility: [facility] Address: [address] [place] [address] Performed By: #### 2 4323-8, 31179-8, 3015-3 #### [facility] CLIA [id number] [address] [place] [address] [place] Sodium [Moles/Vol] 141 mmol/L Normal 136-144 [facility] Comment on above: Order Comment: Speci men Type: BLOOD SPECIMEN Ordering Facility: [facility] Address: [address] [place] [address] Performed By: #### 2 4323-8, 10807-9, 3015-3 #### [facility] CLIA [id number] [address] [place] [address] [place] Urea nitrogen [Mass/Vol] 23 mg/dL Normal 9-24 [facility] Comment on above: Order Comment: Speci men Type: BLOOD SPECIMEN Ordering Facility: [facility] Address: [address] [place] [address] Performed By: #### 2 4323-8, 53483-8, 3016-3 #### [facility] CLIA [id number] [address] [place] [address] [place] HbA1c (Bld)on 09-20-2023 Average glucose Estimated from glycated hemoglobin (Bld) [Mass/Vol] 180 mg/dL Normal [facility] Comment on above: Order Comment: Lianne chappell Type: BLOOD SPECIMEN Ordering Facility: [facility] Address: [address] [place] [address] Result Comment: eAG: (Estimated average glucose) is a calculated value from HgbA1c and is exhibit display representative of the average blood glucose level in the last 2-3 month period. Performed By: #### 5 5454-3 #### [facility] CLIA [id number] [address] [place] [address] [place] HbA1c (Bld) [Mass fraction] 7.9 % High 4.3-5.6 [facility] Comment on above: Order Comment: Lianne chappell Type: BLOOD SPECIMEN Ordering Facility: [facility] Address: [address] [place] [address] Result Comment: Amer [place] Diabetes Association guidelines indicate that patients with HgbA1c in the range 5.7-6.4% are at increased risk for development of diabetes, and intervention by lifestyle modification may be beneficial. HgbA1c greater or equal to 6.5% is considered diagnostic of diabetes. Performed By: #### 5 5454-3 #### [facility] CLIA [id number] [address] [place] [address] [place] Lipid 1996 panelon 4 Cholesterol [Mass/Vol] 188 mg/dL Normal <200 [facility] Comment on above: Order Comment: Lianne chappell Type: BLOOD SPECIMEN Ordering Facility: [facility] Address: [address] [place] [address] Result Comment: <200 mg/dL, Desirable 200-239 mg/dL, Borderline high >239 mg/dL, High Performed By: #### 2 4323-8, 04183-6, 3015-3 #### [facility] CLIA [id number] [address] [place] [address] [place] Cholesterol in HDL [Mass/Vol] 34 mg/dL Low >39 [facility] Comment on above: Order Comment: Lianne men Type: BLOOD SPECIMEN Ordering Facility: [facility] Address: [address] [place] [address] Result Comment: 40-5 9 mg/dL, Acceptable >59 mg/dL, High: Negative risk factor for coronary heart disease <40 mg/dL, Low: Positive risk factor for coronary heart disease Performed By: #### 2 4323-8, 10373-7, 3015-3 #### [facility] CLIA [id number] [address] [place] [address] [place] Cholesterol in LDL [Mass/Vol] 119 mg/dL High <100 [facility] Comment on above: Order Comment: Lianne chappell Type: BLOOD SPECIMEN Ordering Facility: [facility] Address: [address] [place] [address] Result Comment: <100 mg/dL, Optimal 100-129 mg/dL, Near optimal/above optimal 130-159 mg/dL, Borderline high 160-189 mg/dL, High >189 mg/dL, Very high Secondary prevention optimal LDL Cholesterol levels are recommended to be < 70 mg/dL Performed By: #### 2 4323-8, 86597-7, 3015-3 #### [facility] CLIA [id number] [address] [place] [address] [place] Cholesterol in LDL/Cholesterol in HDL [Mass ratio] 3.50 {ratio} High <2.54 [facility] Comment on above: Order Comment: Lianne men Type: BLOOD SPECIMEN Ordering Facility: [facility] Address: [address] [place] [address] Result Comment: Refe rence: 1. National Cholesterol Education Program ATP III Guideline At-A-Glance Quick Desk Reference: National Heart, Lung, and Blood [place]. National Institutes of Health. 2001: NIH Publication No. 01-3305. 2. An International Atherosclerosis Society position paper: global recommendations for the management of dyslipidemia: executive summary, Atherosclerosis. 2014: 232(2):410-413. Performed By: #### 2 4323-8, 24192-3, 6-3 #### [facility] CLIA [id number] [address] [place] [address] [place] Cholesterol in VLDL [Mass/Vol] 35 mg/dL High <30 [facility] Comment on above: Order Comment: Speci men Type: BLOOD SPECIMEN Ordering Facility: [facility] Address: [address] [place] [address] Performed By: #### 2 4323-8, 30736-2, 3015-3 #### [facility] CLIA [id number] [address] [place] [address] [place] Cholesterol non HDL [Mass/Vol] 154 mg/dL High <130 [facility] Comment on above: Order Comment: Sabai men Type: BLOOD SPECIMEN Ordering Facility: [facility] Address: [address] [place] [address] Result Comment: <130 mg/dL, Optimal 130-159 mg/dL, Near optimal/above optimal 160-189 mg/dL, Borderline high 190-219 mg/dL, High >219 mg/dL, Very high Secondary prevention optimal non HDL Cholesterol levels are recommended to be <100 mg/dL Performed By: #### 2 4323-8, 53690-4, 3015-3 #### [facility] CLIA [id number] [address] [place] [address] [place] Cholesterol.total/Chol esterol in HDL [Mass ratio] 5.53 {ratio} High <5.10 [facility] Comment on above: Order Comment: Sabai men Type: BLOOD SPECIMEN Ordering Facility: [facility] Address: [address] [place] [address] Performed By: #### 2 4323-8, 45550-7, 3015-3 #### [facility] CLIA [id number] [address] [place] [address] [place] FASTING TIME 12 hrs Normal [facility] Comment on above: Order Comment: Speci men Type: BLOOD SPECIMEN Ordering Facility: [facility] Address: [address] [place] [address] Performed By: #### 2 4323-8, 67272-5, 3016-3 #### [facility] CLIA [id number] [address] [place] [address] [place] Triglyceride [Mass/Vol] 175 mg/dL High <150 [facility] Comment on above: Order Comment: Speci men Type: BLOOD SPECIMEN Ordering Facility: [facility] Address: [address] [place] [address] Result Comment: <150 mg/dL, Normal 150-199 mg/dL, Borderline high 200-499 mg/dL, High >499 mg/dL, Very high Performed By: #### 2 4323-8, 30492-1, 3016-3 #### [facility] CLIA [id number] [address] [place] [address] [place] PSA/PROSTATE SPECIFIC ANTIGE N SCREENINGon 09-20-2023 Prostate specific Ag [Mass/Vol] 0.70 ng/mL Normal <2.60 [facility] Comment on above: Order Comment: Speci men Type: BLOOD SPECIMEN Ordering Facility: [facility] Address: [address] [place] [address] Result Comment: Tota l PSA test methodology used is the Electrochemiluminescence Immunoassay by [employer]. Total PSA values by differing methodologies cannot be interchanged. Performed By: #### P SAS1 #### [facility] CLIA [id number] [address] [place] [address] [place] TSH SerPl-aCncon 09-20-2023 TSH Qn 1.790 m[IU]/L Normal 0.270-4.200 [facility] Comment on above: Order Comment: Speci men Type: BLOOD SPECIMEN Ordering Facility: [facility] Address: [address] [place] [address] Performed By: #### 2 4323-8, 58460-9, 3016-3 #### [facility] CLIA [id number] [address] [place] [address] [place] [address] [place] Absolute lymphocyte countOrd ered By: Aniceto Walls on 03-19-2023 Lymphocytes Auto (Unsp spec) [#/Vol] 1.33 10*3/uL 0.83-4.51 [facility] Basophil percentageOrdered B y: Aniceto Walls on 03-19-2023 Basophil percentage 0 SEEN /hpf 0-5 [facility] Basophils/100 WBC (Bld) 0.4 % 0-1 [facility] Chloride [Moles/Vol] 108 mmol/L 98-107 [facility] Eosinophils/100 WBC (Bld) 2.9 % 0-5 [facility] Glucose [Mass/Vol] 138 mg/dL 74-106 [facility] Comment on above: Fasting Glucose resu lt greater than or equal to 126 mg/dL suggests DIABETES MELLITUS per A.D.A. criteria. Neutrophils (Bld) [#/Vol] 5.9 10*3/uL 2.0-7.7 [facility] Neutrophils/100 WBC (Bld) 71.7 % 47-70 [facility] Potassium [Moles/Vol] 4.3 mmol/L 3.5-5.1 [facility] Sodium [Moles/Vol] 139 mmol/L 136-145 [facility] WBC (Bld) [#/Vol] 8.2 10*3/uL 4.4-11.0 [facility] Bilirubin Test strip Ql (U)O rdered By: Aniceto Walls on 03-19-2023 Bilirubin Ql (U) Negative Negative [facility] Blood erythrocytes count (nu mber/volume)Ordered By: Aniceto Walls on 03-19-2023 RBC (Bld) [#/Vol] 3.64 10*6/uL 4.6-6.2 [facility] Blood hemoglobin measurement (mass/volume)Ordered By: Aniceto Walls on 03-19-2023 Hemoglobin (Bld) [Mass/Vol] 10.4 g/dL 13.0-16.5 [facility] Blood lymphocytes/100 leukoc ytesOrdered By: Aniceto Walls on 03-19-2023 Lymphocytes/100 WBC (Bld) 16.1 % 19-41 [facility] Blood monocytes/100 leukocyt esOrdered By: Aniceto Walls on 03-19-2023 Monocytes/100 WBC (Bld) 7.8 % 0-10 [facility] Blood platelet mean volumeOr dered By: Aniceto Walls on 03-19-2023 Platelet mean volume (Bld) [Entitic vol] 8.8 fL 6.2-12.0 [facility] Determination of erythrocyte mean corpuscular volume (MCV)Ordered By: Aniceto Walls on 03-19-2023 MCV (RBC) [Entitic vol] 87.9 fL 80-94 [facility] Hematocrit Auto (Bld) [Volum e fraction]Ordered By: Aniceto Walls on 03-19-2023 Hematocrit (Bld) [Volume fraction] 32.0 % 40-54 [facility] Ketones Test strip Ql (U)Ord ered By: Aniceto Walls on 03-19-2023 Ketones Ql (U) 5 mg/dl Negative [facility] Laboratory - Chemistry and C hemistry - challengeOrdered By: Aniceto Walls on 03-19-2023 CO2 [Moles/Vol] 28.0 mmol/L 21.0-32.0 [facility] Urea nitrogen/Creatinine [Mass ratio] 20.6 mg/mg 10-20 [facility] Laboratory - Hematology and Cell countsOrdered By: Aniceto Walls on 03-19-2023 Erythrocyte distribution width (RBC) [Entitic vol] 48.4 fL 35.1-43.9 [facility] Erythrocyte distribution width (RBC) [Ratio] 15.1 % 11.6-14.6 [facility] Immature granulocytes/100 WBC (Bld) 1.100 % 0.0-0.9 [facility] Comment on above: IG% - Immature Granu locytes (promyelocytes, myelocytes and metamyelocytes) > 1% indicates that a LEFT SHIFT is Present. MCH (RBC) [Entitic mass] 28.6 pg 27.0-32.0 [facility] Nucleated RBC/100 WBC (Bld) [Ratio] 0 % 0-5 [facility] MCHC Auto (RBC) [Mass/Vol]Or dered By: Aniceto Walls on 03-19-2023 MCHC (RBC) [Mass/Vol] 32.5 g/dL 32-36 [facility] Mucus LM Ql (Urine sed)Order ed By: Aniceto Walls on 03-19-2023 Mucus Ql (Urine sed) 0 SEEN /hpf [facility] Nitrite Test strip Ql (U)Ord ered By: Aniceto Walls on 03-19-2023 Nitrite Ql (U) Negative Negative [facility] No Panel InformationOrdered By: Aniceto Walls on 03-19-2023 Estimated GFR (MDRD) Amer 92 mL/min >60 [facility] Comment on above: GFR Calc Estimated GFR (MDRD) Non-Af Amer 76 mL/min >60 [facility] Comment on above: Non- GFR Calc Platelets bldOrdered By: Beatris Walls on 03-19-2023 Platelets (Bld) [#/Vol] 352 10*3/uL 150-450 [facility] Protein Test strip Ql (U)Ord ered By: Aniceto Walls on 03-19-2023 Protein Ql (U) 30 mg/dl Negative [facility] Serum or plasma calcium uziel urement (mass/volume)Ordered By: Aniceto Walls on 03-19-2023 Calcium [Mass/Vol] 9.3 mg/dL 8.5-10.1 [facility] Serum or plasma creatinine m easurement (mass/volume)Ordered By: Aniceto Walls on 03-19-2023 Creatinine [Mass/Vol] 1.07 mg/dL 0.70-1.30 [facility] Comment on above: The validity of the calculated GFR & GFRAA in patients over 70 years has not been determined. Clinical correlation is essential. Serum or plasma urea nitroge n measurement (mass/volume)Ordered By: Aniceto Walls on 03-19-2023 Urea nitrogen [Mass/Vol] 22 mg/dL 7-18 [facility] Squamous epithelial cells de tection in urine sediment by light microscopyOrdered By: Aniceto Walls on 03-19-2023 Epithelial cells.squamous LM Ql (Urine sed) 0 SEEN /hpf 0-5 [facility] Thin prep Papanicolaou smear with manual screeningOrdered By: Aniceto Walls on 03-19-2023 Thin prep Papanicolaou smear with manual screening 3 5-15 [facility] Urine blood detectionOrdered By: Aniceto Walls on 03-19-2023 RBC Ql (U) Negative Negative [facility] RBC Ql (U) 0 SEEN /hpf 0-5 [facility] Urine clarityOrdered By: Beatris Walls on 03-19-2023 Clarity (U) Clear Clear [facility] Urine color determinationOrd ered By: Aniceto Walls on 03-19-2023 Color (U) Yellow Yellow [facility] Urine glucose detectionOrder ed By: Aniceto Walls on 03-19-2023 Glucose Ql (U) Normal mg/dl Normal [facility] Urine leukocyte esterase det ection by dipstickOrdered By: Aniceto Walls on 03-19-2023 Leukocyte esterase Test strip Ql (U) 25 /ul Negative [facility] Urine pHOrdered By: Aniceto sanchez on 03-19-2023 pH (U) 6.5 [pH] 5.0 - 8.0 [facility] Urine sediment bacteria coun t by microscopy (number/high power field)Ordered By: Aniceto Walls on 03-19-2023 Bacteria LM.HPF (Urine sed) [#/Area] 0 /[HPF] None Seen [facility] Urine specific gravity measu rementOrdered By: Aniceto Walls on 03-19-2023 Specific gravity (U) [Rel density] 1.015 1.002-1.030 [facility] Urobilinogen Auto test strip Ql (U)Ordered By: Aniceto Walls on 03-19-2023 Urobilinogen Ql (U) 1 mg/dl Normal [facility] Absolute lymphocyte countOrd ered By: Mian Veras on 03-14-2023 Lymphocytes Auto (Unsp spec) [#/Vol] 1.00 10*3/uL 0.83-4.51 [facility] Basophil percentageOrdered B y: Mian Veras on 03-14-2023 Basophil percentage 1.8 mg/dL 2.5-4.9 [facility] Basophils/100 WBC (Bld) 0.1 % 0-1 [facility] Chloride [Moles/Vol] 110 mmol/L 98-107 [facility] Eosinophils/100 WBC (Bld) 3.6 % 0-5 [facility] Glucose [Mass/Vol] 146 mg/dL 74-106 [facility] Comment on above: Fasting Glucose resu lt greater than or equal to 126 mg/dL suggests DIABETES MELLITUS per A.D.A. criteria. Neutrophils (Bld) [#/Vol] 6.2 10*3/uL 2.0-7.7 [facility] Neutrophils/100 WBC (Bld) 75.4 % 47-70 [facility] Potassium [Moles/Vol] 3.8 mmol/L 3.5-5.1 [facility] Sodium [Moles/Vol] 140 mmol/L 136-145 [facility] WBC (Bld) [#/Vol] 8.3 10*3/uL 4.4-11.0 [facility] Blood erythrocytes count (nu mber/volume)Ordered By: Mian Veras on 03-14-2023 RBC (Bld) [#/Vol] 3.30 10*6/uL 4.6-6.2 [facility] Blood hemoglobin measurement (mass/volume)Ordered By: Mian Veras on 03-14-2023 Hemoglobin (Bld) [Mass/Vol] 9.2 g/dL 13.0-16.5 [facility] Blood lymphocytes/100 leukoc ytesOrdered By: Mian Veras on 03-14-2023 Lymphocytes/100 WBC (Bld) 12.1 % 19-41 [facility] Blood monocytes/100 leukocyt esOrdered By: Mian Veras on 03-14-2023 Monocytes/100 WBC (Bld) 8.2 % 0-10 [facility] Blood platelet mean volumeOr dered By: Mian Veras on 03-14-2023 Platelet mean volume (Bld) [Entitic vol] 9.8 fL 6.2-12.0 [facility] Determination of erythrocyte mean corpuscular volume (MCV)Ordered By: Mian Veras on 03-14-2023 MCV (RBC) [Entitic vol] 88.8 fL 80-94 [facility] Glucose Glucometer (BldC) [M ass/Vol]Ordered By: Mian Veras on 03-14-2023 Glucose [Mass/Vol] 159 mg/dL 74-106 [facility] Comment on above: MANAGEMENT OF PATIEN T CARE PER NURSING PROTOCOL Hematocrit Auto (Bld) [Volum e fraction]Ordered By: Mian Veras on 03-14-2023 Hematocrit (Bld) [Volume fraction] 29.3 % 40-54 [facility] Laboratory - Chemistry and C hemistry - challengeOrdered By: Mian Veras on 03-14-2023 CO2 [Moles/Vol] 29.0 mmol/L 21.0-32.0 [facility] Magnesium [Mass/Vol] 2.4 mg/dL 1.6-2.6 [facility] Urea nitrogen/Creatinine [Mass ratio] 12.3 mg/mg 10-20 [facility] Laboratory - Hematology and Cell countsOrdered By: Mian Veras on 03-14-2023 Erythrocyte distribution width (RBC) [Entitic vol] 47.2 fL 35.1-43.9 [facility] Erythrocyte distribution width (RBC) [Ratio] 14.6 % 11.6-14.6 [facility] Immature granulocytes/100 WBC (Bld) 0.600 % 0.0-0.9 [facility] Comment on above: IG% - Immature Granu locytes (promyelocytes, myelocytes and metamyelocytes) > 1% indicates that a LEFT SHIFT is Present. MCH (RBC) [Entitic mass] 27.9 pg 27.0-32.0 [facility] Nucleated RBC/100 WBC (Bld) [Ratio] 0 % 0-5 [facility] MCHC Auto (RBC) [Mass/Vol]Or dered By: Mian Veras on 03-14-2023 MCHC (RBC) [Mass/Vol] 31.4 g/dL 32-36 [facility] No Panel InformationOrdered By: Mian Veras on 03-14-2023 Estimated Creatinine Clearance Calc 101.06 ml/min [facility] Estimated GFR (MDRD) Amer 114 mL/min >60 [facility] Comment on above: GFR Calc Estimated GFR (MDRD) Non-Af Amer 94 mL/min >60 [facility] Comment on above: Non- GFR Calc Platelets bldOrdered By: Reji Veras on 03-14-2023 Platelets (Bld) [#/Vol] 186 10*3/uL 150-450 [facility] Serum or plasma calcium uziel urement (mass/volume)Ordered By: Mian Veras on 03-14-2023 Calcium [Mass/Vol] 8.1 mg/dL 8.5-10.1 [facility] Serum or plasma creatinine m easurement (mass/volume)Ordered By: Mian Veras on 03-14-2023 Creatinine [Mass/Vol] 0.89 mg/dL 0.70-1.30 [facility] Comment on above: The validity of the calculated GFR & GFRAA in patients over 70 years has not been determined. Clinical correlation is essential. Serum or plasma urea nitroge n measurement (mass/volume)Ordered By: Mian Veras on 03-14-2023 Urea nitrogen [Mass/Vol] 11 mg/dL 7-18 [facility] Thin prep Papanicolaou smear with manual screeningOrdered By: Mian Veras on 03-14-2023 Thin prep Papanicolaou smear with manual screening 1 5-15 [facility] Basophil percentageOrdered B y: Scarlet White on 03-12-2023 Lactate [Moles/Vol] 1.5 mmol/L 0.4-2.0 [facility] Bilirubin [Mass/Vol] 0.70 mg/dL 0.20-1.00 [facility] Comment on above: For patients on eltr ombopag therapy, use of Dimension [place] TBIL is not recommended. Protein [Mass/Vol] 6.0 g/dL 6.4-8.2 [facility] Basophil percentageOrdered B y: Mian Veras on 03-12-2023 Basophil percentage 0-5 SEEN /hpf 0-5 [facility] Bilirubin Test strip Ql (U)O rdered By: Mian Veras on 03-12-2023 Bilirubin Ql (U) Negative Negative [facility] Ketones Test strip Ql (U)Ord ered By: Mian Veras on 03-12-2023 Ketones Ql (U) Negative Negative [facility] Laboratory - Chemistry and C hemistry - challengeOrdered By: Scarlet Bansal on 03-12-2023 ALP [Catalytic activity/Vol] 73 U/L 45-117 [facility] ALT [Catalytic activity/Vol] 36 U/L 16-61 [facility] Globulin (S) [Mass/Vol] 3.1 g/dL 2.2-4.2 [facility] Laboratory - Microbiology an d Antimicrobial susceptibilityOrdered By: Scarlet Bansal on 03-12-2023 SARS-CoV-2 (COVID-19) RNA PETER+probe Ql (Unsp spec) [facility] - Microbiology an d Antimicrobial susceptibilityOrdered By: Patrick Calloway on 03-12-2023 Bacteria identified Cx Nom (Bld) No growth in 5 days. [facility] Mucus LM Ql (Urine sed)Order ed By: Mian Veras on 03-12-2023 Mucus Ql (Urine sed) 0 SEEN /hpf [facility] Nitrite Test strip Ql (U)Ord ered By: Mian Veras on 03-12-2023 Nitrite Ql (U) Negative Negative [facility] Protein Test strip Ql (U)Ord ered By: Mian Veras on 03-12-2023 Protein Ql (U) 15 mg/dl Negative [facility] Serum or plasma albumin uziel urement (mass/volume)Ordered By: Scarlet Bansal on 03-12-2023 Albumin [Mass/Vol] 2.9 g/dL 3.2-5.0 [facility] Serum or plasma albumin/glob ulin mass ratioOrdered By: Scarlet Bansal on 03-12-2023 Albumin/Globulin [Mass ratio] 0.9 {ratio} 0.9-2.4 [facility] Squamous epithelial cells de tection in urine sediment by light microscopyOrdered By: Mian Veras on 03-12-2023 Epithelial cells.squamous LM Ql (Urine sed) 0-5 SEEN /hpf 0-5 [facility] Thin prep Papanicolaou smear with manual screeningOrdered By: Scarlet Bansal on 03-12-2023 Thin prep Papanicolaou smear with manual screening 23 U/L 15-37 [facility] Urine blood detectionOrdered By: Mian Veras on 03-12-2023 RBC Ql (U) 10 /ul Negative [facility] RBC Ql (U) 0 SEEN /hpf 0-5 [facility] Urine clarityOrdered By: Reji Veras on 03-12-2023 Clarity (U) Clear Clear [facility] Urine color determinationOrd ered By: Mian Veras on 03-12-2023 Color (U) Yellow Yellow [facility] Urine glucose detectionOrder ed By: Mian Veras on 03-12-2023 Glucose Ql (U) Normal mg/dl Normal [facility] Urine leukocyte esterase det ection by dipstickOrdered By: Mian Veras on 03-12-2023 Leukocyte esterase Test strip Ql (U) Negative Negative [facility] Urine pHOrdered By: Mian duffy on 03-12-2023 pH (U) 6.0 [pH] 5.0 - 8.0 [facility] Urine sediment bacteria coun t by microscopy (number/high power field)Ordered By: Mian Veras on 03-12-2023 Bacteria LM.HPF (Urine sed) [#/Area] 0 /[HPF] None Seen [facility] Urine specific gravity measu rementOrdered By: Mian Veras on 03-12-2023 Specific gravity (U) [Rel density] 1.020 1.002-1.030 [facility] Urobilinogen Auto test strip Ql (U)Ordered By: Mian Veras on 03-12-2023 Urobilinogen Ql (U) Normal mg/dl Normal [facility] HIV 1 and HIV-2 antibody ass ay with HIV-1 p24 antigen detectionOrdered By: Patrick Calloway on 02-25-2023 HIV 1+2 Ab+HIV1 p24 Ag IA Ql Non-Reactive Nonreactive [facility] No Panel InformationOrdered By: Patrick Calloway on 02-25-2023 Nasal Screen MRSA/MSSA [facility] Hepatitis A Antibody Total Negative Negative [facility] Comment on above: Comment: The HAV tot al antibody assay detects both IgG andIgM but does not differentiate between them. A negativeresult suggests susceptibility to infection. A positiveresult could be due to vaccination, previously resolvedinfection or active infection. Testing for HAV IgM shouldbe performed if active HAV infection is suspected. [facility] profiles that will automatically reflex positive HAVtotal antibody results to IgM (e.g., panel #[id number] HAVAntibody w/ Rfx).Performed at: [facility] [id number] Director: Tomer Bertrand PhD, Phone: [phone] Hepatitis C Antibody Non-Reactive Nonreactive [facility] Comment on above: Non Reactive: < 0.8 Equivocal: >/= 0.8 to < 1.0 Reactive: >/= 1.0The CDC recommends that a reactive/equivocal HCV antibody result be followed up by the HCV Nucleic Acid Amplificationtest (229235) Serum hepatitis B virus surf joanna antibody IgG detectionOrdered By: Patrick Calloway on 02-25-2023 HBV surface IgG Ql (S) Non-Reactive [facility] Comment on above: Non Reactive: Incons istent with immunity less than <10 mIU/mL Reactive: Consistent with immunity greater than or equal to 10 mIU/mL Whole blood hemoglobin A1c/t otal hemoglobin ratio (mass fraction)Ordered By: Luis Antonio Callahan on 02-25-2023 HbA1c (Bld) [Mass fraction] 6.8 % 3.8-5.6 [facility] Comment on above: Normal < 5.7 % Predi abetic 5.7 - 6.4 % Diabetic >or= 6.5 % Please note range changes. Glucose Glucometer (BldC) [M ass/Vol]Ordered By: Dr. Whalen on 11-26-2022 Glucose [Mass/Vol] 129 mg/dL 74-106 [facility] Comment on above: MANAGEMENT OF PATIEN T CARE PER NURSING PROTOCOL No Panel InformationOrdered By: Dr. Whalen on 11-14-2022 Nasal Screen MRSA/MSSA [facility] Absolute lymphocyte countOrd ered By: Dr. Whalen on 11-13-2022 Lymphocytes Auto (Unsp spec) [#/Vol] 1.91 10*3/uL 0.83-4.51 [facility] Basophil percentageOrdered B y: Dr. Whalen on 11-13-2022 Basophils/100 WBC (Bld) 0.5 % 0-1 [facility] Chloride [Moles/Vol] 108 mmol/L 98-107 [facility] Eosinophils/100 WBC (Bld) 4.8 % 0-5 [facility] Glucose [Mass/Vol] 143 mg/dL 74-106 [facility] Comment on above: Fasting Glucose resu lt greater than or equal to 126 mg/dL suggests DIABETES MELLITUS per A.D.A. criteria. Neutrophils (Bld) [#/Vol] 5.3 10*3/uL 2.0-7.7 [facility] Neutrophils/100 WBC (Bld) 64.0 % 47-70 [facility] Potassium [Moles/Vol] 4.4 mmol/L 3.5-5.1 [facility] Sodium [Moles/Vol] 139 mmol/L 136-145 [facility] WBC (Bld) [#/Vol] 8.3 10*3/uL 4.4-11.0 [facility] Blood erythrocytes count (nu mber/volume)Ordered By: Dr. Whalen on 11-13-2022 RBC (Bld) [#/Vol] 4.76 10*6/uL 4.6-6.2 [facility] Blood hemoglobin measurement (mass/volume)Ordered By: Dr. Whalen on 11-13-2022 Hemoglobin (Bld) [Mass/Vol] 13.5 g/dL 13.0-16.5 [facility] Blood lymphocytes/100 leukoc ytesOrdered By: Dr. Whalen on 11-13-2022 Lymphocytes/100 WBC (Bld) 22.9 % 19-41 [facility] Blood monocytes/100 leukocyt esOrdered By: Dr. Whalen on 11-13-2022 Monocytes/100 WBC (Bld) 7.3 % 0-10 [facility] Blood platelet mean volumeOr dered By: Dr. Whalen on 11-13-2022 Platelet mean volume (Bld) [Entitic vol] 10.1 fL 6.2-12.0 [facility] Determination of erythrocyte mean corpuscular volume (MCV)Ordered By: Dr. Whalen on 11-13-2022 MCV (RBC) [Entitic vol] 89.5 fL 80-94 [facility] Hematocrit Auto (Bld) [Volum e fraction]Ordered By: Dr. Whalen on 11-13-2022 Hematocrit (Bld) [Volume fraction] 42.6 % 40-54 [facility] INR in Blood by Coagulation assayOrdered By: Dr. Whalen on 11-13-2022 INR Coag (Bld) [Relative time] 0.9 {INR} [facility] Laboratory - Chemistry and C hemistry - challengeOrdered By: Dr. Whalen on 11-13-2022 CO2 [Moles/Vol] 26.0 mmol/L 21.0-32.0 [facility] Magnesium [Mass/Vol] 2.0 mg/dL 1.6-2.6 [facility] Urea nitrogen/Creatinine [Mass ratio] 21.7 mg/mg 10-20 [facility] Laboratory - CoagulationOrde red By: Dr. Whalen on 11-13-2022 aPTT Coag (Bld) [Time] 28.6 s 24.1-36.2 [facility] PT Coag (PPP) [Time] 12.5 s 11.7-14.9 [facility] Laboratory - Hematology and Cell countsOrdered By: Dr. Whalen on 11-13-2022 Erythrocyte distribution width (RBC) [Entitic vol] 43.6 fL 35.1-43.9 [facility] Erythrocyte distribution width (RBC) [Ratio] 13.3 % 11.6-14.6 [facility] Immature granulocytes/100 WBC (Bld) 0.500 % 0.0-0.9 [facility] Comment on above: IG% - Immature Granu locytes (promyelocytes, myelocytes and metamyelocytes) > 1% indicates that a LEFT SHIFT is Present. MCH (RBC) [Entitic mass] 28.4 pg 27.0-32.0 [facility] Nucleated RBC/100 WBC (Bld) [Ratio] 0 % 0-5 [facility] MCHC Auto (RBC) [Mass/Vol]Or dered By: Dr. Whalen on 11-13-2022 MCHC (RBC) [Mass/Vol] 31.7 g/dL 32-36 [facility] No Panel InformationOrdered By: Dr. Whalen on 11-13-2022 Estimated GFR (MDRD) Amer 62 mL/min >60 [facility] Comment on above: GFR Calc Estimated GFR (MDRD) Non-Af Amer 51 mL/min >60 [facility] Comment on above: Non- GFR Calc Fructosamine 268 umol/L 0-285 [facility] Comment on above: Published reference interval for apparently healthysubjects between age 20 and 60 is 205 - 285 umol/L and in apoorly controlled diabetic population is 228 - 563 umol/Lwith a mean of 396 umol/L.Performed at: [email or web address] [id number] Director: Tomer Bertrand PhD, Phone: [phone] Platelets bldOrdered By: Dr. Whalen on 11-13-2022 Platelets (Bld) [#/Vol] 320 10*3/uL 150-450 [facility] Serum or plasma calcium uziel urement (mass/volume)Ordered By: Dr. Whalen on 11-13-2022 Calcium [Mass/Vol] 10.6 mg/dL 8.5-10.1 [facility] Serum or plasma creatinine m easurement (mass/volume)Ordered By: Dr. Whalen on 11-13-2022 Creatinine [Mass/Vol] 1.52 mg/dL 0.70-1.30 [facility] Comment on above: The validity of the calculated GFR & GFRAA in patients over 70 years has not been determined. Clinical correlation is essential. Serum or plasma urea nitroge n measurement (mass/volume)Ordered By: Dr. Whalen on 11-13-2022 Urea nitrogen [Mass/Vol] 33 mg/dL 7-18 [facility] Thin prep Papanicolaou smear with manual screeningOrdered By: Dr. Whalen on 11-13-2022 Thin prep Papanicolaou smear with manual screening 5 5-15 [facility] Whole blood hemoglobin A1c/t otal hemoglobin ratio (mass fraction)Ordered By: Dr. Whalen on 11-13-2022 HbA1c (Bld) [Mass fraction] 6.9 % 3.8-5.6 [facility] Comment on above: Normal < 5.7 % Predi abetic 5.7 - 6.4 % Diabetic >or= 6.5 % Please note range changes. CBC W Auto Differential pane l (Bld)on 06-15-2022 Basophils (Bld) [#/Vol] 0.04 10*3/uL <0.11 k/uL [facility] Basophils/100 WBC (Bld) 0.5 % [facility] Differential cell count method Nom (Bld) Auto [facility] Eosinophils (Bld) [#/Vol] 0.35 10*3/uL <0.46 k[facility]uL [facility] [place] Eosinophils/100 WBC (Bld) 4.3 % [facility] [place] [facility] Erythrocyte distribution width (RBC) [Ratio] 13.2 % 11.5 - 15.0 % [facility] [place] Hematocrit (Bld) [Volume fraction] 43.1 % 39.0 - 51.0 % [facility] [place] Hemoglobin (Bld) [Mass/Vol] 14.0 g/dL 13.0 - 17.0 g/dL [facility] [place] Immature granulocytes (Bld) [#/Vol] 0.03 10*3/uL <0.10 k/uL [facility] [place] Immature granulocytes/100 WBC (Bld) 0.4 % [facility] [place] [facility] Lymphocytes (Bld) [#/Vol] 2.10 10*3/uL 1.00 - 4.00 k/uL [facility] [place] Lymphocytes/100 WBC (Bld) 25.6 % [facility] [place] MCH (RBC) [Entitic mass] 28.5 pg 26.0 - 34.0 pg [facility] [place] MCHC (RBC) [Mass/Vol] 32.5 g/dL 30.5 - 36.0 g/dL [facility] [place] MCV (RBC) [Entitic vol] 87.8 fL 80.0 - 100.0 fL [facility] [place] Monocytes (Bld) [#/Vol] 0.53 10*3/uL <0.87 k/uL [facility] [place] Monocytes/100 WBC (Bld) 6.5 % [facility] [place] Neutrophils (Bld) [#/Vol] 5.16 10*3/uL 1.45 - 7.50 k/uL [facility] [place] Neutrophils/100 WBC (Bld) 62.7 % [facility] [place] Nucleated RBC (Bld) [#/Vol] <0.01 k/uL [facility] [place] Nucleated RBC/100 WBC (Bld) [Ratio] 0.0 /100 WBC [facility] [place] Platelet mean volume (Bld) [Entitic vol] 10.0 fL 9.0 - 12.7 fL [facility] [place] Platelets (Bld) [#/Vol] 271 10*3/uL 150 - 400 k/uL [facility] [place] RBC (Bld) [#/Vol] 4.91 10*6/uL 4.20 - 6.0 0 m/uL [facility] [place] WBC (Bld) [#/Vol] 8.21 10*3/uL 3.70 - 11. 00 k/uL [facility] [place] Comprehensive metabolic 2000 panelon 06-15-2022 Albumin [Mass/Vol] 4.5 g/dL 3.9 - 4.9 g/dL [facility] [place] ALP [Catalytic activity/Vol] 85 U/L 38 - 113 U/L [facility] [place] [facility] ALT [Catalytic activity/Vol] 29 U/L 10 - 54 U/L [facility] [place] Anion gap [Moles/Vol] 10 mmol/L 9 - 18 mmol/L [facility] [place] [facility] AST [Catalytic activity/Vol] 20 U/L 14 - 40 U/L [facility] [place] Bilirubin [Mass/Vol] 0.6 mg/dL 0.2 - 1 .3 mg/dL [facility] [place] Calcium [Mass/Vol] 10.6 mg/dL High 8.5 - 10. 2 mg/dL [facility] [place] Chloride [Moles/Vol] 103 mmol/L 97 - 10 5 mmol/L [facility] [place] CO2 [Moles/Vol] 26 mmol/L 22 - 30 mmol/L [facility] [place] Creatinine [Mass/Vol] 1.11 mg/dL 0.73 - 1.22 mg/dL [facility] [place] Estimated Glomerular Filtration Rate 79 mL/min/1.73m >=60 mL/min/1.73m [facility] [place] Glucose [Mass/Vol] 149 mg/dL High 74 - 99 mg/dL [facility] [place] Potassium [Moles/Vol] 5.1 mmol/L 3.7 - 5.1 mmol/L [facility] [place] Protein [Mass/Vol] 7.3 g/dL 6.3 - 8.0 g/dL [facility] [place] Sodium [Moles/Vol] 139 mmol/L 136 - 144 mmol/L [facility] [place] Urea nitrogen [Mass/Vol] 24 mg/dL 9 - 24 mg/dL [facility] [place] HbA1c (Bld)on 06-15-2022 Average glucose Estimated from glycated hemoglobin (Bld) [Mass/Vol] 174 mg/dL [facility] [place] HbA1c (Bld) [Mass fraction] 7.7 % High 4.3 - 5.6 % [facility] [place] Lipid 1996 panelon 3 Cholesterol [Mass/Vol] 212 mg/dL High <200 mg/dL [facility] Cholesterol in HDL [Mass/Vol] 38 mg/dL Low >39 mg/dL [facility] [place] Cholesterol in LDL [Mass/Vol] 133 mg/dL High <100 mg/dL [facility] [place] Cholesterol in LDL/Cholesterol in HDL [Mass ratio] 3.50 {ratio} High <2.54 [facility] [place] Cholesterol in VLDL [Mass/Vol] 41 mg/dL High <30 mg/dL [facility] [place] Cholesterol non HDL [Mass/Vol] 174 mg/dL High <130 mg/dL [facility] [place] Cholesterol.total/Chol esterol in HDL [Mass ratio] 5.58 {ratio} High <5.10 [facility] [place] Fasting Time 12 hrs [facility] [place] Triglyceride [Mass/Vol] 206 mg/dL High <150 mg/dL [facility] [place] PSA/PROSTSPECAG SCRNon 06-15 Prostate specific Ag [Mass/Vol] 0.56 ng/mL <2.60 ng/mL [facility] [place] TSH BLDon 06-15-2022 TSH Qn 1.990 m[IU]/L 0.270 - 4.200 mIU/L [facility] [place] Glucose Glucometer (dC) [M ass/Vol]on 01-08-2022 Glucose [Mass/Vol] 169 mg/dL 74-106 [facility] Work Phone: Comment on above: MANAGEMENT OF PATIEN T CARE PER NURSING PROTOCOL Laboratory - Chemistry and C hemistry - challengeon 12-27-2021 Magnesium [Mass/Vol] 1.9 mg/dL 1.6-2.6 [facility] Work Phone: No Panel Informationon 12-12 Fructosamine 250 umol/L 0-285 [facility] Work Phone: Comment on above: Published reference interval for apparently healthysubjects between age 20 and 60 is 205 - 285 umol/L and in apoorly controlled diabetic population is 228 - 563 umol/Lwith a mean of 396 umol/L.Performed at: [address], [place], [place] [id number] Director: Tomer Bertrand PhD, Phone: [phone] Whole blood hemoglobin A1c/t otal hemoglobin ratio (mass fraction)on 12-12-2021 HbA1c (Bld) [Mass fraction] 7.3 % Abnormal 4.0 - 6.0 % [facility] Work Phone: Comment on above: Normal < 5.7 % Predi abetic 5.7 - 6.4 % Diabetic >or= 6.5 % Please note range changes. Absolute lymphocyte counton 11-02-2021 Lymphocytes Auto (Unsp spec) [#/Vol] 2.26 10*3/uL 0.83-4.51 [facility] Work Phone: Basophil percentageon 2021 Basophils/100 WBC (Bld) 0.4 % 0-1 [facility] Work Phone: Chloride [Moles/Vol] 105 mmol/L 98-107 [facility] Work Phone: Eosinophils/100 WBC (Bld) 3.3 % 0-5 [facility] Work Phone: Glucose [Mass/Vol] 190 mg/dL 74-106 [facility] Work Phone: Comment on above: Fasting Glucose resu lt greater than or equal to 126 mg/dL suggests DIABETES MELLITUS per A.D.A. criteria. Neutrophils (Bld) [#/Vol] 4.7 10*3/uL 2.0-7.7 [facility] Work Phone: Neutrophils/100 WBC (Bld) 59.5 % 47-70 [facility] Work Phone: Potassium [Moles/Vol] 4.0 mmol/L 3.5-5.1 [facility] Work Phone: Sodium [Moles/Vol] 138 mmol/L 136-145 [facility] Work Phone: WBC (Bld) [#/Vol] 7.8 10*3/uL 4.4-11.0 [facility] Work Phone: Blood erythrocytes count (nu mber/volume)on 11-02-2021 RBC (Bld) [#/Vol] 4.65 10*6/uL 4.6-6.2 [facility] Work Phone: Blood hemoglobin measurement (mass/volume)on 11-02-2021 Hemoglobin (Bld) [Mass/Vol] 13.2 g/dL 13.0-16.5 [facility] Work Phone: Blood lymphocytes/100 leukoc yteson 11-02-2021 Lymphocytes/100 WBC (Bld) 28.9 % 19-41 [facility] Work Phone: Blood monocytes/100 leukocyt eson 11-02-2021 Monocytes/100 WBC (Bld) 7.5 % 0-10 [facility] Work Phone: Blood platelet mean volumeon 11-02-2021 Platelet mean volume (Bld) [Entitic vol] 9.9 fL 6.2-12.0 [facility] Work Phone: Determination of erythrocyte mean corpuscular volume (MCV)on 11-02-2021 MCV (RBC) [Entitic vol] 86.2 fL 80-94 [facility] Work Phone: Hematocrit Auto (Bld) [Volum e fraction]on 11-02-2021 Hematocrit (Bld) [Volume fraction] 40.1 % 40-54 [facility] Work Phone: INR in Blood by Coagulation assayon 11-02-2021 INR Coag (Bld) [Relative time] 1.0 {INR} [facility] Work Phone: Laboratory - Chemistry and C hemistry - challengeon 11-02-2021 CO2 [Moles/Vol] 29.0 mmol/L 21.0-32.0 [facility] Work Phone: Magnesium [Mass/Vol] 2.0 mg/dL 1.6-2.6 [facility] Work Phone: Urea nitrogen/Creatinine [Mass ratio] 18.8 mg/mg 10-20 [facility] Work Phone: Laboratory - Coagulationon 0 11-02-2021 aPTT Coag (Bld) [Time] 27.6 s 24.1-[facility] Work Phone: PT Coag (PPP) [Time] 12.4 s 11.7-14.[address] [facility] Work Phone: Laboratory - Hematology and Cell countson 11-02-2021 Erythrocyte distribution width (RBC) [Entitic vol] 41.6 fL 35.1-43.9 [facility] Work Phone: Erythrocyte distribution width (RBC) [Ratio] 13.4 % 11.6-14.6 [facility] Work Phone: Immature granulocytes/100 WBC (Bld) 0.400 % 0.0-0.9 [facility] Work Phone: Comment on above: IG% - Immature Granu locytes (promyelocytes, myelocytes and metamyelocytes) > 1% indicates that a LEFT SHIFT is Present. MCH (RBC) [Entitic mass] 28.4 pg 27.0-32.0 [facility] Work Phone: Nucleated RBC/100 WBC (Bld) [Ratio] 0 % 0-5 [facility] Work Phone: MCHC Auto (RBC) [Mass/Vol]on 11-02-2021 MCHC (RBC) [Mass/Vol] 32.9 g/dL 32-36 [facility] Work Phone: No Panel Informationon 11-02 Estimated GFR (MDRD) Amer 72 mL/min >60 [facility] Work Phone: Comment on above: GFR Calc Estimated GFR (MDRD) Non-Af Amer 60 mL/min >60 [facility] Work Phone: Comment on above: Non- GFR Calc Fructosamine 334 umol/L 0-285 [facility] Work Phone: Comment on above: Published reference interval for apparently healthysubjects between age 20 and 60 is 205 - 285 umol/L and in apoorly controlled diabetic population is 228 - 563 umol/Lwith a mean of 396 umol/L.Performed at: [facility] [id number] Director: Tomer Bertrand PhD, Phone: [phone] Platelets bldon 11-02-2021 Platelets (Bld) [#/Vol] 299 10*3/uL 150-450 [facility] Work Phone: Serum or plasma calcium uziel urement (mass/volume)on 11-02-2021 Calcium [Mass/Vol] 9.9 mg/dL 8.5-10.1 [facility] Work Phone: Serum or plasma creatinine m easurement (mass/volume)on 11-02-2021 Creatinine [Mass/Vol] 1.33 mg/dL 0.70-1.30 [facility] Work Phone: Comment on above: The validity of the calculated GFR & GFRAA in patients over 70 years has not been determined. Clinical correlation is essential. Serum or plasma urea nitroge n measurement (mass/volume)on 11-02-2021 Urea nitrogen [Mass/Vol] 25 mg/dL 12-24 [facility] Work Phone: Thin prep Papanicolaou smear with manual screeningon 11-02-2021 Thin prep Papanicolaou smear with manual screening 4 5-15 [facility] Work Phone: Whole blood hemoglobin A1c/t otal hemoglobin ratio (mass fraction)on 11-02-2021 HbA1c (Bld) [Mass fraction] 9.2 % 3.8-5.6 [facility] [place] Comment on above: Normal < 5.7 % Predi abetic 5.7 - 6.4 % Diabetic >or= 6.5 % Please note range changes. Absolute lymphocyte counton 06-26-2021 Lymphocytes Auto (Unsp spec) [#/Vol] 1.55 10*3/uL 0.83-4.51 [facility] Work Phone: Basophil percentageon 2021 Basophils/100 WBC (Bld) 0.4 % 0-1 [facility] Work Phone: Chloride [Moles/Vol] 107 mmol/L 98-107 [facility] Work Phone: Eosinophils/100 WBC (Bld) 3.6 % 0-5 [facility] Work Phone: Glucose [Mass/Vol] 157 mg/dL 74-106 [facility] Work Phone: Comment on above: Fasting Glucose resu lt greater than or equal to 126 mg/dL suggests DIABETES MELLITUS per A.D.A. criteria. Neutrophils (Bld) [#/Vol] 4.6 10*3/uL 2.0-7.7 [facility] Work Phone: Neutrophils/100 WBC (Bld) 67.4 % 47-70 [facility] Work Phone: Potassium [Moles/Vol] 4.0 mmol/L 3.5-5.1 [facility] Work Phone: Sodium [Moles/Vol] 139 mmol/L 136-145 [facility] Work Phone: WBC (Bld) [#/Vol] 6.8 10*3/uL 4.4-11.0 [facility] Work Phone: [phone] Blood erythrocytes count (nu mber/volume)on 06-26-2021 RBC (Bld) [#/Vol] 4.85 10*6/uL 4.6-6.2 [facility] Work Phone: Blood hemoglobin measurement (mass/volume)on 06-26-2021 Hemoglobin (Bld) [Mass/Vol] 14.0 g/dL 13.0-16.5 [facility] Work Phone: Blood lymphocytes/100 leukoc yteson 06-26-2021 Lymphocytes/100 WBC (Bld) 23.0 % 19-41 [facility] Work Phone: [phone] Blood monocytes/100 leukocyt eson 06-26-2021 Monocytes/100 WBC (Bld) 5.2 % 0-10 [facility] Work Phone: Blood platelet mean volumeon 06-26-2021 Platelet mean volume (Bld) [Entitic vol] 9.6 fL 6.2-12.0 [facility] Work Phone: Determination of erythrocyte mean corpuscular volume (MCV)on 06-26-2021 MCV (RBC) [Entitic vol] 84.9 fL 80-94 [facility] Work Phone: Erythrocyte sedimentation ra alicia 06-26-2021 ESR (Bld) [Velocity] 11 mm/h 0-20 [facility] Work Phone: Hematocrit Auto (Bld) [Volum e fraction]on 06-26-2021 Hematocrit (Bld) [Volume fraction] 41.2 % 40-54 [facility] Work Phone: Laboratory - Chemistry and C hemistry - challengeon 06-26-2021 CO2 [Moles/Vol] 24.0 mmol/L 21.0-32.0 [facility] Work Phone: Urea nitrogen/Creatinine [Mass ratio] 22.7 mg/mg 10- [facility] Work Phone: Laboratory - Hematology and Cell countson 06-26-2021 Erythrocyte distribution width (RBC) [Entitic vol] 42.5 fL 35.1-43.9 [facility] Work Phone: Erythrocyte distribution width (RBC) [Ratio] 13.6 % 11.6-14.6 [facility] Work Phone: Immature granulocytes/100 WBC (Bld) 0.400 % 0.0-0.9 [facility] Work Phone: Comment on above: IG% - Immature Granu locytes (promyelocytes, myelocytes and metamyelocytes) > 1% indicates that a LEFT SHIFT is Present. MCH (RBC) [Entitic mass] 28.9 pg 27.0-32.0 [facility] Work Phone: Nucleated RBC/100 WBC (Bld) [Ratio] 0 % 0-5 [facility] Work Phone: MCHC Auto (RBC) [Mass/Vol]on 06-26-2021 MCHC (RBC) [Mass/Vol] 34.0 g/dL 32-36 [facility] Work Phone: No Panel Informationon 06-26 Estimated Creatinine Clearance Calc 100.04 ml/min [facility] Work Phone: Estimated GFR (MDRD) Amer 110 mL/min >60 [facility] Work Phone: Comment on above: GFR Calc Estimated GFR (MDRD) Non-Af Amer 91 mL/min >60 [facility] Work Phone: Comment on above: Non- GFR Calc Platelets bldon 06-26-2021 Platelets (Bld) [#/Vol] 243 10*3/uL 150-450 [facility] Work Phone: Serum or plasma C reactive p rotein measurement (mass/volume)on 06-26-2021 CRP [Mass/Vol] 12.80 mg/L 0.0-3.0 [facility] Work Phone: Comment on above: C-Reactive Protein ( CRP) provides useful information for thediagnosis, therapy and monitoring of inflammatory processesand associated diseases. For the evaluation of Relative Riskfor Cardiovascular Disease, a High Sensitivity CRP (HSCRP)should be ordered. Serum or plasma calcium uziel urement (mass/volume)on 06-26-2021 Calcium [Mass/Vol] 9.4 mg/dL 8.5-10.1 [facility] Work Phone: Serum or plasma creatinine m easurement (mass/volume)on 06-26-2021 Creatinine [Mass/Vol] 0.92 mg/dL 0.70-1.30 [facility] Work Phone: Comment on above: The validity of the calculated GFR & GFRAA in patients over 70 years has not been determined. Clinical correlation is essential. Serum or plasma urea nitroge n measurement (mass/volume)on 06-26-2021 Urea nitrogen [Mass/Vol] 21 mg/dL 7-18 [facility] Work Phone: Thin prep Papanicolaou smear with manual screeningon 06-26-2021 Thin prep Papanicolaou smear with manual screening 8 5-15 [facility] Work Phone: XR ELBOW MINIMUM 3 VIEWS LEF Ton 09-30-2018 XR ELBOW MINIMUM 3 VIEWS LEFT ORIGINAL XR ELBOW MINIMUM 3 VIEWS LEFT CLINICAL STATEMENT: pain. COMPARISON: None FINDINGS: No acute fracture or dislocation is seen. There is no significant joint effusion. The joint spaces are maintained. There are mild degenerative changes, particularly at the medial epicondyle. There is no radiopaque foreign body. IMPRESSION: No acute fracture or dislocation. Interpreted By: Malorie Christie MD Preliminary Report By: Malorie Christie MD Electronically Signed By: Malorie Christie MD Dictated Date: 09/30/2018 10:46:33 AM Prelim Date: 09/30/2018 10:46:33 AM Sign Date: 09/30/2018 10:47:42 AM Normal [facility] ([place]) No Panel Information Nasal Screen MRSA/MSSA [facility] Work Phone: Vital Signs Date Time Vital Sign Value Performing Clinician Facility 10-28-2024 00:00-0400 Body temperature 99.2 [degF] Dr. Yuli Rosas DO Work Phone: [facility] 10-28-2024 00:00-0400 Diastolic blood pressure 80 mm[Hg] Dr. Yuli Rosas DO Work Phone: [facility] 10-28-2024 00:00-0400 Heart rate 102 /min Dr. Yuli Rosas DO Work Phone: [facility] 10-28-2024 00:00-0400 Respiratory rate 16 /min Dr. Yuli Rosas DO Work Phone: [facility] 10-28-2024 00:00-0400 SaO2% (BldA) [Mass fraction] 94 % Dr. Yuli Rosas DO Work Phone: [facility] 10-28-2024 00:00-0400 Systolic blood pressure 115 mm[Hg] Dr. Yuli Rosas DO Work Phone: [facility] 10-27-2024 21:44-0400 Body height 180.[address] Yuli Rosas DO Work Phone: [facility] 10-27-2024 21:44-0400 Body mass index (BMI) [Ratio] 38.8 kg/m2 Dr. Yuli Rosas DO Work Phone: [facility] 10-27-2024 21:44-0400 Body weight 126.[address] Yuli Rosas DO Work Phone: [facility] 08-06-2024 16:15-0500 Body height 180.3 cm Kaycee Ralph DO Work Phone: [facility] 08-06-2024 16:15-0500 Body mass index (BMI) [Ratio] 39.75 kg/m2 Kaycee Ralph DO Work Phone: [facility] [place] [facility] 08-06-2024 16:15-0500 Body weight 129.28 kg Kaycee Ralph DO Work Phone: [facility] [place] [facility] 08-06-2024 16:15-0500 Diastolic blood pressure 70 mm[Hg] Gloria Ralph DO Work Phone: [facility] [place] [facility] 08-06-2024 16:15-0500 Heart rate 72 /min Kaycee Ralph DO Work Phone: [facility] [place] [facility] 08-06-2024 16:15-0500 SaO2% (BldA) [Mass fraction] 93 % Kaycee Ralph DO Work Phone: [facility] [place] [facility] 08-06-2024 16:15-0500 Systolic blood pressure 120 mm[Hg] Gloria Ralph DO Work Phone: [facility] [place] [facility] 04-29-2024 16:05-0500 Body height 180.3 cm Kaycee Ralph DO Work Phone: [facility] [place] [facility] 04-29-2024 16:05-0500 Body mass index (BMI) [Ratio] 41 kg/m2 Kaycee Ralph DO Work Phone: [facility] [place] [facility] 04-29-2024 16:05-0500 Body temperature 98.71 [degF] Kaycee Ralph DO Work Phone: [facility] [place] [facility] 04-29-2024 16:05-0500 Body weight 133.36 kg Kaycee Ralph DO Work Phone: [facility] [place] [facility] 04-29-2024 16:05-0500 Diastolic blood pressure 80 mm[Hg] Kaycee Ralph DO Work Phone: [facility] [place] [facility] 04-29-2024 16:05-0500 Heart rate 91 /min Gloria Ralph DO Work Phone: [facility] [place] [facility] 04-29-2024 16:05-0500 SaO2% (BldA) [Mass fraction] 93 % Gloria Ralph DO Work Phone: [facility] [place] [facility] 04-29-2024 16:05-0500 Systolic blood pressure 114 mm[Hg] Kaycee Ralph DO Work Phone: [facility] [place] [facility] 07-10-2023 15:58-0500 Body height 180.3 cm Gloria Ralph DO Work Phone: [facility] [place] [facility] 07-10-2023 15:58-0500 Body weight 136.53 kg Gloria Ralph DO Work Phone: [facility] [place] [facility] 07-10-2023 15:58-0500 Diastolic blood pressure 80 mm[Hg] Kaycee Ralph DO Work Phone: [facility] [place] [facility] 07-10-2023 15:58-0500 Heart rate 86 /min Gloria Ralph DO Work Phone: [facility] 07-10-2023 15:58-0500 SaO2% (BldA) [Mass fraction] 95 % Gloria Ralph DO Work Phone: [facility] [place] [facility] 07-10-2023 15:58-0500 Systolic blood pressure 120 mm[Hg] Gloria Ralph DO Work Phone: [facility] [place] [facility] 03-19-2023 13:06-0400 Body height 180.[address] Yuli Rosas Work Phone: [facility] 03-19-2023 13:06-0400 Body mass index (BMI) [Ratio] 43 kg/m2 Dr. Yuli Rosas Work Phone: [facility] 03-19-2023 13:06-0400 Body weight [address] Yuli Rosas Work Phone: [facility] 03-19-2023 13:05-0400 Heart rate 78 /min Dr. Yuli Rosas Work Phone: [facility] 03-19-2023 13:05-0400 Respiratory rate 18 /min Dr. Yuli Rosas Work Phone: [facility] 03-19-2023 08:08-0400 Body temperature 97.7 [degF] Dr. Yuli Rosas Work Phone: [facility] 03-19-2023 08:08-0400 Diastolic blood pressure 85 mm[Hg] Dr. Yuli Rosas Work Phone: [facility] 03-19-2023 08:08-0400 SaO2% (BldA) [Mass fraction] 96 % Dr. Yuli Rosas Work Phone: [facility] 03-19-2023 08:08-0400 Systolic blood pressure 132 mm[Hg] Dr. Yuli Rosas Work Phone: [facility] 03-14-2023 14:30-0400 Body temperature 97.7 [degF] Dr. Yuli Rosas Work Phone: [facility] 03-14-2023 14:30-0400 Diastolic blood pressure 75 mm[Hg] Dr. Yuli Rosas Work Phone: [facility] 03-14-2023 14:30-0400 Heart rate 89 /min Dr. Yuli Rosas Work Phone: [facility] 03-14-2023 14:30-0400 Respiratory rate 18 /min Dr. Yuli Rosas Work Phone: [facility] 03-14-2023 14:30-0400 SaO2% (BldA) [Mass fraction] 96 % Dr. Yuli Rosas Work Phone: [facility] 03-14-2023 14:30-0400 Systolic blood pressure 98 mm[Hg] Dr. Yuli Rosas Work Phone: [facility] 03-14-2023 10:40-0400 Body weight 133.[address] Yuli Rosas Work Phone: [facility] 03-14-2023 05:27-0400 Inhaled oxygen flow rate 2 L/min Dr. Yuli Rosas Work Phone: [facility] 03-11-2023 18:59-0400 Body mass index (BMI) [Ratio] 41.1 kg/m2 Dr. Yuli Rosas Work Phone: [facility] 12-16-2022 15:33-0400 Body height 180.3 cm Gloria Ralph DO Work Phone: [facility] 12-16-2022 15:33-0400 Body temperature 97.81 [degF] Kaycee Ralph DO Work Phone: [facility] 12-16-2022 15:33-0400 Body weight 128.82 kg Gloria Ralph DO Work Phone: [facility] 12-16-2022 15:33-0400 Diastolic blood pressure 72 mm[Hg] Kaycee Ralph DO Work Phone: [facility] 12-16-2022 15:33-0400 Heart rate 96 /min Gloria Ralph DO Work Phone: [facility] 12-16-2022 15:33-0400 SaO2% (BldA) [Mass fraction] 95 % Kaycee Ralph DO Work Phone: [facility] 12-16-2022 15:33-0400 Systolic blood pressure 118 mm[Hg] Gloria Rosas DO Work Phone: [facility] 11-29-2022 11:27-0400 Body mass index (BMI) [Ratio] 41.8 kg/m2 Dr. Yuli Rosas Work Phone: [facility] 11-29-2022 11:27-0400 Body weight 136.[address] Yuli Rosas Work Phone: [facility] 11-29-2022 11:12-0400 Body height 180.[address] Yuli Rosas Work Phone: [facility] 11-29-2022 11:12-0400 Body temperature 98.4 [degF] Dr. Yuli Rosas Work Phone: [facility] 11-29-2022 11:12-0400 Diastolic blood pressure 76 mm[Hg] Dr. Yuli Rosas Work Phone: [facility] 11-29-2022 11:12-0400 Heart rate 95 /min Dr. Yuli Rosas Work Phone: [facility] 11-29-2022 11:12-0400 Respiratory rate 18 /min Dr. Yuli Rosas Work Phone: [facility] 11-29-2022 11:12-0400 SaO2% (BldA) [Mass fraction] 96 % Dr. Yuli Rosas Work Phone: [facility] 11-29-2022 11:12-0400 Systolic blood pressure 131 mm[Hg] Dr. Yuli Rosas Work Phone: [facility] 11-26-2022 14:39-0400 Diastolic blood pressure 78 mm[Hg] Dr. Yuli Rosas Work Phone: [facility] 11-26-2022 14:39-0400 Heart rate 80 /min Dr. Yuli Rosas Work Phone: [facility] 11-26-2022 14:39-0400 Respiratory rate 16 /min Dr. Yuli Rosas Work Phone: [facility] 11-26-2022 14:39-0400 SaO2% (BldA) [Mass fraction] 98 % Dr. Yuli Rosas Work Phone: [facility] 11-26-2022 14:39-0400 Systolic blood pressure 125 mm[Hg] Dr. Yuli Rosas Work Phone: [facility] 11-26-2022 12:51-0400 Body temperature 98 [degF] Dr. Yuli Rosas Work Phone: [facility] 11-26-2022 05:45-0400 Body height 180.[address] Yuli Rosas Work Phone: [facility] 11-26-2022 05:45-0400 Body mass index (BMI) [Ratio] 40.2 kg/m2 Dr. Yuli Rosas Work Phone: [facility] 11-26-2022 05:45-0400 Body weight 130.[address] Yuli Rosas Work Phone: [facility] 10-15-2022 13:32-0400 Body height 180.[address] Yuli Rosas Work Phone: [facility] 10-15-2022 13:32-0400 Body mass index (BMI) [Ratio] 40.6 kg/m2 Dr. Yuli Rosas Work Phone: [facility] 10-15-2022 13:32-0400 Body weight 131.[address] Yuli Rosas Work Phone: [facility] 10-15-2022 13:32-0400 Diastolic blood pressure 86 mm[Hg] Dr. Yuli Rosas Work Phone: [facility] 10-15-2022 13:32-0400 Heart rate 82 /min Dr. Yuli Rosas Work Phone: [facility] 10-15-2022 13:32-0400 Respiratory rate 18 /min Dr. Yuli Rosas Work Phone: [facility] 10-15-2022 13:32-0400 SaO2% (BldA) [Mass fraction] 96 % Dr. Yuli Rosas Work Phone: [facility] 10-15-2022 13:32-0400 Systolic blood pressure 127 mm[Hg] Dr. Yuli Rosas Work Phone: [facility] 10-14-2022 06:37-0400 Body height 180.[address] Yuli Rosas Work Phone: [facility] 10-14-2022 06:37-0400 Body mass index (BMI) [Ratio] 41.1 kg/m2 Dr. Yuli Rosas Work Phone: [facility] 10-14-2022 06:37-0400 Body temperature 97 [degF] Dr. Yuli Rosas Work Phone: [facility] 10-14-2022 06:37-0400 Body weight 133.[address] Yuli Rosas Work Phone: [facility] 10-14-2022 06:37-0400 Heart rate 71 /min Dr. Yuli Rosas Work Phone: [facility] 10-14-2022 06:37-0400 Respiratory rate 18 /min Dr. Yuli Rosas Work Phone: [facility] 10-14-2022 06:37-0400 SaO2% (BldA) [Mass fraction] 98 % Dr. Yuli Rosas Work Phone: [facility] 10-07-2022 15:28-0400 Body mass index (BMI) [Ratio] 41.4 kg/m2 Dr. Yuli Rosas Work Phone: [facility] 10-07-2022 15:28-0400 Body weight 134.[address] Yuli Rosas Work Phone: [facility] 06-17-2022 16:06-0500 Body height 180.3 cm Gloria Ralph DO Work Phone: [facility] 06-17-2022 16:06-0500 Body weight 133.81 kg Gloria Ralph DO Work Phone: [facility] 06-17-2022 16:06-0500 Diastolic blood pressure 80 mm[Hg] Kaycee Ralph DO Work Phone: [facility] 06-17-2022 16:06-0500 Heart rate 67 /min Gloria Ralph DO Work Phone: [facility] 06-17-2022 16:06-0500 SaO2% (BldA) [Mass fraction] 97 % Gloria Ralph DO Work Phone: [facility] 06-17-2022 16:06-0500 Systolic blood pressure 100 mm[Hg] Gloria Ralph DO Work Phone: [facility] 03-29-2022 11:11-0400 Body height 180.[address] Yuli Rosas Work Phone: [facility] Work Phone: 03-29-2022 11:11-0400 Body mass index (BMI) [Ratio] 41 kg/m2 Dr. Yuli Rosas Work Phone: [facility] Work Phone: 03-29-2022 11:11-0400 Body weight 133.[address] Yuli Rosas Work Phone: [facility] Work Phone: 01-08-2022 15:26-0400 Diastolic blood pressure 80 mm[Hg] Dr. Yuli Rosas Work Phone: [facility] Work Phone: 01-08-2022 15:26-0400 Heart rate 89 /min Dr. Yuli Rosas Work Phone: [facility] Work Phone: 01-08-2022 15:26-0400 Respiratory rate 16 /min Dr. Yuli Rosas Work Phone: [facility] Work Phone: 01-08-2022 15:26-0400 SaO2% (BldA) [Mass fraction] 93 % Dr. Yuli oRsas Work Phone: [facility] Work Phone: 01-08-2022 15:26-0400 Systolic blood pressure 118 mm[Hg] Dr. Yuli Rosas Work Phone: [facility] Work Phone: 01-08-2022 11:50-0400 Body temperature 97.7 [degF] Dr. Yuli Rosas Work Phone: [facility] Work Phone: 01-08-2022 11:50-0400 Inhaled oxygen flow rate 4 L/min Dr. Yuli Rosas Work Phone: [facility] Work Phone: 01-08-2022 06:24-0400 Body height 180.[address] Yuli Rosas Work Phone: [facility] Work Phone: 01-08-2022 06:24-0400 Body mass index (BMI) [Ratio] 40.8 kg/m2 Dr. Yuli Rosas Work Phone: [facility] Work Phone: 01-08-2022 06:24-0400 Body weight [address] Yuli Rosas Work Phone: [facility] Work Phone: 12-12-2021 15:00-0400 Body height 180.[address] Yuli Rosas Work Phone: [facility] Work Phone: 12-12-2021 15:00-0400 Body mass index (BMI) [Ratio] 40.6 kg/m2 Dr. Yuli Rosas Work Phone: [facility] Work Phone: 12-12-2021 15:00-0400 Body weight 131.[address] Yuli Rosas Work Phone: [facility] Work Phone: 11-30-2021 09:54-0400 Body height 180.3 cm Gloria Ralph DO Work Phone: [facility] 11-30-2021 09:54-0400 Body temperature 97.81 [degF] Kaycee Ralph DO Work Phone: [facility] 11-30-2021 09:54-0400 Body weight 131.09 kg Gloria Ralph DO Work Phone: [facility] 11-30-2021 09:54-0400 Diastolic blood pressure 86 mm[Hg] Kaycee Ralph DO Work Phone: [facility] 11-30-2021 09:54-0400 Heart rate 55 /min Kaycee Ralph DO Work Phone: [facility] 11-30-2021 09:54-0400 SaO2% (BldA) [Mass fraction] 95 % Gloria Ralph DO Work Phone: [facility] 11-30-2021 09:54-0400 Systolic blood pressure 114 mm[Hg] Kaycee Ralph DO Work Phone: [facility] 11-21-2021 08:57-0400 Body weight 134.[address] Yuli Rosas Work Phone: [facility] Work Phone: 10-18-2021 15:23-0400 Body mass index (BMI) [Ratio] 41.4 kg/m2 Dr. Yuli Rosas Work Phone: [facility] Work Phone: 10-18-2021 15:23-0400 Body weight 134.[address] Yuli Rosas Work Phone: [facility] Work Phone: 10-18-2021 15:23-0400 Diastolic blood pressure 84 mm[Hg] Dr. Yuli Rosas Work Phone: [facility] Work Phone: 10-18-2021 15:23-0400 Heart rate 87 /min Dr. Yuli Rosas Work Phone: [facility] Work Phone: 10-18-2021 15:23-0400 Respiratory rate 18 /min Dr. Yuli Rosas Work Phone: [facility] Work Phone: 10-18-2021 15:23-0400 SaO2% (BldA) [Mass fraction] 94 % Dr. Yuli Rosas Work Phone: [facility] Work Phone: 10-18-2021 15:23-0400 Systolic blood pressure 125 mm[Hg] Dr. Yuli Rosas Work Phone: [facility] Work Phone: 10-18-2021 15:23-0400 Body height 180.[address] Yuli Rosas Work Phone: [facility] Work Phone: 10-18-2021 15:23-0400 Body mass index (BMI) [Ratio] 41.4 kg/m2 Dr. Yuli Rosas Work Phone: [facility] Work Phone: 10-18-2021 15:23-0400 Body weight 134.[address] Yuli Rosas Work Phone: [facility] Work Phone: 10-18-2021 15:23-0400 Diastolic blood pressure 84 mm[Hg] Dr. Yuli Rosas Work Phone: [facility] Work Phone: 10-18-2021 15:23-0400 Heart rate 87 /min Dr. Yuli Rosas Work Phone: [facility] Work Phone: 10-18-2021 15:23-0400 Respiratory rate 18 /min Dr. Yuli Rosas Work Phone: [facility] Work Phone: 10-18-2021 15:23-0400 SaO2% (BldA) [Mass fraction] 94 % Dr. Yuli Rosas Work Phone: [facility] Work Phone: 10-18-2021 15:23-0400 Systolic blood pressure 125 mm[Hg] Dr. Yuli Rosas Work Phone: [facility] Work Phone: 10-11-2021 18:13-0400 Body temperature 96.9 [degF] Dr. Yuli Rosas Work Phone: [facility] Work Phone: 10-11-2021 18:13-0400 Diastolic blood pressure 99 mm[Hg] Dr. Yuli Rosas Work Phone: [facility] Work Phone: 10-11-2021 18:13-0400 Heart rate 93 /min Dr. Yuli Rosas Work Phone: [facility] Work Phone: 10-11-2021 18:13-0400 Respiratory rate 15 /min Dr. Yuli Rosas Work Phone: [facility] Work Phone: 10-11-2021 18:13-0400 SaO2% (BldA) [Mass fraction] 95 % Dr. Yuli Rosas Work Phone: [facility] Work Phone: 10-11-2021 18:13-0400 Systolic blood pressure 161 mm[Hg] Dr. Yuli Rosas Work Phone: [facility] Work Phone: 10-11-2021 18:11-0400 Body height 154.[address] Yuli Rosas Work Phone: [facility] Work Phone: 10-11-2021 18:11-0400 Body mass index (BMI) [Ratio] 56.5 kg/m2 Dr. Yuli Rosas Work Phone: [facility] Work Phone: 10-11-2021 18:11-0400 Body weight 135.[address] Yuli Rosas Work Phone: [facility] Work Phone: 10-10-2021 14:19-0400 Body mass index (BMI) [Ratio] 41.7 kg/m2 Dr. Yuli Rosas Work Phone: [facility] Work Phone: 10-10-2021 14:19-0400 Body weight 135.[address] Yuli Rosas Work Phone: [facility] Work Phone: 10-10-2021 14:19-0400 Body mass index (BMI) [Ratio] 41.7 kg/m2 Dr. Yuli Rosas Work Phone: [facility] Work Phone: 10-10-2021 14:19-0400 Body weight 135.[address] Yuli Rosas Work Phone: [facility] Work Phone: 09-17-2021 08:15-0400 Body mass index (BMI) [Ratio] 41.1 kg/m2 Dr. Yuli Rosas Work Phone: [facility] Work Phone: 09-17-2021 08:15-0400 Body weight 133.[address] Yuli Rosas Work Phone: [facility] Work Phone: 09-17-2021 08:15-0400 Body mass index (BMI) [Ratio] 41.1 kg/m2 Dr. Yuli Rosas Work Phone: [facility] Work Phone: 09-17-2021 08:15-0400 Body weight 133.[address] Yuli Rosas Work Phone: [facility] Work Phone: 08-07-2021 14:00-0500 Body temperature 98.6 [degF] Dr. Yuli Rosas Work Phone: [facility] Work Phone: 08-07-2021 14:00-0500 Diastolic blood pressure 76 mm[Hg] Dr. Yuli Rosas Work Phone: [facility] Work Phone: 08-07-2021 14:00-0500 Heart rate 76 /min Dr. Yuli Rosas Work Phone: [facility] Work Phone: 08-07-2021 14:00-0500 Respiratory rate 16 /min Dr. Yuli Rosas Work Phone: [facility] Work Phone: 08-07-2021 14:00-0500 SaO2% (BldA) [Mass fraction] 93 % Dr. Yuli Rosas Work Phone: [facility] Work Phone: 08-07-2021 14:00-0500 Systolic blood pressure 110 mm[Hg] Dr. Yuli Rosas Work Phone: [facility] Work Phone: 08-07-2021 07:02-0500 Body mass index (BMI) [Ratio] 41.8 kg/m2 Dr. Yuli Rosas Work Phone: [facility] Work Phone: 08-07-2021 07:02-0500 Body weight [address] Yuli Rosas Work Phone: [facility] Work Phone: 07-02-2021 13:41-0500 Body mass index (BMI) [Ratio] 41.5 kg/m2 Dr. Yuli Rosas Work Phone: [facility] Work Phone: 07-02-2021 13:41-0500 Body weight 135.[address] Yuli Rosas Work Phone: [facility] Work Phone: 06-26-2021 14:55-0500 Diastolic blood pressure 91 mm[Hg] Dr. Yuli Rosas Work Phone: [facility] Work Phone: 06-26-2021 14:55-0500 Systolic blood pressure 135 mm[Hg] Dr. Yuli Rosas Work Phone: [facility] Work Phone: 06-26-2021 12:08-0500 Heart rate 62 /min Dr. Yuli Rosas Work Phone: [facility] Work Phone: 06-26-2021 12:08-0500 Respiratory rate 16 /min Dr. Yuli Rosas Work Phone: [facility] Work Phone: 06-26-2021 12:08-0500 SaO2% (BldA) [Mass fraction] 94 % Dr. Yuli Rosas Work Phone: [facility] Work Phone: 06-26-2021 08:22-0500 Body mass index (BMI) [Ratio] 41.8 kg/m2 Dr. Yuli Rosas Work Phone: [facility] Work Phone: 06-26-2021 08:22-0500 Body temperature 96.2 [degF] Dr. Yuli Rosas Work Phone: [facility] Work Phone: 06-26-2021 08:22-0500 Body weight 136.[address] Yuli Rosas Work Phone: [facility] Work Phone: Encounters Encounter Date Encounter Type Care Provider Facility Start: 10-27-2024 End: 10-28-2024 Emergency department patient visit Dr. Yuli Rosas DO Work Phone: -Emergency Department Work Phone: Start: 10-25-2024 End: 10-26-2024 Refill Gloria Cardonabret Rosas DO Work Phone: [facility] Comment on above: Refill Request Start: 08-28-2024 End: 08-28-2024 ambulatory GLORIA REESEBRET SHAIKHRIO Facility:[facility] Start: 08-06-2024 End: 08-06-2024 Patient encounter procedure Gloria Rosas DO Work Phone: [facility] Comment on above: Hypertension, essent ial (Primary Dx); Other depression; Mixed hyperlipidemia; Type 2 diabetes mellitus without complication, without long-term current use of insulin (HCC); TEOFILO (obstructive sleep apnea); Neuropathy; Class 2 obesity with body mass index (BMI) of 39.0 to 39.9 in adult, unspecified obesity type, unspecified whether serious comorbidity present; Screening for malignant neoplasm of prostate Start: 08-06-2024 End: 08-06-2024 ambulatory GLORIA REESE RALPH Facility:[facility] Start: 07-18-2024 End: 07-19-2024 Refill Gloria Cardonabret Rosas DO Work Phone: [facility] Comment on above: Refill Request Start: 05-12-2024 End: 05-12-2024 Telephone encounter No One (Historical) [facility] Comment on above: Appointment Start: 04-29-2024 End: 04-29-2024 Patient encounter procedure Gloria Shaikhrio DO Work Phone: [facility] Comment on above: Hypertension, essent ial (Primary Dx); Mixed hyperlipidemia; Uncontrolled type 2 diabetes mellitus with hyperglycemia (HCC); Chronic fatigue; Other depression; Neuropathy; Chronic pain of left thumb; BMI 40.0-44.9, adult (HCC); Left hip pain; Status post left hip replacement; Screening for malignant neoplasm of prostate; Screening for thyroid disorder Start: 04-29-2024 End: 04-29-2024 ambulatory GLORIA ROSAS Facility:[facility] Start: 04-07-2024 End: 04-08-2024 Refill Gloria Shaikhrio DO Work Phone: [facility] Comment on above: Refill Request Start: 01-20-2024 ambulatory Gloria Shaikhrio DO Work Phone: [facility] Start: 01-20-2024 Patient encounter procedure Gloria Rosas DO Work Phone: [facility] Comment on above: Pharmacy in [place] is closing Start: 01-07-2024 Refill Gloria bender Ralph DO Work Phone: [facility] Comment on above: Refill Request Start: 11-20-2023 End: 11-20-2023 ambulatory Patrick Calloway Facility:[facility] Start: 09-25-2023 Refill Gloria bender Ralph DO Work Phone: [facility] Comment on above: Refill Request Start: 09-23-2023 Telephone encounter Gloria Rosas DO Work Phone: [facility] Comment on above: Results Start: 09-20-2023 End: 09-21-2023 ambulatory GLORIA ROSAS Facility:[facility] Start: 07-27-2023 Refill Gloria Rosas DO Work Phone: [facility] Comment on above: Refill Request Start: 07-17-2023 Telephone encounter Gloria Rosas DO Work Phone: [facility] Comment on above: Orders (A1c reminder ) Start: 07-10-2023 End: 07-10-2023 Patient encounter procedure Gloria Reese Rosas DO Work Phone: [facility] Comment on above: Type 2 diabetes samson itus without complication, without long- term current use of insulin (HCC) (Primary Dx); Hypertension, essential; Mixed hyperlipidemia; ED (erectile dysfunction) of organic origin; Sciatica, right side; Left hip pain; Status post left hip replacement; BMI 40.0-44.9, adult ([facility]); Screening for thyroid disorder; Screening for prostate cancer Start: 05-28-2023 End: 05-28-[address] Yuli Rosas Work Phone: [facility] Work Phone: Start: 05-28-2023 End: 05-28-[address] Yuli Rosas Work Phone: [facility]Physical Therapy Work Phone: Start: 05-20-2023 End: 05-20-[address] Yuli Rosas Work Phone: [facility] Work Phone: Start: 04-24-2023 End: 04-24-[address] Yuli Rosas Work Phone: [facility] Work Phone: Start: 03-24-2023 End: 03-24-[address] Yuli Rosas Work Phone: [facility] Work Phone: Start: 03-19-2023 End: 03-19-2023 Emergency department [facility] Start: 03-14-2023 Non-patient / Non-visit Dr. Fr genet Rosas Work Phone: [facility] Start: 03-14-2023 Non-patient / Non-visit Dr. Fr genet Rosas Work Phone: [facility] Work Phone: Start: 03-13-2023 Non-patient / Non-visit Dr. Fr genet Rosas Work Phone: [facility] Work Phone: Start: 03-12-2023 End: 03-12-2023 Non-patient / Non-visit Dr. Yuli Rosas Work Phone: [facility] Work Phone: Start: 03-12-2023 Non-patient / Non-visit Dr. Fr genet Rosas Work Phone: [facility] Start: 03-12-2023 Non-patient / Non-visit Dr. Fr genet Rosas Work Phone: [facility] Work Phone: Start: 03-11-2023 Non-patient / Non-visit Dr. Fr genet Rosas Work Phone: [facility] Work Phone: Start: 03-11-2023 Non-patient / Non-visit Dr. Fr genet Rosas Work Phone: [facility] Start: 03-11-2023 End: 03-14-2023 Evaluation and management of inpatient Dr. Yuli Rosas Work Phone: [facility] Surgical 3 Work Phone: Start: 03-10-2023 Non-patient / Non-visit Dr. Fr genet Rosas Work Phone: [facility] Start: 03-05-2023 End: 03-05-[address] Yuli Rosas Work Phone: [facility] Work Phone: Start: 02-26-2023 Refill Gloria Rosas DO Work Phone: [facility] Comment on above: Refill Request Start: 02-25-2023 End: 02-25-2023 Non-patient / Non-visit Dr. Yuli Rosas Work Phone: [facility] Work Phone: Start: 12-16-2022 End: 12-16-2022 Patient encounter procedure Gloria Rosas DO Work Phone: [facility] Comment on above: Hypertension, essent ial (Primary Dx); Type 2 diabetes mellitus without complication, without long-term current use of insulin (HCC); Sciatica, right side; Status post left hip replacement; Class 2 obesity with body mass index (BMI) of 39.0 to 39.9 in adult, unspecified obesity type, unspecified whether serious comorbidity present Start: 11-29-2022 End: 11-29-2022 Emergency department patient visit Dr. Yuli Rosas Work Phone: [facility]Emergency Department Start: 11-26-2022 Non-patient / Non-visit Dr. Fr genet Rosas Work Phone: [facility] Start: 11-26-2022 End: 11-26-2022 Admission to same day surgery center Dr. Yuli Rosas Work Phone: [facility] Start: 11-26-2022 End: 11-26-[address] Yuli Rosas Work Phone: [facility] Work Phone: Start: 11-05-2022 End: 11-05-[address] Yuli Rosas Work Phone: [facility] Work Phone: Start: 11-05-2022 End: 11-05-[address] Yuli Rosas Work Phone: [facility] Start: 10-15-2022 End: 10-15-[address] Yuli Rosas Work Phone: [facility] Start: 10-14-2022 End: 10-14-2022 Emergency department patient visit Dr. Yuli Rosas Work Phone: [facility]Emergency Department Start: 10-07-2022 End: 10-07-[address] Yuli Rosas Work Phone: [facility] Start: 09-23-2022 Telephone encounter Gloria Rosas DO Work Phone: [facility] Start: 07-11-2022 Telephone encounter Gloria Rosas DO Work Phone: [facility] Comment on above: Medication Problem Start: 06-18-2022 Telephone encounter Gloria Rosas DO Work Phone: [facility] Comment on above: Medication Authoriza tion (mounjaro) Start: 06-17-2022 End: 06-17-2022 Patient encounter procedure Gloria Rosas DO Work Phone: [facility] Comment on above: Hypertension, essent ial (Primary Dx); BMI 40.0-44.9, adult (HCC); Poorly controlled diabetes mellitus (HCC); Calcium blood increased; Mixed hyperlipidemia; Chronic insomnia; Arthritis, lumbar spine Start: 06-06-2022 Telephone encounter Gloria Rosas DO Work Phone: [facility] Comment on above: Results Start: 05-01-2022 Refill Gloria Rosas DO Work Phone: [facility] Comment on above: Refill Request Start: 03-29-2022 End: 03-29-[address] Yuli Rosas Work Phone: [facility] Start: 03-28-2022 End: 03-28-[address] Yuli Rosas Work Phone: [facility] Work Phone: Start: 03-28-2022 End: 03-28-[address] Yuli Rosas Work Phone: [facility] Therapy Start: 02-20-2022 Telephone encounter Gloria Rosas DO Work Phone: [facility] Comment on above: Orders Start: 02-19-2022 Chart abstracting Gloria Rosas DO Work Phone: [facility] Comment on above: Outside Lab Results Start: 02-18-2022 End: 02-18-[address] Yuli Rosas Work Phone: [facility] Start: 01-25-2022 End: 01-25-[address] Yuli Rosas Work Phone: [facility] Start: 01-21-2022 End: 01-21-[address] Yuli Rosas Work Phone: [facility] Start: 01-08-2022 Non-patient / Non-visit Dr. Fr genet Rosas Work Phone: [facility] Start: 01-08-2022 End: 01-08-2022 Admission to same day surgery center [facility] Start: 12-28-2021 Telephone encounter Gloria Rosas DO Work Phone: [facility] Comment on above: Opened In Error Start: 12-12-2021 End: 12-12-[address] Yuli Rosas Work Phone: [facility] Start: 12-03-2021 Chart abstracting Gloria Rosas DO Work Phone: [facility] Start: 11-30-2021 End: 11-30-2021 Patient encounter procedure Gloria Rosas DO Work Phone: [facility] Comment on above: Right hip pain (Prim bhakti Dx); Primary osteoarthritis of both hips; Type 2 diabetes mellitus without complication, without long-term current use of insulin (HCC); Primary hypertension; Chronic pain syndrome; Chronic insomnia Start: 11-21-2021 End: 11-21-[address] Yuli Rosas Work Phone: [facility] Start: 11-12-2021 Refill Gloria Rosas DO Work Phone: [facility] Comment on above: Refill Request Start: 11-09-2021 Telephone encounter Gloria Rosas DO Work Phone: [facility] Comment on above: Refill Request Start: 11-08-2021 Telephone encounter Kaycee Samson balwinder Rosas DO Work Phone: [facility] Comment on above: Refill Request Start: 11-02-2021 End: 11-02-[address] Yuli Rosas Work Phone: [facility]-Pre-Admission Testing Start: 10-24-2021 End: 10-24-[address] Yuli Rosas Work Phone: [facility] Start: 10-23-[address] Skye Rosas Work Phone: [facility]-Physical Therapy Start: 10-18-[address] Yin Rosas Work Phone: [facility] Start: 10-18-2021 End: 10-18-2021 Admission to same day surgery center Dr. Yuli Rosas Work Phone: [facility] Start: 10-18-2021 End: 10-18-[address] Yuli Rosas Work Phone: [facility] Start: 10-11-2021 End: 10-11-2021 Emergency department patient visit Dr. Yuli Rosas Work Phone: [facility]-Emergency Department Start: 10-11-[address] Skye Rosas Work Phone: [facility]-Physical Therapy Start: 10-10-2021 End: 10-10-[address] Yuli Rosas Work Phone: [facility] Start: 09-17-2021 End: 09-17-[address] Yuli Rosas Work Phone: [facility] Start: 08-20-2021 End: 08-20-[address] Yuli Rosas Work Phone: [facility] Start: 08-07-2021 Non-patient / Non-visit Dr. Fr genet Rosas Work Phone: [facility] Start: 08-07-2021 End: 08-07-2021 Admission to same day surgery center [facility] Start: 07-27-2021 End: 07-27-[address] Yuli Rosas Work Phone: [facility] Start: 07-17-2021 End: 07-17-[address] Yuli Rosas Work Phone: [facility] Start: 07-02-2021 End: 07-02-[address] Yuli Rosas Work Phone: [facility] Start: 06-26-2021 End: 06-26-2021 Emergency department patient visit Dr. Yuli Rosas Work Phone: [facility]-Emergency Department Start: 09-30-2018 End: 09-30-2018 Emergency department patient visit DEMETRI FIORE Facility:B Procedures Date Procedure Procedure Detail Performing Clinician Start: 10-27-[address] Yuli Rosas DO Work Phone: Start: 08-06-2024 Hemoglobin A1c/Hemoglobin.total in Blood Gloria Rosas DO Work Phone: Start: 04-29-2024 Hemoglobin A1c/Hemoglobin.total in Blood Gloria Rosas DO Work Phone: Start: 05-20-2023 Plain x-ray of pelvi s and lower extremity Dr. Yuli Rosas Work Phone: Start: 04-24-2023 X-ray of lumbar spin e, two or three views Dr. Yuli Rosas Work Phone: Start: 03-19-2023 CT of abdomen and pe lvis without contrast Dr. Yuli Rosas Work Phone: Start: 03-19-2023 Ultrasound of scrotu m with Doppler and color flow imaging Dr. Yuli Rosas Work Phone: Start: 03-12-2023 Plain chest X-ray Dr. Yin Rosas Work Phone: Start: 03-12-2023 Computed tomography of abdomen and pelvis with contrast Dr. Yuli Rosas Work Phone: Start: 03-12-2023 Bacteria identified in Blood by Culture Dr. Yuli Rosas Work Phone: Start: 03-12-2023 Coronavirus COVID-[address] Yuli Rosas Work Phone: Start: 03-11-[address] Rajan Rosas Work Phone: Start: 03-11-[address] Rajan Rosas Work Phone: Start: 03-11-[address] Rajan Rosas Work Phone: Start: 03-11-[address] Rajan Rosas Work Phone: Start: 03-11-2023 360 Lumbar Fusion (Right) Dr. Yuli Rosas Work Phone: Start: 02-25-2023 Nasal Screen MRSA/MSSA Dr. Yuli Rosas Work Phone: Start: 11-29-2022 Plain x-ray of pelvi s and lower extremity Dr. Yuli Rosas Work Phone: Start: 11-26-2022 Plain X-ray of hip Dr. Yuli Rosas Work Phone: Start: 11-26-2022 Total Hip Replacemen t Robotic Arm Assist (Left) Dr. Yuli Rosas Work Phone: Start: 11-05-2022 MRI of lower extremity Dr. Yuli Rosas Work Phone: Start: 10-07-2022 Plain x-ray of pelvi s and lower extremity Dr. Yuli Rosas Work Phone: Start: 03-29-2022 Plain x-ray of pelvi s and lower extremity Dr. Yuli Rosas Work Phone: Start: 02-18-2022 Plain x-ray of pelvi s and lower extremity Dr. Yuli Rosas Work Phone: Start: 01-08-2022 Plain X-ray of hip Dr. Yuli Rosas Work Phone: Start: 01-08-2022 Total Hip Replacemen t Robotic Arm Assist (Right) Dr. Yuli Rosas Work Phone: Start: 12-12-2021 Hemoglobin A1c/Hemoglobin.total in Blood Gloria Rosas DO Work Phone: Start: 11-02-2021 Hemoglobin A1c/Hemoglobin.total in Blood Aniceto Coker Work Phone: Start: 10-24-2021 MRI of lower extremity Dr. Yuli Rosas Work Phone: Start: 10-10-2021 Plain x-ray of pelvi s and lower extremity Dr. Yuli Rosas Work Phone: Start: 09-17-2021 Plain x-ray of pelvi s and lower extremity Dr. Yuli Rosas Work Phone: Start: 08-07-2021 Fluoroscopic guidance Armando Rosas Work Phone: Start: 08-07-2021 O.R. Fluoro for C-Arm D deidre Rosas Work Phone: Start: 07-17-2021 MRI of joint of lowe r extremity Dr. Yuli Rosas Work Phone: Start: 07-16-2021 Adult depression scr eening assessment Gloria Rosas DO Work Phone: Start: 06-26-2021 Plain x-ray of pelvi s and lower extremity Dr. Yuli Rosas Work Phone: Start: 06-26-2021 MRI of lower extremity Dr. Yuli Rosas Work Phone: Nasal Screen MRSA/MSSA Dr. Yin Rosas Work Phone: Nasal Screen MRSA/MSSA Dr. Yin Rosas Work Phone: Plan of Treatment Date Care Activity Detail Author Start: 08-28-2029 Prostate specific antigen measurement Prostate Cancer Screening Discussion [facility] Start: 09-19-2028 Prostate specific antigen measurement Prostate Cancer Screening Discussion [facility] Start: 02-26-2026 LIPID SCREEN LIPID SCREEN [facility] Start: 08-28-2025 Hepatitis B surface antibody level LDL Cholesterol [facility] Start: 08-06-2025 Annual PCP Team Chronic Disease Visit Annual PCP Team Chronic Disease Visit [facility] Start: 08-06-2025 BP Controlled (<130/80) BP Controlled (<130/80) [facility] Start: 08-06-2025 Covid-19 Vaccine ( season) Covid-19 Vaccine ( season) [facility] Comment on above: Postponed from 02/08/2024 (Declined at t his time) Start: 08-06-2025 Pneumococcal Vaccine: 50+ (1 of 2 - PCV) Pneumococcal Vaccine: 50+ (1 of 2 - PCV) [facility] Comment on above: Postponed from 08/17/1987 (Declined at t his time) Start: 08-06-2025 Urine microalbumin profile DTaP,Tdap,Td Vaccine (1 - Tdap) [facility] Comment on above: Postponed from 08/17/1987 (Declined at t his time) Start: 07-12-2025 Glaucoma screening Dilated Retinal Exam [facility] Start: 04-29-2025 Annual PCP Team Chronic Disease Visit Annual PCP Team Chronic Disease Visit [facility] Start: 02-07-2025 Influenza vaccination Influenza Vaccine (Season Ended) [facility] Start: 02-04-2025 End: 02-04-2025 Patient encounter procedure 02/04/2025 4:15 PM EDT Office Visit [place] [address] [place] [address] Gloria Rosas, DO [address] [place] [id number] f/u 6 month medication, a1c [facility] Comment on above: f/u 6 month medication, a1c Start: 02-03-2025 Hemoglobin A1c measurement HbA1C [facility] Start: 12-06-2024 Influenza vaccination Influenza Vaccine (#1) [facility] Comment on above: Postponed from 02/08/2024 (Declined at t his time) Start: 11-08-2024 Diabetic foot examination Diabetic Foot Exam [facility] Comment on above: Postponed from 1978 (Declined at t his time) Start: 11-02-2024 DIABETES SCREEN DIABETES SCREEN [facility] Start: 10-27-2024 End: 10-27-2024 [facility] Start: 10-27-2024 Bacteria identified in Blood by Culture Blood Culture [facility] Start: 09-19-2024 Hepatitis B screening Urine Albumin:Creatinine Ratio [facility] Start: 09-19-2024 Hepatitis B surface antibody level LDL Cholesterol [facility] Start: 08-06-2024 End: 08-06-2024 Patient encounter procedure 08/06/2024 4:15 PM EST Office Visit [facility] [address] [place] [address] Gloria Rosas, DO [address] [place] [address] f/u 3 months [facility] [place] Comment on above: f/u 3 months Start: 08-06-2024 End: 08-06-2025 CBC W Auto Differential panel - Blood COMPLETE BLOOD COUNT AND DIFFERENTIAL Lab Routine Hypertension, essential Expected: 08/06/2024, Expires: 08/06/2025 [facility] Work Phone: Comment on above: Expected: 08/06/2024, Expires: Start: 08-06-2024 End: 08-06-2025 Comprehensive metabolic 2000 panel - Serum or Plasma COMPREHENSIVE METABOLIC PANEL Lab Routine Hypertension, essential Expected: 08/06/2024, Expires: 08/06/2025 [facility] Comment on above: Expected: 08/06/2024, Expires: Start: 08-06-2024 End: 08-06-2025 Lipid 1996 panel - Serum or Plasma LIPID PANEL BASIC Lab Routine Mixed hyperlipidemia Expected: 08/06/2024, Expires: 08/06/2025 [facility] Comment on above: Expected: 08/06/2024, Expires: Start: 08-06-2024 End: 08-06-2025 PSA/PROSTATE SPECIFIC ANTIGEN SCREENING PSA/PROSTATE SPECIFIC ANTIGEN SCREENING Lab Routine Screening for malignant neoplasm of prostate Expected: 08/06/2024, Expires: 08/06/2025 [facility] Comment on above: Expected: 08/06/2024, Expires: Start: 08-06-2024 End: 08-06-2025 Thyrotropin [Units/volume] in Serum or Plasma THYROID STIMULATING HORMONE Lab Routine Hypertension, essential Expected: 08/06/2024, Expires: 08/06/2025 [facility] Comment on above: Expected: 08/06/2024, Expires: Start: 07-30-2024 [facility] Start: 07-10-[facility]24 Annual PCP Team Chronic Disease Visit Annual PCP Team Chronic Disease Visit [facility] Start: 07-10-2024 Covid-19 Vaccine (#1) Covid-19 Vaccine (#1) [facility] Comment on above: Postponed from 02/16/1969 (Declined at t his time) Start: 07-10-2024 Covid-19 Vaccine ( season) Covid-19 Vaccine ( season) [facility] Comment on above: Postponed from 02/07/2023 (Declined at t his time) Start: 07-10-2024 Pneumococcal vaccination Pneumococcal Vaccine (1 of 2 - PCV) [facility] Comment on above: Postponed from 1974 (Declined at t his time) Start: 07-10-2024 Shingrix Vaccine (1 of 2) Shingrix Vaccine (1 of 2) [facility] Comment on above: Postponed from 2018 (Declined at t his time) Start: 04-29-2024 End: 07-29-2024 25-hydroxyvitamin D3 [Mass/volume] in Serum or Plasma VITAMIN D 25 HYDROXY Lab Routine Uncontrolled type 2 diabetes mellitus with hyperglycemia (HCC) Chronic fatigue Expected: 04/29/2024, Expires: 07/29/2024 [facility] Comment on above: Expected: 04/29/2024, Expires: Start: 04-29-2024 End: 07-29-2024 CBC W Auto Differential panel - Blood COMPLETE BLOOD COUNT AND DIFFERENTIAL Lab Routine Uncontrolled type 2 diabetes mellitus with hyperglycemia (HCC) Expected: 04/29/2024, Expires: 07/29/2024 [facility] Comment on above: Expected: 04/29/2024, Expires: Start: 04-29-2024 End: 07-29-2024 Comprehensive metabolic 2000 panel - Serum or Plasma COMPREHENSIVE METABOLIC PANEL Lab Routine Uncontrolled type 2 diabetes mellitus with hyperglycemia (HCC) Expected: 04/29/2024, Expires: 07/29/2024 [facility] Comment on above: Expected: 04/29/2024, Expires: Start: 04-29-2024 End: 07-29-2024 Lipid 1996 panel - Serum or Plasma LIPID PANEL BASIC Lab Routine Uncontrolled type 2 diabetes mellitus with hyperglycemia (HCC) Expected: 04/29/2024, Expires: 07/29/2024 [facility] Comment on above: Expected: 04/29/2024, Expires: Start: 04-29-2024 End: 07-29-2024 Thyrotropin [Units/volume] in Serum or Plasma THYROID STIMULATING HORMONE Lab Routine Screening for thyroid disorder Expected: 04/29/2024, Expires: 07/29/2024 [facility] Comment on above: Expected: 04/29/2024, Expires: Start: 04-29-2024 End: 07-29-2024 Urinalysis complete panel - Urine URINALYSIS, WITH MICROSCOPIC Lab Routine Uncontrolled type 2 diabetes mellitus with hyperglycemia (HCC) Expected: 04/29/2024, Expires: 07/29/2024 [facility] Comment on above: Expected: 04/29/2024, Expires: Start: 03-21-2024 Hemoglobin A1c measurement HbA1C [facility] Start: 02-27-2024 DIABETES SCREEN DIABETES SCREEN [facility] Start: 02-08-2024 Covid-19 Vaccine ( season) Covid-19 Vaccine () [facility] Start: 02-08-2024 Influenza vaccination [facility] Start: 12-17-2023 ANNUAL PCP TEAM CHRONIC DISEASE VISIT ANNUAL PCP TEAM CHRONIC DISEASE VISIT [facility] Start: 12-17-2023 BP CONTROLLED (<130/80) BP CONTROLLED (<130/80) [facility] Start: 12-07-2023 Influenza vaccination Influ[facility] Comment on above: Postponed from 02/07/2023 (Declined at t his time) Start: 07-10-2023 End: 10-09-2023 ALBUMIN/CREAT RATIO RND UR ALBUMIN/CREAT RATIO RND UR Lab Routine Type 2 diabetes mellitus without complication, without long-term current use of insulin (HCC) Expected: 07/10/2023, Expires: 10/09/2023 [facility] Work Phone: Comment on above: Expected: 07/10/2023, Expires: Start: 07-10-2023 End: 07-10-2024 CBC W Auto Differential panel - Blood CBC + DIFF Lab Routine Mixed hyperlipidemia Expected: 07/10/2023, Expires: 07/10/2024 [facility] Work Phone: Comment on above: Expected: 07/10/2023, Expires: 5 Start: 07-10-2023 End: 07-10-2024 Comprehensive metabolic 2000 panel - Serum or Plasma COMP METABOLIC PANEL Lab Routine Mixed hyperlipidemia Expected: 07/10/2023, Expires: 07/10/2024 [facility] Work Phone: Comment on above: Expected: 07/10/2023, Expires: Start: 07-10-2023 End: 10-09-2023 Hemoglobin A1c in Blood HGB A1C Lab Routine Type 2 diabetes mellitus without complication, without long-term current use of insulin (HCC) Expected: 07/10/2023, Expires: 10/09/2023 [facility] Work Phone: Comment on above: Expected: 07/10/2023, Expires: 4 Start: 07-10-2023 End: 07-10-2024 Lipid 1996 panel - Serum or Plasma LIPID PANEL BASIC Lab Routine Mixed hyperlipidemia Expected: 07/10/2023, Expires: 07/10/2024 [facility] Work Phone: Comment on above: Expected: 07/10/2023, Expires: Start: 07-10-2023 End: 07-10-2024 PSA/PROSTSPECAG SCRN PSA/PROSTSPECAG SCRN Lab Routine Screening for prostate cancer Expected: 07/10/2023, Expires: 07/10/2024 [facility] Work Phone: Comment on above: Expected: 07/10/2023, Expires: 5 Start: 07-10-2023 End: 07-10-2024 Thyrotropin [Units/volume] in Serum or Plasma TSH BLD Lab Routine Screening for thyroid disorder Expected: 07/10/2023, Expires: 07/10/2024 [facility] Work Phone: Comment on above: Expected: 07/10/2023, Expires: Start: 06-17-2023 ANNUAL PCP TEAM CHRONIC DISEASE VISIT ANNUAL PCP TEAM CHRONIC DISEASE VISIT [facility] Start: 06-15-2023 Hepatitis B surface antibody level LDL CHOLESTEROL [facility] Start: 06-09-2023 Behavioral Health Screening Behavioral Health Screening [facility] Start: 06-09-2023 Depression Assessment Depression Assessment [facility] Start: 03-19-2023 [facility] Start: 03-14-2023 Patient discharge [facility] Start: 03-12-2023 Cardiac monitoring [facility] Start: 03-12-2023 Care planning and problem solving actions [facility] Start: 03-12-2023 [facility] Start: 03-11-2023 End: 03-11-2023 [facility] Start: 03-11-2023 Application of intermittent pneumatic compression device [facility] Start: 03-11-2023 Catheterization of vein [facility] Start: 03-11-2023 Consultation [facility] Start: 03-11-2023 End: 03-11-2023 Following clinical pathway protocol [facility] Start: 03-11-2023 Measuring intake and output [facility] Start: 03-11-2023 Neurovascular assessment [facility] Start: 03-11-2023 Oxygen therapy [facility] Start: 03-11-2023 Patient education [facility] Start: 03-11-2023 Procedure discontinued [facility] Start: 03-11-2023 Provision of activity privileges [facility] Start: 03-11-2023 Recommendation to continue with treatment [facility] Start: 03-11-2023 End: 03-11-2023 Referral to service [facility] Start: 03-11-2023 Taking patient vital signs [facility] Start: 03-11-2023 Admission procedure [facility] Start: 02-07-2023 Influenza vaccination [facility] Start: 12-15-2022 End: 02-14-2023 Basic metabolic 2000 panel - Serum or Plasma BASIC METABOLIC PNL Lab Routine Hypertension, essential Expected: 12/15/2022, Expires: 02/14/2023 [facility] Work Phone: Comment on above: Expected: 12/15/2022, Expires: Start: 12-13-2022 Hemoglobin A1c measurement HbA1C [facility] Start: 12-13-2022 Hemoglobin A1c/Hemoglobin.total in Blood HBA1C [facility] Start: 11-30-2022 ANNUAL PCP TEAM CHRONIC DISEASE VISIT ANNUAL PCP TEAM CHRONIC DISEASE VISIT [facility] Start: 11-26-2022 Application of ice collar, cap or bag [facility] Start: 11-26-2022 Exercises [facility] Start: 11-26-2022 Incentive spirometry [facility] Start: 11-26-2022 Neurovascular assessment [facility] Start: 11-26-2022 Patient discharge [facility] Start: 11-26-2022 Patient education [facility] Start: 11-26-2022 Plain X-ray of hip Hip Min 2 Views (Portable) [facility] Start: 11-26-2022 Provision of activity privileges [facility] Start: 11-26-2022 Recommendation to continue with treatment [facility] Start: 11-26-2022 Referral to service [facility] Start: 11-26-2022 Vital signs measurements [facility] Start: 11-26-2022 Wound care [facility] Start: 11-26-2022 XR Hip GE 2 Views [facility] Start: 11-26-2022 [facility] Start: 07-16-2022 Adult depression screening assessment DEPRESSION SCREENING [facility] Start: 07-16-2022 ANNUAL PCP TEAM CHRONIC DISEASE VISIT ANNUAL PCP TEAM CHRONIC DISEASE VISIT [facility] Start: 06-17-2022 End: 08-17-2022 Parathyrin.intact [Mass/volume] in Serum or Plasma PTH INTACT BLD Lab Routine Calcium blood increased Expected: 06/17/2022, Expires: 08/17/2022 [facility] Work Phone: Comment on above: Expected: 06/17/2022, Expires: Start: 06-14-2022 Hemoglobin A1c/Hemoglobin.total in Blood HBA1C [facility] Start: 06-09-2022 DEPRESSION ASSESSMENT DEPRESSION ASSESSMENT [facility] Start: 02-26-2022 Hepatitis B surface antibody level LDL CHOLESTEROL [facility] Start: 02-07-2022 Influenza vaccination [facility] Start: 02-02-2022 Hemoglobin A1c/Hemoglobin.total in Blood HBA1C [facility] Start: 01-08-2022 Application of ice collar, cap or bag [facility] Work Phone: Start: 01-08-2022 Exercises [facility] Work Phone: Start: 01-08-2022 Incentive spirometry [facility] Work Phone: Start: 01-08-2022 Neurovascular assessment [facility] Work Phone: Start: 01-08-2022 Patient discharge [facility] Work Phone: Start: 01-08-2022 Patient education [facility] Work Phone: Start: 01-08-2022 Provision of activity privileges [facility] Work Phone: Start: 01-08-2022 Referral to service [facility] Work Phone: Start: 01-08-2022 Vital signs measurements [facility] Work Phone: Start: 01-08-2022 Wound care [facility] Work Phone: Start: 01-08-2022 [facility] Work Phone: Start: 08-07-2021 Anesthesia open hip joint procedure nos ANESTH HIP JOINT SURGERY [facility] Work Phone: Start: 08-07-2021 Diagnostic bone marrow aspirations DX BONE MARROW ASPIRATIONS [facility] Work Phone: Start: 08-07-2021 Unlisted procedure pelvis/hip joint PELVIS/HIP JOINT SURGERY [facility] Work Phone: Start: 06-09-2021 DEPRESSION ASSESSMENT DEPRESSION ASSESSMENT [facility] Start: 2018 SHINGRIX VACCINE (1 of 2) SHINGRIX VACCINE (1 of 2) [facility] Start: 2013 COLOGUARD (FIT-DNA) COLOGUARD (FIT-DNA) [facility] Start: 2013 Colonoscopy COLONOSCOPY [facility] Start: 2013 COLORECTAL CANCER SCREENING COLORECTAL CANCER SCREENING [facility] Start: [address] COLONOGRAPHY [facility] Start: 2013 FECAL OCCULT BLOOD FECAL OCCULT BLOOD [facility] Start: 2013 Screening for malignant neoplasm of colon [facility] Start: 2013 SIGMOIDOSCOPY SIGMOIDOSCOPY [facility] Start: 08-17-1987 HEPATITIS B (1 of 3 - Risk 3-dose series) HEPATITIS B (1 of 3 - Risk 3-dose series) [facility] Start: 08-17-1987 Hepatitis B Vaccine (1 of 3 - 19+ 3-dose series) Hepatitis B Vaccine (1 of 3 - 19+ 3-dose series) [facility] Start: 08-17-1987 Pneumococcal Vaccine: 50+ (1 of 2 - PCV) Pneumococcal Vaccine: 50+ (1 of 2 - PCV) [facility] Start: 08-17-1987 Urine microalbumin profile [facility] Start: 1986 Anxiety Screening Anxiety Screening [facility] Start: 1986 BP CONTROLLED (<130/80) BP CONTROLLED (<130/80) [facility] Start: 1986 Depression Screening Depression Screening [facility] Start: 1986 HEPATITIS C SCREENING HEPATITIS C SCREENING [facility] Start: 1986 Hepatitis C screening Hepatitis C Screening [facility] Start: 1986 HIV SCREENING HIV SCREENING [facility] Start: 1986 HIV screening HIV Screening [facility] Start: 1978 3 comp foot exam completed DIABETIC FOOT EXAM [facility] Start: 1978 Diabetic foot examination Diabetic Foot Exam [facility] Start: 1978 Glaucoma screening Dilated Retinal Exam [facility] Start: 1978 Hepatitis B screening URINE ALBUMIN:CREATININE RATIO [facility] Start: 1978 Hepatitis C antibody, confirmatory test DILATED RETINAL EXAM [facility] Start: 1974 PNEUMOCOCCAL (1 - PCV) PNEUMOCOCCAL (1 - PCV) [facility] Start: 1974 Pneumococcal vaccination Pneumococcal Vaccine (1 - PCV) [facility] Start: 1973 COVID-19 VACCINE (#1) COVID-19 VACCINE (#1) [facility] Start: 02-16-1969 COVID-19 VACCINE (#1) COVID-19 VACCINE (#1) [facility] Start: 1968 HEPATITIS B (1 of 3 - 3-dose series) HEPATITIS B (1 of 3 - 3-dose series) [facility] Start: 1968 Hepatitis B Vaccine (1 of 3 - 3-dose series) Hepatitis B Vaccine (1 of 3 - 3-dose series) [facility] [place] Electrocardiographic procedure [facility] End: 05-29-2025 MR Hip - left WO contrast MRI HIP WO IVCON LEFT Radiology Routine Status post left hip replacement 1 Occurrences starting 04/29/2024 until 05/29/2025 [facility] Comment on above: 1 Occurrences starting 04/29/2024 until 05/29/2025 Patient Education [facility] Work Phone: Patient referral [facility] Work Phone: SLEEP STUDY ORDER NON [facility] SLEEP STUDY ORDER NON [facility] Procedures Routine Chronic fatigue Ordered: 04/29/2024 [facility] Work Phone: Comment on above: Ordered: 04/29/2024 [facility] Payers Date Payer Category Payer Self-pay [id number] 2019 Private Health Insurance MMO SUP ERMED O [id number] 2019 Unknown MMO MMO SUPERMED PLUS [id number] 2019-Present [phone] [address] [place] [address] [facility] [id number] 2019 Unknown [id number] 2019 Unknown [id number] 2018 Unknown [id number] 1970 Unknown [id number] Unknown [id number] Unknown [id number] Unknown [id number] Social History Date Type Detail Facility Start: 10-11-2021 End: 05-20-2023 Tobacco smoking status [facility] Unknown if ever smoked [facility] Start: 07-11-2020 Heavy [facility] Start: 07-11-2020 None [facility] Start: 07-11-2020 Spouse/ Signif icant Other [facility] Start: 02-22-2019 Cigarettes [facility] Start: 1970 [facility] Start: 07-06-2020 End: 10-27-2024 Tobacco smoking status CTIS Ex-smoker [facility] Start: 12-08-1983 End: 12-07-2017 History of tobacco use Current smoker [facility] Start: 07-06-2020 End: 06-17-2022 Tobacco use and exposure Smokeless tobacco non-user [facility] Start: 07-16-2021 End: 04-29-2024 Alcohol intake Current drinker of alcohol (finding) [facility] Start: 07-06-2020 History SDOH Alcohol Comment Moderate [facility] Start: 1970 Sex Assigned At Not on file [facility] Start: 11-20-2021 End: 11-30-2021 Exposure to SARS-CoV-2 (event) Not sure [facility] Start: 12-08-1983 End: 12-07-2017 History of tobacco use Cigarette Smoker [facility] Start: 10-18-2022 End: 12-16-2022 History of Social function [facility] Start: 10-18-2022 End: 12-16-2022 Tobacco use panel [facility] Adult Depression Screening Assessment 0 [facility] Start: 01-07-2022 Gender identity Identifies as male gender (finding) [facility] Start: 01-07-2022 Sexual orientation Heterosexual (fuentes hathaway) [facility] Medical Equipment Procedure Code Equipment Code Equipment Origin al Text Equipment Identifier Dates Bone graft deliv maonlo kit ()[id number])[id number] FDA Start: 08-07-2021 [id number] Start: 11-08-2021 End: 02-11-2022 Comment on above: Use to test blood lind gar qid Test glucose qid 1 Strip four times d aily. Use as instructed ([id number]) Ceramic femoral head prosthesis ()[id number])[id number] FDA Start: 01-08-2022 ([id number]) Coated hip femur prosthesis, modular ()[id number] [id number])91 [id number] FDA Start: 01-08-2022 ([id number]) Non-constrained polyethylene acetabular liner ()[id number])[id number] FDA Start: 01-08-2022 ([id number]) Acetabular shell ()[id number])93 [id number] FDA Start: 01-08-2022 ([id number]) Orthopaedic bone screw, non-bioabsorbable, sterile ()[id number] 7()[id number])XF MA2 FDA Start: 01-08-2022 ([id number]) Ceramic femoral head prosthesis ()[id number] 7()[id number])98 [id number] FDA Start: 11-26-2022 ([id number]) Coated hip femur prosthesis, modular ()[id number])99 [id number] FDA Start: 11-26-2022 ([id number]) Non-constrained polyethylene acetabular liner ()[id number] 1()[id number])[id number] FDA Start: 11-26-2022 ([id number]) Acetabular shell ()[id number] 3()[id number](10)11 [id number] FDA Start: 11-26-2022 ([id number]) Orthopaedic bone screw, non-bioabsorbable, sterile ()[id number] 7()[id number](10)U3 WA FDA Start: 11-26-2022 27mm Plate Straight FDA Start : 03-11-2023 Variable Screws FDA Start: 03-11-2023 Variable Screws FDA Start: 03-11-2023 Variable Screws FDA Start: 03-11-2023 Collagen haemost atic agent, non-antimicrobial ()[id number] 4()[id number])[id number] FDA Start: 03-11-2023 Plant polysaccha ride haemostatic agent, bioabsorbable ()[id number] 6()[id number])[id number] FDA Start: 03-11-2023 Ligation clip, metallic ()[id number] 1()[id number])41 [id number] FDA Start: 03-11-2023 Ligation clip, metallic ()[id number] 2()[id number])72 [id number] FDA Start: 03-11-2023 40mm Axle Construct FDA Start : 03-11-2023 Interbody Cage FDA Start: 03-11-2023 PATCH,AMNION 2X3CM FDA Start: 03-11-2023 PATCH,AMNION 4x4CM FDA Start: 03-11-2023 SPACER,8MM INTERLAM FDA Start : 03-11-2023 STRIP,BONE CANC [id number] FDA Start: 03-11-2023 STRIP,BONE CANC [id number] FDA Start: 03-11-2023 Variable Screws FDA Start: 03-11-2023 27mm Plate Straight FDA Start : 03-11-2023 Variable Screws FDA Start: 03-11-2023 Variable Screws FDA Start: 03-11-2023 Variable Screws FDA Start: 03-11-2023 40mm Axle Construct FDA Start : 03-11-2023 Interbody Cage FDA Start: 03-11-2023 PATCH,AMNION 2X3CM FDA Start: 03-11-2023 PATCH,AMNION 4x4CM FDA Start: 03-11-2023 SPACER,8MM INTERLAM FDA Start : 03-11-2023 STRIP,BONE CANC [id number] FDA Start: 03-11-2023 STRIP,BONE CANC [id number] FDA Start: 03-11-2023 Variable Screws FDA Start: 03-11-2023 27mm Plate Straight FDA Start : 03-11-2023 Variable Screws FDA Start: 03-11-2023 Variable Screws FDA Start: 03-11-2023 Variable Screws FDA Start: 03-11-2023 40mm Axle Construct FDA Start : 03-11-2023 Interbody Cage FDA Start: 03-11-2023 PATCH,AMNION 2X3CM FDA Start: 03-11-2023 PATCH,AMNION 4x4CM FDA Start: 03-11-2023 SPACER,8MM INTERLAM FDA Start : 03-11-2023 STRIP,BONE CANC [id number] FDA Start: 03-11-2023 STRIP,BONE CANC [id number] FDA Start: 03-11-2023 Variable Screws FDA Start: 03-11-2023 Goals Date Patient Goal Desired Activity /State Functional Status Date Assessment Result Facility 03-14-2023 Functional status Ambulates;Chair [facility] Work Phone: Mental Status Date Assessment Result Facility 03-14-2023 Cognitive function Voice/Name [facility] Work Phone: 11-26-2022 Cognitive function Voice/Name [facility] Work Phone: 01-08-2022 Cognitive function Level Of Cons ciousness Awake;Drowsy [facility] Work Phone: 01-08-2022 Cognitive function Voice/Name [facility] Work Phone: 08-07-2021 Cognitive function Level Of Consciousness Drowsy [facility] Work Phone: 08-07-2021 Cognitive function Voice/Name [facility] Work Phone: 06-26-2021 Cognitive function Level Of Cons ciousness Awake;Alert;Appropriate;Follow s Commands [facility] Work Phone: Clinical Notes 11-08-2021 to 10-26-2024 Telephone Encounter - Gemini Grove LPN - 10/26/2024 8:57 AM EDTTelephone Encounter - Gemini [place] LPN - 10/26/2024 8:57 AM Gloria Bhakta DO - 08/06/2024 4:29 PM EST Note Date & Type Note Facility 10-26-2024 Telephone encounter Note Rx mail pharmacy faxed requesting the following refill Refill(s) Requested: Requested Prescriptions Pending Prescriptions Disp Refills gabapentin (NEURONTIN) 300 mg capsule [Pharmacy Med Name: GABAPENTIN CAP 300MG] 270 capsule 1 Sig: Take 1 capsule by mouth three times a day for 180 days. ALLERGIES No Known Allergies (home) [phone] (work) [phone] (cell) Last Office Visit Date: 08/06/2024 Last Distance Health Visit: Visit date not found Future Appointment: 02/04/2025 The patients preferred pharmacy has been captured for this encounter? yes Request is for script(s) to be escript to mail order [facility]. Gemini Grove LPN [facility] 10-26-2024 Miscellaneous Notes Rx mail pharmacy faxed requesting the following refill Refill(s) Requested: Requested Prescriptions Pending Prescriptions Disp Refills gabapentin (NEURONTIN) 300 mg capsule [Pharmacy Med Name: GABAPENTIN CAP 300MG] 270 capsule 1 Sig: Take 1 capsule by mouth three times a day for 180 days. ALLERGIES No Known Allergies (home) [phone] (work) [phone] (cell) Last Office Visit Date: 08/06/2024 Last Distance Health Visit: Visit date not found Future Appointment: 02/04/2025 The patients preferred pharmacy has been captured for this encounter? yes Request is for script(s) to be escript to mail order [facility]. Gemini Grove LPN documented in this encounter [facility] 08-06-2024 Note HNO ID: [id number] Author: GLORIA ROSAS DO Service: ? Author Type: Physician Type: Progress Notes Filed: 08/11/2024 18:35 Note Text: [facility] Gloria Rosas DO [address] [place] [address] Date of Evaluation: 08/06/2024 Patient Name: Shelly Coulter : 1970 Chief Complaint: Patient presents with: Hypertension Hyperlipidemia Diabetes: ozempic Medication Follow-up: Lyrica doesn't work would like to go back to gabapentin Subjective Mr. Coulter is a 53 year old male who presents with the following complaint(s): The history is provided by the patient. Hypertension This is a chronic problem. The current episode started more than 1 year ago. Pertinent negatives include no chest pain, headaches, palpitations or shortness of breath. Diabetes He presents for his follow-up diabetic visit. He has type 2 diabetes mellitus. Pertinent negatives for hypoglycemia include no dizziness, headaches or nervousness/anxiousness. Pertinent negatives for diabetes include no chest pain, no fatigue and no weakness. Review of Systems Constitutional: Negative for fatigue and unexpected weight change. HENT: Negative for nosebleeds. Eyes: Negative for redness and visual disturbance. Respiratory: Negative for apnea, cough and shortness of breath. Cardiovascular: Negative for chest pain, palpitations and leg swelling. Genitourinary: Negative for hematuria. Neurological: Positive for numbness (lower extremities). Negative for dizziness, weakness, light-headedness and headaches. Hematological: Does not bruise/bleed easily. Psychiatric/Behavioral: The patient is not nervous/anxious. PAST MEDICAL HISTORY Diagnosis Date Atrial fibrillation (HCC) Back pain Hypertension PAST SURGICAL HISTORY Procedure Laterality Date HIP CORE DECOMPRESSION 08/2021 MRSA removed from left under arm ORTHOPEDIC SURGERY HX back x 3 TONSILLECTOMY HX 06/09/1992 TOTAL HIP REPLACEMENT Left 11/26/2022 TOTAL HIP REPLACEMENT Right 2021 FAMILY HISTORY Problem Relation Age of Onset Diabetes Mother Hypertension Mother Heart Attack Father No Known Problems Sister Social History Tobacco Use Smoking status: Former Current packs/day: 0.00 Types: Cigarettes Start date: 12/08/1983 Quit date: 12/07/2017 Years since quittin.6 Smokeless tobacco: Never Vaping Use Vaping status: Never Used Substance Use Topics Alcohol use: Yes Comment: Moderate Drug use: Never Current Outpatient Medications Medication Sig metFORMIN (GLUCOPHAGE) 500 mg tablet Take 1 tablet by mouth two times a day. semaglutide (OZEMPIC) 2 mg/dose (8 mg/3 mL) pen injector Inject 2 mg subcutaneously one time a week. losartan-hydroCHLOROthiazide (HYZAAR) 100-25 mg per tablet Take 1 tablet by mouth once daily. DULoxetine (CYMBALTA) 30 mg capsule Take 1 capsule by mouth once daily for 7 days, THEN 2 capsules once daily. cinnamon bark (CINNAMON ORAL) Take by mouth. metoprolol tartrate, short acting, (LOPRESSOR) 50 mg tablet Take 50 mg by mouth twice daily. RED YEAST RICE ORAL Take by mouth. MAGNESIUM ORAL Take by mouth. MELATONIN ORAL Take by mouth. pregabalin (LYRICA) 50 mg capsule Take 1 capsule by mouth three times a day for 180 days. Blood-Glucose Sensor (FREESTYLE ALEK 3 PLUS SENSOR) judy Use to monitor Bs 4 times a day OZEMPIC 0.25 mg or 0.5 mg (2 mg/3 mL) pen INJECT 0.5MG SUBCUTANEOUSLYONCE A WEEK semaglutide (OZEMPIC) 1 mg/dose (4 mg/3 mL) pen Inject 1 mg subcutaneously one time a week. (Patient not taking: Reported on 04/29/2024) oxyCODONE-acetaminophen (PERCOCET) 5-325 mg tablet Take 1 tablet by mouth every 4 hours as needed for pain. oxyCODONE-acetaminophen (PERCOCET) 5-325 mg tablet Take 1 tablet by mouth every 4 hours as needed for pain. oxyCODONE-acetaminophen (PERCOCET) 7.5-325 mg tablet Take 1-2 tablets by mouth every 6 hours as needed for pain. semaglutide (OZEMPIC) 0.25 mg or 0.5 mg (2 mg/3 mL) pen Inject 0.5 mg subcutaneously one time a week. TURMERIC ORAL Take by mouth. Blood-Glucose Meter (ACCU-CHEK GUIDE GLUCOSE METER) Use to test glucose QID Lancets lancets Use to test blood sugar QID lancets (FREESTYLE LANCETS) 28 gauge Test glucose qid blood sugar diagnostic (BLOOD GLUCOSE TEST) test strip Use to test blood sugar qid FISH OIL-DHA-EPA ORAL Take 1 capsule by mouth once daily. cholecalciferol, vitamin D3, (VITAMIN D3 ORAL) Take 2,000 Units by mouth. acetaminophen (TYLENOL) 500 mg tablet Take 1,000 mg by mouth two times a day. No current facility-administered medications for this visit. I have confirmed and edited as necessary the past medical, family and social histories, HPI, and ROS obtained by others. Objective BP 120/70 Pulse 72 Ht 5' 11 (1.80m) Wt 285 lb (129.3kg) SpO2 93% BMI 39.77 kg/(m2). Physical Exam Vitals and nu (more content not included)... [facility] 08-06-2024 History of Present illness Narrative Images from the original note were not included. [facility] Kaycee DO Ralph [address] [place] [address] Date of Evaluation: 08/06/2024 Patient Name: Shelly Coulter : 1970 Chief Complaint: Patient presents with: Hypertension Hyperlipidemia Diabetes: ozempic Medication Follow-up: Lyrica doesn't work would like to go back to gabapentin Subjective Mr. Coulter is a 53 year old male who presents with the following complaint(s): The history is provided by the patient. Hypertension This is a chronic problem. The current episode started more than 1 year ago. Pertinent negatives include no chest pain, headaches, palpitations or shortness of breath. Diabetes He presents for his follow-up diabetic visit. He has type 2 diabetes mellitus. Pertinent negatives for hypoglycemia include no dizziness, headaches or nervousness/anxiousness. Pertinent negatives for diabetes include no chest pain, no fatigue and no weakness. Review of Systems Constitutional: Negative for fatigue and unexpected weight change. HENT: Negative for nosebleeds. Eyes: Negative for redness and visual disturbance. Respiratory: Negative for apnea, cough and shortness of breath. Cardiovascular: Negative for chest pain, palpitations and leg swelling. Genitourinary: Negative for hematuria. Neurological: Positive for numbness (lower extremities). Negative for dizziness, weakness, light-headedness and headaches. Hematological: Does not bruise/bleed easily. Psychiatric/Behavioral: The patient is not nervous/anxious. PAST MEDICAL HISTORY Diagnosis Date Atrial fibrillation (HCC) Back pain Hypertension PAST SURGICAL HISTORY Procedure Laterality Date HIP CORE DECOMPRESSION 08/2021 MRSA removed from left under arm ORTHOPEDIC SURGERY HX back x 3 TONSILLECTOMY HX 06/09/1992 TOTAL HIP REPLACEMENT Left 11/26/2022 TOTAL HIP REPLACEMENT Right 2021 FAMILY HISTORY Problem Relation Age of Onset Diabetes Mother Hypertension Mother Heart Attack Father No Known Problems Sister Social History Tobacco Use Smoking status: Former Current packs/day: 0.00 Types: Cigarettes Start date: 12/08/1983 Quit date: 12/07/2017 Years since quittin.6 Smokeless tobacco: Never Vaping Use Vaping status: Never Used Substance Use Topics Alcohol use: Yes Comment: Moderate Drug use: Never Current Outpatient Medications Medication Sig metFORMIN (GLUCOPHAGE) 500 mg tablet Take 1 tablet by mouth two times a day. semaglutide (OZEMPIC) 2 mg/dose (8 mg/3 mL) pen injector Inject 2 mg subcutaneously one time a week. losartan-hydroCHLOROthiazide (HYZAAR) 100-25 mg per tablet Take 1 tablet by mouth once daily. DULoxetine (CYMBALTA) 30 mg capsule Take 1 capsule by mouth once daily for 7 days, THEN 2 capsules once daily. cinnamon bark (CINNAMON ORAL) Take by mouth. metoprolol tartrate, short acting, (LOPRESSOR) 50 mg tablet Take 50 mg by mouth twice daily. RED YEAST RICE ORAL Take by mouth. MAGNESIUM ORAL Take by mouth. MELATONIN ORAL Take by mouth. pregabalin (LYRICA) 50 mg capsule Take 1 capsule by mouth three times a day for 180 days. Blood-Glucose Sensor (FREESTYLE ALEK 3 PLUS SENSOR) judy Use to monitor Bs 4 times a day OZEMPIC 0.25 mg or 0.5 mg (2 mg/3 mL) pen INJECT 0.5MG SUBCUTANEOUSLYONCE A WEEK semaglutide (OZEMPIC) 1 mg/dose (4 mg/3 mL) pen Inject 1 mg subcutaneously one time a week. (Patient not taking: Reported on 04/29/2024) oxyCODONE-acetaminophen (PERCOCET) 5-325 mg tablet Take 1 tablet by mouth every 4 hours as needed for pain. oxyCODONE-acetaminophen (PERCOCET) 5-325 mg tablet Take 1 tablet by mouth every 4 hours as needed for pain. oxyCODONE-acetaminophen (PERCOCET) 7.5-325 mg tablet Take 1-2 tablets by mouth every 6 hours as needed for pain. semaglutide (OZEMPIC) 0.25 mg or 0.5 mg (2 mg/3 mL) pen Inject 0.5 mg subcutaneously one time a week. TURMERIC ORAL Take by mouth. Blood-Glucose Meter (ACCU-CHEK GUIDE GLUCOSE METER) Use to test glucose QID Lancets lancets Use to test blood sugar QID lancets (FREESTYLE LANCETS) 28 gauge Test glucose qid blood sugar diagnostic (BLOOD GLUCOSE TEST) test strip Use to test blood sugar qid FISH OIL-DHA-EPA ORAL Take 1 capsule by mouth once daily. cholecalciferol, vitamin D3, (VITAMIN D3 ORAL) Take 2,000 Units by mouth. acetaminophen (TYLENOL) 500 mg tablet Take 1,000 mg by mouth two times a day. No current facility-administered medications for this visit. I have confirmed and edited as necessary the past medical, family and social histories, HPI, and ROS obtained by others. Objective BP 120/70 Pulse 72 Ht 5' 11 (1.80m) Wt 285 lb (129.3kg) SpO2 93% BMI 39.77 kg/(m^2). Physical Exam Vitals and nursing note reviewed. Constitutional: General: He is not in acute distress. Appearance: Normal appearance. He is well-developed. He is not ill-appearing. HENT: Head: Normocephalic. Nose: Nose normal. Mouth/Throat: Pharynx: Uvula midline. Eyes: General: Lids are normal. Vision grossly intact. Gaze aligned appropriately. Extraocular Movements: Extraocular movements intact. Conjunctiva/sclera: Conjunctivae normal. Pupils: Pupils are equal, round, and reactive to light. Neck: Thyroid: No thyroid mass, thyromegaly or thyroid tenderness. Vascular: No carotid bruit. Trachea: Trachea and phonation normal. Cardiovascular: Rate and Rhythm: Normal rate and regular rhythm. Pulses: Normal pulses. Heart sounds: Normal heart sounds. Pulmonary: Effort: Pulmonary effort is normal. Breath sounds: Normal breath sounds. Musculoskeletal: General: Normal range of motion. Right shoulder: Normal. Left shoulder: Normal. Cervical back: Normal, full passive range of motion without pain and neck supple. No tenderness. No spinous process tenderness. Thoracic back: Normal. Lumbar back: Normal. Right knee: Normal. Left knee: Normal. Right lower leg: No edema. Left lower leg: No edema. Lymphadenopathy: Cervical: No cervical adenopathy. Skin: General: Skin is warm and dry. Neurological: General: No focal deficit present. Mental Status: He is alert and oriented to person, place, and time. Mental status is at baseline. Sensory: Sensation is intact. Motor: Motor function is intact. Psychiatric: Attention and Perception: Attention and perception normal. Mood and Affect: Mood normal. Speech: Speech normal. Behavior: Behavior normal. Thought Content: Thought content normal. Judgment: Judgment normal. Data Reviewed: No new labs ASSESSMENT/PLAN: 1. Hypertension, essential - ICD9: 401.9, ICD10: I10 (primary diagnosis) - Controlled - Continue current medications - Recommend home blood pressure monitoring, to bring results to next visit - Encouraged sodium restriction, DASH or Mediterranean diet - Recommend regular aerobic exercise - COMPLETE BLOOD COUNT AND DIFFERENTIAL - COMPREHENSIVE METABOLIC PANEL - THYROID STIMULATING HORMONE - LOSARTAN 100 MG-HYDROCHLOROTHIAZIDE 25 MG TABLET - METOPROLOL TARTRATE 50 MG TABLET 2. Other depression - ICD9: 311, ICD10: F32.89 - Stable, continue current medication. - DULOXETINE 60 MG CAPSULE,DELAYED RELEASE 3. Mixed hyperlipidemia - ICD9: 272.2, ICD10: E78.2 - Control undetermined, due for labs - Counseled on healthy diet and regular exercise - Discussed need for and benefit of weight loss. BMI 39.75 kg/(m^2) - LIPID PANEL BASIC 4. Type 2 diabetes mellitus without complication, without long-term current use of insulin (HCC) - ICD9: 250.00, ICD10: E11.9 - Improving control - Continue current medications - Blood glucose monitoring on a three times daily schedule - Counseled on healthy diet and regular exercise - Discussed need for and benefit of weight loss. BMI 39.75 kg/(m^2) - SEMAGLUTIDE 2 MG/DOSE (8 MG/3 ML) SUBCUTANEOUS PEN INJECTOR - HEMOGLOBIN A1C (POC) - CONSULT TO PODIATRY 5. Screening for malignant neoplasm of prostate - ICD9: V76.44, ICD10: Z12.5 - PSA/PROSTATE SPECIFIC ANTIGEN SCREENING 6. TEOFILO (obstructive sleep apnea) - ICD9: 327.23, ICD10: G47.33 - Using and benefits from Cpap machine. 7. Neuropathy - ICD9: 355.9, ICD10: G62.9 - Discontinue Lyrica- not controlling symptoms -Start Gabapentin. - GABAPENTIN 300 MG CAPSULE 8. Class 2 obesity with body mass index (BMI) of 39.0 to 39.9 in adult, unspecified obesity type, unspecified whether serious comorbidity present - ICD9: 278.00, V85.39, ICD10: E66.812, Z68.39 Gloria Rosas DO No follow-ups on file. Attestation: Scribe Attestation: The patient is seen and examined by Dr. Rosas and the following reflects his/her service. Scribed by Valeri Guerrero August 06, 2024 4:30 PMProvider Attestation: I, Gloria Rosas DO personally performed the services described in this documentation. All medical record entries made by the scribe were at my direction and in my presence. I have reviewed the chart and discharge instructions (if applicable) and agree that the record reflects my personal performance and is accurate and complete. Electronically Signed: Gloria Rosas DO, August 06, 2024 4:33 PM documented in this encounter [facility] 07-19-2024 Telephone encounter Note See patients note below in yellow. The office visit note from last visit does not reflect the change [facility] 07-19-2024 Miscellaneous Notes See patients note below in yellow. The office visit note from last visit does not reflect the change Images from the original note were not included. Requested Renewals metFORMIN (GLUCOPHAGE) 500 mg tablet Sig: Take 1 tablet by mouth two times a day. Disp: 180 tablet Refills: 3 Start: 07/18/2024 Class: Normal For: Uncontrolled type 2 diabetes mellitus with hyperglycemia (HCC) Last ordered: 2 months ago (04/29/2024) by Gloria Rosas DO Patient comment: Last visit was told to take 1000mg twice a day. Have been doing this so i am out of medication. Prescription was never updated to reflect change in dosage. Metformin Refill Checklist [id number]/18/2024 04:58 PM Protocol Details CBC within the last 12 months Serum Creatinine within the last 12 months Hemoglobin A1C within the last 6 months Visit with provider within the last 6 months To be filled at: [employer] [place] [id number] - [facility] - [phone] Portal to Registered [facility] Sites Preferred delivery: Mail documented in this encounter [facility] 07-19-2024 Telephone encounter Note Images from the original note were not included. Requested Renewals metFORMIN (GLUCOPHAGE) 500 mg tablet Sig: Take 1 tablet by mouth two times a day. Disp: 180 tablet Refills: 3 Start: 07/18/2024 Class: Normal For: Uncontrolled type 2 diabetes mellitus with hyperglycemia (HCC) Last ordered: 2 months ago (04/29/2024) by Gloria Rosas DO Patient comment: Last visit was told to take 1000mg twice a day. Have been doing this so i am out of medication. Prescription was never updated to reflect change in dosage. Metformin Refill Checklist [id number]/18/2024 04:58 PM Protocol Details CBC within the last 12 months Serum Creatinine within the last 12 months Hemoglobin A1C within the last 6 months Visit with provider within the last 6 months To be filled at: [facility] [employer] [place] [id number] - [facility] - [phone] Portal to Registered Carepingree Sites Preferred delivery: Mail [facility] 05-12-2024 Telephone encounter Note Spoke with patient, he wants to go to [place] to see a Dr for his hand I gave him the phone number to the orthopedic group there and he will call them to schedule an appointment. Bakari [facility] 05-12-2024 Telephone encounter Note ----- Message from Barb Gastelum sent at 05/12/2024 12:28 PM [facility] ----- Regarding: Orthopedics / left hand: pain / Scheduling Subject Line Format: Orthopedics / left hand: pain / Scheduling Patient has been identified by name and Date of (Y/N): y Patient: Shelly Coulter Date of : 1970 Previous Provider Seen: na Body Part(s) Identified: left thumb Diagnosis/Reason For Visit: pain Reason for the call/escalation: Trying to schedule pt but all the locations were to far for him. He was wondering if he could possibly see a doctor at the [place] office. The closest to him was [place] and that was too far for him. If reason for call/escalation is discharge from ED/ER or Hospital, which facility was the patient seen at: na Was an appointment scheduled (Y/N): n Person calling if other than patient: n Return call to if other than patient: n Best contact number: [phone] Thank you, Barb Strauss May 12, 2024 12:29 PM [facility] 05-12-2024 Miscellaneous Notes Spoke with patient, he wants to go to [place] to see a Dr for his hand I gave him the phone number to the orthopedic group there and he will call them to schedule an appointment. Bakari ----- Message from Barb Gastelum sent at 05/12/2024 12:28 PM EST ----- Regarding: Orthopedics / left hand: pain / Scheduling Subject Line Format: Orthopedics / left hand: pain / Scheduling Patient has been identified by name and Date of (Y/N): y Patient: Shelly Coulter Date of : 1970 Previous Provider Seen: na Body Part(s) Identified: left thumb Diagnosis/Reason For Visit: pain Reason for the call/escalation: Trying to schedule pt but all the locations were to far for him. He was wondering if he could possibly see a doctor at the [place] office. The closest to him was [place] and that was too far for him. If reason for call/escalation is discharge from ED/ER or Hospital, which facility was the patient seen at: na Was an appointment scheduled (Y/N): n Person calling if other than patient: n Return call to if other than patient: n Best contact number: [phone] Thank you, Barb Strauss May 12, 2024 12:29 PM documented in this encounter [facility] 04-29-2024 Note HNO ID: [id number] Author: GLORIA ROSAS DO Service: ? Author Type: Physician Type: Progress Notes Filed: 05/02/2024 17:58 Note Text: [facility] Cushingtawanda Rosas DO [address] [place] [address] Date of Evaluation: 04/29/2024 Patient Name: Shelly Coulter : 1970 Chief Complaint: Patient presents with: Diabetes Nursing Intake: There are no exam notes on file for this visit. Subjective Mr. Coulter is a 53 year old male who presents with the following complaint(s): The history is provided by the patient and the spouse. Diabetes He presents for his follow-up diabetic visit. He has type 2 diabetes mellitus. Pertinent negatives for hypoglycemia include no dizziness, headaches or nervousness/anxiousness. Pertinent negatives for diabetes include no chest pain, no fatigue and no weakness. Hypertension This is a chronic problem. The current episode started more than 1 year ago. Pertinent negatives include no chest pain, headaches, palpitations or shortness of breath. Pain (foot) The pain is present in the left foot and right foot. This is a recurrent problem. The problem occurs daily. The problem has been unchanged. Quality: feels like walking on needles Pertinent negatives include no numbness. Hypercholesterolemia This is a chronic problem. The current episode started more than 1 year ago. Pertinent negatives include no chest pain or shortness of breath. Depression Pertinent negatives include no weakness. This is a new problem. The current episode started more than 1 month ago (after loss of son and grandchild). Past treatments include nothing. Hip Pain The pain is present in the left hip. This is a recurrent problem. There has been no history of extremity trauma (hx of replacement). The problem occurs daily. The pain is moderate. Pertinent negatives include no numbness. Review of Systems Constitutional: Negative for fatigue and unexpected weight change. HENT: Negative for nosebleeds. Eyes: Negative for redness and visual disturbance. Respiratory: Negative for apnea, cough and shortness of breath. Cardiovascular: Negative for chest pain, palpitations and leg swelling. Genitourinary: Negative for hematuria. Neurological: Negative for dizziness, weakness, light-headedness, numbness and headaches. Hematological: Does not bruise/bleed easily. Psychiatric/Behavioral: Positive for depression. The patient is not nervous/anxious. PAST MEDICAL HISTORY Diagnosis Date Atrial fibrillation (HCC) Back pain Hypertension PAST SURGICAL HISTORY Procedure Laterality Date HIP CORE DECOMPRESSION 08/2021 MRSA removed from left under arm ORTHOPEDIC SURGERY HX back x 3 TONSILLECTOMY HX 06/09/1992 TOTAL HIP REPLACEMENT Left 11/26/2022 TOTAL HIP REPLACEMENT Right 2021 FAMILY HISTORY Problem Relation Age of Onset Diabetes Mother Hypertension Mother Heart Attack Father No Known Problems Sister Social History Tobacco Use Smoking status: Former Current packs/day: 0.00 Types: Cigarettes Start date: 12/08/1983 Quit date: 12/07/2017 Years since quittin.3 Smokeless tobacco: Never Vaping Use Vaping status: Never Used Substance Use Topics Alcohol use: Yes Comment: Moderate Drug use: Never Current Outpatient Medications Medication Sig RED YEAST RICE ORAL Take by mouth. MAGNESIUM ORAL Take by mouth. MELATONIN ORAL Take by mouth. metFORMIN (GLUCOPHAGE) 500 mg tablet Take 1 tablet by mouth two times a day. semaglutide (OZEMPIC) 2 mg/dose (8 mg/3 mL) pen injector Inject 2 mg subcutaneously one time a week. losartan-hydroCHLOROthiazide (HYZAAR) 100-25 mg per tablet take 1 tablet once daily TURMERIC ORAL Take by mouth. cinnamon bark (CINNAMON ORAL) Take by mouth. Blood-Glucose Meter (ACCU-CHEK GUIDE GLUCOSE METER) Use to test glucose QID lancets (FREESTYLE LANCETS) 28 gauge Test glucose qid blood sugar diagnostic (BLOOD GLUCOSE TEST) test strip Use to test blood sugar qid FISH OIL-DHA-EPA ORAL Take 1 capsule by mouth once daily. cholecalciferol, vitamin D3, (VITAMIN D3 ORAL) Take 2,000 Units by mouth. acetaminophen (TYLENOL) 500 mg tablet Take 1,000 mg by mouth two times a day. metoprolol tartrate, short acting, (LOPRESSOR) 50 mg tablet Take 50 mg by mouth twice daily. OZEMPIC 0.25 mg or 0.5 mg (2 mg/3 mL) pen INJECT 0.5MG SUBCUTANEOUSLYONCE A WEEK semaglutide (OZEMPIC) 1 mg/dose (4 mg/3 mL) pen Inject 1 mg subcutaneously one time a week. (Patient not taking: Reported on 04/29/2024) oxyCODONE-acetaminophen (PERCOCET) 5-325 mg tablet Take 1 tablet by mouth every 4 hours as needed for pain. oxyCODONE-acetaminophen (PERCOCET) 5-325 mg tablet Take 1 tablet by mouth every 4 hours as needed for pain. oxyCODONE-acetaminophen (PERCOCET) 7.5-325 mg tablet Take 1-2 tablets by mouth every 6 hours as n (more content not included)... [facility] 04-29-2024 History of Present illness Narrative Images from the original note were not included. [facility] Edi Rosas DO [address] [place] [address] Date of Evaluation: 04/29/2024 Patient Name: Shelly Coulter : 1970 Chief Complaint: Patient presents with: Diabetes Nursing Intake: There are no exam notes on file for this visit. Subjective Mr. Coulter is a 53 year old male who presents with the following complaint(s): The history is provided by the patient and the spouse. Diabetes He presents for his follow-up diabetic visit. He has type 2 diabetes mellitus. Pertinent negatives for hypoglycemia include no dizziness, headaches or nervousness/anxiousness. Pertinent negatives for diabetes include no chest pain, no fatigue and no weakness. Hypertension This is a chronic problem. The current episode started more than 1 year ago. Pertinent negatives include no chest pain, headaches, palpitations or shortness of breath. Pain (foot) The pain is present in the left foot and right foot. This is a recurrent problem. The problem occurs daily. The problem has been unchanged. Quality: feels like walking on needles Pertinent negatives include no numbness. Hypercholesterolemia This is a chronic problem. The current episode started more than 1 year ago. Pertinent negatives include no chest pain or shortness of breath. Depression Pertinent negatives include no weakness. This is a new problem. The current episode started more than 1 month ago (after loss of son and grandchild). Past treatments include nothing. Hip Pain The pain is present in the left hip. This is a recurrent problem. There has been no history of extremity trauma (hx of replacement). The problem occurs daily. The pain is moderate. Pertinent negatives include no numbness. Review of Systems Constitutional: Negative for fatigue and unexpected weight change. HENT: Negative for nosebleeds. Eyes: Negative for redness and visual disturbance. Respiratory: Negative for apnea, cough and shortness of breath. Cardiovascular: Negative for chest pain, palpitations and leg swelling. Genitourinary: Negative for hematuria. Neurological: Negative for dizziness, weakness, light-headedness, numbness and headaches. Hematological: Does not bruise/bleed easily. Psychiatric/Behavioral: Positive for depression. The patient is not nervous/anxious. PAST MEDICAL HISTORY Diagnosis Date Atrial fibrillation (HCC) Back pain Hypertension PAST SURGICAL HISTORY Procedure Laterality Date HIP CORE DECOMPRESSION 08/2021 MRSA removed from left under arm ORTHOPEDIC SURGERY HX back x 3 TONSILLECTOMY HX 06/09/1992 TOTAL HIP REPLACEMENT Left 11/26/2022 TOTAL HIP REPLACEMENT Right 2021 FAMILY HISTORY Problem Relation Age of Onset Diabetes Mother Hypertension Mother Heart Attack Father No Known Problems Sister Social History Tobacco Use Smoking status: Former Current packs/day: 0.00 Types: Cigarettes Start date: 12/08/1983 Quit date: 12/07/2017 Years since quittin.3 Smokeless tobacco: Never Vaping Use Vaping status: Never Used Substance Use Topics Alcohol use: Yes Comment: Moderate Drug use: Never Current Outpatient Medications Medication Sig RED YEAST RICE ORAL Take by mouth. MAGNESIUM ORAL Take by mouth. MELATONIN ORAL Take by mouth. metFORMIN (GLUCOPHAGE) 500 mg tablet Take 1 tablet by mouth two times a day. semaglutide (OZEMPIC) 2 mg/dose (8 mg/3 mL) pen injector Inject 2 mg subcutaneously one time a week. losartan-hydroCHLOROthiazide (HYZAAR) 100-25 mg per tablet take 1 tablet once daily TURMERIC ORAL Take by mouth. cinnamon bark (CINNAMON ORAL) Take by mouth. Blood-Glucose Meter (ACCU-CHEK GUIDE GLUCOSE METER) Use to test glucose QID lancets (FREESTYLE LANCETS) 28 gauge Test glucose qid blood sugar diagnostic (BLOOD GLUCOSE TEST) test strip Use to test blood sugar qid FISH OIL-DHA-EPA ORAL Take 1 capsule by mouth once daily. cholecalciferol, vitamin D3, (VITAMIN D3 ORAL) Take 2,000 Units by mouth. acetaminophen (TYLENOL) 500 mg tablet Take 1,000 mg by mouth two times a day. metoprolol tartrate, short acting, (LOPRESSOR) 50 mg tablet Take 50 mg by mouth twice daily. OZEMPIC 0.25 mg or 0.5 mg (2 mg/3 mL) pen INJECT 0.5MG SUBCUTANEOUSLYONCE A WEEK semaglutide (OZEMPIC) 1 mg/dose (4 mg/3 mL) pen Inject 1 mg subcutaneously one time a week. (Patient not taking: Reported on 04/29/2024) oxyCODONE-acetaminophen (PERCOCET) 5-325 mg tablet Take 1 tablet by mouth every 4 hours as needed for pain. oxyCODONE-acetaminophen (PERCOCET) 5-325 mg tablet Take 1 tablet by mouth every 4 hours as needed for pain. oxyCODONE-acetaminophen (PERCOCET) 7.5-325 mg tablet Take 1-2 tablets by mouth every 6 hours as needed for pain. semaglutide (OZEMPIC) 0.25 mg or 0.5 mg (2 mg/3 mL) pen Inject 0.5 mg subcutaneously one time a week. Lancets lancets Use to test blood sugar QID No current facility-administered medications for this visit. I have confirmed and edited as necessary the past medical, family and social histories, HPI, and ROS obtained by others. Objective BP 114/80 Pulse 91 Temp 98.7 Ht 5' 11 (1.80m) Wt 294 lb (133.4kg) SpO2 93% BMI 41.02 kg/(m^2). Physical Exam Vitals and nursing note reviewed. Constitutional: General: He is not in acute distress. Appearance: Normal appearance. He is well-developed. He is not ill-appearing. HENT: Head: Normocephalic. Nose: Nose normal. Mouth/Throat: Mouth: Mucous membranes are moist. Pharynx: Oropharynx is clear. Uvula midline. No oropharyngeal exudate or posterior oropharyngeal erythema. Eyes: General: Lids are normal. Vision grossly intact. Gaze aligned appropriately. No scleral icterus. Right eye: No discharge. Left eye: No discharge. Extraocular Movements: Extraocular movements intact. Conjunctiva/sclera: Conjunctivae normal. Pupils: Pupils are equal, round, and reactive to light. Neck: Thyroid: No thyroid mass, thyromegaly or thyroid tenderness. Vascular: No carotid bruit. Trachea: Trachea and phonation normal. Cardiovascular: Rate and Rhythm: Normal rate and regular rhythm. Pulses: Normal pulses. Heart sounds: Normal heart sounds. Musculoskeletal: General: Normal range of motion. Right shoulder: Normal. Left shoulder: Normal. Arms: Cervical back: Normal, full passive range of motion without pain and neck supple. No tenderness. No spinous process tenderness. Thoracic back: Normal. Lumbar back: Normal. Right knee: Normal. Left knee: Normal. Right lower leg: No edema. Left lower leg: No edema. Legs: Lymphadenopathy: Cervical: No cervical adenopathy. Skin: General: Skin is warm and dry. Neurological: General: No focal deficit present. Mental Status: He is alert and oriented to person, place, and time. Mental status is at baseline. Sensory: Sensation is intact. Motor: Motor function is intact. Psychiatric: Attention and Perception: Attention and perception normal. Mood and Affect: Mood normal. Speech: Speech normal. Behavior: Behavior normal. Thought Content: Thought content normal. Judgment: Judgment normal. Data Reviewed: Most recent labs ASSESSMENT/PLAN: 1. Hypertension, essential - ICD9: 401.9, ICD10: I10 (primary diagnosis) - Controlled - Continue current medications - Recommend home blood pressure monitoring, to bring results to next visit - Encouraged sodium restriction, DASH or Mediterranean diet - Recommend regular aerobic exercise - LOSARTAN 100 MG-HYDROCHLOROTHIAZIDE 25 MG TABLET 2. Mixed hyperlipidemia - ICD9: 272.2, ICD10: E78.2 - Counseled on healthy diet and regular exercise 3. Uncontrolled type 2 diabetes mellitus with hyperglycemia (HCC) - ICD9: 250.02, ICD10: E11.65 - Uncontrolled - Worsening control - Continue current medications - Blood glucose monitoring on a four times daily schedule - Counseled on healthy diet and regular exercise - Discussed need for and benefit of weight loss. BMI 41.00 kg/(m^2) - SEMAGLUTIDE 2 MG/DOSE (8 MG/3 ML) SUBCUTANEOUS PEN INJECTOR - METFORMIN 500 MG TABLET - QuantifeedSTYLE ALEK 3 PLUS SENSOR DEVICE - VITAMIN D 25 HYDROXY - COMPLETE BLOOD COUNT AND DIFFERENTIAL - COMPREHENSIVE METABOLIC PANEL - LIPID PANEL BASIC - URINALYSIS, WITH MICROSCOPIC 4. BMI 40.0-44.9, adult (HCC) - ICD9: V85.41, ICD10: Z68.41 5. Chronic fatigue - ICD9: 780.79, ICD10: R53.82 - SLEEP STUDY ORDER NON [facility] - VITAMIN D 25 HYDROXY 6. Neuropathy - ICD9: 355.9, ICD10: G62.9 - Discontinue Gabapentin- not controlling symptoms. - Start Lyrica - PREGABALIN 50 MG CAPSULE 7. Chronic pain of left thumb - ICD9: 729.5, 338.29, ICD10: M79.645, G89.29 - Refer to Ortho hand. - CONSULT TO ORTHOPAEDICS 8. Screening for malignant neoplasm of prostate - ICD9: V76.44, ICD10: Z12.5 9. Screening for thyroid disorder - ICD9: V77.0, ICD10: Z13.29 - THYROID STIMULATING HORMONE 10. Left hip pain - ICD9: 719.45, ICD10: M25.552 11. Status post left hip replacement - ICD9: V43.64, ICD10: Z96.642 - Obtain MRI - MRI HIP WO IVCON LEFT 12. Other depression - ICD9: 311, ICD10: F32.89 - Recent loss of 2 family members, patient is down and feeling blue. - Patient is not suicidal. - Start Cymbalta. - DULOXETINE 30 MG CAPSULE,DELAYED RELEASE Gloria Rosas DO Return in about 3 months (around 08/06/2024) for medication follow up, diabetic follow-up. Attestation: Scribe Attestation: The patient is seen and examined by Dr. Rosas and the following reflects his/her service. Scribed by Valeri Guerrero April 29, 2024 4:21 PMProvider Attestation: I, Gloria Rosas DO personally performed the services described in this documentation. All medical record entries made by the scribe were at my direction and in my presence. I have reviewed the chart and discharge instructions (if applicable) and agree that the record reflects my personal performance and is accurate and complete. Electronically Signed: Gloria Rosas DO, April 29, 2024 4:35 PM documented in this encounter [facility] 04-08-2024 Telephone encounter Note Pharmacy faxed requesting the following refill Refill(s) Requested: Requested Prescriptions Pending Prescriptions Disp Refills metFORMIN (GLUCOPHAGE) 500 mg tablet [Pharmacy Med Name: METFORMIN TAB 500MG] 180 tablet 0 Sig: TAKE 1 TABLET TWICE A DAY ALLERGIES No Known Allergies (home) [phone] (work) [phone] (cell) Last Office Visit Date: 07/10/2023 Last Distance Health Visit: Visit date not found Future Appointment: Visit date not found The patients preferred pharmacy has been captured for this encounter? yes Request is for script(s) to be escript to pharmacy. Carolin Ventura LPN [facility] 04-08-2024 Miscellaneous Notes Pharmacy faxed requesting the following refill Refill(s) Requested: Requested Prescriptions Pending Prescriptions Disp Refills metFORMIN (GLUCOPHAGE) 500 mg tablet [Pharmacy Med Name: METFORMIN TAB 500MG] 180 tablet 0 Sig: TAKE 1 TABLET TWICE A DAY ALLERGIES No Known Allergies (home) [phone] (work) [phone] (cell) Last Office Visit Date: 07/10/2023 Last Distance Health Visit: Visit date not found Future Appointment: Visit date not found The patients preferred pharmacy has been captured for this encounter? yes Request is for script(s) to be escript to pharmacy. Carolin Ventura LPN documented in this encounter [facility] 01-21-2024 Telephone encounter Note pended [facility] 01-21-2024 Miscellaneous Notes pended documented in this encounter [facility] 01-07-2024 Telephone encounter Note Pharmacy faxed requesting the following refill Refill(s) Requested: Requested Prescriptions Pending Prescriptions Disp Refills metFORMIN (GLUCOPHAGE) 500 mg tablet [Pharmacy Med Name: METFORMIN TAB 500MG] 180 tablet 0 Sig: take 1 tablet twice a day ALLERGIES No Known Allergies (home) [phone] (work) [phone] (cell) Last Office Visit Date: 07/10/2023 Last Distance Health Visit: Visit date not found Future Appointment: Visit date not found The patients preferred pharmacy has been captured for this encounter? yes Request is for script(s) to be escript to pharmacy. Paola Torres LPN [facility] 01-07-2024 Miscellaneous Notes Pharmacy faxed requesting the following refill Refill(s) Requested: Requested Prescriptions Pending Prescriptions Disp Refills metFORMIN (GLUCOPHAGE) 500 mg tablet [Pharmacy Med Name: METFORMIN TAB 500MG] 180 tablet 0 Sig: take 1 tablet twice a day ALLERGIES No Known Allergies (home) [phone] (work) [phone] (cell) Last Office Visit Date: 07/10/2023 Last Distance Health Visit: Visit date not found Future Appointment: Visit date not found The patients preferred pharmacy has been captured for this encounter? yes Request is for script(s) to be escript to pharmacy. Paola Torres LPN documented in this encounter [facility] 09-25-2023 Miscellaneous Notes Rx mail pharmacy faxed requesting the following refill Refill(s) Requested: Requested Prescriptions Pending Prescriptions Disp Refills metFORMIN (GLUCOPHAGE) 500 mg tablet [Pharmacy Med Name: METFORMIN TAB 500MG] 180 tablet 0 Sig: take 1 tablet twice a day ALLERGIES No Known Allergies (home) [phone] (work) [phone] (cell) Last Office Visit Date: 07/10/2023 Last Distance Health Visit: Visit date not found Future Appointment: Visit date not found The patients preferred pharmacy has been captured for this encounter? yes Request is for script(s) to be escript to mail order [facility]. [place] LPN documented in this encounter [facility] 09-23-2023 Miscellaneous Notes Lm for pt to rtn call. ----- Message from Gloria Rosas DO sent at 09/22/2023 1:28 PM EDT ----- A1c up a little. Canh he tolerate higher dose of metformin? Ozempic? documented in this encounter [facility] 07-28-2023 Miscellaneous Notes Pharmacy faxed requesting the following refill Refill(s) Requested: Requested Prescriptions Pending Prescriptions Disp Refills losartan-hydroCHLOROthiazide (HYZAAR) 100-25 mg per tablet [Pharmacy Med Name: LOSARTAN/HCT TAB 100-25] 90 tablet 3 Sig: take 1 tablet once daily ALLERGIES No Known Allergies (home) [phone] (work) [phone] (cell) Last Office Visit Date: 07/10/2023 Last Distance Health Visit: Visit date not found Future Appointment: Visit date not found The patients preferred pharmacy has been captured for this encounter? yes Request is for script(s) to be escript to pharmacy. Paola Torres LPN documented in this encounter [facility] 07-17-2023 Miscellaneous Notes MyChart message sent with A1c reminder documented in this encounter [facility] 07-10-2023 History of Present illness Narrative Images from the original note were not included. [facility] Edi Rosas DO [address] [place] [address] Date of Evaluation: 07/10/2023 Patient Name: Shelly Coulter : 1970 Chief Complaint: Patient presents with: Hypertension: 6 month Hyperlipidemia: 6 month Diabetes: 6 month Last 11/13/2022 = 6.9 Hip Replacement: Unable to move leg is certain directions after replacment 11/29 Nursing Intake: There are no exam notes on file for this visit. Subjective Mr. Coulter is a 52 year old male who presents with the following complaint(s): The history is provided by the patient. Hypertension This is a chronic problem. The current episode started more than 1 year ago. Pertinent negatives include no chest pain, headaches, palpitations or shortness of breath. Diabetes He presents for his follow-up diabetic visit. He has type 2 diabetes mellitus. Pertinent negatives for hypoglycemia include no dizziness, headaches or nervousness/anxiousness. Pertinent negatives for diabetes include no chest pain, no fatigue and no weakness. Hypercholesterolemia This is a chronic problem. The current episode started more than 1 year ago. Pertinent negatives include no chest pain or shortness of breath. Erectile Dysfunction This is a recurrent problem. The nature of his difficulty is maintaining erection and achieving erection. He reports no anxiety. Pertinent negatives include no hematuria. Review of Systems Constitutional: Negative for fatigue and unexpected weight change. HENT: Negative for nosebleeds. Eyes: Negative for redness and visual disturbance. Respiratory: Negative for apnea, cough and shortness of breath. Cardiovascular: Negative for chest pain, palpitations and leg swelling. Genitourinary: Negative for hematuria. Neurological: Negative for dizziness, weakness, light-headedness, numbness and headaches. Hematological: Does not bruise/bleed easily. Psychiatric/Behavioral: The patient is not nervous/anxious. PAST MEDICAL HISTORY Diagnosis Date Atrial fibrillation (HCC) Back pain Hypertension PAST SURGICAL HISTORY Procedure Laterality Date HIP CORE DECOMPRESSION 08/2021 MRSA removed from left under arm ORTHOPEDIC SURGERY HX back x 3 TONSILLECTOMY HX 06/09/1992 TOTAL HIP REPLACEMENT Left 11/26/2022 TOTAL HIP REPLACEMENT Right 2021 FAMILY HISTORY Problem Relation Age of Onset Diabetes Mother Hypertension Mother Heart Attack Father No Known Problems Sister Social History Tobacco Use Smoking status: Former Years: 32 Types: Cigarettes Quit date: 12/07/2017 Years since quittin.5 Smokeless tobacco: Never Vaping Use Vaping Use: Never used Substance Use Topics Alcohol use: Yes Comment: Moderate Drug use: Never Current Outpatient Medications Medication Sig metFORMIN (GLUCOPHAGE) 500 mg tablet take 1 tablet twice a day semaglutide (OZEMPIC) 1 mg/dose (4 mg/3 mL) pen Inject 1 mg subcutaneously one time a week. losartan-hydroCHLOROthiazide (HYZAAR) 100-25 mg per tablet Take 1 tablet by mouth once daily. Blood-Glucose Meter (ACCU-CHEK GUIDE GLUCOSE METER) Use to test glucose QID blood sugar diagnostic (BLOOD GLUCOSE TEST) test strip Use to test blood sugar qid albuterol HFA (PROVENTIL HFA, VENTOLIN HFA) 90 mcg/actuation inhaler Inhale 2 Puffs as instructed every 4 hours as needed for wheezing/shortness of breath. FISH OIL-DHA-EPA ORAL Take 1 capsule by mouth once daily. cholecalciferol, vitamin D3, (VITAMIN D3 ORAL) Take 2,000 Units by mouth. acetaminophen (TYLENOL) 500 mg tablet Acetaminophen Active 1000 MG DAILY February 22, 2019 4:45pm metoprolol tartrate, short acting, (LOPRESSOR) 50 mg tablet Take 50 mg by mouth twice daily. Tadalafil (CIALIS) 5 mg tablet Take 1 tablet by mouth once daily. gabapentin (NEURONTIN) 300 mg capsule Take 600mg in the morning, 300mg in the afternoon and 600mg in the evening. tirzepatide, weight loss (ZEPBOUND) 2.5 mg/0.5 mL pen injector Inject 2.5 mg subcutaneously one time a week. OZEMPIC 0.25 mg or 0.5 mg (2 mg/3 mL) pen INJECT 0.5MG SUBCUTANEOUSLYONCE A WEEK ELIQUIS 2.5 mg tab(s) oxyCODONE-acetaminophen (PERCOCET) 5-325 mg tablet Take 1 tablet by mouth every 4 hours as needed for pain. oxyCODONE-acetaminophen (PERCOCET) 5-325 mg tablet Take 1 tablet by mouth every 4 hours as needed for pain. oxyCODONE-acetaminophen (PERCOCET) 7.5-325 mg tablet Take 1-2 tablets by mouth every 6 hours as needed for pain. semaglutide (OZEMPIC) 0.25 mg or 0.5 mg (2 mg/3 mL) pen Inject 0.5 mg subcutaneously one time a week. benzonatate (TESSALON PERLES) 100 mg capsule Take 2 capsules by mouth three times daily as needed for cough. (Patient not taking: Reported on 10/18/2022) semaglutide (OZEMPIC) 0.25 mg or 0.5 mg(2 mg/1.5 mL) pen Inject 0.25 mg subcutaneously one time a week. (Patient not taking: Reported on 12/16/2022) tirzepatide (MOUNJARO) 7.5 mg/0.5 mL pen injector Inject 7.5 mg subcutaneously one time a week. (Patient not taking: Reported on 10/18/2022) tirzepatide (MOUNJARO) 5 mg/0.5 mL pen injector Inject 5 mg subcutaneously one time a week. X 30 days then start 7.5 (Patient not taking: Reported on 10/18/2022) tirzepatide (MOUNJARO) 2.5 mg/0.5 mL pen injector Inject 2.5 mg subcutaneously one time a week. X 30 days then start 5 mg (Patient not taking: Reported on 10/18/2022) ibuprofen (MOTRIN) 800 mg tablet Take 1 tablet by mouth every 6 hours as needed for pain. (Patient not taking: Reported on 12/16/2022) methylPREDNISolone (MEDROL, KIMBERLYN,) 4 mg Dose-Pack As Instructed per package azithromycin (ZITHROMAX Z-KIMBERLYN) 250 mg tablet 2 tablets by mouth first day then 1 tablet the next 4 days (Patient not taking: Reported on 10/18/2022) TURMERIC ORAL Take by mouth. cinnamon bark (CINNAMON ORAL) Take by mouth. (Patient not taking: Reported on 12/16/2022) Lancets lancets Use to test blood sugar QID lancets (FREESTYLE LANCETS) 28 gauge Test glucose qid HYDROcodone-Acetaminophen (NORCO) 7.5-325 mg per tablet Take 1 tablet by mouth every 6 hours as needed for pain for up to 28 doses. (Patient not taking: No sig reported) azithromycin (ZITHROMAX Z-KIMBERLYN) 250 mg tablet 2 tablets by mouth first day then 1 tablet the next 4 days (Patient not taking: No sig reported) ELIQUIS 5 mg tab(s) Take 5 mg by mouth twice daily. (Patient not taking: No sig reported) No current facility-administered medications for this visit. I have confirmed and edited as necessary the past medical, family and social histories, HPI, and ROS obtained by others. Objective BP 120/80 Pulse 86 Ht 5' 11 (1.80m) Wt 301 lb (136.5kg) SpO2 95% BMI 42.00 kg/(m^2). Physical Exam Vitals and nursing note reviewed. Constitutional: General: He is not in acute distress. Appearance: Normal appearance. He is well-developed. He is not ill-appearing. HENT: Head: Normocephalic. Right Ear: Tympanic membrane, ear canal and external ear normal. There is no impacted cerumen. Left Ear: Tympanic membrane, ear canal and external ear normal. There is no impacted cerumen. Nose: Nose normal. Mouth/Throat: Mouth: Mucous membranes are moist. Pharynx: Oropharynx is clear. Uvula midline. No oropharyngeal exudate or posterior oropharyngeal erythema. Eyes: General: Lids are normal. Vision grossly intact. Gaze aligned appropriately. No scleral icterus. Right eye: No discharge. Left eye: No discharge. Extraocular Movements: Extraocular movements intact. Conjunctiva/sclera: Conjunctivae normal. Pupils: Pupils are equal, round, and reactive to light. Neck: Thyroid: No thyroid mass, thyromegaly or thyroid tenderness. Vascular: No carotid bruit. Trachea: Trachea and phonation normal. Cardiovascular: Rate and Rhythm: Normal rate and regular rhythm. Pulses: Normal pulses. Heart sounds: Normal heart sounds. Pulmonary: Effort: Pulmonary effort is normal. Breath sounds: Normal breath sounds. Abdominal: General: Abdomen is flat. Bowel sounds are normal. Palpations: Abdomen is soft. Musculoskeletal: General: Normal range of motion. Right shoulder: Normal. Left shoulder: Normal. Cervical back: Normal, full passive range of motion without pain and neck supple. No tenderness. No spinous process tenderness. Thoracic back: Normal. Lumbar back: Normal. Right knee: Normal. Left knee: Normal. Right lower leg: No edema. Left lower leg: No edema. Lymphadenopathy: Cervical: No cervical adenopathy. Skin: General: Skin is warm and dry. Neurological: General: No focal deficit present. Mental Status: He is alert and oriented to person, place, and time. Mental status is at baseline. Sensory: Sensation is intact. Motor: Motor function is intact. Psychiatric: Attention and Perception: Attention and perception normal. Mood and Affect: Mood normal. Speech: Speech normal. Behavior: Behavior normal. Thought Content: Thought content normal. Judgment: Judgment normal. Data Reviewed: No new labs ASSESSMENT/PLAN: 1. Type 2 diabetes mellitus without complication, without long-term current use of insulin (HCC) - ICD9: 250.00, ICD10: E11.9 (primary diagnosis) - Control undetermined, due for labs - Continue current medications - Start Zepbound - ALBUMIN/CREAT RATIO RND UR - TIRZEPATIDE (WEIGHT LOSS) 2.5 MG/0.5 ML SUBCUTANEOUS PEN INJECTOR - HGB A1C 2. Hypertension, essential - ICD9: 401.9, ICD10: I10 - Controlled - Continue current medications - Recommend home blood pressure monitoring, to bring results to next visit - Encouraged sodium restriction, DASH or Mediterranean diet - Recommend regular aerobic exercise 3. Mixed hyperlipidemia - ICD9: 272.2, ICD10: E78.2 - Control undetermined, due for labs - CBC + DIFF - COMP METABOLIC PANEL - LIPID PANEL BASIC 4. Screening for thyroid disorder - ICD9: V77.0, ICD10: Z13.29 - TSH BLD 5. Screening for prostate cancer - ICD9: V76.44, ICD10: Z12.5 - PSA/PROSTSPECAG SCRN 6. ED (erectile dysfunction) of organic origin - ICD9: 607.84, ICD10: N52.9 - Start Tadalafil - TADALAFIL 5 MG TABLET 7. BMI 40.0-44.9, adult (HCC) - ICD9: V85.41, ICD10: Z68.41 - Start Zepbound - TIRZEPATIDE (WEIGHT LOSS) 2.5 MG/0.5 ML SUBCUTANEOUS PEN INJECTOR 8. Sciatica, right side - ICD9: 724.3, ICD10: M54.31 - Increase Gabapentin. - GABAPENTIN 300 MG CAPSULE 9. Left hip pain - ICD9: 719.45, ICD10: M25.552 - Advised to see Ortho. 10. Status post left hip replacement - ICD9: V43.64, ICD10: Z96.642 Return if symptoms worsen or fail to improve. Attestation: Scribe Statement: Luz Ramirez am scribing for, and in the presence of, Gloria Rosas DO July 10, 2023 4:26 PM. Physician Statement: IGloria DO, personally performed the services described in the documentation, as scribed by Lottie Ramirez in my presence, and it is both accurate and complete July 10, 2023 7:30 PM. documented in this encounter [facility] 05-28-2023 Discharge summary Note Date/Time May 28, 2023 10:36am [facility] [address] [place] [address] / REHABILITATION SERVICES DISCHARGE SUMMARY MR#: [id number] Acct: [id number] Name: SHELLY COULTER Rep #: [id number] : 1970 52 From: Amarjit Levy PT, ATC Referring Dr.: Dr. Layton Whalen DO Status: REG RCR Insurance: [facility] SELF PAY INSURANCE Discharge Summary D/C summary: It has been my pleasure to treat SHELLY COULTER referred by Dr. Layton Whalen DO, with the diagnosis of L/S fusion 03/16/23 for a total of 14 visit(s). Discharge Date: Please see the following information for a summary of their discharge status. Subjective Subjective: I need to be done now, I start work the next week. Pain LBP: Pain Intensity (Out of 10): 0 L hip pain: Pain Intensity (Out of 10): 2 R hip pain: Pain Intensity (Out of 10): 2 Overall Improvement % Improvement: 45 Objective Objective/Function: MMT: L hip still grossly 3-/5 to 4-/5 throughout. All other B LE MMT 5/5 throughout. Gait: Pt is able to ambulate 680 feet until needing to rest secondary to LBP Stairs: Pt is able to reciprocally negotiate 10 stairs with the use of 2 UE's Pt has made progress but not achieved Rx goals Goals Goal 1:: Decrease LBP x 50% to aid with RTW without limitation Goal Progress: Progressing Goal 2:: Increase B LE strength x 1 grade to aid with stair negotiation Goal Progress: Progressing Goal 3:: Pt will be able to ambulate greater than 1000' to aid with community ambulation Goal Progress: Progressing Goal 4:: I with HEP Goal Progress: Progressing Goal 5:: Pt will be able to reciprocally negotiate 10 stairs to aid with home mobility Goal Progress: Goal Met Plan Plan: Discontinue as pt is returning to work D/C Information d/c sentence: If there are questions or concerns regarding this patient's physical therapy, please feel free to call me at [phone]. Thank you for the referral of thispatient. Sincerely, Amarjit Levy, PT, ATC Balance/Gait/Functional tests Balance/Special Test Scores Lower Extremity Functional Score: 26 Improvement % Improvement: 45 <Electronically signed by Amarjit Levy PT, ATC> 05/28/23 1036 CC: Dr. Yuli Rosas, DO; Dr. Layton Whalen, DO ~ [facility] Signed [facility] Work Phone: [phone]) 407-159109-20-2023 Miscellaneous Notes* Telephone Encounter - Gemini [place] LPN - 02/26/2023 8:37 AM EDT Rx mail pharmacy faxed requesting the following refill Refill(s) Requested: Requested Prescriptions Pending Prescriptions Disp Refills OZEMPIC 0.25 mg or 0.5 mg (2 mg/3 mL) pen [Pharmacy Med Name: OZEMP .25/.5 PEN 2MG/3ML] 9 mL 1 Sig: INJECT 0.5MG SUBCUTANEOUSLYONCE A WEEK ALLERGIES No Known Allergies (home) [phone] (work) [phone] (cell) Last Office Visit Date: 12/16/2022 Last Distance Health Visit: Visit date not found Future Appointment: 06/19/2023 The patients preferred pharmacy has been captured for this encounter? yes Request is for script(s) to be escript to mail order [facility]. [place] LPN [facility] History of Present illness Narrative* Gloria Rosas DO - 12/16/2022 3:43 PM EDT Images from the original note were not included. [facility] [place] Gloria Rosas DO [address] [place] [address] Date of Evaluation: 12/16/2022 Patient Name: Shelly Coulter : 1970 Chief Complaint: Patient presents with: Hypertension Diabetes: Had A1C in November and was 6.9% right buttock pain: Had surgery 11/26/22 on left hip Nursing Intake: There are no exam notes on file for this visit. Subjective Mr. Coulter is a 52 year old male who presents with the following complaint(s): The history is provided by the patient. No russian language professor was used. Hypertension This is a chronic problem. The current episode started more than 1 year ago. Pertinent negatives include no chest pain, headaches, palpitations or shortness of breath. Diabetes He presents for his follow-up diabetic visit. He has type 2 diabetes mellitus. Pertinent negatives for hypoglycemia include no dizziness, headaches or nervousness/anxiousness. Pertinent negatives fordiabetes include no chest pain, no fatigue and no weakness. Hip Pain The pain is present in the left hip. This is a chronic problem. Pertinent negatives include no numbness. Review of Systems Constitutional: Negative for fatigue and unexpected weight change. HENT: Negative for nosebleeds. Eyes: Negative for redness and visual disturbance. Respiratory: Negative for apnea, cough and shortness of breath. Cardiovascular: Negative for chest pain, palpitations and leg swelling. Genitourinary: Negative for hematuria. Neurological: Negative for dizziness, weakness, light-headedness, numbness and headaches. Hematological: Does not bruise/bleed easily. Psychiatric/Behavioral: The patient is not nervous/anxious. PAST MEDICAL HISTORY Diagnosis Date Atrial fibrillation (HCC) Back pain Hypertension PAST SURGICAL HISTORY Procedure Laterality Date HIP CORE DECOMPRESSION 08/2021 MRSA removed from left under arm ORTHOPEDIC SURGERY HX back x 2 TONSILLECTOMY HX 06/09/1992 TOTAL HIP REPLACEMENT Left 11/26/2022 TOTAL HIP REPLACEMENT Right 2021 FAMILY HISTORY Problem Relation Age of Onset Diabetes Mother Hypertension Mother Heart Attack Father No Known Problems Sister Social History Tobacco Use Smoking status: Former Years: 34.00 Types: Cigarettes Quit date: 12/07/2017 Years since quittin.0 Smokeless tobacco: Never Vaping Use Vaping Use: Never used Substance Use Topics Alcohol use: Yes Comment: Moderate Drug use: Never Current Outpatient Medications Medication Sig oxyCODONE-acetaminophen (PERCOCET) 5-325 mg tablet Take 1 tablet by mouth every 4 hours as needed for pain. semaglutide (OZEMPIC) 0.25 mg or 0.5 mg (2 mg/3 mL) pen Inject 0.5 mg subcutaneously one time a week. metFORMIN (GLUCOPHAGE) 500 mg tablet Take 1 tablet by mouth twice daily. lancets (FREESTYLE LANCETS) 28 gauge Test glucose qid blood sugar diagnostic (BLOOD GLUCOSE TEST) test strip Use to test blood sugar qid albuterol HFA (PROVENTIL HFA, VENTOLIN HFA) 90 mcg/actuation inhaler Inhale 2 Puffs as instructed every 4 hours as needed for wheezing/shortness of breath. FISH OIL-DHA-EPA ORAL Take 1 capsule by mouth once daily. cholecalciferol, vitamin D3, (VITAMIN D3 ORAL) Take 2,000 Units by mouth. acetaminophen (TYLENOL) 500 mg tablet Acetaminophen Active 1000 MG DAILY February 22, 2019 4:45pm metoprolol tartrate, short acting, (LOPRESSOR) 50 mg tablet Take 50 mg by mouth twice daily. ELIQUIS 2.5 mg tab(s) oxyCODONE IR (ROXICODONE) 5 mg immediate release tablet Take 2 tablets by mouth every 6 hours as needed for pain for up to 7 days. semaglutide (OZEMPIC) 1 mg/dose (4 mg/3 mL) pen Inject 1 mg subcutaneously one time a week. gabapentin (NEURONTIN) 300 mg capsule Take 1 capsule by mouth three times daily for 90 days. oxyCODONE-acetaminophen (PERCOCET) 5-325 mg tablet Take 1 tablet by mouth every 4 hours as needed for pain. oxyCODONE-acetaminophen (PERCOCET) 7.5-325 mg tablet Take 1-2 tablets by mouth every 6 hours as needed for pain. semaglutide (OZEMPIC) 0.25 mg or 0.5 mg (2 mg/3 mL) pen Inject 0.5 mg subcutaneously one time a week. (Patient not taking: Reported on 12/16/2022) benzonatate (TESSALON PERLES) 100 mg capsule Take 2 capsules by mouth three times daily as needed for cough. (Patient not taking: Reported on 10/18/2022) semaglutide (OZEMPIC) 0.25 mg or 0.5 mg(2 mg/1.5 mL) pen Inject 0.25 mg subcutaneously one time a week. (Patient not taking: Reported on 12/16/2022) losartan-hydroCHLOROthiazide (HYZAAR) 100-25 mg per tablet Take 1 tablet by mouth once daily. tirzepatide (MOUNJARO) 7.5 mg/0.5 mL pen injector Inject 7.5 mg subcutaneously one time a week. (Patient not taking: Reported on 10/18/2022) tirzepatide (MOUNJARO) 5 mg/0.5 mL pen injector Inject 5 mg subcutaneously one time a week. X 30 days then start 7.5 (Patient not taking: Reported on 10/18/2022) tirzepatide (MOUNJARO) 2.5 mg/0.5 mL pen injector Inject 2.5 mg subcutaneously one time a week. X 30 days then start 5 mg (Patient not taking: Reported on 10/18/2022) ibuprofen (MOTRIN) 800 mg tablet Take 1 tablet by mouth every 6 hours as needed for pain. (Patient not taking: Reported on 12/16/2022) methylPREDNISolone (MEDROL, KIMBERLYN,) 4 mg Dose-Pack As Instructed per package azithromycin (ZITHROMAX Z-KIMBERLYN) 250 mg tablet 2 tablets by mouth first day then 1 tablet the next 4 days (Patient not taking: Reported on 10/18/2022) TURMERIC ORAL Take by mouth. cinnamon bark (CINNAMON ORAL) Take by mouth. (Patient not taking: Reported on 12/16/2022) Blood-Glucose Meter (ACCU-CHEK GUIDE GLUCOSE METER) Use to test glucose QID Lancets lancets Use to test blood sugar QID HYDROcodone-Acetaminophen (NORCO) 7.5-325 mg per tablet Take 1 tablet by mouth every 6 hours as needed for pain for up to 28 doses. (Patient not taking: No sig reported) azithromycin (ZITHROMAX Z-KIMBERLYN) 250 mg tablet 2 tablets by mouth first day then 1 tablet the next 4 days (Patient not taking: No sig reported) ELIQUIS 5 mg tab(s) Take 5 mg by mouth twice daily. (Patient not taking: No sig reported) No current facility-administered medications for this visit. I have confirmed and edited as necessary the past medical, family and social histories, HPI, and ROS obtained by others. Objective BP 118/72 Pulse 96 Temp 97.8 Ht 5' 11 (1.80m) Wt 284 lb (128.8kg) SpO2 95% BMI 39.63 kg/(m^2). Physical Exam Vitals and nursing note reviewed. Constitutional: General: He is not in acute distress. Appearance: Normal appearance. He is well-developed. He is not ill-appearing. HENT: Head: Normocephalic. Right Ear: Tympanic membrane, ear canal and external ear normal. There is no impacted cerumen. Left Ear: Tympanic membrane, ear canal and external ear normal. There is no impacted cerumen. Nose: Nose normal. Mouth/Throat: Mouth: Mucous membranes are moist. Pharynx: Oropharynx is clear. Uvula midline. No oropharyngeal exudate or posterior oropharyngeal erythema. Eyes: General: Lids are normal. Vision grossly intact. Gaze aligned appropriately. No scleral icterus. Right eye: No discharge. Left eye: No discharge. Extraocular Movements: Extraocular movements intact. Conjunctiva/sclera: Conjunctivae normal. Pupils: Pupils are equal, round, and reactive to light. Neck: Thyroid: No thyroid mass, thyromegaly or thyroid tenderness. Vascular: No carotid bruit. Trachea: Trachea and phonation normal. Cardiovascular: Rate and Rhythm: Normal rate and regular rhythm. Pulses: Normal pulses. Heart sounds: Normal heart sounds. Pulmonary: Effort: Pulmonary effort is normal. Breath sounds: Normal breath sounds. Abdominal: General: Abdomen is flat. Bowel sounds are normal. Palpations: Abdomen is soft. Musculoskeletal: General: Normal range of motion. Right shoulder: Normal. Left shoulder: Normal. Cervical back: Normal, full passive range of motion without pain and neck supple. No tenderness. Nospinous process tenderness. Thoracic back: Normal. Lumbar back: Normal. Right knee: Normal. Left knee: Normal. Right lower leg: No edema. Left lower leg: No edema. Lymphadenopathy: Cervical: No cervical adenopathy. Skin: General: Skin is warm and dry. Neurological: General: No focal deficit present. Mental Status: He is alert and oriented to person, place, and time. Mental status is at baseline. Sensory: Sensation is intact. Motor: Motor function is intact. Psychiatric: Attention and Perception: Attention and perception normal. Mood and Affect: Mood normal. Speech: Speech normal. Behavior: Behavior normal. Thought Content: Thought content normal. Judgment: Judgment normal. Data Reviewed: Most recent labs and imaging results. ASSESSMENT/PLAN: 1. Hypertension, essential - ICD9: 401.9, ICD10: I10 (primary diagnosis) - Controlled - Continue current medications - Recommend home blood pressure monitoring, to bring results to next visit - Encouraged sodium restriction, DASH or Mediterranean diet - Recommend regular aerobic exercise 2. Sciatica, right side - ICD9: 724.3, ICD10: M54.31 - Upcoming appointment with Ortho. - Continue Gabapentin - Continue Oxycodone as needed - OXYCODONE 5 MG TABLET - GABAPENTIN 300 MG CAPSULE 3. Type 2 diabetes mellitus without complication, without long-term current use of insulin (HCC) - ICD9: 250.00, ICD10: E11.9 - Increase Ozempic - SEMAGLUTIDE 1 MG/DOSE (4 MG/3 ML) SUBCUTANEOUS PEN INJECTOR 4. Status post left hip replacement - ICD9: V43.64, ICD10: Z96.642 - Continue Oxycodone as needed - OXYCODONE 5 MG TABLET 5. Class 2 obesity with body mass index (BMI) of 39.0 to 39.9 in adult, unspecified obesity type, unspecified whether serious comorbidity present - ICD9: 278.00, V85.39, ICD10: E66.9, Z68.39 - Increase Ozempic - SEMAGLUTIDE 1 MG/DOSE (4 MG/3 ML) SUBCUTANEOUS PEN INJECTOR PDMP website checked and validated. All prescriptions have been APPROPRIATELY filled. No suspiciousactivity was identified. Return in about 6 months (around 06/18/2023). Gloria Rosas DO Attestation: Scribe Statement: I Lottie Ramirez am scribing for, and in the presence of, Physician Statement: I, Gloria Rosas DO, personally performed the services described in the documentation, as scribed by Lottie Ramirez in my presence, and it is both accurate and complete December 16, 2022 4:07 PM. Gloria Rosas DO December 16, 2022 4:00 PM. documented in this encounter[place] 19558-20-2023 Procedure [facility]06-20-[address] Whalen [facility] November 26, 2022 9:51am Note Date/Time November 26, 2022 9:43 am [facility] Medical Records Department [address] [place] [address] Instructions for Home/Discharge Instructions 11/26/22 0942 MR#: [id number] Acct: [id number] Name: SHELLY COULTER Rep #:[id number] : 1970 52 From: Layton Whalen DO PCP: Dr. Yuli Rosas DO [place] [facility] [place] Instructions Diet Discharge Diet: No restrictions (Minimize sweets as a high sugar diet in the perioperative period can increase risk of infection) Activity Weight Bearing Status: Weight bearing as tolerated Dressing / Incision Call your doctor if you observe: Shortness of breath and Chest pain Additional Dressing/Incision Instructions:: Do not shower 72hrs. Begin daily showering warm water antibacterial soap postop day #3( 72hrs Post-operatively) and then daily. Leave the dressing on for 72 hours postoperatively then may remove prior to first shower and change dressing daily after this until no drainage for 2 consecutive days then may leave open to air. Follow hip precautions that were reviewed in hospital. Wear compression stockings, may remove at night. Start physical therapy as directed in hospital. Follow prescriptions instructions do not take any other pain medication or differ dosing without consulting your physician. Do not take oral NSAIDs until blood thinner has beencompleted , then may begin the day after completion if needed . Call Dr. Whalen's office with any concerns. Follow Up Care Please Follow Up With: Layton Whalen DO When: 2 weeks Test Results: Test results from this visit will be discussed in further detail at your follow- up appointment, if applicable. Discharge Plan Admission Primary Reason for Your Visit: Left total hip arthroplasty Attending Provider: Layton Whalen Primary Care Provider: Yuli Rosas Discharge Orders/Prescriptions Prescriptions: New acetaminophen [acetaminophen] 500 mg tablet 1,000 mg PO Q6H PRN Qty: 100 1RF cephalexin [cephalexin] 500 mg capsule 1,000 mg PO Q8 Qty: 4 0RF Rx Instructions: take 2 tabs at 9:00 pm and 2 tabs after 5 am when you wake up Eliquis 2.5 mg tablet 2.5 mg PO BID Qty: 42 0RF Rx Instructions: Begin morning after surgery oxycodone 5 mg tablet 5 - 15 mg PO Q4H PRN (Reason: pain) 7 Days Qty: 60 0RF Continued metformin 500 mg tablet 500 tablet PO BID Ozempic 0.25 mg or 0.5 mg (2 mg/3 mL) pen injector 0.25 mg subcut QWEEK Rx Instructions: for 4 weeks FRIDAYS losartan-hydrochlorothiazide [Hyzaar] 100-25 mg tablet 1 tab PO DAILY albuterol sulfate 90 mcg/actuation HFA aerosol inhaler 1 - 2 puff INHALATION Q6H PRN PRN (Reason: ASTHMA) omega-3 fatty acids Capsule 1,000 mg PO DAILY cinnamon bark [Cinnamon] 500 mg Capsule 500 mg PO DAILY diazepam 5 mg tablet 5 mg PO Q8 PRN (Reason: Muscle Spasm) Qty: 10 0RF metoprolol tartrate 50 mg tablet 50 mg PO BID Qty: 180 3RF Discontinued oxycodone-acetaminophen [Percocet] 5-325 mg Tablet 1 tab PO Q4H PRN (Reason: Pain) ibuprofen 600 mg tablet 600 mg PO Q6H PRN PRN (Reason: pain) Qty: 20 0RF No Action acetaminophen [Tylenol Extra Strength] 500 mg tablet 1,000 mg PO Q6H PRN (Reason: pain) Qty: 100 0RF Other Ambulatory Orders: 12 Lead EKG (Routine) Timeframe: 20221113 Location: None Selected Ordered By: Dr. Layton Whalen Referrals / Follow Up: Yuli Rosas DO [Primary Care Provider] - Disposition Disposition (needs filled in before D/C Order can be placed): Home, Self Care 11/26/22 0959<Electronically signed by Layton Whalen DO>Layton Whalen DO CC: Dr. Yuli Rosas DO ~ Signed [facility] Work Phone: 1(906) 661-213106-20-2023 History and physical note Author Dr. Whalen [facility] November 26, 2022 9:36am Note Date/Time November 26, 2022 9:36 am [facility] Medical Records Department [address] [place] [id number] History & Physical Exam 11/26/22 0934 MR#: [id number] Acct: [id number] Name: SHELLY COULTER Rep #:[id number] : 1970 52 From: Layton Whalen DO PCP: Dr. Yuli Rosas, DO [place] [place] [address] History and Physical Date of Admission: 11/26/22 [facility] [address] [place] [address] [address] [place] [address] OFFICE VISIT Date of Service:? 10/07/22 MR#: [id number] Acct: [id number] Name:SHELLY HENNING Rep #: [id number] : 1970 ? ? Provider: Dr. Layton Whalen, DO Age/Sex:? 52/M ? ? Location: [facility] Status: Signed Intake Vital Signs ? 10/07/2314:28 Height 5 ft 11 in Weight: 297 lb BMI 41.4 Intake Visit Reasons:?LEFT HIP Allergies No Known Allergies Allergy (Verified 10/07/22 15:24) Medications albuterol sulfate 90 mcg/actuation aerosol inhaler 1 - 2 puff inhalation Q6H PRNPRN ASTHMA 08/02/21 [History Confirmed 10/07/22] losartan 100 mg-hydrochlorothiazide 25 mg tablet (Hyzaar) 1 tab PO DAILY 08/02/21 [History Confirmed 10/07/22] acetaminophen 500 mg tablet (Tylenol Extra Strength) 1,000 mg PO Q6H PRN pain #100 tabs 08/07/21 [Rx Confirmed 10/07/22] metformin 500 mg tablet 500 tablet PO BID 11/21/21 [History Confirmed 10/07/22] trazodone 100 mg tablet 100 tablet PO QHS 12/12/21 [History Confirmed 10/07/22] cinnamon bark 500 mg capsule (Cinnamon) 500 mg PO DAILY 12/25/21 [History Confirmed 10/07/22] omega-3 fatty acids 1,000 mg PO DAILY 12/25/21 [History Confirmed 10/07/22] metoprolol tartrate 50 mg tablet 50 mg PO BID #180 tabs 04/01/22 [Rx Confirmed 10/07/22] semaglutide 0.25 mg or 0.5 mg (2 mg/3 mL) subcutaneous pen injector (Ozempic) 0.25 mg subcut QWEEK 10/07/22 [History Confirmed 10/07/22] PFSH Medical History? Alcohol use Arthritis Asthma Back pain Cardiology follow-up encounter COVID-19 COVID-19 virus detected (04/18/20) Cystic acne Essential (primary) hypertension ETOH abuse Former smoker History of atrial fibrillation History of echocardiogram History of edema History of pain when walking History of steroid therapy History of tobacco use Hx MRSA infection Hypertension Injury of back Obesity PAF (paroxysmal atrial fibrillation) Prediabetes Prediabetes Shortness of breath on exertion Type 2 diabetes mellitus Wears glasses Surgical History? History of back surgery History of cardiac catheterization History of left heart catheterization (02/23/19) Hx of surgical procedure Family History? Father?? Myocardial infarction,? Onset Age: 60Grandfather?? Myocardial infarction,? Onset Age: 40 Social History? Smoking Status:? Former smoker alcohol intake:? current alcohol intake frequency: 3 or more drinks per day Alcohol type: beer HPI LEFT HIP Details: Parts of this documentation were recorded by a scribe, this documentation accurately reflects the service provided and the decisions made by me, Dr. Layton Whalen, DO 10/07/22 1521. SHELLY COULTER is a 52 year old M here today for left hip pain. patient is here to discuss having a ANGELLA. States that he did go to PT for strengthening of the low back and BL hips and notes that it didn't help with the hip pain. He is taking Tylenol and Ibuprofen for the pain. He does still have severe groin pain as well.? He states that if it feels like the right hip after surgery he will be happy with it. Ortho Exam General General: Yes no acute distress Neurologic: Yes alert and Yes oriented x3 Psychologic: Yes reasonable and appropriate Left Hip Skin/Wound: No Ecchymosis, No soft tissue swelling and No Erythema Hip: Absent eccymosis, soft tissue swelling, erythema or tender to palpate - internal rotation @90 degree flexion: 8 degrees external rotation @90 degree extension: 40 degrees HIP: groin pain with IR, 5/5 hip flexion and hip abduction.? Intact sensation light touch left lower extremity dermatomes no gross motor or sensory deficits.? Palpable pedal pulses. Head: Normocephalic Atraumatic Chest: symmetrical rise, non-labored breathing, no audible wheeze Abdomen: no guarding, non-rigid Supplemental Info 10/07/2022 x-ray left hip: AVN with relatively unchanged appearance from previous x-rays 2021 x-ray right hip: Status post total hip arthroplasty with good implant position and interfaces without concern.? 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 02/18/2022 x-ray right hip status post total hip arthroplasty with good interfaces and positioning 10/10/2021 x-ray right hip: Subchondral changes of the femoral head consistent with AVN DJD 09/17/2021 x-ray right hip subchondral cystic changes of the femoral head no femoral head collapse. 07/17/2021 MRI right hip patchy sclerosis of bilateral femoral heads with slight flattening of the articular surface of the right with spurring consistent with avascular necrosis bilateral hip joints are mildly narrow. Coding Level of Care Code Off vis,est,level 3 Diagnoses Osteoarthritis of left hip? M16.12 Assessment and Plan Assessment and Plan (1) Osteoarthritis of left hip: ? ? ? Orders: Orders HIP, UNI W/ Pelvis 2-3 Views Today M25.552 - Pain in left hip ? Plan Spoke with the patient about of a total hip arthroplasty. Patient should not take any NSAIDs within 7 days of surgery. Spoke with the patient about the increased risks of the surgery due to his current BMI. Explained the risks of a total hip arthroplasty. He has hip precautions for 6 weeks strictly. Patient will need a CT scan for the makoplasty. Patient will be same day surgery.??Risks, benefits and alternatives of surgery reviewed including but not limited to bleeding, infection, nerve, foot drop, artery and/or tissue damage, fracture,VTE, leg length discrepancy, dislocation, need for hip precautions, continued pain and expected post-operative course. Tentative surgery date is November 26, 2022, instructed to hold all NSAIDs for 7 days prior Follow up for 2 week post op or sooner if pain, swelling, numbness or associatedsymptoms, or concerns develop.? All questions answered. Patient in agreement of plan. 10/07/22 1553 <Electronically signed by Layton Whalen DO> Date Layton Whalen DO Cosigner Signature: Date (if applicable) ? I have examined the patient and the H&P has been reviewed. There are no clinicalchanges since date of exam. CC: ? ~ 11/26/22 0936 <Electronically signed by Layton Whalen DO> Cosigner Signature (if applicable): CC: Dr. Yuli Rosas DO; Dr. Layton Whalen DO~ Signed [facility] Work Phone: 1(456) 915-307406-07-2023 Hospital Discharge instructionsAmbulatory Orders* 12 Lead EKG [[facility]] Time Frame: 11/13/22, Location: None Selected Additional Instructions [facility] Phone: 1(480) 366-467502-02-2023 Miscellaneous Notes* Telephone Encounter - Gloria Rosas DO - 07/11/2022 10:43 AM EST 200 sent * Telephone Encounter - Arabella Daily - 07/11/2022 10:41 AM EST [facility]'s pharmacist, Giovanny, called and stated doctor called in a script yesterday 07/10/2022 for Benzonatate but did not include the strength. Giovanny's phone [phone] .nj Arabella Daily documented in this encounterRegency [facility]01-10-2023 Miscellaneous Notes* Telephone Encounter - Paola Torres LPN - 06/18/2022 1:27 PM EST SHELLY COULTER Samuel: [id number] - PA help? Call us at Status Sent to [facility] Mounjaro 2.5MG/0.5ML pen-injectors Form [employer] Electronic PA Form (2016 NCPDP) TOSHIA COULTER Samuel: [id number] - PA help? Call us at Status Sent to [facility] 5MG/0.5ML pen-injectors Form [employer] Electronic PA Form (2016 NCPDP) SHELLY COULTER Samuel: [id number] - PA help? Call us at Status Sent to [facility] 7.5MG/0.5ML pen-injectors Form [employer] Electronic PA Form (2016 NCPDP) Submitted through cover my meds. Will await determination documented in this encounterRegency [facility]01-09-2023 History of Present illness Narrative* Gloria Rosas DO - 06/17/2022 4:15 PM EST Images from the original note were not included. [facility] Edi Rosas DO [address] [place] [address] Date of Evaluation: 06/17/2022 Patient Name: Shelly Coulter : 1970 Chief Complaint: Patient presents with: Follow Up: Elevated A1c, wt gain Nursing Intake: There are no exam notes on file for this visit. Subjective Mr. Coulter is a 51 year old male who presents with the following complaint(s): The history is provided by the patient. Hypertension This is a chronic problem. The current episode started more than 1 year ago. Pertinent negatives include no chest pain, headaches, palpitations or shortness of breath. Diabetes He presents for his follow-up diabetic visit. He has type 2 diabetes mellitus. Pertinent negatives for hypoglycemia include no dizziness, headaches or nervousness/anxiousness. Pertinent negatives fordiabetes include no chest pain, no fatigue and no weakness. Hypercholesterolemia This is a chronic problem. The current episode started more than 1 year ago. Pertinent negatives include no chest pain or shortness of breath. Back Pain This is a chronic problem. The problem occurs daily. The problem has not changed since onset.The pain is associated with no known injury. The pain is present in the lumbar spine. Pertinent negatives include no chest pain, no numbness, no headaches and no weakness. Review of Systems Constitutional: Negative for fatigue and unexpected weight change. HENT: Negative for nosebleeds. Eyes: Negative for redness and visual disturbance. Respiratory: Negative for apnea, cough and shortness of breath. Cardiovascular: Negative for chest pain, palpitations and leg swelling. Genitourinary: Negative for hematuria. Musculoskeletal: Positive for back pain. Neurological: Negative for dizziness, weakness, light-headedness, numbness and headaches. Hematological: Does not bruise/bleed easily. Psychiatric/Behavioral: The patient is not nervous/anxious. PAST MEDICAL HISTORY Diagnosis Date Atrial fibrillation (HCC) Back pain Hypertension PAST SURGICAL HISTORY Procedure Laterality Date HIP CORE DECOMPRESSION 08/2021 MRSA removed from left under arm ORTHOPEDIC SURGERY HX back x 2 TONSILLECTOMY HX 06/09/1992 FAMILY HISTORY Problem Relation Age of Onset Diabetes Mother Hypertension Mother Heart Attack Father No Known Problems Sister Social History Tobacco Use Smoking status: Former Years: 34.00 Types: Cigarettes Quit date: 12/07/2017 Years since quittin.5 Smokeless tobacco: Never Vaping Use Vaping Use: Never used Substance Use Topics Alcohol use: Yes Comment: Moderate Drug use: Never Current Outpatient Medications Medication Sig Dispense Refill cinnamon bark (CINNAMON ORAL) Take by mouth. Blood-Glucose Meter (ACCU-CHEK GUIDE GLUCOSE METER) Use to test glucose QID 1 Each 0 blood sugar diagnostic (BLOOD GLUCOSE TEST) test strip Use to test blood sugar qid 200 Strip 11 albuterol HFA (PROVENTIL HFA, VENTOLIN HFA) 90 mcg/actuation inhaler Inhale 2 Puffs as instructed every 4 hours as needed for wheezing/shortness of breath. 1 Each 11 FISH OIL-DHA-EPA ORAL Take 1 capsule by mouth once daily. cholecalciferol, vitamin D3, (VITAMIN D3 ORAL) Take 2,000 Units by mouth. acetaminophen (TYLENOL) 500 mg tablet Acetaminophen Active 1000 MG DAILY February 22, 2019 4:45pm metoprolol tartrate, short acting, (LOPRESSOR) 50 mg tablet Take 50 mg by mouth twice daily. losartan-hydroCHLOROthiazide (HYZAAR) 100-25 mg per tablet Take 1 tablet by mouth once daily. 90 tablet 3 traZODone (DESYREL) 50 mg tablet Take 2 tablets by mouth daily at bedtime. 180 tablet 3 metFORMIN (GLUCOPHAGE) 500 mg tablet Take 1 tablet by mouth twice daily. 180 tablet 5 tirzepatide (MOUNJARO) 7.5 mg/0.5 mL pen injector Inject 7.5 mg subcutaneously one time a week. 2 mL 3 tirzepatide (MOUNJARO) 5 mg/0.5 mL pen injector Inject 5 mg subcutaneously one time a week. X 30 days then start 7.5 2 mL 0 tirzepatide (MOUNJARO) 2.5 mg/0.5 mL pen injector Inject 2.5 mg subcutaneously one time a week. X 30 days then start 5 mg 2 mL 0 ibuprofen (MOTRIN) 800 mg tablet Take 1 tablet by mouth every 6 hours as needed for pain. 120 tablet 3 methylPREDNISolone (MEDROL, KIMBERLYN,) 4 mg Dose-Pack As Instructed per package 1 tablet 0 azithromycin (ZITHROMAX Z-KIMBERLYN) 250 mg tablet 2 tablets by mouth first day then 1 tablet the next 4 days 6 tablet 0 TURMERIC ORAL Take by mouth. Lancets lancets Use to test blood sugar QID 400 Each 3 lancets (FREESTYLE LANCETS) 28 gauge Test glucose qid 200 Each 11 HYDROcodone-Acetaminophen (NORCO) 7.5-325 mg per tablet Take 1 tablet by mouth every 6 hours as needed for pain for up to 28 doses. (Patient not taking: Reported on 11/30/2021) 28 tablet 0 azithromycin (ZITHROMAX Z-KIMBERLYN) 250 mg tablet 2 tablets by mouth first day then 1 tablet the next 4 days (Patient not taking: Reported on 05/18/2021 ) 6 tablet 1 ELIQUIS 5 mg tab(s) Take 5 mg by mouth twice daily. (Patient not taking: Reported on 11/30/2021 ) No current facility-administered medications for this visit. I have confirmed and edited as necessary the past medical, family and social histories, HPI, and ROS obtained by others. Objective BP 100/80 Pulse 67 Ht 5' 11 (1.80m) Wt 295 lb (133.8kg) SpO2 97% BMI 41.16 kg/(m^2). Physical Exam Vitals and nursing note reviewed. Constitutional: General: He is not in acute distress. Appearance: Normal appearance. He is well-developed. He is not ill-appearing. HENT: Head: Normocephalic. Right Ear: Tympanic membrane, ear canal and external ear normal. There is no impacted cerumen. Left Ear: Tympanic membrane, ear canal and external ear normal. There is no impacted cerumen. Nose: Nose normal. Mouth/Throat: Mouth: Mucous membranes are moist. Pharynx: Oropharynx is clear. Uvula midline. No oropharyngeal exudate or posterior oropharyngeal erythema. Eyes: General: Lids are normal. Vision grossly intact. Gaze aligned appropriately. No scleral icterus. Right eye: No discharge. Left eye: No discharge. Extraocular Movements: Extraocular movements intact. Conjunctiva/sclera: Conjunctivae normal. Pupils: Pupils are equal, round, and reactive to light. Neck: Thyroid: No thyroid mass, thyromegaly or thyroid tenderness. Vascular: No carotid bruit. Trachea: Trachea and phonation normal. Cardiovascular: Rate and Rhythm: Normal rate and regular rhythm. Pulses: Normal pulses. Heart sounds: Normal heart sounds. Pulmonary: Effort: Pulmonary effort is normal. Breath sounds: Normal breath sounds. Abdominal: General: Abdomen is flat. Bowel sounds are normal. Palpations: Abdomen is soft. Musculoskeletal: General: Normal range of motion. Right shoulder: Normal. Left shoulder: Normal. Cervical back: Normal, full passive range of motion without pain and neck supple. No tenderness. Nospinous process tenderness. Thoracic back: Normal. Lumbar back: Normal. Right knee: Normal. Left knee: Normal. Right lower leg: No edema. Left lower leg: No edema. Lymphadenopathy: Cervical: No cervical adenopathy. Skin: General: Skin is warm and dry. Neurological: General: No focal deficit present. Mental Status: He is alert and oriented to person, place, and time. Mental status is at baseline. Sensory: Sensation is intact. Motor: Motor function is intact. Psychiatric: Attention and Perception: Attention and perception normal. Mood and Affect: Mood normal. Speech: Speech normal. Behavior: Behavior normal. Thought Content: Thought content normal. Judgment: Judgment normal. Data Reviewed: Most recent labs ASSESSMENT/PLAN: 1. Hypertension, essential - ICD9: 401.9, ICD10: I10 (primary diagnosis) - good control - Continue current medication(s) - Recommended regular aerobic exercise. - Recommend home blood pressure monitoring, to bring results in on next visit - Goal of BP <130/80 - LOSARTAN 100 MG-HYDROCHLOROTHIAZIDE 25 MG TABLET - BASIC METABOLIC PNL 2. BMI 40.0-44.9, adult ([facility]) - ICD9: V85.41, ICD10: Z68.41 Weight increasing - Start Mounjaro - METFORMIN 500 MG TABLET - TIRZEPATIDE 7.5 MG/0.5 ML SUBCUTANEOUS PEN INJECTOR - TIRZEPATIDE 5 MG/0.5 ML SUBCUTANEOUS PEN INJECTOR - TIRZEPATIDE 2.5 MG/0.5 ML SUBCUTANEOUS PEN INJECTOR 3. Type 2 diabetes mellitus without complication, without long-term current use of insulin ([facility]) - ICD9: 250.00, ICD10: E11.9 uncontrolled - Continue current medications - Add Mounjaro - METFORMIN 500 MG TABLET - TIRZEPATIDE 7.5 MG/0.5 ML SUBCUTANEOUS PEN INJECTOR - TIRZEPATIDE 5 MG/0.5 ML SUBCUTANEOUS PEN INJECTOR - TIRZEPATIDE 2.5 MG/0.5 ML SUBCUTANEOUS PEN INJECTOR 4. Calcium blood increased - ICD9: 275.42, ICD10: E83.52 - Obtain PTH - PTH INTACT BLD 5. Mixed hyperlipidemia - ICD9: 272.2, ICD10: E78.2 6. Chronic insomnia - ICD9: 780.52, ICD10: F51.04 - Continue Current medication. - TRAZODONE 50 MG TABLET 7. Arthritis, lumbar spine - ICD9: 721.3, ICD10: M47.816 - Continue Ibuprofen as needed - IBUPROFEN 800 MG TABLET Gloria Rosas DO Return in about 6 months (around 12/15/2022) for medication follow up. Attestation: Scribe Statement: Luz Ramirez am scribing for, and in the presence of, Gloria Rosas DO June 17, 2022 4:42 PM. Physician Statement: I, Gloria Rosas DO, personally performed the services described in the documentation, as scribed by Lottie Ramirez in my presence, and it is both accurate and complete June 17, 2022 4:24 PM. documented in this encounterRegency [facility]01-09-2023 Miscellaneous Notes* Telephone Encounter - Paola Torres LPN - 06/17/2022 9:55 AM EST Per chart patient had A1C 06/15/22 * Telephone Encounter - Gloria Rosas DO - 06/14/2022 8:58 AM EST A1c ordered * Telephone Encounter - Gloria Rosas DO - 06/06/2022 9:46 AM EST documented in this encounterRegency [facility]11-28-2022 Miscellaneous Notes* Telephone Encounter - Gemini Grove LPN - 05/06/2022 8:49 AM EST Pharmacy faxed requesting the following refill Refill(s) Requested: Requested Prescriptions Pending Prescriptions Disp Refills losartan-hydroCHLOROthiazide (HYZAAR) 100-25 mg per tablet [Pharmacy Med Name: LOSARTAN/HCT TAB 100-25] 90 tablet 3 Sig: TAKE 1 TABLET ONCE DAILY ALLERGIES No Known Allergies (home) [phone] (work) [phone] (cell) Last Office Visit Date: 11/30/2021 Last [facility] Visit: Visit date not found Future Appointment: Visit date not found The patients preferred pharmacy has been captured for this encounter? yes Request is for script(s) to be escript to pharmacy. Gemini Grove LPN documented in this encounterRegency Hospital [facility]07-22-2022 Miscellaneous Notes* Telephone Encounter - Neena Anoop - 12/28/2021 10:10 AM EDT This encounter was opened in error. @[email or web address]@ documented in this encounterRegency Hospital [facility]06-24-2022 History of Present illness Narrative* Gloria Rosas DO - 11/30/2021 10:02 AM EDT Images from the original note were not included. [facility] [place] Gloria Rosas DO [address] [place] [id number] Date of Evaluation: 11/30/2021 Patient Name: Shelly Coulter : 1970 Chief Complaint: Patient presents with: paperwork: disablilty paperwork. brought paperwork. Results: review blood work Nursing Intake: There are no exam notes on file for this visit. Subjective Mr. Coulter is a 51 year old male who presents with the following complaint(s): The history is provided by the patient and the spouse. No russian language professor was used. Hip Pain The pain is present in the right hip. This is a chronic problem. The problem occurs daily. The problem has been rapidly worsening. The pain is severe. Pertinent negatives include no numbness. Hypertension This is a chronic problem. The current episode started more than 1 year ago. The problem is controlled. Pertinent negatives include no chest pain, headaches, palpitations or shortness of breath. Riskfactors for coronary artery disease include obesity and male gender. Review of Systems Constitutional: Negative for fatigue and unexpected weight change. HENT: Negative for nosebleeds. Eyes: Negative for redness and visual disturbance. Respiratory: Negative for apnea, cough and shortness of breath. Cardiovascular: Negative for chest pain, palpitations and leg swelling. Genitourinary: Negative for hematuria. Neurological: Negative for dizziness, weakness, light-headedness, numbness and headaches. Hematological: Does not bruise/bleed easily. Psychiatric/Behavioral: Positive for sleep disturbance. The patient is not nervous/anxious. PAST MEDICAL HISTORY Diagnosis Date Atrial fibrillation (HCC) Back pain Hypertension PAST SURGICAL HISTORY Procedure Laterality Date HIP CORE DECOMPRESSION 08/2021 MRSA removed from left under arm ORTHOPEDIC SURGERY HX back x 2 TONSILLECTOMY HX 06/09/1992 FAMILY HISTORY Problem Relation Age of Onset Diabetes Mother Hypertension Mother Heart Attack Father No Known Problems Sister Social History Tobacco Use Smoking status: Former Smoker Years: 34.00 Quit date: 12/07/2017 Years since quittin.9 Smokeless tobacco: Never Used Vaping Use Vaping Use: Never used Substance Use Topics Alcohol use: Yes Comment: Moderate Drug use: Never Current Medications TURMERIC ORAL Take by mouth. cinnamon bark (CINNAMON ORAL) Take by mouth. Blood-Glucose Meter (ACCU-CHEK GUIDE GLUCOSE METER) Use to test glucose QID blood sugar diagnostic (ACCU-CHEK GUIDE TEST STRIPS) test strip 1 Strip four times daily. Use as instructed Lancets lancets Use to test blood sugar QID metFORMIN (GLUCOPHAGE) 500 mg tablet Take 1 tablet by mouth twice daily. lancets (FREESTYLE LANCETS) 28 gauge Test glucose qid blood sugar diagnostic (BLOOD GLUCOSE TEST) test strip Use to test blood sugar qid albuterol HFA (PROVENTIL HFA, VENTOLIN HFA) 90 mcg/actuation inhaler Inhale 2 Puffs as instructed every 4 hours as needed for wheezing/shortness of breath. losartan-hydroCHLOROthiazide (HYZAAR) 100-25 mg per tablet Take 1 tablet by mouth once daily. FISH OIL-DHA-EPA ORAL Take 1 capsule by mouth once daily. cholecalciferol, vitamin D3, (VITAMIN D3 ORAL) Take 2,000 Units by mouth. traZODone (DESYREL) 50 mg tablet Take 1 tablet by mouth daily at bedtime. acetaminophen (TYLENOL) 500 mg tablet Acetaminophen Active 1000 MG DAILY February 22, 2019 4:45pm metoprolol tartrate, short acting, (LOPRESSOR) 50 mg tablet Take 50 mg by mouth twice daily. HYDROcodone-Acetaminophen (NORCO) 7.5-325 mg per tablet Take 1 tablet by mouth every 6 hours as needed for pain for up to 28 doses. azithromycin (ZITHROMAX Z-KIMBERLYN) 250 mg tablet 2 tablets by mouth first day then 1 tablet the next 4 days ELIQUIS 5 mg tab(s) Take 5 mg by mouth twice daily. I have confirmed and edited as necessary the past medical, family and social histories, HPI, and ROS obtained by others. Objective BP 114/86 Pulse 55 Temp 97.8 Ht 5' 11 (1.80m) Wt 289 lb (131.1kg) SpO2 95% BMI 40.33 kg/(m^2). Physical Exam Vitals and nursing note reviewed. Constitutional: General: He is not in acute distress. Appearance: Normal appearance. He is well-developed. He is not ill-appearing. HENT: Head: Normocephalic. Right Ear: Tympanic membrane, ear canal and external ear normal. There is no impacted cerumen. Left Ear: Tympanic membrane, ear canal and external ear normal. There is no impacted cerumen. Nose: Nose normal. Mouth/Throat: Mouth: Mucous membranes are moist. Pharynx: Oropharynx is clear. Uvula midline. No oropharyngeal exudate or posterior oropharyngeal erythema. Eyes: General: Lids are normal. Vision grossly intact. Gaze aligned appropriately. No scleral icterus. Right eye: No discharge. Left eye: No discharge. Extraocular Movements: Extraocular movements intact. Conjunctiva/sclera: Conjunctivae normal. Pupils: Pupils are equal, round, and reactive to light. Neck: Thyroid: No thyroid mass, thyromegaly or thyroid tenderness. Vascular: No carotid bruit. Trachea: Trachea and phonation normal. Cardiovascular: Rate and Rhythm: Normal rate and regular rhythm. Pulses: Normal pulses. Heart sounds: Normal heart sounds. Pulmonary: Effort: Pulmonary effort is normal. Breath sounds: Normal breath sounds. Abdominal: General: Abdomen is flat. Bowel sounds are normal. Palpations: Abdomen is soft. Musculoskeletal: General: Normal range of motion. Right shoulder: Normal. Left shoulder: Normal. Cervical back: Normal, full passive range of motion without pain and neck supple. No tenderness. Nospinous process tenderness. Thoracic back: Normal. Lumbar back: Normal. Right knee: Normal. Left knee: Normal. Right lower leg: No edema. Left lower leg: No edema. Lymphadenopathy: Cervical: No cervical adenopathy. Skin: General: Skin is warm and dry. Neurological: General: No focal deficit present. Mental Status: He is alert and oriented to person, place, and time. Mental status is at baseline. Cranial Nerves: Cranial nerves are intact. Sensory: Sensation is intact. Motor: Motor function is intact. Psychiatric: Attention and Perception: Attention and perception normal. Mood and Affect: Mood normal. Speech: Speech normal. Behavior: Behavior normal. Thought Content: Thought content normal. Judgment: Judgment normal. Data Reviewed: No new labs ASSESSMENT/PLAN: 1. Right hip pain - ICD9: 719.45, ICD10: M25.551 (primary diagnosis) - Take Tramadol as needed for pain. - Disability paperwork completed, patient has Pain at rest, worsening pain with ambulation. -Can not sit , lift walk or bend -Can take tylenol or motrin in addition. - TRAMADOL 50 MG TABLET 2. Primary osteoarthritis of both hips - ICD9: 715.15, ICD10: M16.0 - Being managed by Ortho, in need to schedule upcoming surgery 3. Type 2 diabetes mellitus without complication, without long-term current use of insulin (HCC) - ICD9: 250.00, ICD10: E11.9 4. Primary hypertension - ICD9: 401.9, ICD10: I10 - good control - Continue current medication(s) - Recommended regular aerobic exercise. - Recommend home blood pressure monitoring, to bring results in on next visit - Goal of BP <130/80 5. Chronic pain syndrome - ICD9: 338.4, ICD10: G89.4 6. Chronic insomnia - ICD9: 780.52, ICD10: F51.04 - Increase Trazodone to 100 mg - TRAZODONE 100 MG TABLET PDMP website checked and validated. All prescriptions have been APPROPRIATELY filled. No suspiciousactivity was identified. Gloria Rosas, DO Return if symptoms worsen or fail to improve. Attestation: Scribe Statement: Luz Ramirez am scribing for, and in the presence of, Gloria Rosas DO November 30, 2021 10:26AM. Physician Statement: I, Gloria Rosas DO, personally performed the services described in the documentation, as scribed by Lottie Ramirez in my presence, and it is both accurate and complete November 30, 2021 10:39 AM. documented in this [facility]06-06-2022 Miscellaneous Notes* Telephone Encounter - Paola Torres LPN - 11/12/2021 1:24 PM EDT [facility] [employer] called in and left a voicemail saying free style is non formulary from November 08.States they have faxed the office. Said accu-chek guide is covered. Any questions call [phone]. Ref # [id number] Pended accucheck guide meter and test strips documented in this [facility]06-03-2022 Miscellaneous Notes* Telephone Encounter - Arleth Salas LPN - 11/09/2021 9:27 AM EDT Fax received for a refill of Azithromycin 250mg. Called and spoke with patient, he did not request this. documented in this [facility]06-02-2022 Miscellaneous Notes* Telephone Encounter - lGoria Rosas DO - 11/08/2021 9:50 AM EDT etformin [facility] Diagnosis Onset Date Resolution Status AVN of femur acute AVN of femur acute Hip arthritis acute Orthopedic aftercare acute AVN of femur acute [facility] Work Phone: Evaluation note* Diagnosis Onset Date Resolution Status AVN of femur acute AVN of femur acute Hip arthritis acute Orthopedic aftercare acute AVN of femur acute Preop cardiovascular exam ac [facility] Work Phone: Evaluation note* Diagnosis Right hip pain- Primary Pain in joint, pelvic region and thigh Primary osteoarthritis of both hips Primary localized osteoarthrosis, pelvic region and thigh Type 2 diabetes mellitus without complication, without long-term current use of insulin (HCC) Primary hypertension Unspecified essential hypertension Chronic pain syndrome Chronic insomnia Insomnia, unspecified [facility]* Diagnosis Onset Date Resolution Status AVN of femur acute Hip arthritis acute Orthopedic aftercare acute AVN of femur acute Osteoarthritis of right hip noneactive Preop cardiovascular exam ac tribal AVN of femur acute Diabetes mellitus acute Hip arthritis acute [facility] Work Phone: Evaluation note* Diagnosis OPENED IN ERROR- Primary To allow closing an encounter opened in error (used in SmartSet) [facility]* Diagnosis Hypertension, essential Unspecified essential hypertension [facility]* Diagnosis Onset Date Resolution Status Other acute postprocedural pain acute S/P total hip arthroplasty a cut Orthopedic aftercare acute S/P total hip arthroplasty a [facility] S/P total hip arthroplasty a [facility] Work Phone: Evaluation note* Diagnosis Type 2 diabetes mellitus without complication, without long-term current use of insulin (HCC)- Primary Chronic insomnia Insomnia, unspecified Hyperlipidemia, mixed Mixed hyperlipidemia Screening for prostate cancer Special screening for malignant neoplasm of prostate [facility]* Diagnosis Hypertension, essential- Primary Unspecified essential hypertension BMI 40.0-44.9, adult (HCC) Body Mass Index 40.0-44.9, adult Poorly controlled diabetes mellitus (HCC) Type II or unspecified type diabetes mellitus without mention of complication, not stated as uncontrolled Calcium blood increased Hypercalcemia Mixed hyperlipidemia Chronic insomnia Insomnia, unspecified Arthritis, lumbar spine Lumbosacral spondylosis without myelopathy [facility]* Diagnosis Onset Date Resolution Status Osteoarthritis of left hip n oneactive [facility] Work Phone: Evaluation note* Diagnosis Onset Date Resolution Status Osteoarthritis of left hip n oneactive Essential (primary) hypertension chronic PAF (paroxysmal atrial fibrillation) chronic [facility] Work Phone: Evaluation note* Diagnosis Hypertension, essential- Primary Unspecified essential hypertension Type 2 diabetes mellitus without complication, without long-term current use of insulin (HCC) Sciatica, right side Status post left hip replacement Hip joint replacement by other means Class 2 obesity with body mass index (BMI) of 39.0 to 39.9 in adult, unspecified obesity type, unspecified whether serious comorbidity present [facility]* Diagnosis Onset Date Resolution Status Lumbar radiculopathy, right acute Post laminectomy syndrome ac tribal Herniated nucleus pulposus, L4-5 right resolved Herniated nucleus pulposus, L4-5 right resolved S/P lumbar fusion acute S/P lumbar fusion acute S/P lumbar fusion acute S/P total hip arthroplasty a cute [facility] Work Phone: Evaluation note* Diagnosis Type 2 diabetes mellitus without complication, without long-term current use of insulin (HCC)- Primary Hypertension, essential Unspecified essential hypertension Mixed hyperlipidemia ED (erectile dysfunction) of organic origin Impotence of organic origin Sciatica, right side Left hip pain Pain in joint, pelvic region and thigh Status post left hip replacement Hip joint replacement by other means BMI 40.0-44.9, adult ([facility]) Body Mass Index 40.0-44.9, adult Screening for thyroid disorder Screening for prostate cancer Special screening for malignant neoplasm of prostate [facility]* Diagnosis Hypertension, essential Unspecified essential hypertension documented in this encounter [facility] note* Diagnosis Sciatica, right side- Primary documented in this encounter [facility] note* Diagnosis BMI 40.0-44.9, adult ([facility]) Body Mass Index 40.0-44.9, adult Poorly controlled diabetes mellitus (HCC) Type II or unspecified type diabetes mellitus without mention of complication, not stated as uncontrolled [facility]* Diagnosis BMI 40.0-44.9, adult (HCC) Body Mass Index 40.0-44.9, adult Poorly controlled diabetes mellitus (HCC) Type II or unspecified type diabetes mellitus without mention of complication, not stated as uncontrolled documented in this encounter [facility] note* Diagnosis Sciatica, right side [facility]* Diagnosis Pre-operative examination- Primary Preoperative examination, unspecified Screening for colon cancer Special screening for malignant neoplasms, colon Atrial fibrillation, unspecified type (HCC) Primary hypertension Unspecified essential hypertension Hyperlipidemia, mixed Mixed hyperlipidemia Benign prostatic hyperplasia with urinary frequency Class 3 severe obesity due to excess calories without serious comorbidity with body mass index (BMI) of 40.0 to 44.9 in adult (HCC) Former smoker Personal history of tobacco use, presenting hazards to health BMI 40.0-44.9, adult (HCC) Body Mass Index 40.0-44.9, adult Poorly controlled diabetes mellitus (HCC) Type II or unspecified type diabetes mellitus without mention of complication, not stated as uncontrolled documented in this encounter [facility] note* Diagnosis Pre-operative examination- Primary Preoperative examination, unspecified Screening for colon cancer Special screening for malignant neoplasms, colon Atrial fibrillation, unspecified type (HCC) Primary hypertension Unspecified essential hypertension Hyperlipidemia, mixed Mixed hyperlipidemia Benign prostatic hyperplasia with urinary frequency Class 3 severe obesity due to excess calories without serious comorbidity with body mass index (BMI) of 40.0 to 44.9 in adult (HCC) Former smoker Personal history of tobacco use, presenting hazards to health Hypertension, essential- Primary Unspecified essential hypertension Mixed hyperlipidemia Uncontrolled type 2 diabetes mellitus with hyperglycemia (HCC) Chronic fatigue Other malaise and fatigue Other depression Neuropathy Mononeuritis of unspecified site Chronic pain of left thumb BMI 40.0-44.9, adult (HCC) Body Mass Index 40.0-44.9, adult Left hip pain Pain in joint, pelvic region and thigh Status post left hip replacement Hip joint replacement by other means Screening for malignant neoplasm of prostate Screening for thyroid disorder [facility]* Diagnosis Pre-operative examination- Primary Preoperative examination, unspecified Screening for colon cancer Special screening for malignant neoplasms, colon Atrial fibrillation, unspecified type (HCC) Primary hypertension Unspecified essential hypertension Hyperlipidemia, mixed Mixed hyperlipidemia Benign prostatic hyperplasia with urinary frequency Class 3 severe obesity due to excess calories without serious comorbidity with body mass index (BMI) of 40.0 to 44.9 in adult (HCC) Former smoker Personal history of tobacco use, presenting hazards to health Uncontrolled type 2 diabetes mellitus with hyperglycemia (HCC) [facility]* Diagnosis Pre-operative examination- Primary Preoperative examination, unspecified Screening for colon cancer Special screening for malignant neoplasms, colon Atrial fibrillation, unspecified type (HCC) Primary hypertension Unspecified essential hypertension Hyperlipidemia, mixed Mixed hyperlipidemia Benign prostatic hyperplasia with urinary frequency Class 3 severe obesity due to excess calories without serious comorbidity with body mass index (BMI) of 40.0 to 44.9 in adult (HCC) Former smoker Personal history of tobacco use, presenting hazards to health Hypertension, essential- Primary Unspecified essential hypertension Other depression Mixed hyperlipidemia Type 2 diabetes mellitus without complication, without long-term current use of insulin (HCC) TEOFILO (obstructive sleep apnea) Obstructive sleep apnea (adult) (pediatric) Neuropathy Mononeuritis of unspecified site Class 2 obesity with body mass index (BMI) of 39.0 to 39.9 in adult, unspecified obesity type, unspecified whether serious comorbidity present Screening for malignant neoplasm of prostate documented in this encounter [facility] note* Diagnosis Pre-operative examination- Primary Preoperative examination, unspecified Screening for colon cancer Special screening for malignant neoplasms, colon Atrial fibrillation, unspecified type (HCC) Primary hypertension Unspecified essential hypertension Hyperlipidemia, mixed Mixed hyperlipidemia Benign prostatic hyperplasia with urinary frequency Class 3 severe obesity due to excess calories without serious comorbidity with body mass index (BMI) of 40.0 to 44.9 in adult Former smoker Personal history of tobacco use, presenting hazards to health Neuropathy Mononeuritis of unspecified site documented in this encounter [facility] noteNo assessment information availableWBl[facility] Work [facility]: Hospital Discharge instructionsW[facility] Work Phone: Hospital Discharge instructions Additional Instructions Take medication as prescribed. No driving or heavy machinery if taking diazepam. Gabapentin to be taken at night. Follow-up with your doctor for further management.[facility] Work Phone: Hospital Discharge instructions Additional Instructions If you notice any worsening of the redness on your hip, please call back and we will call you in an antibiotic. Please follow-up with your surgeon, return for any worsening of symptoms.[facility] Work Phone: Hospital Discharge instructions Additional Instructions You may remove the gauze packing in a couple days.[facility] Work Phone: Reason for referral (narrative)No reason for referral information availableWBlanchard [facility] Work Phone: Summary Purpose Family History No Family History Records Found Relationship Condition Age at Onset Recorded Date/T jay father Myocardial infarction 60 grandfather Myocardial infarction 40 Relationship Condition Age at Onset Recorded Date/T jay father Myocardial infarction 60 Diabetes mellitus Unknown grandfather Myocardial infarction 40 mother Diabetes mellitus Unknown Advance Directives No Advanced Directives Records Found Advance Directive Response Recorded Date/ Time Living Will No October 11, 2021 6: 57pm Power of Jewelry Sales No October 11, 2021 6:57pm Advance Directive Response Recorded Date/ Time Living Will No October 30, 2021 9 :57am Power of Jewelry Sales No October 30, 2021 9:57am Advance Directive Response Recorded Date/ Time Living Will No December 25, 2021 8:32am Power of Jewelry Sales No December 25 8:32am Advance Directive Response Recorded Date/ Time Living Will No December 25, 2021 7:32am Power of Jewelry Sales No December 25 7:32am Advance Directive Response Recorded Date/ Time Living Will No October 14, 2022 6: 40am Power of Jewelry Sales No October 14, 2022 6:40am Advance Directive Response Recorded Date/ Time Living Will No November 12, 2022 1 0:23am Power of Jewelry Sales No November 12, 2022 10:23am Advance Directive Response Recorded Date/ Time Living Will No November 29, 2022 11:28am Power of Jewelry Sales No November 29 11:28am Advance Directive Response Recorded Date/ Time Living Will No March 19 7:10am Power of Jewelry Sales No March 19, 2023 7:10am Advance Directive Response Recorded Date/ Time Do you have a Healthcare Power of Jewelry Sales? No October 27, 2024 9:48pm Chief Complaint and Reason for Visit Chief Complaint R HIP PAIN Right hip RIGHT HIP AVN RIGHT HIP RT HIP ILIAC CREST BONE MARROW ASPIRATION W INJECT RT HIP ILIAC CREST BONE MARROW ASPIRATION W INJECT right hip RIGHT HIP xray RIGHT HIP xray RT HIP PN,DJD/RX HERE LEFT EYE FB Reason for Visit AVN of femur AVN of femur Hip arthritis Orthopedic aftercare AVN of femur Chief Complaint Right hip RIGHT HIP AVN RIGHT HIP RT HIP ILIAC CREST BONE MARROW ASPIRATION W INJECT RT HIP ILIAC CREST BONE MARROW ASPIRATION W INJECT right hip RIGHT HIP xray RIGHT HIP xray LEFT EYE FB 1 Y FU RT HIP PN,DJD/RX HERE RIGHT ANGELLA HIP PAIN Reason for Visit AVN of femur AVN of femur Hip arthritis Orthopedic aftercare AVN of femur Preop cardiovascular exam Chief Complaint right hip RIGHT HIP xray RIGHT HIP xray LEFT EYE FB 1 Y FU RT HIP PN,DJD/RX HERE RIGHT ANGELLA HIP PAIN RT TOTAL KNEE W KENDRA RIGHT HIP BL HIPS EORDER Reason for Visit AVN of femur Hip arthritis Orthopedic aftercare AVN of femur Osteoarthritis of right hip Preop cardiovascular exam AVN of femur Diabetes mellitus Hip arthritis Chief Complaint RIGHT HIP xray RIGHT HIP xray LEFT EYE FB 1 Y FU RT HIP PN,DJD/RX HERE RIGHT ANGELLA HIP PAIN RT TOTAL KNEE W KENDRA RIGHT HIP BL HIPS EORDER Reason for Visit AVN of femur Hip arthritis Orthopedic aftercare AVN of femur Osteoarthritis of right hip Preop cardiovascular exam AVN of femur Diabetes mellitus Hip arthritis Chief Complaint RIGHT HIP xray RIGHT HIP xray LEFT EYE FB 1 Y FU RT HIP PN,DJD/RX HERE RIGHT ANGELLA HIP PAIN RT TOTAL KNEE W KENDRA RIGHT HIP BL HIPS EORDER R TOTAL HIP ROBOT R TOTAL HIP ROBOT Reason for Visit AVN of femur Hip arthritis Orthopedic aftercare AVN of femur Osteoarthritis of right hip Preop cardiovascular exam AVN of femur Diabetes mellitus Hip arthritis Chief Complaint right hip RIGHT HIP right hip xray R THR/RX TO BE FAX RIGHT HIP Room 1 xray Reason for Visit Other acute postproc edural pain S/P total hip arthroplasty Orthopedic aftercare S/P total hip arthroplasty S/P total hip arthroplasty Chief Complaint LEFT HIP RM 2 hip pain Reason for Visit Osteoarthritis of le ft hip Chief Complaint LEFT HIP RM 2 hip pain 1 YR FU LEFT HIP ANGELLA PRE OP Reason for Visit Osteoarthritis of le ft hip Essential (primary) hypertension PAF (paroxysmal atrial fibrillation) Chief Complaint LEFT HIP RM 2 hip pain 1 YR FU LEFT HIP ANGELLA PRE OP LT TOTAL HIP W KENDRA LT TOTAL HIP W KENDRA Reason for Visit Osteoarthritis of le ft hip Essential (primary) hypertension PAF (paroxysmal atrial fibrillation) Chief Complaint LEFT HIP RM 2 hip pain 1 YR FU LEFT HIP ANGELLA PRE OP LT TOTAL HIP W KENDRA LT TOTAL HIP W KENDRA lower ext Reason for Visit Osteoarthritis of le ft hip Essential (primary) hypertension PAF (paroxysmal atrial fibrillation) Chief Complaint PREOP low back 360 Lumbar Fusion L4-5 with laminec 360 Lumbar Fusion L4-5 with laminec 360 Lumbar Fusion L4-5 with laminec 360 Lumbar Fusion L4-5 with laminec 360 Lumbar Fusion L4-5 with laminec 360 Lumbar Fusion L4-5 with laminec 360 Lumbar Fusion L4-5 with laminec TACHY 360 Lumbar Fusion L4-5 with laminec 360 Lumbar Fusion L4-5 with laminec 360 Lumbar Fusion L4-5 with laminec testicular swelling low back LUMBAR SPINE RM 5 LEFT HIP RM 2 TOTAL HIP ARTHROPLASTY, LEFT HIP PAIN. RX HERE Reason for Visit Lumbar radiculopathy , right Post laminectomy syndrome Herniated nucleus pulposus, L4-5 right Herniated nucleus pulposus, L4-5 right S/P lumbar fusion S/P lumbar fusion S/P lumbar fusion S/P total hip arthroplasty Chief Complaint Admit Date CELLULITIS UNDER L ARM October 27, 2024 9: 43pm Reason for Referral Specialty Diagnoses / Procedures Referred By Contac t Referred To Contact Diagnoses Right hip pain Gloria Rosas, [address] [address] Referral ID Status Reason Start Date Expiration Date Visits Re quested Visits Authorized [id number] Closed 1 1 Specialty Diagnoses / Procedures Referred By Contac t Referred To Contact Diagnoses BMI 40.0-44.9, adult (HCC) Poorly controlled diabetes mellitus (HCC) Gloria Rosas, [place] [address] Referral ID Status Reason Start Date Expiration Date Visits Re quested Visits Authorized [id number] Closed 1 1 Referral ID Status Reason Start Date Expiration Date Visits Re quested Visits Authorized [id number] Closed 1 1 Referral ID Status Reason Start Date Expiration Date Visits Re quested Visits Authorized [id number] Closed 1 1 Specialty Diagnoses / Procedures Referred By Contac t Referred To Contact Diagnoses Sciatica, right side Status post left hip replacement Gloria Rosas, [address] [address] Referral ID Status Reason Start Date Expiration Date Visits Re quested Visits Authorized [id number] Closed 1 1 Specialty Diagnoses / Procedures Referred By Contac t Referred To Contact Diagnoses Type 2 diabetes mellitus without complication, without long-term current use of insulin ([facility]) BMI 40.0-44.9, adult ([facility]) [place] [id number] Referral ID Status Reason Start Date Expiration Date Visits Re quested Visits Authorized [id number] Denied 1 1 Specialty Diagnoses / Procedures Referred By Contac t Referred To Contact Diagnoses ED (erectile dysfunction) of organic origin RalphGloria toth, [place] [address] Referral ID Status Reason Start Date Expiration Date Visits Re quested Visits Authorized [id number] Closed 1 1 Specialty Diagnoses / Procedures Referred By Williamac t Referred To Contact Diagnoses Sciatica, right side RalphNoemi tothland Reese, [place] [address] Referral ID Status Reason Start Date Expiration Date Visits Re quested Visits Authorized [id number] Closed 1 1 Specialty Diagnoses / Procedures Referred By Williamac t Referred To Contact MR IMAGING Diagnoses Status post left hip replacement Procedures MRI HIP WO IVCON LEFT MRI ANY JT LOWER EXTREM W/O CONTRAST [place] [id number] Mr Imaging [id number] Referral ID Status Reason Start Date Expiration Date Visits Requested Visits Authorized [id number] New Request Auto-Generat ed Referral 4 05/29/2025 1 1 Specialty Diagnoses / Procedures Referred By Contac t Referred To Contact Orthopedics Diagnoses Chronic pain of left thumb Procedures CONSULT TO ORTHOPAEDICS OFFICE/OUTPATIENT NEW HIGH MDM 60 [place] [id number] Referral ID Status Reason Start Date Expiration Date Visits Requested Visits Authorized [id number] Authorized PCP Requested Referral 4 04/29/2025 1 1 Specialty Diagnoses / Procedures Referred By Contac t Referred To Contact Diagnoses Uncontrolled type 2 diabetes mellitus with hyperglycemia ([facility]) Gloria Rosas DO [address] [place] [address] Referral ID Status Reason Start Date Expiration Date V isits Requested Visits Authorized [id number] Pending Review 04/30/2024 06/29/2024 1 1 Additional Source Comments (unrecognized sect ion and content) No Status Records FoundNo Status Records FoundNo Status Records FoundNo Status Records Found INFORMATION SOURCE (unrecogn ized section and content) DATE CREATED AUTHOR 10/01/2018 [facility] ([place]) DATE CREATED AUTHOR AUTHOR'S ORGANIZ ATION 09/21/2023 [facility] DATE CREATED AUTHOR AUTHOR'S ORGANIZ ATION 08/29/2024 [facility] DATE CREATED AUTHOR AUTHOR'S ORGANIZ ATION 11/06/2024 [facility] Goals (unrecognized section and content) Goals may be documented in a n alternate sectionGoals may be documented in an alternate sectionGoals may be documented in an alternate sectionGoals may be documented in an alternate sectionGoals may be documented in an alternate sectionGoals may be documented in an alternate sectionGoals may be documented in an alternate sectionGoals may be documented in an alternate section Source Comments (unrecognize d section and content) In the event this informatio n is protected by the Federal Confidentiality of Alcohol and Drug Abuse Patient Records regulations: The Federal rules restrict any use of the information to criminally investigate or prosecute any alcohol or drug abuse patient.[facility] the event this information is protected by the Federal Confidentiality of Alcohol and Drug Abuse Patient Records regulations: The Federal rules restrict any use of the information to criminally investigate or prosecute any alcohol or drug abuse patient.[facility] the event this information is protected by the Federal Confidentiality of Alcohol and Drug Abuse Patient Records regulations: The Federal rules restrict any use of the information to criminally investigate or prosecute any alcohol or drug abuse patient.[facility] the event this information is protected by the Federal Confidentiality of Alcohol and Drug Abuse Patient Records regulations: The Federal rules restrict any use of the information to criminally investigate or prosecute any alcohol or drug abuse patient.[facility] the event this information is protected by the Federal Confidentiality of Alcohol and Drug Abuse Patient Records regulations: The Federal rules restrict any use of the information to criminally investigate or prosecute any alcohol or drug abuse patient.[facility] the event this information is protected by the Federal Confidentiality of Alcohol and Drug Abuse Patient Records regulations: The Federal rules restrict any use of the information to criminally investigate or prosecute any alcohol or drug abuse patient.[facility] the event this information is protected by the Federal Confidentiality of Alcohol and Drug Abuse Patient Records regulations: The Federal rules restrict any use of the information to criminally investigate or prosecute any alcohol or drug abuse patient.[facility] the event this information is protected by the Federal Confidentiality of Alcohol and Drug Abuse Patient Records regulations: The Federal rules restrict any use of the information to criminally investigate or prosecute any alcohol or drug abuse patient.[facility] the event this information is protected by the Federal Confidentiality of Alcohol and Drug Abuse Patient Records regulations: The Federal rules restrict any use of the information to criminally investigate or prosecute any alcohol or drug abuse patient.[facility] the event this information is protected by the Federal Confidentiality of Alcohol and Drug Abuse Patient Records regulations: The Federal rules restrict any use of the information to criminally investigate or prosecute any alcohol or drug abuse patient.[facility] the event this information is protected by the Federal Confidentiality of Alcohol and Drug Abuse Patient Records regulations: The Federal rules restrict any use of the information to criminally investigate or prosecute any alcohol or drug abuse patient.[facility] the event this information is protected by the Federal Confidentiality of Alcohol and Drug Abuse Patient Records regulations: The Federal rules restrict any use of the information to criminally investigate or prosecute any alcohol or drug abuse patient.[facility] the event this information is protected by the Federal Confidentiality of Alcohol and Drug Abuse Patient Records regulations: The Federal rules restrict any use of the information to criminally investigate or prosecute any alcohol or drug abuse patient.[facility] the event this information is protected by the Federal Confidentiality of Alcohol and Drug Abuse Patient Records regulations: The Federal rules restrict any use of the information to criminally investigate or prosecute any alcohol or drug abuse patient.[facility] the event this information is protected by the Federal Confidentiality of Alcohol and Drug Abuse Patient Records regulations: The Federal rules restrict any use of the information to criminally investigate or prosecute any alcohol or drug abuse patient.[facility] the event this information is protected by the Federal Confidentiality of Alcohol and Drug Abuse Patient Records regulations: The Federal rules restrict any use of the information to criminally investigate or prosecute any alcohol or drug abuse patient.[facility]In the event this information is protected by the Federal Confidentiality of Alcohol and Drug Abuse Patient Records regulations: The Federal rules restrict any use of the information to criminally investigate or prosecute any alcohol or drug abuse patient.[facility]In the event this information is protected by the Federal Confidentiality of Alcohol and Drug Abuse Patient Records regulations: The Federal rules restrict any use of the information to criminally investigate or prosecute any alcohol or drug abuse patient.[facility]In the event this information is protected by the Federal Confidentiality of Alcohol and Drug Abuse Patient Records regulations: The Federal rules restrict any use of the information to criminally investigate or prosecute any alcohol or drug abuse patient.[facility]In the event this information is protected by the Federal Confidentiality of Alcohol and Drug Abuse Patient Records regulations: The Federal rules restrict any use of the information to criminally investigate or prosecute any alcohol or drug abuse patient.[facility]In the event this information is protected by the Federal Confidentiality of Alcohol and Drug Abuse Patient Records regulations: The Federal rules restrict any use of the information to criminally investigate or prosecute any alcohol or drug abuse patient.[facility]In the event this information is protected by the Federal Confidentiality of Alcohol and Drug Abuse Patient Records regulations: The Federal rules restrict any use of the information to criminally investigate or prosecute any alcohol or drug abuse patient.[facility]In the event this information is protected by the Federal Confidentiality of Alcohol and Drug Abuse Patient Records regulations: The Federal rules restrict any use of the information to criminally investigate or prosecute any alcohol or drug abuse patient.[facility]In the event this information is protected by the Federal Confidentiality of Alcohol and Drug Abuse Patient Records regulations: The Federal rules restrict any use of the information to criminally investigate or prosecute any alcohol or drug abuse patient.[facility]In the event this information is protected by the Federal Confidentiality of Alcohol and Drug Abuse Patient Records regulations: The Federal rules restrict any use of the information to criminally investigate or prosecute any alcohol or drug abuse patient.[facility]In the event this information is protected by the Federal Confidentiality of Alcohol and Drug Abuse Patient Records regulations: The Federal rules restrict any use of the information to criminally investigate or prosecute any alcohol or drug abuse patient.[facility]In the event this information is protected by the Federal Confidentiality of Alcohol and Drug Abuse Patient Records regulations: The Federal rules restrict any use of the information to criminally investigate or prosecute any alcohol or drug abuse patient.[facility]In the event this information is protected by the Federal Confidentiality of Alcohol and Drug Abuse Patient Records regulations: The Federal rules restrict any use of the information to criminally investigate or prosecute any alcohol or drug abuse patient.[facility]In the event this information is protected by the Federal Confidentiality of Alcohol and Drug Abuse Patient Records regulations: The Federal rules restrict any use of the information to criminally investigate or prosecute any alcohol or drug abuse patient.[facility] Reason for Visit (unrecogniz ed section and content) Reason Comments Refill Request Reason Onset Date Comments Refill Request 11/12/2021 Reason Comments paperwork disablilty paperwork . brought paperwork. Results review blood work Reason Onset Date Comments Opened In Error 12/28/2021 Reason Comments Outside Lab Results Reason Comments Orders Reason Comments Results Reason Comments Medication Authorization mounjaro Reason Comments Follow Up Elevated A1c, wt gai n Reason Comments Medication Problem Reason Comments Hypertension Diabetes Had A1C in November and was 6.9% right buttock pain Had surgery 11/26/22 on left hip Reason Comments Hypertension 6 month Hyperlipidemia 6 month Diabetes 6 monthLast 11/13/2022 = 6.9 Hip Replacement Unable to move leg i s certain directions after replacment11/29 Reason Comments Orders A1c reminder Reason Comments Diabetes Reason Comments Appointment Reason Onset Date Comments Refill Request 07/18/2024 Reason Comments Hypertension Hyperlipidemia Diabetes ozempic Medication Follow-up Lyrica doesn't work would like to go back to gabapentin Care Teams (unrecognized sec tion and content) Lehr Loader Relationship Specialty Start Date End Date Gloria Rosas, PCP - General Family Practice 02/25/16 Lehr Loader Relationship Specialty Start Date End Date Gloria Rosas, DO PCP - General Family Practice 02/25/16 Lehr Loader Relationship Specialty Start Date End Date Gloria Rosas, DO PCP - General Family Practice 02/25/16 Lehr Loader Relationship Specialty Start Date End Date Gloria Rosas DO PCP - General Family Practice 02/25/16 Lehr Loader Relationship Specialty Start Date End Date Gloria Rosas DO PCP - General Family Practice 02/25/16 Lehr Loader Relationship Specialty Start Date End Date Gloria Rosas, DO PCP - General Family Practice 02/25/16 Lehr Loader Relationship Specialty Start Date End Date Gloria Rosas, DO PCP - General Family Practice 02/25/16 Lehr Loader Relationship Specialty Start Date End Date Gloria Rosas, DO PCP - General Family Medicine 02/25/16 Lehr Loader Relationship Specialty Start Date End Date Gloria Rosas, DO PCP - General Family Medicine 02/25/16 Lehr Loader Relationship Specialty Start Date End Date Gloria Rosas, DO PCP - General Family Medicine 02/25/16 Lehr Loader Relationship Specialty Start Date End Date Gloria Rosas, DO PCP - General Family Medicine 02/25/16 Lehr Loader Relationship Specialty Start Date End Date Gloria Rosas, DO PCP - General Family Medicine 02/25/16 Team Status: Active Member Role Status Dates Dr. Yuli Rosas , DO Family Provider Active Dr. Yuli Rosas , DO Primary Care Provider Acti ve Team Status: Inactive Member Role Status Dates Dr. Yuli Rosas , DO Primary Care Provider, Ref erring Provider Active Dr. Layton Whalen , DO Attending Provider Active Team Status: Inactive Member Role Status Dates Dr. Yuli Rosas , DO Primary Care Provider Acti ve Dr. Dario Buckner MD Attending Provider Active Team Status: Inactive Member Role Status Dates Dr. Yuli Rosas , DO Primary Care Provider Acti ve Dr. Bobby Oliveira , DO Emergency Provider Active Team Status: Inactive Member Role Status Dates Dr. Yuli Rosas , DO Primary Care Provider, Ref erring Provider Active Nargis Horn PA, PA Attending Provider Active Team Status: Inactive Member Role Status Dates Dr. Yuli Rosas , DO Primary Care Provider Acti ve Dr. Layton Whalen , DO Attending Provider, Referring Provider Active Team Status: Inactive Member Role Status Dates Dr. Yuli Rosas , DO Primary Care Provider Acti ve Dr. Bobby Oliveira , DO Attending Provider, Emergency Provide r Active Team Status: Active Member Role Status Dates Dr. Yuli Rosas , DO Primary Care Provider Acti ve Dr. Layton Whalen , DO Attending Provid er, Referring Provider, Other Provider Active Team Status: Inactive Member Role Status Dates Dr. Yuli Rosas , DO Primary Care Provider Acti ve Dr. Dipti Hatch MD Emergency Provider Active Lehr Loader Relationship Specialty Start Date End Date Gloria Rosas DO PCP - General Family Medicine 02/25/16 Lehr Loader Relationship Specialty Start Date End Date Gloria Rosas DO PCP - General Family Medicine 02/25/16 Team Status: Inactive Member Role Status Dates Dr. Yuli Rosas , DO Primary Care Provider, Ref erring Provider Active Dr. Patrick Calloway , DO Attending Provider Active Team Status: Active Member Role Status Dates Dr. Yuli Rosas DO Primary Care Provider Acti ve Dr. Dario Buckner MD Attending Provider Active Dr. Patrick Calloway , DO Referring Provider Active Team Status: Active Member Role Status Dates Dr. Yuli Rosas DO Primary Care Provider Acti ve Dr. Patrick Calloway , DO Admit Provider, A ttending Provider, Referring Provider, Other Provider Active Team Status: Active Member Role Status Dates Dr. Yuli Rosas DO Primary Care Provider Acti ve Dr. Patrick Calloway , DO Admit Provider, R eferring Provider, Other Provider Active Dr. Aniceto Price MD Attending Provider Active Team Status: Active Member Role Status Dates Dr. Yuli Rosas DO Primary Care Provider Acti ve Dr. Patrick Calloway , DO Admit Provider, R eferring Provider, Other Provider Active Dr. Fabi Cherry MD Other Provider Active Dr. Royce Elliott , DO Other Provider Active Dr. Makayla Singh MD Other Provider Active Dr. Makayla Díaz MD Other Provider Active Dr. Casey Treadwell MD Other Provider Active Dr. Scarlet Bansal MD Attending Provider, Other Prov ider Active Dr. Katie Alvarado , DO Other Provider Active Dr. Mian Malhotra , DO Other Provider Active Dr. Mian Veras MD Other Provider Active Tavon Miranda MD Other Provider Active Dr. Aniceto Fan , DO Other Provider Active Dr. Triston Gómez MD Other Provider Active Dr. Layton Irizarry MD Other Provider Active Dr. Facundo Salazar MD Other Provider Active Dr. Ronen Larsen , DO Other Provider Active Dr. Sadie Maloney , DO Other Provider Active Dr. Asael Fajardo , DO Other Provider Active Dr. Berkley Alvarado MD Other Provider Active Dr. Chris Warner MD Other Provider Active Dr. Uriel Aguilar MD Other Provider Active Dr. Satya De La Rosa MD Other Provider Active Dr. Lissette Pretty MD Other Provider Active Dr. Willard Benavides MD Other Provider Active Erika Cano QUALITY CONTROL MICROBIOLOGIST, QUALITY CONTROL MICROBIOLOGIST-C Other Provider Active Ehsan OLMEDO Other Provider Active Team Status: Active Member Role Status Dates Dr. Yuli Rosas , DO Primary Care Provider Acti ve Dr. Patrick Calloway , DO Admit Provider, Other Provider Active Dr. Fabi Cherry MD Other Provider Active Dr. Royce Elliott , DO Other Provider Active Dr. Makayla Singh MD Other Provider Active Dr. Makayla Díaz MD Other Provider Active Dr. Casey Treadwell MD Other Provider Active Dr. Scarlet Bansal MD Other Provider Active Dr. Katie Alvarado , DO Other Provider Active Dr. Mian Malhotra , DO Other Provider Active Dr. Mian Veras MD Attending Provider, Other Provid er Active Tavon Miranda MD Other Provider Active Dr. Aniceto Fan , DO Other Provider Active Dr. Triston Gómez MD Other Provider Active Dr. Layton Irizarry MD Other Provider Active Dr. Facundo Salazar MD Other Provider Active Dr. Ronen Larsen , DO Other Provider Active Dr. Sadie Maloney , DO Other Provider Active Dr. Asael Fajardo , DO Other Provider Active Dr. Berkley Alvarado MD Other Provider Active Dr. Chris Warner MD Other Provider Active Dr. Uriel Aguilar MD Other Provider Active Dr. Satya De La Rosa MD Other Provider Active Dr. Lissette Pretty MD Other Provider Active Dr. Willard Benavides MD Other Provider Active Erika Cano QUALITY CONTROL MICROBIOLOGIST, QUALITY CONTROL MICROBIOLOGIST-C Other Provider Active Ehsan OLMEDO Other Provider Active Team Status: Active Member Role Status Dates Dr. Yuli Rosas , DO Primary Care Provider Acti ve Dr. Patrick Calloway , DO Admit Provider, A ttending Provider, Referring Provider, Other Provider Active Dr. Fabi Cherry MD Other Provider Active Dr. Royce Elliott , DO Other Provider Active Dr. Makayla Singh MD Other Provider Active Dr. Makayla Díaz MD Other Provider Active Dr. Casey Treadwell MD Other Provider Active Dr. Scarlet Bansal MD Other Provider Active Dr. Katie Alvarado , DO Other Provider Active Dr. Mian Malhotra , DO Other Provider Active Dr. Mian Veras MD Other Provider Active Tavon Miranda MD Other Provider Active Dr. Aniceto Fan , DO Other Provider Active Dr. Triston Gómez MD Other Provider Active Dr. Layton Irizarry MD Other Provider Active Dr. Facundo Salazar MD Other Provider Active Dr. Ronen Larsen , DO Other Provider Active Dr. Sadie Maloney , DO Other Provider Active Dr. Asael Fajardo , DO Other Provider Active Dr. Berkley Alvarado MD Other Provider Active Dr. Chris Warner MD Other Provider Active Dr. Uriel Aguilar MD Other Provider Active Dr. Satya De La Rosa MD Other Provider Active Dr. Lissette Pretty MD Other Provider Active Dr. Willard Benavides MD Other Provider Active Erika Cano QUALITY CONTROL MICROBIOLOGIST, QUALITY CONTROL MICROBIOLOGIST-C Other Provider Active Ehsan OLMEDO Other Provider Active Team Status: Inactive Member Role Status Dates Dr. Yuli Rosas , DO Primary Care Provider, Ref erring Provider Active Krystal OLMEDO, PA Attending Provider Active Team Status: Inactive Member Role Status Dates Dr. Yuli Rosas , DO Primary Care Provider Acti ve Dr. Patrick Calloway , DO Admit Provider, R eferring Provider, Other Provider Active Dr. Fabi Cherry MD Other Provider Active Dr. Royce Elliott , DO Other Provider Active Dr. Makayla Singh MD Other Provider Active Dr. Makayla Díaz MD Other Provider Active Dr. Casey Treadwell MD Other Provider Active Dr. Scarlet Bansal MD Other Provider Active Dr. Katie Alvarado , DO Other Provider Active Dr. Mian Malhotra , DO Other Provider Active Dr. Mian Veras MD Attending Provider, Other Provid er Active Tavon Miranda MD Other Provider Active Dr. Aniceto Fan , DO Other Provider Active Dr. Triston Gómez MD Other Provider Active Dr. Layton Irizarry MD Other Provider Active Dr. Facundo Salazar MD Other Provider Active Dr. Ronen Larsen , DO Other Provider Active Dr. Sadie Maloney , DO Other Provider Active Dr. Asael Fajardo , DO Other Provider Active Dr. Berkley Alvarado MD Other Provider Active Dr. Chris Warner MD Other Provider Active Dr. Uriel Aguilar MD Other Provider Active Dr. Satya De La Rosa MD Other Provider Active Dr. Lissette Pretty MD Other Provider Active Dr. Willard Benavides MD Other Provider Active Erika Cano QUALITY CONTROL MICROBIOLOGIST, QUALITY CONTROL MICROBIOLOGIST-C Other Provider Active Ehsan OLMEDO Other Provider Active Team Status: Inactive Member Role Status Dates Dr. Yuli Rosas , DO Primary Care Provider Acti ve Dr. Layton Whalen , DO Attending Provider Active Team Status: Inactive Member Role Status Dates Dr. Yuli Rosas , DO Primary Care Provider Acti ve Dr. Aniceto Walls , DO Attending Provider, Huyen jackson Active Lehr Loader Relationship Specialty Start Date End Date Gloria Rosas DO PCP - General Family Medicine 02/25/16 Lehr Loader Relationship Specialty Start Date End Date Gloria Rosas DO PCP - General Family Medicine 02/25/16 Lehr Loader Relationship Specialty Start Date End Date Gloria Rosas DO PCP - General Family Medicine 02/25/16 Lehr Loader Relationship Specialty Start Date End Date Gloria Rosas DO PCP - General Family Medicine 02/25/16 Lehr Loader Relationship Specialty Start Date End Date Gloria Rosas DO PCP - General Family Medicine 02/25/16 Lehr Loader Relationship Specialty Start Date End Date Gloria Rosas DO PCP - General Family Medicine 02/25/16 Lehr Loader Relationship Specialty Start Date End Date Gloria Rosas DO PCP - General Family Medicine 02/25/16 Lehr Loader Relationship Specialty Start Date End Date Gloria Rosas DO PCP - General Family Medicine 02/25/16 Lehr Loader Relationship Specialty Start Date End Date Gloria Rosas DO PCP - General Family Medicine 02/25/16 Lehr Loader Relationship Specialty Start Date End Date Gloria Rosas DO PCP - General Family Medicine 02/25/16 Lehr Loader Relationship Specialty Start Date End Date Gloria Rosas DO PCP - General Family Medicine 02/25/16 Lehr Loader Relationship Specialty Start Date End Date Gloria Rosas DO PCP - General Family Medicine 02/25/16 Lehr Loader Relationship Specialty Start Date End Date Gloria Rosas DO PCP - General Family Medicine 02/25/16 Team Status: Active Member Role Status Dates Dr. Yuli Rosas DO Primary Care Provider Acti ve Team Status: Inactive Member Role Status Dates Dr. Yuli Rosas DO Primary Care Provider Acti ve Start: October 27, 2024 End: October 28, 2024 Dr. Aniceto Walls , Emergency Provider Active Start: October 27, 2024 End: October 28, 2024 FOR RECORDS PERTAINING TO PATIENTS WHO ARE OR HAVE BEEN ENROLLED IN A CHEMICAL DEPENDENCY/SUBSTANCEABUSE PROGRAM, SOME INFORMATION MAY BE OMITTED. This clinical summary was aggregated from multiple sources. Caution should be exercised in using it in the provision of clinical care. This summary normalizes information from multiple sources, and as a consequence, information in this document may materially change the coding, format and clinical context of patient data. In addition, data may be omitted in some cases. CLINICAL DECISIONS SHOULD BE BASED ON THE PRIMARY CLINICAL RECORDS. [facility] [employer], [facility]. provides no warranty or guarantee of the accuracy or completeness of information in this document.
--- NOTE | 2024-11-10 12:51 | NEURO ---
NCS and/or EMG Patient Report Ordering Doctor: Tavon Lala DATE OF SERVICE: 11/10/24 Alfred presents complaints of pain and pressure in both feet. He reports sharp and shooting pain in the toes. He has numbness and tingling in the feet. He reports a history of multiple back surgeries. Electrodiagnostic findings: Right peroneal motor nerve demonstrates normal distal latency, amplitude with reduced conduction velocity. Left peroneal motor nerve demonstrates normal distal latency, amplitude and conduction velocity. Tibial motor response within normal limits bilaterally. Prolonged right tibial, left tibial and left peroneal F?waves. Prolonged H?reflex bilaterally. Prolonged sural latency is noted bilaterally. Prolonged superficial peroneal latency bilaterally. Needle EMG testing was performed in the lower limbs. All muscles tested showed no evidence of denervation with normal motor unit potentials. Electrodiagnostic impression: This is an abnormal study in the lower limbs 1. Electrodiagnostic findings suggestive of peripheral polyneuropathy, sensory greater than motor with evidence of demyelination. 2. No electrodiagnostic evidence is noted for lumbosacral radiculopathy. Multi Select Codes Neurology Neurology Interp Codes: 50458-54 Musc test done w/n test comp (interp) (2) and 74814-61 Nrv cndj test 9-10 studies (interp)
== END | disposition home or self-care (01) ==
PROVIDERS: PCP Family Medicine; Referring Provider Podiatrist; Visit Provider Podiatrist
DX: R20.2 Paresthesia of skin (principal)
CPT/HCPCS: 95886; 95911

== ENCOUNTER → 2025-03-15 | Outpatient (CLI) | payer OTHER, SELFPAY | END | disposition home or self-care (01) | PROVIDERS: PCP Family Medicine; Referring Provider Anesthesiology; Visit Provider Anesthesiology | DX: M96.1 Postlaminectomy syndrome, not elsewhere classified (principal) | CPT/HCPCS: 72148 ==

== ENCOUNTER → 2025-05-09 | Outpatient (CLI) | payer OTHER, SELFPAY | END | disposition home or self-care (01) | LOC: LAB 12:03 | PROVIDERS: PCP Family Medicine; Referring Provider Anesthesiology; Visit Provider Anesthesiology | DX: Z01.812 Encounter for preprocedural laboratory examination (principal) | CPT/HCPCS: 87081 ==